=== PATIENT | female | born 1965 | race Caucasian/White ===

== ENCOUNTER 2016-10-27 07:28 | Outpatient (RCR) | payer BC ==
--- NOTE | 2016-10-22 16:46 | Diagnostic Imaging Report ---
INDICATION: Stone risk profile. KUB at 4:39 PM FINDINGS: The gallbladder appears to be surgically absent. The renal shadows appear normal. There are no calculi seen. Ureter distributions are clear. Urinary bladder is unremarkable. Bowel gas pattern is normal. There is scoliosis of the lumbar spine convex to right. IMPRESSION: No radiographic evidence for nephrolithiasis. Dictated by: Dictated on workstation # [id number]
[~2016-10-27 07:28] MED LIST: ALLP300T PO; ASP81TEC PO; ASPI-84; BENA10TA; BENA1TAB2 PO; CHOL10003; CHOL2000 PO; CIPR-225 PO; CPR500T; EXEN10PE4 SQ; FENO48TA16 PO; GLYB1.253; HYDR1TAB PO; IBP600T1 PO; INSU100V6 SQ; KCL10CCR; MTF500T; MTF500T PO; MULT-608; MULT-608 PO; NF-LOVAZAC; NF-LOVAZAC PO; NITR100C3 PO; NORE-4 PO; PANT40TA2 PO; PHEN100T17 PO; POTA10CA43 PO; POTA10TA17 PO; POTA10TA36 PO; PRM25T PO; SIMV10TA3; SMV10T PO; TRIA1CAP PO
[2016-10-31 14:35] LABS: STONE RISK AMMONIUM 33 mEq/24hr (14-62); STONE RISK BRUSHITE 4.33 (< 2.00); STONE RISK CA OXALATE 4.23 (< 2.00); STONE RISK CALCIUM 262 mg/day (< 250); STONE RISK CITRATE 738 mg/day (> 320); STONE RISK CREATININE 1308 mg/day (600-1800); STONE RISK MAGNESIUM 79 mg/day (> 60); STONE RISK OXALATE 40 mg/day (< 45); STONE RISK PH 6.8 (5.5-7.0); STONE RISK PHOSPHOROUS 459 mg/day (< 1100); STONE RISK POTASSIUM 17 mEq/24hr (19-135); STONE RISK SODIUM 193 mEq/24hr (< 200); STONE RISK SODIUM URATES 5.31 (< 2.00); STONE RISK STRUVITE 8.66 (< 75.00); STONE RISK SULFITE 10 mmol/day (< 30); STONE RISK TOTAL VOLUME 1.12 L/day (> 2.00); STONE RISK URIC ACID 433 mg/day (< 700); STONE RISK URIC ACID SAT 0.29 (< 2.00)
== END 2016-10-28 23:27 | disposition home or self-care (01) ==
LOC: RAD 07:28 → EDSTATUS 10-28 23:25 → RAD 10-28 23:27
PROVIDERS: ATTEND Urology
DX: N20.0 Calculus of kidney (principal)
CPT/HCPCS: 36415; 74000; 82140; 82340; 82507; 82570; 83735; 83945; 83986; 84105; 84133; 84300; 84392; 84560

== ENCOUNTER 2017-02-09 18:54 | Emergency (ER) | payer BC ==
[~2017-02-09] VITALS: Ht 170.2 cm; Wt 85.3 kg
--- OUTSIDE RECORDS SUMMARY | 2017-02-09 19:00 | XMS REPORT ---
Author Author YOU CRESOP Organization [employer] Address Unknown Phone Unavailable Care Team Providers Care Strategy Manager Name Role Phone YOU CRESPO CP Unavailable Allergies No Known Allergies Problems Problem Type Condition Code Onset Dates Condition Status Assessment Encounter for immunization Z23 Active Problem Need for prophylactic vaccination and inoculation, Influenza V04.81 Active Medications No Known Medications Procedures Procedure Coding System Code Date SINGLE IMMUNIZATION ADMIN CPT-4 20725 Apr 02, 2016 FLUARIX QUAD P-FREE 3 AND UP .50 2015 CPT-4 87008 Apr 02, 2016 Results No Known Results Immunizations Vaccine Administration Date FLUARIX QUAD P-FREE 3 AND UP .50 2015Apr 02, 2016 Summary Purpose [employer] Submission
--- OUTSIDE RECORDS SUMMARY | 2017-02-09 19:03 | XMS REPORT | Clinical Summary ---
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.3 Active Jessa Ortega Benign neoplasm of colon DERMATITIS 692.9 Resolved Jessa Ortega Contact dermatitis and other eczema, unspecified cause MICROALBUMINURIA 791.0 Active Jessa Ortega Proteinuria WELL WOMAN V70.0 Resolved Jessa Ortega Routine general medical examination at a health care facility SINUSITIS 473.9 Resolved Jessa Ortega Unspecified sinusitis (chronic) DIABETES MELLITUS, NONINSULIN DEPENDENT (NIDDM) 250.00 Active Jessa Ortega Diabetes mellitus without mention of complication, type II or unspecified type, not stated as uncontrolled HYPERCHOLESTEROLEMIA 272.0 Active Jessa Ortega Pure hypercholesterolemia DYSPNEA 786.09 Resolved Jessa Ortega Other dyspnea and respiratory abnormality CHEST PAIN, ATYPICAL 786.59 Resolved Jessa Ortega Other chest pain COUGH 786.2 Resolved Jessa Ortega Cough FEVER 780.6 Resolved Jessa Ortega Fever and other physiologic disturbances of temperature regulation SINUSITIS, SPHENOIDAL, ACUTE 461.3 Resolved Jessa Ortega Acute sphenoidal sinusitis RENAL CALCULUS 592.0 Active Jessa Ortega Calculus of kidney PYELONEPHRITIS, ACUTE 590.10 Resolved Jessa Ortega Acute pyelonephritis without lesion of renal medullary necrosis UNSPECIFIED DISORDER OF SKIN&SUBCUTANEOUS TISSUE 709.9 Resolved Jessa Ortega Unspecified disorder of skin and subcutaneous tissue CELLULAR DERMATOFIBROMA RIGHT LOWER LEG DR AHUMADA BENIGN NEOPLASM OF OVARY 220 Resolved Jessa Ortega Benign neoplasm of ovary HYPOKALEMIA 276.8 Active Jessa Ortega Hypopotassemia HAND PAIN, LEFT 729.5 Resolved Jessa Ortega Pain in limb URI 465.9 Resolved Jessa Ortega Acute upper respiratory infections of unspecified site Medication List Medication Instructions Start Date Stop Date Generic Name NDC Status Provider Patient Instruction POTASSIUM CHLORIDE ER 10 MEQ CR-CAPS 1 PO DAILY POTASSIUM CHLORIDE 05566996535 Active Chantel Lagunas LANTUS SOLOSTAR 100 UNIT/ML SOLN 36 units at night INSULIN GLARGINE 79103790318 Active Chantel Lagunas FLUOROPLEX 1 % CREA Apply as directed FLUOROURACIL 63882412169 No Longer Active Jessa Ortega TRICOR 48 MG TABS 1 PO daily FENOFIBRATE 37793010541 Active Jessa Ortega GENERESS FE 0.8-25 MG-MCG CHEW As directed NORETHIN-ETH ESTRADIOL-FE 99267952290 Active Jessa Ortega NYSTATIN 866423 UNIT/GM POWD apply to affected areas over Nystatin cream nightly NYSTATIN 05137638089 No Longer Active Jessa Ortega NYSTATIN 719178 UNIT/GM CREA apply to affect areas nightly 05/03 NYSTATIN 73740429862 No Longer Active Jessa Ortega LIPITOR 10 MG TAB 1 PO QD ATORVASTATIN CALCIUM 70936254825 Active Chantel Lagunas GLUCOPHAGE XR 500 MG TB24 2 PO Qpm METFORMIN HCL 98671231120 Active Jessa Ortega CEFTIN 500 MG TABS 1 PO BID for 10 days CEFUROXIME AXETIL 25389710675 No Longer Active Jessa MAGANA'S NASAL SPRAY (DEXAMETHASONE, GENTAMICIN, SALINE) 2 puffs each nostril TID for [address] LANDRY NASAL SPRAY ( DEXAMETHASONE, GENTAMICIN, SALINE) No Longer Active Jessa Ortega PEN NEEDLES 5/16" 31G X 8 MM MISC as directed INSULIN PEN NEEDLE 58419682720 Active Chantel Lagunas BYETTA 10 MCG PEN 10 MCG/0.04ML SOLN 1 injection twice daily EXENATIDE 85361653295 Active Jessa Ortega BYETTA 5 MCG PEN 5 MCG/0.02ML SOLN 1 injection twice daily for 1 month 04/25 EXENATIDE 74612737206 No Longer Active Jessa Ortega MICRONASE 1.25 MG TABS 2 PO in AM and 1 PO in evening. GLYBURIDE No Longer Active Jessa Ortega AUGMENTIN 875-125 MG TAB 1 PO BID AMOXICILLIN-POT CLAVULANATE 50351243823 No Longer Active Jessa MAGANA'Marcela NASAL SPRAY (DEXAMETHASONE, GENTAMICIN, SALINE) 2 puffs each nostril TID for [address] LANDRY NASAL SPRAY ( DEXAMETHASONE, GENTAMICIN, SALINE) No Longer Active Jessa Ortega LANCETS as directed LANCETS No Longer Active Jessa Ortega GLUCOMETER TESTING STRIPS Test blood sugar daily Dx: 250.00 01/07 GLUCOMETER TESTING STRIPS No Longer Active Jessa Ortega GLUCOMETER MACHINE as directed Dx: 250.00 GLUCOMETER MACHINE No Longer Active Jessa Ortega LOVAZA 1 GM CAPS 4 PO daily LMBFR-6-GHQJ ETHYL ESTERS 91803050772 Active Chantel Lagunas LORTAB 5 5-500 MG TABS 1 to 2 PO Q4hrs prn pain ACETAMINOPHEN-HYDROCODONE 14431691514 No Longer Active Jessa Ortega DYAZIDE 37.5-25 MG CAP 1 PO daily TRIAMTERENE-HCTZ 53575987134 Active Chantel Lagunas POTASSIUM CITRATE 10 MEQ (1080 MG) CR-TABS 1 PO TID POTASSIUM CITRATE 28726647769 Active Chantel Lagunas ZYLOPRIM 300 MG TABS 1 PO daily ALLOPURINOL 65565975285 Active Chantel Lagunas VITAMIN D 1000 UNIT TABS 2 PO Daily CHOLECALCIFEROL 70252483027 Active Jessa Ortega AUGMENTIN 875-125 MG TAB 1 PO BID AMOXICILLIN-POT CLAVULANATE 09991107324 No Longer Active Jessa LANDRY NASAL SPRAY (DEXAMETHASONE, GENTAMICIN, SALINE) 2 puffs each nostril TID for [address] LANDRY NASAL SPRAY ( DEXAMETHASONE, GENTAMICIN, SALINE) No Longer Active Jessa LANDRY NASAL SPRAY (DEXAMETHASONE, GENTAMICIN, SALINE) 2 puffs each nostril TID for [address] LANDRY NASAL SPRAY ( DEXAMETHASONE, GENTAMICIN, SALINE) No Longer Active Chantel Lagunas CIPRO 500 MG TAB 1 PO BID for 7 days CIPROFLOXACIN HCL 78243815048 No Longer Active Chantel Lagunas MULTIVITAMINS TABS 1 PO QD MULTIPLE VITAMIN 36993233242 Active Jessa Ortega LOTENSIN HCT 10-12.5 MG TABS 1 po daily BENAZEPRIL- HYDROCHLOROTHIAZIDE 04369589679 Active Chantel Lagunas TESSALON 200 MG CAPS 1 PO TID prn BENZONATATE 26520025595 No Longer Active Jessa Ortega LEVAQUIN 500 MG TAB 1 PO QD LEVOFLOXACIN 49873369876 No Longer Active Jessa Ortega ROBITUSSIN A-C 10-100 MG/5ML SYRUP 1 teaspoon PO Q 4-6 hr prn ROBITUSSIN A-C 10-100 MG/5ML SYRUP 46516104730 No Longer Active Jessa Ortega AUGMENTIN 500-125 MG TAB 1 PO BID AMOXICILLIN-POT CLAVULANATE 58485453228 No Longer Active Jessa Ortega ASPIRIN 81 MG CHEW 1 PO daily ASPIRIN 99412728761 Active Jessa Ortega ZOCOR 10 MG TAB 1 PO daily SIMVASTATIN 65455573477 No Longer Active Chantel MAGANA'S NASAL SPRAY (DEXAMETHASONE, GENTAMICIN, SALINE) 2 puffs each nostril BID DR. MAGANA'S NASAL SPRAY (DEXAMETHASONE, GENTAMICIN, SALINE) No Longer Active Alexsander Perez AUGMENTIN 500-125 MG TAB 1 PO BID AMOXICILLIN-POT CLAVULANATE 17678728199 No Longer Active Jessa Ortega OMACOR FISH OIL 1 PO QD OMACOR FISH OIL No Longer Active Scottie Shaw BENADRYL 25 MG TABS 2 PO QHS prn rash (Dr Marmolejo) DIPHENHYDRAMINE HCL 51690829578 Active Jessa Ortega ZYRTEC 10 MG TABS 1 PO daily for rash recurrence (Dr Marmolejo) CETIRIZINE HCL 76379675479 Active Jessa Ortega Immunizations Vaccine Administration Date Value Standard Description Influenza vaccine given done influenza virus vaccine, unspecified formulation Influenza vaccine given Done influenza virus vaccine, unspecified formulation Influenza vaccine given received influenza virus vaccine, unspecified formulation Vital Signs Date Name Value Unit Range Description blood pressure, diastolic - 8462-4 85 mm[Hg] BP wagner blood pressure, systolic - 8480-6 143 mm[Hg] BP sys pulse rate E&M - 8867-4 84 /min Heart rate respiratory rate E&M - 9279-1 14 /min Resp rate temperature E&M 98.6 [degF] Body temperature weight E&M - 3141-9 190 [lb_av] Weight Measured blood pressure, diastolic - 8462-4 80 mm[Hg] BP wagner blood pressure, systolic - 8480-6 125 mm[Hg] BP sys pulse rate E&M - 8867-4 70 /min Heart rate respiratory rate E&M - 9279-1 14 /min Resp rate temperature E&M 98.6 [degF] Body temperature weight E&M - 3141-9 192 [lb_av] Weight Measured blood pressure, diastolic - 8462-4 98 mm[Hg] BP wagner blood pressure, systolic - 8480-6 144 mm[Hg] BP sys pulse rate E&M - 8867-4 95 /min Heart rate respiratory rate E&M - 9279-1 14 /min Resp rate weight E&M - 3141-9 191 [lb_av] Weight Measured blood pressure, diastolic - 8462-4 90 mm[Hg] BP wagner blood pressure, systolic - 8480-6 130 mm[Hg] BP sys pulse rate E&M - 8867-4 72 /min Heart rate respiratory rate E&M - 9279-1 14 /min Resp rate temperature E&M 98.2 [degF] Body temperature weight E&M - 3141-9 191 [lb_av] Weight Measured Diagnostic Results Date Name Value Unit Range Description Clinical Lists Update: CBC,CMP,FLP,TSH,HgA1c - Chemistry albumin, serum 4.3 g/dL anion gap, serum 11 urea nitrogen, blood 8 mg/dL calcium, serum 9.9 mg/dL chloride, serum 104 mmol/L cholesterol, serum 170 mg/dL carbon dioxide, venous blood 29.0 mmol/L creatinine, serum 0.6 mg/dL HDL cholesterol, serum 30.0 mg/dL hemoglobin A1C, blood, as % of total hemoglobin 7.6 % thyroid stimulating hormone, serum 2.01 u[iU]/mL LDL cholesterol, serum 89 mg/dL potassium, serum 3.3 mmol/L protein, total, serum 6.2 g/dL aspartate aminotransferase (SGOT), serum 38 U/L alanine aminotransferase (SGPT), serum 38 U/L bilirubin, serum, total 0.5 mg/dL triglyceride, serum, fasting 254 mg/dL sodium, serum 141 mmol/L Estimated Glomerular Filtration Rate (calc) 106 mL/min/1.73m2 glucose, plasma fasting 172 mg/dL cholesterol/HDL ratio, serum, percent 5.7 alkaline phosphatase, serum 83 U/L Clinical Lists Update: CBC,CMP,FLP,TSH,HgA1c - Hematology hemoglobin, blood 14.6 g/dL hematocrit, blood 45 % platelet count 323 10*3/mm3 erythrocyte (RBC) count 4.87 10*6/mm3 leukocyte count, blood 9.2 10*3/mm3 mean corpuscular volume, RBC 92 fL red blood cell distribution width 14.1 % Clinical Lists Update: CMP,CHOL,TRIG,HG1C,MICROALBUMIN - Chemistry creatinine, serum 0.7 mg/dL albumin, serum 4.1 g/dL potassium, serum 3.3 mmol/L protein, total, serum 6.3 g/dL aspartate aminotransferase (SGOT), serum 25 U/L alanine aminotransferase (SGPT), serum 15 U/L bilirubin, serum, total 0.7 mg/dL triglyceride, serum, fasting 312 mg/dL sodium, serum 138 mmol/L anion gap, serum 12 glucose, plasma fasting 168 mg/dL Estimated Glomerular Filtration Rate (calc) 95 mL/min/1.73m2 carbon dioxide, venous blood 25.0 mmol/L cholesterol, serum 99 mg/dL chloride, serum 104 mmol/L calcium, serum 9.4 mg/dL urea nitrogen, blood 10 mg/dL alkaline phosphatase, serum 100 U/L hemoglobin A1C, blood, as % of total hemoglobin 8.0 % Clinical Lists Update: CMP,CHOL,TRIG,HG1C,MICROALBUMIN - Urinalysis microalbumin, urine, semiquantitative 8.1 mg/dL Clinical Lists Update: CMP,CHOL,TRIG,HGA1C - Chemistry Estimated Glomerular Filtration Rate (calc) 98 mL/min/1.73m2 albumin, serum 3.9 g/dL anion gap, serum 9 sodium, serum 135 mmol/L triglyceride, serum, fasting 343 mg/dL bilirubin, serum, total 0.4 mg/dL alanine aminotransferase (SGPT), serum 25 U/L aspartate aminotransferase (SGOT), serum 25 U/L protein, total, serum 5.9 g/dL potassium, serum 3.6 mmol/L hemoglobin A1C, blood, as % of total hemoglobin 8.0 % creatinine, serum 0.7 mg/dL carbon dioxide, venous blood 27.0 mmol/L cholesterol, serum 138 mg/dL chloride, serum 103 mmol/L calcium, serum 9.0 mg/dL urea nitrogen, blood 10 mg/dL alkaline phosphatase, serum 97 U/L glucose, plasma fasting 215 mg/dL Encounters Code Encounter Date Provider Facility CPT-19928 Ofc Vst, Est Level III 10:56:32 CDT Jessa Sandra Christensenner, DO, FACP CPT-93942 Ofc Vst, Est Level IV 17:14:47 CDT Jessa Sandra Ortega, DO, FACP CPT-50780 Ofc Vst, Est Level IV 13:22:06 CDT Jessasteven Ortega, DO, FACP CPT-61973 Ofc Vst, Est Level III 15:34:52 CDT Jessasteven Ortega, DO, FACP CPT-13402 Ofc Vst, Est Level III 16:59:08 CDT Jessasteven Ortega, DO, FACP CPT-30791 Ofc Vst, Est Level IV 17:03:09 PHLEBOTOMY SPECIALIST Jessa Ortega, DO, FACP CPT-51698 Ofc Vst, Est Level IV 16:16:33 CDT Jessasteven Ortega, DO, FACP CPT-64891 Ofc Vst, Est Level IV 13:20:40 CDT Jessasteven Ortega, DO, FACP CPT-58304 Ofc Vst, Est Level IV 13:17:50 PHLEBOTOMY SPECIALIST Jessasteven Ortega, DO, FACP CPT-71693 Ofc Vst, Est Level IV 14:27:48 CDT Jessasteven Medrano Ortega, DO, FACP CPT-38412 Ofc Vst, Est Level IV 16:03:51 CDT Jessa Sandra Medrano Ortega, DO, FACP CPT-66494 Ofc Vst, Est Level IV 15:58:18 PHLEBOTOMY SPECIALIST Jessa Sandra Medrano Ortega, DO, FACP CPT-14587 Ofc Vst, Est Level IV 16:36:52 CDT Jessa Sandra Medrano Ortega, DO, FACP CPT-22108 Ofc Vst, Est Level IV 11:23:19 CDT Jessa Sandra Medrano Ortega, DO, FACP CPT-54222 Ofc Vst, Est Level IV 14:55:25 CDT Jessa Sandra Medrano Ortega, DO, FACP CPT-47830 Ofc Vst, Est Level IV 15:56:06 CDT Jessa Sandra Medrano Ortega, DO, FACP CPT-40904 Ofc Vst, Est Level IV 15:49:20 CDT Jessa Sandra Medrano Ortega, DO, FACP CPT-16423 Ofc Vst, Est Level IV 16:22:22 CDT Jessasteven Medrano Ortega, DO, FACP CPT-00819 Ofc Vst, Est Level IV 15:56:47 CDT Jessa Sandra Medrano Ortega, DO, FACP CPT-65500 Ofc Vst, Est Level V 16:52:45 PHLEBOTOMY SPECIALIST Jessa Sandra Medrano Ortega, DO, FACP CPT-95674 Ofc Vst, Est Level III 15:47:36 PHLEBOTOMY SPECIALIST Jessa Ortega [facility] CPT-02238 Ofc Vst, Est Level IV 16:12:18 PHLEBOTOMY SPECIALIST Jessa Sandra Medrano Ortega, DO, FACP CPT-70281 Ofc Vst, Est Level IV 14:18:25 CDT Jessa Sandra Christensenner Jessa Medrano Jordan, DO, FACP CPT-50899 Ofc Vst, Est Level V 15:55:10 CDT Jessa Sandra Medrano Jordan, DO, FACP CPT-92056 Ofc Vst, Est Level IV 15:58:18 CDT Jessa Sandra Medrano Jordan, DO, FACP CPT-49489 Ofc Vst, Est Level IV 14:35:25 CDT Jessa Sandra Christensenner Jessa Medrano Jordan, DO, FACP CPT-59656 Ofc Vst, Est Level IV 16:04:09 CDT Jessasteven Christensenner Jessa Medrano Jordan, DO, FACP CPT-56545 Ofc Vst, Est Level III 14:29:48 CDT Jessa Sandra Christensenner Jessa Medrano Jordan, DO, FACP CPT-17174 Ofc Vst, Est Level III 16:01:04 PHLEBOTOMY SPECIALIST Jessasteven Christensenner Jessa Medrano Jordan, DO, FACP CPT-95265 Ofc Vst, Est Level IV 16:24:58 CDT Jessa Flores Ortega Jessa Marcela Jordan, DO, FACP CPT-63270 Ofc Vst, Est Level IV 09:30:24 CDT Jessasteven Ortega [facility] CPT-70776 Ofc Vst, Est Level IV 14:47:16 CDT Jessa Ortega [facility] CPT-16513 Ofc Vst, Est Level IV 16:47:00 PHLEBOTOMY SPECIALIST Jessa Ortega [facility] CPT-26254 Ofc Vst, Est Level IV 09:22:50 CDT Jessa Ortega [facility] [place] CPT-01342 Ofc Vst, Est Level IV 15:56:30 CDT Jessa Sandra Ortega [facility] CPT-32215 Ofc Vst, Est Level II 17:03:35 PHLEBOTOMY SPECIALIST Jessa Ortega [facility] CPT-68179 Ofc Vst, Est Level III 17:04:55 PHLEBOTOMY SPECIALIST Jessa Ortega [facility] CPT-38706 Ofc Vst, Est Level III 16:56:36 PHLEBOTOMY SPECIALIST Jessa Ortega [facility] CPT-68999 Ofc Vst, Est Level IV 16:50:25 CDT Jessa Ortega [facility] [place] CPT-93213 Ofc Vst, New Level III 19:35:53 PHLEBOTOMY SPECIALIST Jessa Ortega [facility] Procedures Code Procedure Name Date Entry Date Standard Description CPT-09617 Strep Test 14:39:21 CDT CPT-19111 Preventive, Est, (18-39) 17:39:15 PHLEBOTOMY SPECIALIST
--- OUTSIDE RECORDS SUMMARY | 2017-02-09 19:05 | XMS REPORT | Clinical Summary ---
Author Author User, HUMBERTO Organization [facility] [place] Address Unknown Phone Unavailable Allergies, Adverse Reactions, Alerts Allergy Name Reaction Description Start Date Severity Status Provider No Known Allergies Joselito Elizabeth Conditions or Problems Problem Name Problem Code [...] MEQ CR-CAPS 1 PO DAILY POTASSIUM CHLORIDE 91761438471 Active Chantel Lagunas LANTUS SOLOSTAR 100 UNIT/ML SOLN 36 units at night INSULIN GLARGINE 05843530282 Active Jessa Ortega FLUOROPLEX 1 % CREA Apply as directed FLUOROURACIL 44270219334 No Longer Active Jessa Ortega TRICOR 48 MG TABS 1 PO daily FENOFIBRATE 31657647373 Active Jessa Ortega GENERESS FE 0.8-25 MG-MCG CHEW As directed NORETHIN-ETH ESTRADIOL-FE 68193521658 Active Jessa Ortega NYSTATIN 489108 UNIT/GM POWD apply to affected areas over Nystatin cream nightly NYSTATIN 45117950301 No Longer Active Jessa Ortega NYSTATIN 616322 UNIT/GM CREA apply to affect areas nightly 05/03 NYSTATIN 56814397632 No Longer Active Jessa Ortega LIPITOR 10 MG TAB 1 PO QD ATORVASTATIN CALCIUM 90917481974 Active Chantel Lagunas GLUCOPHAGE XR 500 MG TB24 2 PO Qpm METFORMIN HCL 52147351506 Active Jessa Ortega CEFTIN 500 MG TABS 1 PO BID for 10 days CEFUROXIME AXETIL 23067301794 No Longer Active Jessa MAGANA'Marcela NASAL SPRAY (DEXAMETHASONE, GENTAMICIN, SALINE) 2 puffs each nostril TID for [address] LANDRY NASAL SPRAY ( DEXAMETHASONE, GENTAMICIN, SALINE) No Longer Active Jessa Ortega PEN NEEDLES 5/16" 31G X 8 MM MISC as directed INSULIN PEN NEEDLE 13645112547 Active Chantel Lagunas BYETTA 10 MCG PEN 10 MCG/0.04ML SOLN 1 injection twice daily EXENATIDE 99548819356 Active Jessa Ortega BYETTA 5 MCG PEN 5 MCG/0.02ML SOLN 1 injection twice daily for 1 month 04/25 EXENATIDE 58819351744 No Longer Active Jessa Ortega MICRONASE 1.25 MG TABS 2 PO in AM and 1 PO in evening. GLYBURIDE No Longer Active Jessa Ortega AUGMENTIN 875-125 MG TAB 1 PO BID AMOXICILLIN-POT CLAVULANATE 99547963085 No Longer Active Jessa MAGANA'Marcela NASAL SPRAY [...] LOVAZA 1 GM CAPS 4 PO daily [id number] ETHYL ESTERS 77883671016 Active Chantel Lagunas LORTAB 5 5-500 MG TABS 1 to 2 PO Q4hrs prn pain ACETAMINOPHEN-HYDROCODONE 33793563128 No Longer Active Jessa Ortega DYAZIDE 37.5-25 MG CAP 1 PO daily TRIAMTERENE-HCTZ 45461093701 Active Chantel Lagunas POTASSIUM CITRATE 10 MEQ (1080 MG) CR-TABS 1 PO TID POTASSIUM CITRATE 87987314787 Active Chantel Lagunas ZYLOPRIM 300 MG TABS 1 PO daily ALLOPURINOL 72894181529 Active Chantel Lagunas VITAMIN D 1000 UNIT TABS 2 PO Daily CHOLECALCIFEROL 53967041729 Active Jessa Ortega AUGMENTIN 875-125 MG TAB 1 PO BID AMOXICILLIN-POT CLAVULANATE 62092842838 No Longer Active Jessa LANDRY NASAL SPRAY [...] PO BID for 7 days CIPROFLOXACIN HCL 45581917603 No Longer Active Chantel Lagunas MULTIVITAMINS TABS 1 PO QD MULTIPLE VITAMIN 91516912055 Active Jessa Ortega LOTENSIN HCT 10-12.5 MG TABS 1 po daily BENAZEPRIL- HYDROCHLOROTHIAZIDE 13053721428 Active Chantel Lagunas TESSALON 200 MG CAPS 1 PO TID prn BENZONATATE 91030691925 No Longer Active Jessa Ortega LEVAQUIN 500 MG TAB 1 PO QD LEVOFLOXACIN 06578870528 No Longer Active Jessa Ortega ROBITUSSIN A-C 10-100 MG/5ML SYRUP 1 teaspoon PO Q 4-6 hr prn ROBITUSSIN A-C 10-100 MG/5ML SYRUP 43502466556 No Longer Active Jessa Ortega AUGMENTIN 500-125 MG TAB 1 PO BID AMOXICILLIN-POT CLAVULANATE 83740209801 No Longer Active Jessa Ortega ASPIRIN 81 MG CHEW 1 PO daily ASPIRIN 24522283250 Active Jessa Ortega ZOCOR 10 MG TAB 1 PO daily SIMVASTATIN 60055092892 No Longer Active Chantel MAGANA'S NASAL SPRAY (DEXAMETHASONE, GENTAMICIN, SALINE) 2 puffs each nostril BID DR. MAGANA'S NASAL SPRAY (DEXAMETHASONE, GENTAMICIN, SALINE) No Longer Active Alexsander Perez AUGMENTIN 500-125 MG TAB 1 PO BID AMOXICILLIN-POT CLAVULANATE 89584459932 No Longer Active Jessa Ortega OMACOR FISH OIL 1 PO QD OMACOR FISH OIL No Longer Active Scottie Shaw BENADRYL 25 MG TABS 2 PO QHS prn rash (Dr Marmolejo) DIPHENHYDRAMINE HCL 82581355600 Active Jessa Ortega ZYRTEC 10 MG TABS 1 PO daily for rash recurrence (Dr Marmolejo) CETIRIZINE HCL 02859862070 Active Jessa Ortega Immunizations Vaccine Administration Date [...] mg/dL Encounters Code Encounter Date Provider Facility CPT-21740 Ofc Vst, Est Level III 10:56:32 CDT Jessa Sandra Christensenner, DO, FACP CPT-15265 Ofc Vst, Est Level IV 17:14:47 CDT Jessa Sandra Ortega, DO, FACP CPT-74971 Ofc Vst, Est Level IV 13:22:06 CDT Jessasteven Ortega, DO, FACP CPT-29263 Ofc Vst, Est Level III 15:34:52 CDT Jessasteven Ortega, DO, FACP CPT-33208 Ofc Vst, Est Level III 16:59:08 CDT Jessasteven Ortega, DO, FACP CPT-55473 Ofc Vst, Est Level IV 17:03:09 [employer]ODUCTION [employer]ING WORK[employer] Jessa Ortega, DO, FACP CPT-51717 Ofc Vst, Est Level IV 16:16:33 CDT Jessasteven Ortega, DO, FACP CPT-70665 Ofc Vst, Est Level IV 13:20:40 CDT Jessasteven Ortega, DO, FACP CPT-18741 Ofc Vst, Est Level IV 13:17:50 [employer]ODUCTION MANUFACTURING WORKER Jessa Ortega, DO, FACP CPT-46716 Ofc Vst, Est Level IV 14:27:48 CDT Jessasteven Medrano Ortega, DO, FACP CPT-62795 Ofc Vst, Est Level IV 16:03:51 CDT Jessa Sandra Medrano Ortega, DO, FACP CPT-47978 Ofc Vst, Est Level IV 15:58:18 [employer]ODUCTION MANUFACTURING WORKER Jessa Sandra Medrano Ortega, DO, FACP CPT-16097 Ofc Vst, Est Level IV 16:36:52 CDT Jessa Sandra Medrano Ortega, DO, FACP CPT-37357 Ofc Vst, Est Level IV 11:23:19 CDT Jessa Sandra Medrano Ortega, DO, FACP CPT-94839 Ofc Vst, Est Level IV 14:55:25 CDT Jessa Sandra Medrano Ortega, DO, FACP CPT-09452 Ofc Vst, Est Level IV 15:56:06 CDT Jessa Sandra Medrano Ortega, DO, FACP CPT-54795 Ofc Vst, Est Level IV 15:49:20 CDT Jessa Sandra Medrano Ortega, DO, FACP CPT-91662 Ofc Vst, Est Level IV 16:22:22 CDT Jessasteven Medrano Ortega, DO, FACP CPT-42332 Ofc Vst, Est Level IV 15:56:47 CDT Jessa Sandra Medrano Ortega, DO, FACP CPT-79978 Ofc Vst, Est Level V 16:52:45 [employer]ODUCTION MANUFACTURING WORKER Jessa Medrano Ortega, DO, FACP CPT-55376 Ofc Vst, Est Level III 15:47:36 [employer]ODUCTION MANUFACTURING WORKER Jessa Ortega [facility] CPT-68621 Ofc Vst, Est Level IV 16:12:18 [employer]ODUCTION MANUFACTURING WORKER Jessa Sandra Medrano Ortega, DO, FACP CPT-68544 Ofc Vst, Est Level IV 14:18:25 CDT Jessa Sandra Ortega Jessa Marcela Jordan, DO, FACP CPT-80550 Ofc Vst, Est Level V 15:55:10 CDT Jessa Sandra Christensenner Jessasteven Ortega, DO, FACP CPT-98372 Ofc Vst, Est Level IV 15:58:18 CDT Jessa Sandra Christensenner Jessa Medrano Jordan, DO, FACP CPT-38068 Ofc Vst, Est Level IV 14:35:25 CDT Jessa Sandra Jordan Jessasteven Ortega, DO, FACP CPT-15867 Ofc Vst, Est Level IV 16:04:09 CDT Jessasteven Flores Jordan Ortega, DO, FACP CPT-82888 Ofc Vst, Est Level III 14:29:48 CDT Jessa Sandra Jordan Ortega, DO, FACP CPT-47247 Ofc Vst, Est Level III 16:01:04 [employer]ODUCTION MANUFACTURING WORKER Jessa Sandra Jordan Ortega, DO, FACP CPT-97248 Ofc Vst, Est Level IV 16:24:58 CDT Jessasteven Flores Jordan Ortega, DO, FACP CPT-52430 Ofc Vst, Est Level IV 09:30:24 CDT Jessasteven Ortega [facility] CPT-14084 Ofc Vst, Est Level IV 14:47:16 CDT Jessa Ortega [facility] [place] CPT-51787 Ofc Vst, Est Level IV 16:47:00 [employer]ODUCTION MANUFACTURING WORKER Jessa Ortega [facility] [place] CPT-63524 Ofc Vst, Est Level IV 09:22:50 CDT Jessa Ortega [facility] [place] CPT-39731 Ofc Vst, Est Level IV 15:56:30 CDT Jsesa Sandra Ortega [facility] CPT-47151 Ofc Vst, Est Level II 17:03:35 [employer]ODUCTION MANUFACTURING WORKER Jessa Ortega [facility] [place] CPT-33352 Ofc Vst, Est Level III 17:04:55 PRODUCTION MANUFACTURING WORKER Jessa Ortega [facility] [place] CPT-25444 Ofc Vst, Est Level III 16:56:36 PRODUCTION MANUFACTURING WORKER Jessa Ortega [facility] [place] CPT-94140 Ofc Vst, Est Level IV 16:50:25 CDT Jessa Ortega [facility] [place] CPT-23181 Ofc Vst, New Level III 19:35:53 PRODUCTION MANUFACTURING WORKER Jessa Ortega [facility] [place] Procedures Code Procedure Name Date Entry Date Standard Description CPT-66486 Strep Test 14:39:21 CDT CPT-65262 Preventive, Est, (18-39) 17:39:15 PRODUCTION MANUFACTURING WORKER
[2017-02-09] MEDS ORDERED: LIDOCAINE 2% VISCOUS 15 ML UDC PO ONE (19:30)
[2017-02-09] MEDS ORDERED: ANTACID SUSP 30 ML UDC (MYLANTA) PO ONE (19:30)
--- NOTE | 2017-02-09 19:34 | ED EENT ---
History of Present Illness General Chief Complaint: Oral/Throat Problems Stated Complaint: THROAT ISSUES Nursing Triage Note: PT AMBULATED TO ROOM. PT STATES AT APPROX. 1830 PT TOOK HER EVENING PILLS AFTER EATING SUPPER AND STATES SHE FEELS LIKE THE PILLS ARE STUCK IN HER THROAT. PT STATES SHE ALSO VOMITED ABOUT THAT SAME TIME. PT STATES THIS HAS HAPPENED BEFORE. Source: patient Exam Limitations: no limitations History of Present Illness Time seen by provider: 19:31 Initial Comments To ER with a foreign body sensation in her throat. She states that she had just eaten dinner which was a hamburger. She went to take her evening medications which include potassium chloride, Protonix, metformin. She states the Protonix went down easily but she felt as though the potassium and the metformin got stuck on the left side of her throat. She drinks several glasses of water and then vomited attempting to get these to come back up but was unable to. She has a history of esophageal stricture with dilation about June [address] Post. Over the past week she has noticed increased difficulty with eating food to pass through the esophagus. Timing/Duration: gradual Severity: moderate Associated Symptoms: denies symptoms Allergies and Home Medications Allergies Coded Allergies: No Known Drug Allergies (Verified , 07/27/15) Home Medications Allopurinol 300 Mg Tab, 300 MG PO DAILY, (Reported) Aspirin 81 Mg Tabec, 81 MG PO DAILY, (Reported) MAY RESTART ASPIRIN ON Thursday09/13/10 Cholecalciferol 2,000 Unit Capsule, 2,000 UNIT PO DAILY, (Reported) Ciprofloxacin HCl 500 Mg Tablet, 500 MG PO BID, #14 Prescribed by: JAX JADE on 09/05/15 0233 Exenatide 10 Mcg/0.04 Pen.injctr, 10 MCG SQ BID, (Reported) Fenofibrate 48 Mg Tab, 48 MG PO DAILY, (Reported) Hctz/Benazepril 1 Each Tablet, 1 EACH PO DAILY, (Reported) Insulin Glargine,Hum.rec.anlog 100 Unit/1 Ml Vial, 36 UNIT SQ HS, (Reported) Metformin Hcl 500 Mg Tab, 500 MG PO BID, (Reported) Multivitamins 1 Tab Tablet, 1 TAB PO DAILY, (Reported) Noreth-Ethinyl Estradiol/Iron 1 Each Tab.chew, 1 EACH PO DAILY, (Reported) [place]-3 Acid Ethyl Esters 1 Gm Capsule, 2 EACH PO QID, (Reported) Pantoprazole Sodium 40 Mg Tablet.dr, 40 MG PO DAILY, #30 Ref 6 Prescribed by: MARIA ALEJANDRA POST on 07/27/15 1421 Potassium Chloride 10 Meq Tab.prt.sr, 1 EACH PO DAILY WITH MEAL, (Reported) Potassium Citrate 10 Meq Tablet.er, 30 MEQ PO DAILY, (Reported) Simvastatin 10 Mg Tab, 10 MG PO DAILY, (Reported) Triamterene/Hctz 1 Each Capsule, 1 EACH PO DAILY, (Reported) Review of Systems Constitutional: see HPI Eyes: No Symptoms Reported Ears: No Symptoms Reported Nose: no symptoms reported Mouth: no symptoms reported Throat: no symptoms reported Respiratory: no symptoms reported Cardiovascular: no symptoms reported Gastrointestinal: no symptoms reported Musculoskeletal: no symptoms reported Skin: no symptoms reported Neurological: No Symptoms Reported Hematologic/Lymphatic: No Symptoms Reported Past Lyndrlo-Hxordp-Xoqkiw Hx Patient Social History Alcohol Use: Denies Use Recreational Drug Use: No Smoking Status: Never a Smoker 2nd Hand Smoke Exposure: No Recent Foreign Travel: No Contact w/Someone Who Travel: No Recent Infectious Disease Expo: No Recent Hopitalizations: No Seasonal Allergies Seasonal Allergies: No Surgeries HX Surgeries: Yes (WISDOM TEETH, ESWL, OVARIAN CYSTECTOMY, HERNIA , lithrotripsy) Surgeries: Abdominal, Appendectomy, Oophorectomy Respiratory Hx Respiratory Disorders: No Cardiovascular Hx Cardiac Disorders: Yes Cardiac Disorders: High Cholesterol, Hypertension Neurological Hx Neurological Disorders: No Reproductive System Hx Reproductive Disorders: No Sexually Transmitted Disease: No Genitourinary Hx Genitourinary Disorders: Yes (LEFT RENAL STONES) Genitourinary Disorders: Kidney Stones Gastrointestinal Hx Gastrointestinal Disorders: No Musculoskeletal Hx Musculoskeletal Disorders: No Endocrine Hx Endocrine Disorders: Yes Endocrine Disorders: Diabetes, Insulin dep HEENT HX ENT Disorders: No Blood Transfusions Hx Blood Disorders: No Physical Exam Vital Signs Vital Sign - Last 12Hours 02/09/17 19:16 Temp 97.7 Pulse 107 Resp 24 B/P (MAP) 196/120 Pulse Ox 96 O2 Delivery Room Air General Appearance: WD/WN, no apparent distress, other (she is noted to be able to swallow her own secretions) Eyes: bilateral eye EOMI, bilateral eye PERRL, bilateral eye normal inspection Ears: bilateral ear TM normal, bilateral ear auricle normal, bilateral ear canal normal Neck: non-tender, full range of motion Respiratory: no respiratory distress, no accessory muscle use Gastrointestinal: normal bowel sounds, non tender, soft Neurologic/Psychiatric: alert, normal mood/affect, oriented x 3 Skin: normal color, warm/dry Progress/Results/Core Measures Results/Orders Lab Results Laboratory Tests Test 02/09/17 20:30 Range/Units White Blood Count 11.4 H 4.3-11.0 10^3/uL Red Blood Count 5.16 4.35-5.85 10^6/uL Hemoglobin 15.3 11.5-16.0 G/DL Hematocrit 44 35-52 % Mean Corpuscular Volume 86 80-99 FL Mean Corpuscular Hemoglobin 30 25-34 PG Mean Corpuscular Hemoglobin Concent 35 32-36 G/DL Red Cell Distribution Width 13.1 10.0-14.5 % Platelet Count 287 130-400 10^3/uL Mean Platelet Volume 9.7 7.4-10.4 FL Neutrophils (%) (Auto) 57 42-75 % Lymphocytes (%) (Auto) 32 12-44 % Monocytes (%) (Auto) 7 0-12 % Eosinophils (%) (Auto) 3 0-10 % Basophils (%) (Auto) 1 0-10 % Neutrophils # (Auto) 6.5 1.8-7.8 X 10^3 Lymphocytes # (Auto) 3.7 1.0-4.0 X 10^3 Monocytes # (Auto) 0.8 0.0-1.0 X 10^3 Eosinophils # (Auto) 0.3 0.0-0.3 10^3/uL Basophils # (Auto) 0.2 H 0.0-0.1 10^3/uL Sodium Level 137 135-145 MMOL/L Potassium Level 3.4 L 3.6-5.0 MMOL/L Chloride Level 105 98-107 MMOL/L Carbon Dioxide Level 15 L 21-32 MMOL/L Anion Gap 17 H 5-14 MMOL/L Blood Urea Nitrogen 8 7-18 MG/DL Creatinine 0.73 0.60-1.30 MG/DL Estimat Glomerular Filtration Rate > 60 BUN/Creatinine Ratio 11 Glucose Level 281 H 70-105 MG/DL Calcium Level 9.5 8.5-10.1 MG/DL Total Bilirubin 0.5 0.1-1.0 MG/DL Aspartate Amino Transf (AST/SGOT) 32 5-34 U/L Alanine Aminotransferase (ALT/SGPT) 25 0-55 U/L Alkaline Phosphatase 106 40-136 U/L Troponin I < 0.30 <0.30 NG/ML Total Protein 7.0 6.4-8.2 GM/DL Albumin 4.0 3.2-4.5 GM/DL Lipase 47 8-78 U/L My Orders Orders - ARVIND CERVANTES APRN Antacid Suspension (Mylanta Suspension (02/09/17 19:30) Lidocaine 2% Viscous 15 Ml (Xylocaine Vi (02/09/17 19:30) Cbc With Automated Diff (02/09/17 20:16) Troponin I (02/09/17 20:16) Comprehensive Metabolic Panel (02/09/17 20:16) Lipase (02/09/17 20:16) Saline Lock/Iv-Start (02/09/17 20:16) Ct Chest/Abdomen W (02/09/17 20:16) Ekg Tracing (02/09/17 20:19) Iohexol Injection (Omnipaque 350 Mg/Ml 1 (02/09/17 21:15) Ns (Ivpb) (Sodium Chloride 0.9% Ivpb Bag (02/09/17 21:15) Lactated Ringers (Lr 1000 Ml Iv Solution (02/09/17 21:15) Metoprolol Tartrate Injection (Lopressor (02/09/17 22:15) Medications Given in ED Current Medications Medications Dose Ordered Sig/Radha Route Start Time Stop Time Status Last Admin Dose Admin Al Hydrox/Mg Hydrox/Simethicone 30 ml ONCE ONCE PO 02/09/17 19:30 02/09/17 19:31 DC 02/09/17 19:39 30 ML Iohexol 100 ml ONCE ONCE IV 02/09/17 21:15 02/09/17 21:21 DC 02/09/17 21:18 100 ML Lidocaine HCl 15 ml ONCE ONCE PO 02/09/17 19:30 02/09/17 19:31 DC 02/09/17 19:39 15 ML Metoprolol Tartrate 5 mg ONCE ONCE IV 02/09/17 22:15 02/09/17 22:16 DC 02/09/17 22:07 5 MG Sodium Chloride 100 ml ONCE ONCE IV 02/09/17 21:15 02/09/17 21:21 DC 02/09/17 21:18 80 ML Vital Signs/I&O Vital Sign - Last 12Hours 02/09/17 19:16 Temp 97.7 Pulse 107 Resp 24 B/P (MAP) 196/120 Pulse Ox 96 O2 Delivery Room Air Blood Pressure Mean: 145 Diagnostic Imaging Diagonstic Imaging: CT Comments NAME: ABHIJIT CALDERON [facility] REC#: [id number] PT STATUS: REG ER : 1965 PHYSICIAN: ARVIND CERVANTES WELD FITTER ADMIT DATE: 02/09/17/ER Draft Date of Exam:02/09/17 CT CHEST/ABDOMEN W PROCEDURE: CT chest and abdomen with contrast. TECHNIQUE: Multiple contiguous axial images were obtained through the chest and abdomen after the administration of intravenous contrast. INDICATION: Possible foreign body in the esophagus. COMPARISON: 02/02/2012 FINDINGS: CT chest: Cardiomediastinal structures show normal heart size. There is no large pericardial effusion. Small hiatal hernia is noted. No pathologically enlarged or morphologically abnormal adenopathy is seen within the mediastinum, brice, nor axilla. Lung windows show no focal consolidation, large effusion, nor pneumothorax. No pulmonary nodules or masses are seen. Bony structures show no acute abnormalities. CT abdomen: Liver is diffusely hypodense on this postcontrast exam. Distal tip of the right lobe of the liver is not included, but visualized portions of the liver show no focal hepatic mass type lesions. Multiple small subcentimeter hypoenhancing renal foci are noted bilaterally. Otherwise, the kidneys, adrenal glands, spleen, and pancreas have a normal CT appearance. Included small bowel loops are nondistended. Appendix and cecum are not included on the exam. There is no loculated fluid collection, free fluid, nor free air within the abdomen. No abnormal mesenteric or retroperitoneal adenopathy is seen. Note is made of duodenal diverticulum. Bony structures show no acute abnormalities. IMPRESSION: 1. No acute abnormalities within the chest or abdomen. 2. Hepatic steatosis. 3. Small hiatal hernia. 4. Multiple small subcentimeter hypoenhancing rounded renal foci bilaterally. Conceivably, this could be on the basis of multiple small renal cysts, but are too small to adequately characterize based on this exam. Dictated on workstation # [id number] Dict: 02/09/172142 Trans: 02/09/172152 [facility] [id number] Interpreted by: LINDSEY ÁLVAREZ Electronically signed by: Departure Communication Progress Notes 2021-no real improvement after the GI cocktail. I discussed the case with Dr. Cabrera who is on-call for surgery tonight. Agrees that if the patient is tolerating oral intake okay (and she is, no regurgitation or vomiting) EGD should be urgent but not necessarily tonight. 2116- discussed labs with Dr. Curtis who agrees with current plan of care. 2224- feels as though the discomfort on the left side of her throat is moving inferiorly. Does feel better at this time. Her blood pressure is elevated at 200/110 with a heart rate of 89 so I did give metoprolol 5 mg IV so as not add another pill to her problems. She states that she does take a blood pressure medication at home "when I remember to" Impression Impression: Primary Impression: Esophageal pain Additional Impression: Hypertension Disposition: HOME, SELF-CARE Condition: Stable Departure-Patient Inst. Decision time for Depature: 21:58 Referrals: SARAH AGUILAR DO (PCP/Family) Primary Care Physician Patient Instructions: NO INSTRUCTIONS GIVEN Add. Discharge Instructions: All discharge instructions reviewed with patient and/or family. Voiced understanding. 1. Follow-up with Dr. Post. Call his office tomorrow to make an appointment to be seen as you need to schedule another EGD 2. Return to ER for any concerns or worsening symptoms 3. Copy Copies To 1: SARAH AGUILAR DO; MARIA ALEJANDRA POST MD, PETER J APRN Feb 09, 2017 19:34
[2017-02-09 20:37] LABS: BASOPHILS # (AUTO) 0.2 10^3/uL (0.0-0.1); BASOPHILS % (AUTO) 1 % (0-10); EOSINOPHILS # (AUTO) 0.3 10^3/uL (0.0-0.3); EOSINOPHILS % (AUTO) 3 % (0-10); LYMPHOCYTES # (AUTO) 3.7 X 10^3 (1.0-4.0); LYMPHOCYTES % (AUTO) 32 % (12-44); MEAN CORPUSCULAR HEMOGLOBIN 30 PG (25-34); MEAN CORPUSCULAR HGB CONC 35 G/DL (32-36); MEAN CORPUSCULAR VOLUME 86 FL (80-99); MEAN PLATELET VOLUME 9.7 FL (7.4-10.4); MONOCYTES # (AUTO) 0.8 X 10^3 (0.0-1.0); MONOCYTES % (AUTO) 7 % (0-12); NEUTROPHILS # (AUTO) 6.5 X 10^3 (1.8-7.8); NEUTROPHILS % (AUTO) 57 % (42-75); PLATELET COUNT 287 10^3/uL (130-400); RED BLOOD COUNT 5.16 10^6/uL (4.35-5.85); RED CELL DISTRIBUTION WIDTH 13.1 % (10.0-14.5); WHITE BLOOD COUNT 11.4 10^3/uL (4.3-11.0)
[2017-02-09 21:03] LABS: ALANINE AMINOTRANSFERASE 25 U/L (0-55); ANION GAP 17 MMOL/L (5-14); ASPARTATE AMINO TRANSFERASE 32 U/L (5-34); BILIRUBIN,TOTAL 0.5 MG/DL (0.1-1.0); BLOOD UREA NITROGEN 8 MG/DL (7-18); BUN/CREATININE RATIO 11; CALCIUM 9.5 MG/DL (8.5-10.1); CARBON DIOXIDE 15 MMOL/L (21-32); CHLORIDE 105 MMOL/L (98-107); CREATININE SERUM 0.73 MG/DL (0.60-1.30); GFR ESTIMATED > 60; GLUCOSE 281 MG/DL (70-105); LIPASE 47 U/L (8-78); POTASSIUM 3.4 MMOL/L (3.6-5.0); SODIUM 137 MMOL/L (135-145)
[2017-02-09] MEDS ORDERED: LACTATED RINGERS 1,000 ML IV SCH (21:15)
[2017-02-09] MEDS ORDERED: NS 100 ML (IVPB) BAG IV ONE (21:15)
[2017-02-09] MEDS ORDERED: IOHEXOL 350 MG/ML 100 ML (OMNIPAQUE 350) VIAL IV ONE (21:15)
[2017-02-09 21:44] LABS: TROPONIN I < 0.30 NG/ML (<0.30)
--- NOTE | 2017-02-09 21:53 | Diagnostic Imaging Report ---
PROCEDURE: CT chest and abdomen with contrast. TECHNIQUE: Multiple contiguous axial images were obtained through the chest and abdomen after the administration of intravenous contrast. INDICATION: Possible foreign body in the esophagus. COMPARISON: 02/02/2012 FINDINGS: CT chest: Cardiomediastinal structures show normal heart size. There is no large pericardial effusion. Small hiatal hernia is noted. No pathologically enlarged or morphologically abnormal adenopathy is seen within the mediastinum, brice, nor axilla. Lung windows show no focal consolidation, large effusion, nor pneumothorax. No pulmonary nodules or masses are seen. Bony structures show no acute abnormalities. CT abdomen: Liver is diffusely hypodense on this postcontrast exam. Distal tip of the right lobe of the liver is not included, but visualized portions of the liver show no focal hepatic mass type lesions. Multiple small subcentimeter hypoenhancing renal foci are noted bilaterally. Otherwise, the kidneys, adrenal glands, spleen, and pancreas have a normal CT appearance. Included small bowel loops are nondistended. Appendix and cecum are not included on the exam. There is no loculated fluid collection, free fluid, nor free air within the abdomen. No abnormal mesenteric or retroperitoneal adenopathy is seen. Note is made of duodenal diverticulum. Bony structures show no acute abnormalities. IMPRESSION: 1. No acute abnormalities within the chest or abdomen. 2. Hepatic steatosis. 3. Small hiatal hernia. 4. Multiple small subcentimeter hypoenhancing rounded renal foci bilaterally. Conceivably, this could be on the basis of multiple small renal cysts, but are too small to adequately characterize based on this exam. Dictated by: Dictated on workstation # [id number]
[2017-02-09] MEDS ORDERED: meTOprolol 5 MG/5 ML (LOPRESSOR) VIAL IV ONE (22:15)
[2017-02-09 22:29] VITALS: BP 175/107
== END 2017-02-09 22:29 | disposition home or self-care (01) ==
LOC: EDUNIT# 18:54 → ER 18:56
DX: Z04.3 Encounter for examination and observation following other accident (principal)
CPT/HCPCS: 36415; 71260; 74160; 80053; 83690; 84484; 85025; 96361; 96374

== ENCOUNTER 2017-02-19 05:53 | Outpatient (CLI) | payer BC ==
[~2017-02-19] VITALS: Ht 170.2 cm; Wt 85.3 kg
== END 2017-02-19 16:17 ==
LOC: PREOP 05:53
PROVIDERS: ATTEND Obstetrics & Gynecology
DX: Z01.818 Encounter for other preprocedural examination (principal); K21.9 Gastro-esophageal reflux disease without esophagitis; R10.13 Epigastric pain; Z87.19 Personal history of other diseases of the digestive system

== ENCOUNTER 2017-02-23 09:51 | Day surgery (SDC) | payer BC ==
[2017-02-23] MEDS ORDERED: NS IV 500 ML 500 ML IV PRN (10:00)
[2017-02-23 10:15] VITALS: BP 163/97
[2017-02-23] MEDS ORDERED: NS IV 500 ML 500 ML ONE (10:43)
--- NOTE | 2017-02-23 11:02 | Conscious Sedation/ASA ---
Conscious Sedation Pre-Proced Time Reviewed: 11:01 ASA Class: 2 Airway Mallampati Classification: ([place] appropriate class) I. II. III, IV Lungs Heart ASA score ASA 1: a normal healthy patient ASA 2: a patient with a mild systemic disease (mid diabetes, controlled hypertension, obesity ASA 3: a patient with a severe systemic disease that limits activity (angina , COPD, prior Myocardial infarction) ASA 4: a patient with an incapacitating disease that is a constant threat to life (CHF, renal failure) ASA 5: a moribund patient not expected to survive 24 hrs. (ruptured aneurysm) ASA 6: a declared brain patient whose organs are being harvested. For emergent operations, add the letter E after the classification Grade 2 Sedation Plan: Discussed options with patient/fam Note The patient is an appropriate candidate to undergo the planned procedure, sedation, and anesthesia. The patient immediately re-assessed prior to indication. MARIA ALEJANDRA POST MD Feb 23, 2017 11:02 am
[2017-02-23] MEDS ORDERED: PANT40TA2 PO (11:14)
[2017-02-23] MEDS ORDERED: ATOR10TA66 PO (11:14)
[2017-02-23] MEDS ORDERED: POTA15TA9 PO (11:14)
[2017-02-23] MEDS ORDERED: EXEN2PEN SQ (11:17)
[2017-02-23] MEDS ORDERED: MIDAZOLAM 2 MG/2 ML (VERSED) VIAL ONE ×3 (11:46)
[2017-02-23] MEDS ORDERED: fentaNYL INJECTION 100 MCG/2 ML AMP ONE (11:46)
[2017-02-23] MEDS ORDERED: HURRICAINE EXT TUBE (BENZOCAINE) ONE (11:47)
[2017-02-23] MEDS: fentaNYL INJECTION 100 MCG/2 ML AMP IVP PRN ×2 (11:51→11:55)
[2017-02-23] MEDS: MIDAZOLAM 2 MG/2 ML (VERSED) VIAL IVP PRN ×3 (11:52→11:58)
--- NOTE | 2017-02-23 12:20 | Endo Procedure Record ---
Endo Procedure Report Date of Procedure Feb 23, 2017 Surgeon (s) MARIA ALEJANDRA POST MD Post Procedure/Op Diagnosis recurrent esophageal stricture Procedure Performed EGD with balloon dilatation Description of Procedure Anesthesia Type: Conscious Sedation Specimen(s) collected/removed none Description of the Procedure Indication for procedure: This lady came in for recurrent dysphagia. About 18 months ago, she had undergone endoscopic balloon dilatation of a benign distal esophageal stricture with resolution of her symptoms. Therefore, it is felt reasonable to repeat endoscopy and possibly perform further dilatation. Informed consent was obtained after reviewing the procedure in detail. Description of the procedure: She was placed in left lateral decubitus position and her vital signs were monitored. Conscious sedation was achieved using Versed and fentanyl. The flexible gastroscope was then introduced down the esophagus, past the stomach, into the proximal duodenum. Findings Esophagus:Concentric, smooth distal esophageal stricture, having the appearance of a peptic stricture. It was dilated to 18 mm with a balloon. stomach and duodenum were normal. She tolerated the procedure well and was taken back to the nursing area in a stable condition. Impression: Distal esophageal, recurrent stricture. Further balloon dilatation completed. Copies To: SARAH AGUILAR XAVIER M MD Feb 23, 2017 12:20 pm
--- NOTE | 2017-02-23 12:22 | Discharge Inst-Simple/Standard ---
Discharge Inst-Standard Discharge Medications New, Converted or Re-Newed RX: Other Patient Instructions/Follow Up Plan of Care/Instructions/FU: to call if symptoms recur Activity as Tolerated: Yes Discharge Diet: ADA Diet MARIA ALEJANDRA POST MD Feb 23, 2017 12:22 pm
--- NOTE | 2017-02-23 12:24 | History & Physicial ---
History of Present Illness History of Present Illness Reason for visit/HPI to undergo therapeutic endoscopy with an intent to perform an esophageal balloon dilatation. Previous peptic stricture requiring balloon dilatation, 18 months ago, with good symptom relief. Date of Admission Date Seen by Provider: Feb 23, 2017 Time Seen by Provider: 12:23 I consulted on this patient on 02/23/17 12:22 Attending Physician Maria Alejandra Post MD Admitting Physician Jessa Ortega DO Consult Allergies and Home Medications Allergies Coded Allergies: No Known Drug Allergies (Verified , 02/19/17) Home Medications Allopurinol 300 Mg Tab, 300 MG PO DAILY, (Reported) Aspirin 81 Mg Tabec, 81 MG PO DAILY, (Reported) Atorvastatin Calcium 10 Mg Tablet, 10 MG PO DAILY PRN, (Reported) Cholecalciferol 2,000 Unit Capsule, 2,000 UNIT PO DAILY, (Reported) Exenatide Microspheres 2 Mg/0.65 Ml Pen.injctr, 2 MG SQ WEEK, (Reported) Fenofibrate 48 Mg Tab, 48 MG PO DAILY, (Reported) Hctz/Benazepril 1 Each Tablet, 1 EACH PO DAILY, (Reported) Insulin Glargine,Hum.rec.anlog 100 Unit/1 Ml Vial, 40 UNIT SQ HS, (Reported) Metformin Hcl 500 Mg Tab, 1,000 MG PO HS, (Reported) take 2 (500mg) tabs Multivitamins 1 Tab Tablet, 1 TAB PO DAILY, (Reported) [place]-Ethinyl Estradiol/Iron 1 Each Tab.chew, 1 EACH PO DAILY, (Reported) [place]-3 Acid Ethyl Esters 1 Gm Capsule, 1 GM PO QID, (Reported) Pantoprazole Sodium 40 Mg Tablet.dr, 40 MG PO DAILY, (Reported) Potassium Chloride 10 Meq Tab.prt.sr, 10 MEQ PO DAILY WITH MEAL, (Reported) Potassium Citrate 15 Meq Tab, 15 MEQ PO TIDWM, (Reported) Triamterene/Hctz 1 Each Capsule, 1 EACH PO DAILY, (Reported) Past Wngatly-Elnjop-Qovnxl Hx Patient Social History Marrital Status: single Employed/Student: employed Alcohol Use: Denies Use Recreational Drug Use: No Smoking Status: Never a Smoker 2nd Hand Smoke Exposure: No Recent Foreign Travel: No Contact w/other who traveled: No Recent Hopitalizations: No Recent Infectious Disease Expo: No Immunizations Up To Date Date of Influenza Vaccine: Apr 07, 2016 Seasonal Allergies Seasonal Allergies: Yes Surgeries Yes (WISDOM TEETH, ESWL, OVARIAN CYSTECTOMY, HERNIA , lithrotripsy) Appendectomy, Gallbladder, Oophorectomy Respiratory No Cardiovascular Yes High Cholesterol, Hypertension Neurological No Headaches /Migraines Reproductive System Hx Reproductive Disorders: No Sexually Transmitted Disease: No HIV/AIDS: No Female Reproductive Disorders: Denies Genitourinary Yes Kidney Stones Gastrointestinal No Gastroesophageal Reflux, Chronic Constipation, Chronic Diarrhea, Polyps Musculoskeletal No Endocrine History of Endocrine Disorders: Yes Endocrine Disorders: Diabetes, Insulin dep HEENT History of HEENT Disorders: No Loss of Vision: Bilateral Hearing Impairment: Denies Cancer No Psychosocial History of Psychiatric Problem: No Integumentary History of Skin or Integumenta: No Blood Transfusions History of Blood Disorders: No Adverse Reaction to a Blood Tr: No (N/A) Constitutional: no symptoms reported EENTM: no symptoms reported Respiratory: no symptoms reported Cardiovascular: no symptoms reported Gastrointestinal: dysphagia Genitourinary: no symptoms reported Musculoskeletal: no symptoms reported Skin: no symptoms reported Psychiatric/Neurological: No Symptoms Reported Physical Exam Vital Signs Vital Sign - Last 12Hours 02/23/17 10:15 Temp 98.0 Pulse 88 Resp 18 B/P (MAP) 163/97 Pulse Ox 95 Capillary Refill : General Appearance: No Apparent Distress HEENT: Normal ENT Inspection Neck: Normal Inspection Respiratory: Lungs Clear Gastrointestinal: Non Tender, Soft Assessment/Plan Assessment and Plan lady with the previously found esophageal stricture. Recurrence of symptoms. For further dilatation Problems: MARIA ALEJANDRA POST MD Feb 23, 2017 12:24 pm
[2017-02-23 12:35] VITALS: BP 165/90
[2017-02-23] MEDS ORDERED: HURRICAINE EXT TUBE (BENZOCAINE) XX PRN (12:45)
[2017-02-23 13:00] VITALS: BP 139/91
[2017-02-23 13:25] VITALS: BP 139/91
== END 2017-02-23 13:25 | disposition home or self-care (01) ==
LOC: ENDO 09:51
PROVIDERS: ATTEND Surgery
DX: K22.2 Esophageal obstruction (principal); E78.00 Pure hypercholesterolemia, unspecified; I10 Essential (primary) hypertension
CPT/HCPCS: 82962

== ENCOUNTER 2017-03-09 12:42 | Emergency (ER) | payer BC ==
[~2017-03-09] VITALS: Ht 170.2 cm; Wt 86.2 kg
[~2017-03-09 12:42] MED LIST changes: +ATOR10TA66 PO; +EXEN2PEN SQ; +POTA15TA9 PO
--- NOTE | 2017-03-09 13:08 | ED General ---
General Chief Complaint: Dizziness/Syncope Stated Complaint: DIZZINESS/LOW BP Source of Information: Patient Exam Limitations: No Limitations History of Present Illness Time Seen by Provider: 13:03 Initial Comments To ER with reports of dizziness and low blood pressure. 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 Just before her class started she went to the restroom because she was having some lower abdominal pain and cramping which she has rather frequently and she associates with irritable bowel syndrome. She went to the restroom to attempt to have a bowel movement but was unable to do so. Upon standing up she got very lightheaded and dizzy. She returned to her classroom and laid her head on her desk where the students someone to the school nurse who checked her blood sugar and found it to be 200. She states that the room was cool but despite this she was very diaphoretic. She didn't trust herself to drive home due to the dizziness so she called her mother to come get her after finding a industrial technology teacher to replace her. Her mother arrived and checked her blood pressure and found it to be 96/60 on 2 separate readings. At this time she feels essentially back to normal but does have some persistent mild dizziness. She historically has a history of very high blood pressure with her last blood pressure here in the emergency room last month at 200/110. She was seen here for dysphagia during that visit and reported a history of esophageal stricture and felt that it had recurred. She was discharged home and followed up with Dr. Fraire and did have a recurrent EGD with dilation of distal esophageal stricture about 2-3 weeks ago. She reports that her dysphagia is improving and she denies any epigastric or chest discomfort. At this time her blood pressure is 160/90 and her heart rate is 94 sinus. Timing/Duration: 1-3 Hours Severity: Moderate Associated Systoms: Diaphoresis, Nausea/Vomiting (no vomiting) Allergies and Home Medications Allergies Coded Allergies: No Known Drug Allergies (Verified , 02/19/17) Home Medications Allopurinol 300 Mg Tab, 300 MG PO DAILY, (Reported) Aspirin 81 Mg Tabec, 81 MG PO DAILY, (Reported) Atorvastatin Calcium 10 Mg Tablet, 10 MG PO DAILY PRN, (Reported) Cholecalciferol 2,000 Unit Capsule, 2,000 UNIT PO DAILY, (Reported) Exenatide Microspheres 2 Mg/0.65 Ml Pen.injctr, 2 MG SQ WEEK, (Reported) Fenofibrate 48 Mg Tab, 48 MG PO DAILY, (Reported) Hctz/Benazepril 1 Each Tablet, 1 EACH PO DAILY, (Reported) Insulin Glargine,Hum.rec.anlog 100 Unit/1 Ml Vial, 40 UNIT SQ HS, (Reported) Metformin Hcl 500 Mg Tab, 1,000 MG PO HS, (Reported) take 2 (500mg) tabs Multivitamins 1 Tab Tablet, 1 TAB PO DAILY, (Reported) Noreth-Ethinyl Estradiol/Iron 1 Each Tab.chew, 1 EACH PO DAILY, (Reported) [place]-3 Acid Ethyl Esters 1 Gm Capsule, 1 GM PO QID, (Reported) Pantoprazole Sodium 40 Mg Tablet.dr, 40 MG PO DAILY, (Reported) Potassium Chloride 10 Meq Tab.prt.sr, 10 MEQ PO DAILY WITH MEAL, (Reported) Potassium Citrate 15 Meq Tab, 15 MEQ PO TIDWM, (Reported) Sulfamethoxazole/Trimethoprim 1 Each Tablet, 1 EACH PO BID, #10 Prescribed by: ARVIND CERVANTES on 03/09/17 1424 Triamterene/Hctz 1 Each Capsule, 1 EACH PO DAILY, (Reported) Constitutional: see HPI EENTM: see HPI Respiratory: no symptoms reported Cardiovascular: no symptoms reported Genitourinary: no symptoms reported Musculoskeletal: no symptoms reported Skin: no symptoms reported Psychiatric/Neurological: No Symptoms Reported Past Efghelp-Klbkec-Cinsyk Hx Patient Social History Alcohol Use: Denies Use Recreational Drug Use: No Smoking Status: Never a Smoker 2nd Hand Smoke Exposure: No Recent Foreign Travel: No Contact w/Someone Who Travel: No Recent Hopitalizations: No Immunizations Up To Date Date of Influenza Vaccine: Apr 07, 2016 Seasonal Allergies Seasonal Allergies: Yes Surgeries History of Surgeries: Yes (WISDOM TEETH, ESWL, OVARIAN CYSTECTOMY, HERNIA , lithrotripsy) Surgeries: Appendectomy, Gallbladder, Oophorectomy Respiratory History of Respiratory Disorde: No Cardiovascular History of Cardiac Disorders: Yes Cardiac Disorders: High Cholesterol, Hypertension Neurological History of Neurological Disord: Yes Neurological Disorders: Headaches /Migraines Reproductive System Hx Reproductive Disorders: No Sexually Transmitted Disease: No HIV/AIDS: No Female Reproductive Disorders: Denies Genitourinary History of Genitourinary Disor: Yes Genitourinary Disorders: Kidney Stones Gastrointestinal History of Gastrointestinal Di: Yes Gastrointestinal Disorders: Gastroesophageal Reflux, Chronic Constipation, Chronic Diarrhea, Polyps Musculoskeletal History of Musculoskeletal Dis: No Endocrine History of Endocrine Disorders: Yes Endocrine Disorders: Diabetes, Insulin dep HEENT History of HEENT Disorders: No Loss of Vision: Bilateral Hearing Impairment: Denies Cancer History of Cancer: No Psychosocial History of Psychiatric Problem: No Integumentary History of Skin or Integumenta: No Blood Transfusions History of Blood Disorders: No Adverse Reaction to a Blood Tr: No (N/A) Physical Exam Vital Signs Vital Sign - Last 12Hours 03/09/17 12:49 Temp 97.6 Pulse 96 Resp 18 B/P (MAP) 148/95 Pulse Ox 97 O2 Delivery Room Air Capillary Refill : General Appearance: No Apparent Distress, WD/WN Eyes: Bilateral Eye Normal Inspection, Bilateral Eye PERRL, Bilateral Eye EOMI HEENT: PERRL/EOMI, TMs Normal Neck: Full Range of Motion, Normal Inspection Respiratory: No Accessory Muscle Use, No Respiratory Distress Cardiovascular: Regular Rate, Rhythm, Normal Peripheral Pulses Gastrointestinal: Normal Bowel Sounds, Non Tender, Soft, Other (she denies any abdominal pain or tenderness to palpation at this time) Extremity: Normal Capillary Refill, No Calf Tenderness Neurologic/Psychiatric: Alert, Oriented x3 Skin: Normal Color, Warm/Dry Progress/Results/Core Measures Results/Orders Lab Results Laboratory Tests Test 03/09/17 13:16 03/09/17 13:30 Range/Units Urine Color YELLOW Urine Clarity VERY CLOUDY H Urine pH 5 5-9 Urine Specific [place] 1.025 H 1.016-1.022 Urine Protein 3+ H NEGATIVE Urine Glucose (UA) 1+ H NEGATIVE Urine Ketones 1+ H NEGATIVE Urine Nitrite NEGATIVE NEGATIVE Urine Bilirubin 2+ H NEGATIVE Urine Urobilinogen 1 NORMAL MG/DL Urine Leukocyte Esterase 2+ H NEGATIVE Urine RBC (Auto) 1+ H NEGATIVE Urine RBC 0-2 /HPF Urine WBC 10-25 H /HPF Urine Squamous Epithelial Cells TNTC H /HPF Urine Renal Epithelial Cells NONE /HPF Urine Crystals PRESENT H /LPF Urine Calcium Oxalate Crystals FEW H /LPF Urine Bacteria MODERATE H /HPF Urine Casts PRESENT /LPF Urine Hyaline Casts >50 H /LPF Urine Mucus NEGATIVE /LPF Urine Culture Indicated YES White Blood Count 17.6 H 4.3-11.0 10^3/uL Red Blood Count 5.87 H 4.35-5.85 10^6/uL Hemoglobin 17.5 H 11.5-16.0 G/DL Hematocrit 50 35-52 % Mean Corpuscular Volume 85 80-99 FL Mean Corpuscular Hemoglobin 30 25-34 PG Mean Corpuscular Hemoglobin Concent 35 32-36 G/DL Red Cell Distribution Width 13.3 10.0-14.5 % Platelet Count 401 H 130-400 10^3/uL Mean Platelet Volume 10.0 7.4-10.4 FL Neutrophils (%) (Auto) 70 42-75 % Lymphocytes (%) (Auto) 20 12-44 % Monocytes (%) (Auto) 8 0-12 % Eosinophils (%) (Auto) 2 0-10 % Basophils (%) (Auto) 1 0-10 % Neutrophils # (Auto) 12.3 H 1.8-7.8 X 10^3 Lymphocytes # (Auto) 3.4 1.0-4.0 X 10^3 Monocytes # (Auto) 1.4 H 0.0-1.0 X 10^3 Eosinophils # (Auto) 0.3 0.0-0.3 10^3/uL Basophils # (Auto) 0.1 0.0-0.1 10^3/uL Neutrophils % (Manual) 61 % Lymphocytes % (Manual) 24 % Monocytes % (Manual) 8 % Eosinophils % (Manual) 3 % Basophils % (Manual) 1 % Band Neutrophils 2 % Reactive Lymphocytes 1 % Blood Morphology Comment NORMAL Sodium Level 138 135-145 MMOL/L Potassium Level 3.3 L 3.6-5.0 MMOL/L Chloride Level 101 98-107 MMOL/L Carbon Dioxide Level 21 21-32 MMOL/L Anion Gap 16 H 5-14 MMOL/L Blood Urea Nitrogen 13 7-18 MG/DL Creatinine 1.11 0.60-1.30 MG/DL Estimat Glomerular Filtration Rate 52 BUN/Creatinine Ratio 12 Glucose Level 214 H 70-105 MG/DL Calcium Level 10.7 H 8.5-10.1 MG/DL Total Bilirubin 0.8 0.1-1.0 MG/DL Aspartate Amino Transf (AST/SGOT) 37 H 5-34 U/L Alanine Aminotransferase (ALT/SGPT) 32 0-55 U/L Alkaline Phosphatase 125 40-136 U/L Total Protein 8.3 H 6.4-8.2 GM/DL Albumin 4.9 H 3.2-4.5 GM/DL My Orders Orders - ARVIND CERVANTES APRN Cbc With Automated Diff (03/09/17 13:02) Comprehensive Metabolic Panel (03/09/17 13:02) Ua Culture If Indicated (03/09/17 13:02) Ekg Tracing (03/09/17 13:02) Urine Culture (03/09/17 13:16) Manual Differential (03/09/17 13:30) Saline Lock/Iv-Start (03/09/17 14:02) Ns Iv 1000 Ml (Sodium Chloride 0.9%) (03/09/17 14:15) Ceftriaxone Injection (Rocephin Injectio (03/09/17 14:30) Saline Lock/Iv-Start (03/09/17 14:19) Medications Given in ED Current Medications Medications Dose Ordered Sig/Radha Route Start Time Stop Time Status Last Admin Dose Admin Ceftriaxone Sodium 1000 mg/ Sodium Chloride 50 ml @ 100 mls/hr ONCE ONCE IV 03/09/17 14:30 03/09/17 14:59 03/09/17 14:28 100 MLS/HR Vital Signs/I&O Vital Sign - Last 12Hours 03/09/17 12:49 Temp 97.6 Pulse 96 Resp 18 B/P (MAP) 148/95 Pulse Ox 97 O2 Delivery Room Air Departure Communication (Admissions) Progress Notes Given her history I would suspect a vasovagal event Impression Impression: Primary Impression: Vasovagal reaction Additional Impressions: Urinary tract infection Volume depletion Disposition: 01 HOME, SELF-CARE Condition: Stable Departure-Patient Inst. Decision time for Depature: 14:23 Referrals: SARAH AGUILAR DO (PCP/Family) Primary Care Physician Patient Instructions: Urinary Tract Infection, Adult (DC), Vasovagal Response Add. Discharge Instructions: 1. Return to ER for any concerns 2. Follow-up with your doctor this as scheduled 2. All discharge instructions reviewed with patient and/or family. Voiced understanding. Scripts Sulfamethoxazole/Trimethoprim (Bactrim Ds Tablet) 1 Each Tablet 1 EACH PO BID, #10 TAB Prov: ARVIND CERVANTES APRN 03/09/17 Copy Copies To 1: SARAH AGUILAR PETER J APRN Mar 09, 2017 13:07
[2017-03-09 13:23] LABS: KETONES,URINE 1+ (NEGATIVE); LEUKOCYTE ESTERASE ,URINE 2+ (NEGATIVE); NITRITE,URINE NEGATIVE (NEGATIVE); PH,URINE 5 (5-9); PROTEIN,URINE 3+ (NEGATIVE); UROBILINOGEN,URINE 1 MG/DL (NORMAL)
[2017-03-09 13:49] LABS: CALCIUM OXALATE CRYSTALS,UR FEW /LPF; SQUAMOUS EPITHELIAL CELL,UR TNTC /HPF
[2017-03-09 13:50] LABS: HYALINE CASTS, URINE >50 /LPF
[2017-03-09 13:51] LABS: BILIRUBIN,URINE 2+ (NEGATIVE)
[2017-03-09 13:54] LABS: BASOPHILS # (AUTO) 0.1 10^3/uL (0.0-0.1); BASOPHILS % (AUTO) 1 % (0-10); EOSINOPHILS # (AUTO) 0.3 10^3/uL (0.0-0.3); EOSINOPHILS % (AUTO) 2 % (0-10); LYMPHOCYTES # (AUTO) 3.4 X 10^3 (1.0-4.0); LYMPHOCYTES % (AUTO) 20 % (12-44); MEAN CORPUSCULAR HEMOGLOBIN 30 PG (25-34); MEAN CORPUSCULAR HGB CONC 35 G/DL (32-36); MEAN CORPUSCULAR VOLUME 85 FL (80-99); MONOCYTES # (AUTO) 1.4 X 10^3 (0.0-1.0); MONOCYTES % (AUTO) 8 % (0-12); NEUTROPHILS # (AUTO) 12.3 X 10^3 (1.8-7.8); NEUTROPHILS % (AUTO) 70 % (42-75); PLATELET COUNT 401 10^3/uL (130-400); RED BLOOD COUNT 5.87 10^6/uL (4.35-5.85); RED CELL DISTRIBUTION WIDTH 13.3 % (10.0-14.5); WHITE BLOOD COUNT 17.6 10^3/uL (4.3-11.0)
[2017-03-09 14:13] LABS: ALBUMIN 4.9 GM/DL (3.2-4.5); BILIRUBIN,TOTAL 0.8 MG/DL (0.1-1.0); CALCIUM 10.7 MG/DL (8.5-10.1); CREATININE SERUM 1.11 MG/DL (0.60-1.30); POTASSIUM 3.3 MMOL/L (3.6-5.0); TOTAL PROTEIN 8.3 GM/DL (6.4-8.2)
[2017-03-09] MEDS ORDERED: NS IV 1000 ML 1,000 ML IV SCH (14:15)
[2017-03-09 14:24] LABS: BAND NEUTROPHILS 2 %; BASOPHILS % (MANUAL) 1 %; LYMPHOCYTES % (MANUAL) 24 %; NEUTROPHILS % (MANUAL) 61 %; REACTIVE LYMPHOCYTES 1 %
[2017-03-09] MEDS ORDERED: SULF1TAB35 PO (14:24)
[2017-03-09 14:25] LABS: EOSINOPHILS % (MANUAL) 3 %
[2017-03-09] MEDS ORDERED: cefTRIAXone INJECTION 1,000 MG in NS (IVPB) 50 ML IV ONE (14:30)
[2017-03-09 15:42] VITALS: BP 140/72
== END 2017-03-09 15:45 | disposition home or self-care (01) ==
LOC: EDUNIT# 12:42 → ER 12:45
DX: R55 Syncope and collapse (principal); E86.9 Volume depletion, unspecified; N39.0 Urinary tract infection, site not specified; E11.9 Type 2 diabetes mellitus without complications; K21.9 Gastro-esophageal reflux disease without esophagitis; E78.00 Pure hypercholesterolemia, unspecified; I10 Essential (primary) hypertension; Z79.82 Long term (current) use of aspirin; Z90.710 Acquired absence of both cervix and uterus; Z79.4 Long term (current) use of insulin; Z79.84 Long term (current) use of oral hypoglycemic drugs; Z87.442 Personal history of urinary calculi; Z87.19 Personal history of other diseases of the digestive system
CPT/HCPCS: 36415; 80053; 81000; 85007; 85027; 87088; 93005

== ENCOUNTER → 2017-03-20 | Outpatient (CLI) | payer BC ==
[~2017-03-20] MED LIST changes: +SULF1TAB35 PO
--- NOTE | 2017-03-20 11:39 | Diagnostic Imaging Report ---
EXAMINATION: Modified barium swallow. Indication: Dysphagia Different consistencies of fluid and food was given mixed with barium and swallowing was visualized under fluoroscopy. FLUOROSCOPY TIME: One minute and 28 seconds FINDINGS: No aspiration seen.. IMPRESSION: No aspiration seen. Please refer to speech therapist's report for additional details . Dictated by: Dictated on workstation # [id number]
== END ==
LOC: RAD 10:03
PROVIDERS: ATTEND Internal Medicine
DX: R13.14 Dysphagia, pharyngoesophageal phase (principal)
CPT/HCPCS: 74230

== ENCOUNTER 2017-07-27 05:42 | Outpatient (CLI) | payer BC ==
[~2017-07-27] VITALS: Ht 170.2 cm; Wt 86.2 kg
[~2017-07-27 05:42] MED LIST changes: -ALLO300T80 PO; -ASPI-999 PO; -BENA1TAB56 PO; -CHOL10003 PO; -METF500T3 PO; -MULT1CAP27 PO; -OMEG1CAP PO; -TRIA1CAP4 PO; -[UNRECOGNIZED DRUG - CODE] PO
[2017-07-27] MEDS ORDERED: POTA10CA43 PO (12:20)
[2017-07-27] MEDS ORDERED: [UNRECOGNIZED DRUG - CODE] PO (12:20)
[2017-07-27] MEDS ORDERED: ASPI-999 PO (12:20)
[2017-07-27] MEDS ORDERED: CHOL10003 PO (12:20)
[2017-07-27] MEDS ORDERED: BENA1TAB56 PO (12:20)
[2017-07-27] MEDS ORDERED: ALLO300T80 PO (12:20)
[2017-07-27] MEDS ORDERED: METF500T3 PO (12:20)
[2017-07-27] MEDS ORDERED: MULT1CAP27 PO (12:20)
[2017-07-27] MEDS ORDERED: INSU100V6 SQ ×2 (12:20)
[2017-07-27] MEDS ORDERED: OMEG1CAP PO (12:20)
[2017-07-27] MEDS ORDERED: TRIA1CAP4 PO (12:20)
== END 2017-07-27 12:26 ==
LOC: PREOP 05:42
PROVIDERS: ATTEND Surgery
DX: Z01.818 Encounter for other preprocedural examination (principal); Z12.11 Encounter for screening for malignant neoplasm of colon; Z86.010 Personal history of colon polyps; Z80.0 Family history of malignant neoplasm of digestive organs

== ENCOUNTER → 2017-07-27 | Outpatient (CLI) | payer BC ==
[~2017-07-27] MED LIST changes: +ALLO300T80 PO; +ASPI-999 PO; +BENA1TAB56 PO; +CHOL10003 PO; +METF500T3 PO; +MULT1CAP27 PO; +OMEG1CAP PO; +TRIA1CAP4 PO; +[UNRECOGNIZED DRUG - CODE] PO
--- NOTE | 2017-07-27 15:59 | Diagnostic Imaging Report ---
Indication: Routine screening. Comparison: Comparison is made with prior study from 06/26/2016 and 01/16/2016 as well as 05/23/2015. Findings: Both breasts are heterogeneously dense, limiting the sensitivity of mammography. No dominant mass or malignant-appearing microcalcifications are seen. There are benign calcifications bilaterally. The axillae are unremarkable. Impression: BI-RADS category 2. No mammographic features suspicious for malignancy are identified. ACR BI-RADS Category 2: Benign findings. Result letter will be mailed to the patient. Note: At least 10% of breast cancer is not imaged by mammography. Dictated by: Dictated on workstation # [id number]
== END ==
LOC: RAD 14:18
PROVIDERS: ATTEND Internal Medicine
DX: Z12.31 Encounter for screening mammogram for malignant neoplasm of breast (principal)
CPT/HCPCS: 77067

== ENCOUNTER 2017-08-03 07:17 | Day surgery (SDC) | payer BC ==
[~2017-08-03] VITALS: Ht 170.2 cm; Wt 86.2 kg
[~2017-08-03 07:17] MED LIST changes: +ALLO300T80 PO; +ASPI-999 PO; +BENA1TAB56 PO; +CHOL10003 PO; +METF500T3 PO; +MULT1CAP27 PO; +OMEG1CAP PO; +TRIA1CAP4 PO; +[UNRECOGNIZED DRUG - CODE] PO
--- OUTSIDE RECORDS SUMMARY | 2017-08-03 07:21 | XMS REPORT ---
Author Author YOU CRESPO Organization [facility] Address [address] [place] [address] Care Team Providers Care Cartridge Loader Name Role Phone YOU CRESPO Unavailable PROBLEMS Unknown Problems ALLERGIES No Known Allergies SOCIAL HISTORY Never Assessed PLAN OF CARE Activity Details Follow Up prn Reason: VITAL SIGNS Weight 191.6 lbs 2016-09-03 Temperature 98.1 degrees Fahrenheit 2016-09-03 Heart Rate 88 bpm 2016-09-03 Respiratory Rate 18 2016-09-03 Blood pressure systolic 152 mmHg 2016-09-03 Blood pressure diastolic 88 mmHg 2016-09-03 MEDICATIONS Medication Instructions Dosage Frequency Start Date End Date Duration Status PredniSONE 20 mg Orally Once a day with food 2 tablet Aug, Aug, 05 days Active Triamterene Active Lantus Active Bydureon Active Allopurinol Active Vitamin D Active Pantoprazole Sodium Active Fenofibrate Active potassium Active Atorvastatin Calcium Active Baby Aspirin Active MetFORMIN HCl ER Active Benazepril HCl Active Fish Oil Active RESULTS No Results PROCEDURES No Known procedures IMMUNIZATIONS No Known Immunizations MEDICAL (GENERAL) HISTORY Type Description Date Medical History hypertension Medical History high cholesterol Medical History type 2 diabetes Surgical History gall bladder Surgical History kidney stones Surgical History apendectomy Surgical History right ovary removed Surgical History hernia repair
--- OUTSIDE RECORDS SUMMARY | 2017-08-03 07:26 | XMS REPORT | Continuity of Care Document ---
Author Author [facility] Address Unknown Phone Unavailable Allergies Active Description Code Type Severity Reaction Onset Reported/Identified Relationship to Patient Clinical Status Yes No Known Drug Allergies [id number] Drug Allergy Mild N/A 07/27/2015 Yes No Known Drug Allergies [id number] Drug Allergy Unknown N/A 02/19/2017 Medications There is no data. Problems Date Dx Coded Attending Type Code Diagnosis Diagnosed By 09/10/2010 Ot 218.9 UTERINE LEIOMYOMA NOS 09/10/2010 Ot 220 BENIGN NEOPLASM OVARY 09/10/2010 Ot 543.9 DISEASES OF APPENDIX NEC 09/10/2010 Ot 550.10 UNILAT ING HERNIA W OBST 10/22/2010 Ot 592.0 CALCULUS OF KIDNEY 10/28/2011 Ot 592.0 CALCULUS OF KIDNEY 06/09/2012 V04.81 FLU DX (3 YRS AND ABOVE, IM) 06/09/2012 CHERIE MICHELLE YOU A V04.81 FLU DX (3 YRS AND ABOVE, IM) 06/09/2012 FAY CRESPO APRNYL A V04.81 FLU DX (3 YRS AND ABOVE, IM) 11/14/2012 Ot 592.0 CALCULUS OF KIDNEY 11/24/2013 KELLEN ROWLAND, TRACI Ugalde Ot 592.9 URINARY CALCULUS NOS 05/12/2014 SARAH AGUILAR DO Ot V76.12 06/05/2014 THIAGO AGUILAR DOI Ot V76.12 09/25/2014 TRACI FOREMAN MD Ot 592.9 10/13/2014 TRACI FOREMAN MD Ot 592.9 10/16/2014 MARIA ALEJANDRA POST MD Ot 211.4 BENIGN NEOPL RECTUM/ANUS 10/16/2014 MARIA ALEJANDRA POST MD Ot 250.00 DIAB GABBY WO COMPL, TYPE II OR UNSPEC TY 10/16/2014 MARIA ALEJANDRA POST MD Ot 401.9 HYPERTENSION NOS 10/16/2014 MARIA ALEJANDRA POST MD Ot 562.10 DIVERTICULOSIS COLON (W/O MENT OF HEMORR 10/16/2014 SINCERE ROWLAND, MARIA ALEJANDRA Ramirez Ot V16.0 FAMILY HX-GI MALIGNANCY 10/16/2014 SINCERE ROWLAND, MARIA ALEJANDRA Ramirez Ot V58.67 LONG-TERM (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 OF INSULIN 10/16/2014 SINCERE ROWLAND, MARIA ALEJANDRA Ramirez Ot V67.09 SURGERY FOLLOW-UP, OTHER SURGERY 11/17/2014 CARMEN DIAZ DO Ot 229.9 11/17/2014 CARMEN DIAZ DO Ot 620.2 11/17/2014 CARMEN DIAZ DO Ot 625.9 12/12/2014 KELLEN ROWLAND, TRACI Ugalde Ot 592.9 URINARY CALCULUS NOS 12/13/2014 CARMEN DIAZ DO Ot 218.9 12/13/2014 CARMEN DIAZ DO Ot 620.2 03/28/2015 KELLEN ROWLAND, TRACI Ugalde Ot 592.9 06/06/2015 JEFF LIU, SARAH Ot Z12.31 06/20/2015 JEFF LIU, SARAH Ot R92.2 07/27/2015 Ot 592.0 07/27/2015 Ot 592.0 07/27/2015 Ot 592.0 07/27/2015 Ot 592.9 07/27/2015 KELLEN ROWLAND, TRACI Ugalde Ot 592.9 07/27/2015 SINCERE ROWLAND, MARIA ALEJANDRA Ramirez Ot K20.9 ESOPHAGITIS, UNSPECIFIED 07/27/2015 SINCERE ROWLAND, MARIA ALEJANDRA Ramirez Ot K22.2 ESOPHAGEAL OBSTRUCTION 07/27/2015 SINCERE ROWLAND, MARIA ALEJANDRA Ramirez Ot K25.9 GASTRIC ULCER, UNSP ACUTE OR CHRONIC, 07/27/2015 SINCERE ROWLAND, MARIA ALEJANDRA Ramirez Ot K26.9 DUODENAL ULCER, UNSP ACUTE OR CHRONIC 07/27/2015 SINCERE ROWLAND, MARIA ALEJANDRA Ramirez Ot K29.70 GASTRITIS, UNSPECIFIED, WITHOUT BLEEDING 09/05/2015 TRISTIN ROWLAND, JAX Salmeron Ot N39.0 URINARY TRACT INFECTION, SITE NOT SPECIF 09/05/2015 TRISTIN ROWLAND, JAX Salmeron Ot R11.2 NAUSEA WITH VOMITING, UNSPECIFIED 09/05/2015 TRISTIN ROWLAND, JAX Salmeron Ot R19.7 DIARRHEA, UNSPECIFIED 10/01/2015 KELLEN ROWLAND, TRACI Ugalde Ot N20.9 11/21/2015 KELLEN ROWLAND, TRACI A Ot N20.9 URINARY CALCULUS, UNSPECIFIED 12/28/2015 KELLEN ROWLAND, TRACI A Ot N20.9 URINARY CALCULUS, UNSPECIFIED 01/04/2016 KELLEN ROWLAND, TRACI Ugalde Ot N20.9 URINARY CALCULUS, UNSPECIFIED 01/16/2016 Ot 218.9 UTERINE LEIOMYOMA NOS 01/16/2016 Ot 625.8 FEM GENITAL SYMPTOMS NEC 01/16/2016 Ot 401.9 HYPERTENSION NOS 01/16/2016 Ot 625.8 FEM GENITAL SYMPTOMS NEC 01/16/2016 Ot V72.63 PRE- PROCEDURAL LABORATORY EXAMINATION 01/16/2016 Ot V74.8 SCREEN- BACTERIAL DIS NEC 01/16/2016 Ot 592.0 CALCULUS OF KIDNEY 01/16/2016 Ot V76.12 OTH SCREEN MAMMO-MALIGN NEOPLASM OF DEVORAH 01/16/2016 Ot 786.09 RESPIRATORY ABNORM NEC 01/16/2016 Ot 786.50 CHEST PAIN NOS 01/16/2016 Ot 592.0 CALCULUS OF KIDNEY 01/16/2016 Ot 599.70 HEMATURIA, UNSPECIFIED 01/16/2016 Ot 620.2 OVARIAN CYST NEC/NOS 01/16/2016 Ot 789.00 ABDOMINAL PAIN, UNSPECIFIED SITE 01/16/2016 Ot 793.82 INCONCLUSIVE MAMMOGRAM 01/16/2016 Ot V76.12 OTH SCREEN MAMMO-MALIGN NEOPLASM OF DEVORAH 01/16/2016 Ot 218.9 UTERINE LEIOMYOMA NOS 01/16/2016 Ot 620.2 OVARIAN CYST NEC/NOS 01/16/2016 Ot V45.77 ACQRD ABSENCE OF GENITAL ORGANS 01/16/2016 Ot 218.9 UTERINE LEIOMYOMA NOS 01/16/2016 Ot 620.2 OVARIAN CYST NEC/NOS 01/16/2016 Ot 592.0 CALCULUS OF KIDNEY 01/16/2016 SARAH AGUILAR DO Ot V76.12 OTH SCREEN MAMMO-MALIGN NEOPLASM OF DEVORAH 01/16/2016 Ot 592.9 URINARY CALCULUS NOS 01/16/2016 SARAH AGUILAR DO Ot V76.12 OTH SCREEN MAMMO-MALIGN NEOPLASM OF DEVORAH 01/16/2016 CARMEN DIAZ DO Ot 229.9 BENIGN NEOPLASM NOS 01/16/2016 CARMEN DIAZ DO Ot 620.2 OVARIAN CYST NEC/NOS 01/16/2016 CARMEN DIAZ DO Ot 625.9 FEM GENITAL SYMPTOMS NOS 01/16/2016 CARMEN DIAZ DO Ot 218.9 UTERINE LEIOMYOMA NOS 01/16/2016 CARMEN DIAZ DO Ot 620.2 OVARIAN CYST NEC/NOS 01/16/2016 KELLEN ROWLAND, TRACI Ugalde Ot 592.9 URINARY CALCULUS NOS 01/16/2016 KELLEN ROWLAND, TRACI Ugalde Ot 592.9 URINARY CALCULUS NOS 01/16/2016 SARAH AGUILAR DO Ot Z12.31 ENCNTR SCREEN MAMMOGRAM FOR MALIGNANT NE 01/16/2016 THIAGO AGUILAR DOI Ot R92.2 INCONCLUSIVE MAMMOGRAM 01/16/2016 SINCERE ROWLAND, MARIA ALEJANDRA Ramirez Ot K21.9 GASTRO-ESOPHAGEAL REFLUX DISEASE WITHOUT 01/16/2016 SINCERE ROWLAND, MARIA ALEJANDRA Ramirez Ot R13.10 DYSPHAGIA, UNSPECIFIED 01/16/2016 SINCERE ROWLAND, MARIA ALEJANDRA Ramirez Ot Z01.818 ENCOUNTER FOR OTHER PREPROCEDURAL EXAMIN 01/16/2016 KELLEN ROWLAND, TRACI Ugalde Ot N20.9 URINARY CALCULUS, UNSPECIFIED 01/17/2016 JEFF LIU SARAH Ot R92.2 INCONCLUSIVE MAMMOGRAM 01/17/2016 SARAH AGUILAR DO Ot Z80.3 FAMILY HISTORY OF MALIGNANT NEOPLASM OF 01/17/2016 JEFF LIU SARAH Ot R92.2 INCONCLUSIVE MAMMOGRAM 01/17/2016 THIAGO AGUILAR DOI Ot Z80.3 FAMILY HISTORY OF MALIGNANT NEOPLASM OF 01/30/2016 THIAGO AGUILAR DOI Ot R92.2 INCONCLUSIVE MAMMOGRAM 01/30/2016 SARAH AGUILAR DO Ot Z80.3 FAMILY HISTORY OF MALIGNANT NEOPLASM OF 06/26/2016 Ot V76.12 OTH SCREEN MAMMO-MALIGN NEOPLASM OF DEVORAH 06/26/2016 Ot 786.09 RESPIRATORY ABNORM NEC 06/26/2016 Ot 786.50 CHEST PAIN NOS 06/26/2016 Ot 592.0 CALCULUS OF KIDNEY 06/26/2016 Ot 599.70 HEMATURIA, UNSPECIFIED 06/26/2016 Ot 620.2 OVARIAN CYST NEC/NOS 06/26/2016 Ot 789.00 ABDOMINAL PAIN, UNSPECIFIED SITE 06/26/2016 Ot 793.82 INCONCLUSIVE MAMMOGRAM 06/26/2016 Ot V76.12 OTH SCREEN MAMMO-MALIGN NEOPLASM OF DEVORAH 06/26/2016 Ot 218.9 UTERINE LEIOMYOMA NOS 06/26/2016 Ot 620.2 OVARIAN CYST NEC/NOS 06/26/2016 Ot V45.77 ACQRD ABSENCE OF GENITAL ORGANS 06/26/2016 Ot 218.9 UTERINE LEIOMYOMA NOS 06/26/2016 Ot 620.2 OVARIAN CYST NEC/NOS 06/26/2016 Ot 592.0 CALCULUS OF KIDNEY 06/26/2016 SARAH AGUILAR DO Ot V76.12 OTH SCREEN MAMMO-MALIGN NEOPLASM OF DEVORAH 06/26/2016 Ot 592.9 URINARY CALCULUS NOS 06/26/2016 SARAH AGUILAR DO Ot V76.12 OTH SCREEN MAMMO-MALIGN NEOPLASM OF DEVORAH 06/26/2016 JOE LIU CARMEN C Ot 229.9 BENIGN NEOPLASM NOS 06/26/2016 DIAZ CARMEN C Ot 620.2 OVARIAN CYST NEC/NOS 06/26/2016 DIAZ DO CARMEN C Ot 625.9 FEM GENITAL SYMPTOMS NOS 06/26/2016 JOE LIU CARMEN C Ot 218.9 UTERINE LEIOMYOMA NOS 06/26/2016 DIAZ CARMEN C Ot 620.2 OVARIAN CYST NEC/NOS 06/26/2016 KELLEN ROWLAND, TRACI A Ot 592.9 URINARY CALCULUS NOS 06/26/2016 KELLEN ROWLAND, TRACI A Ot 592.9 URINARY CALCULUS NOS 06/26/2016 SARAH AGUILAR DO Ot Z12.31 ENCNTR SCREEN MAMMOGRAM FOR MALIGNANT NE 06/26/2016 SARAH AGUILAR DO Ot R92.2 INCONCLUSIVE MAMMOGRAM 06/26/2016 SINCERE ROWLAND, MARIA ALEJANDRA Ramirez Ot K21.9 GASTRO-ESOPHAGEAL REFLUX DISEASE WITHOUT 06/26/2016 SINCERE ROWLAND, MARIA ALEJANDRA Ramirez Ot R13.10 DYSPHAGIA, UNSPECIFIED 06/26/2016 SINCERE ROWLAND, MARIA ALEJANDRA Ramirez Ot Z01.818 ENCOUNTER FOR OTHER PREPROCEDURAL EXAMIN 06/26/2016 SARAH AGUILAR DO Ot R92.2 INCONCLUSIVE MAMMOGRAM 06/26/2016 SARAH AGUILAR DO Ot Z80.3 FAMILY HISTORY OF MALIGNANT NEOPLASM OF 06/26/2016 KELLEN ROWLAND, TRACI Ugalde Ot N20.9 URINARY CALCULUS, UNSPECIFIED 07/09/2016 SARAH AGUILAR DO Ot R92.8 OTH ABN AND INCONCLUSIVE FINDINGS ON DX 10/22/2016 Ot 592.0 CALCULUS OF KIDNEY 10/22/2016 Ot 599.70 HEMATURIA, UNSPECIFIED 10/22/2016 Ot 620.2 OVARIAN CYST NEC/NOS 10/22/2016 Ot 789.00 ABDOMINAL PAIN, UNSPECIFIED SITE 10/22/2016 Ot 793.82 INCONCLUSIVE MAMMOGRAM 10/22/2016 Ot V76.12 OTH SCREEN MAMMO-MALIGN NEOPLASM OF DEVORAH 10/22/2016 Ot 218.9 UTERINE LEIOMYOMA NOS 10/22/2016 Ot 620.2 OVARIAN CYST NEC/NOS 10/22/2016 Ot V45.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2 OVARIAN CYST NEC/NOS 10/22/2016 KELLEN ROWLAND, TRACI A Ot 592.9 URINARY CALCULUS NOS 10/22/2016 KELLEN ROWLAND, TRACI A Ot 592.9 URINARY CALCULUS NOS 10/22/2016 SARAH AGUILAR DO Ot Z12.31 ENCNTR SCREEN MAMMOGRAM FOR MALIGNANT NE 10/22/2016 SARAH AGUILAR DO Ot R92.2 INCONCLUSIVE MAMMOGRAM 10/22/2016 SINCERE ROWLAND, MARIA ALEJANDRA Ramirez Ot K21.9 GASTRO-ESOPHAGEAL REFLUX DISEASE WITHOUT 10/22/2016 SINCERE ROWLAND, MARIA ALEJANDRA Ramirez Ot R13.10 DYSPHAGIA, UNSPECIFIED 10/22/2016 SINCERE ROWLAND, MARIA ALEJANDRA Ramirez Ot Z01.818 ENCOUNTER FOR OTHER PREPROCEDURAL EXAMIN 10/22/2016 SARAH AGUILAR DO Ot R92.2 INCONCLUSIVE MAMMOGRAM 10/22/2016 SARAH AGUILAR DO Ot Z80.3 FAMILY HISTORY OF MALIGNANT NEOPLASM OF 10/22/2016 KELLEN ROWLAND, TRACI Ugalde Ot N20.9 URINARY CALCULUS, UNSPECIFIED 10/22/2016 SARAH AGUILAR DO Ot R92.8 OTH ABN AND INCONCLUSIVE FINDINGS ON DX 10/28/2016 KELLEN ROWLAND, TRACI Ugalde Ot N20.0 CALCULUS OF KIDNEY 10/28/2016 KELLEN ROWLAND, TRACI Ugalde Ot N20.0 CALCULUS OF KIDNEY 10/28/2016 KELLEN ROWLAND, TRACI Ugalde Ot N20.0 CALCULUS OF KIDNEY 02/09/2017 ARVIND CERVANTES APRN Ot E11.9 TYPE 2 DIABETES MELLITUS WITHOUT COMPLIC 02/09/2017 ARVIND CERVANTES APRN Ot E78.00 PURE HYPERCHOLESTEROLEMIA, UNSPECIFIED 02/09/2017 ARVIND CERVANTES APRN Ot I10 ESSENTIAL (PRIMARY) HYPERTENSION 02/09/2017 ARVIND CERVANTES APRN Ot K22.8 OTHER SPECIFIED DISEASES OF ESOPHAGUS 02/09/2017 ARVIND CERVANTES APRN Ot T18.108A UNSP FOREIGN BODY IN ESOPHAGUS CAUSING O 02/09/2017 ARVIND CERVANTES APRN Ot Z79.4 INSTALLATION TECH (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 OF INSULIN 02/09/2017 ARVIND CERVANTES APRN Ot Z79.82 PRISON (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 02/09/2017 ARVIND CERVANTES APRN Ot Z79.84 PRISON (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 OF ORAL HYPOGLYC 02/09/2017 ARVIND CERVANTES APRN Ot Z87.19 PERSONAL HISTORY OF OTHER DISEASES OF TH 02/09/2017 ARVIND CERVANTES APRN Ot Z87.442 PERSONAL HISTORY OF URINARY CALCULI 02/09/2017 ARVIND CERVANTES APRN Ot Z90.49 ACQUIRED ABSENCE OF OTHER SPECIFIED PART 02/09/2017 ARVIND CERVANTES APRN Ot Z90.6 ACQUIRED ABSENCE OF OTHER PARTS OF URINA 02/16/2017 ARVIND CERVANTES APRN Ot E11.9 TYPE 2 DIABETES MELLITUS WITHOUT COMPLIC 02/16/2017 ARVIND CERVANTES APRN Ot E78.00 PURE HYPERCHOLESTEROLEMIA, UNSPECIFIED 02/16/2017 ARVIND CERVANTES 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 ROOM WORKER Ot I10 ESSENTIAL (PRIMARY) HYPERTENSION 02/16/2017 ARVIND CERVANTES GARNETT ROOM WORKER Ot K22.8 OTHER SPECIFIED DISEASES OF ESOPHAGUS 02/16/2017 ARVIND CERVANTES GARNETT ROOM WORKER Ot T18.108A UNSP FOREIGN BODY IN ESOPHAGUS CAUSING O 02/16/2017 ARVIND CERVANTES GARNETT ROOM WORKER Ot Z79.4 PRISON (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 OF INSULIN 02/16/2017 ARVIND CERVANTES APRN Ot Z79.82 INSTALLATION TECH (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 02/16/2017 ARVIND CERVANTES APRN Ot Z79.84 PRISON (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 OF ORAL HYPOGLYC 02/16/2017 ARVIND CERVANTES APRN Ot Z87.19 PERSONAL HISTORY OF OTHER DISEASES OF 02/16/2017 ARVIND CERVANTES APRN Ot Z87.442 PERSONAL HISTORY OF URINARY CALCULI 02/16/2017 ARVIND CERVANTES APRN Ot Z90.49 ACQUIRED ABSENCE OF OTHER SPECIFIED PART 02/16/2017 ARVIND CERVANTES GARNETT ROOM WORKER Ot Z90.6 ACQUIRED ABSENCE OF OTHER PARTS OF URINA 02/19/2017 YVROSE GRIFFIN MD Ot K21.9 GASTRO-ESOPHAGEAL REFLUX DISEASE WITHOUT 02/19/2017 YVROSE GRIFFIN MD Ot R10.13 EPIGASTRIC PAIN 02/19/2017 YVROSE GRIFFIN MD Ot Z01.818 ENCOUNTER FOR OTHER PREPROCEDURAL EXAMIN 02/19/2017 YVROSE GRIFFIN MD Ot Z87.19 PERSONAL HISTORY OF OTHER DISEASES OF 02/19/2017 YVROSE GRIFFIN MD Ot K21.9 GASTRO-ESOPHAGEAL REFLUX DISEASE WITHOUT 02/19/2017 YVROSE GRIFFIN MD Ot R10.13 EPIGASTRIC PAIN 02/19/2017 YVROSE GRIFFIN MD Ot Z01.818 ENCOUNTER FOR OTHER PREPROCEDURAL EXAMIN 02/19/2017 YVROSE GRIFFIN MD Ot Z87.19 PERSONAL HISTORY OF OTHER DISEASES OF 02/19/2017 YVROSE GRIFFIN MD Ot K21.9 GASTRO-ESOPHAGEAL REFLUX DISEASE WITHOUT 02/19/2017 YVROSE GRIFFIN MD Ot R10.13 EPIGASTRIC PAIN 02/19/2017 YVROSE GRIFFIN MD Ot Z01.818 ENCOUNTER FOR OTHER PREPROCEDURAL EXAMIN 02/19/2017 YVROSE GRIFFIN MD Ot Z87.19 PERSONAL HISTORY OF OTHER DISEASES OF TH 02/19/2017 Ot 592.0 CALCULUS OF KIDNEY 02/19/2017 Ot 592.0 CALCULUS OF KIDNEY 02/19/2017 Ot 592.9 URINARY CALCULUS NOS 02/19/2017 KELLEN ROWLAND, TRACI Ugalde Ot 592.9 URINARY CALCULUS NOS 02/19/2017 KELLEN ROWLAND, TRACI Ugalde Ot N20.9 URINARY CALCULUS, UNSPECIFIED 02/23/2017 SINCERE ROWLAND, MARIA ALEJANDRA Ramirez Ot E78.00 PURE HYPERCHOLESTEROLEMIA, UNSPECIFIED 02/23/2017 SINCERE ROWLAND, MARIA ALEJANDRA Ramirez Ot I10 ESSENTIAL (PRIMARY) HYPERTENSION 02/23/2017 SINCERE ROWLAND, MARIA ALEJANDRA Ramirez Ot K22.2 ESOPHAGEAL OBSTRUCTION 02/24/2017 SINCERE ROWLAND, MARIA ALEJANDRA Ramirez Ot E78.00 PURE HYPERCHOLESTEROLEMIA, UNSPECIFIED 02/24/2017 SINCERE ROWLAND, MARIA ALEJANDRA Ramirez Ot I10 ESSENTIAL (PRIMARY) HYPERTENSION 02/24/2017 SINCERE ROWLAND, MARIA ALEJANDRA Ramirez Ot K22.2 ESOPHAGEAL OBSTRUCTION 03/09/2017 ARVIND CERVANTES APRN Ot E11.9 TYPE 2 DIABETES MELLITUS WITHOUT COMPLIC 03/09/2017 ARVIND CERVANTES APRN Ot E78.00 PURE HYPERCHOLESTEROLEMIA, UNSPECIFIED 03/09/2017 ARVIND CERVANTES APRN Ot E86.9 VOLUME DEPLETION, UNSPECIFIED 03/09/2017 ARVIND CERVANTES APRN Ot I10 ESSENTIAL (PRIMARY) HYPERTENSION 03/09/2017 ARVIND CERVANTES APRN Ot K21.9 GASTRO-ESOPHAGEAL REFLUX DISEASE WITHOUT 03/09/2017 ARVIND CERVANTES APRN Ot N39.0 URINARY TRACT INFECTION, SITE NOT SPECIF 03/09/2017 ARVIND CERVANTES APRN Ot R03.1 NONSPECIFIC LOW BLOOD-PRESSURE READING 03/09/2017 ARVIND CERVANTES APRN Ot R55 SYNCOPE AND COLLAPSE 03/09/2017 ARVIND CERVANTES APRN Ot Z79.4 PRISON (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 OF INSULIN 03/09/2017 ARVIND CERVANTES APRN Ot Z79.82 INSTALLATION TECH (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 03/09/2017 ARVIND CERVANTES APRN Ot Z79.84 PRISON (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 OF ORAL HYPOGLYC 03/09/2017 ARVIND CERVANTES APRN Ot Z87.19 PERSONAL HISTORY OF OTHER DISEASES OF 03/09/2017 ARVIND CERVANTES APRN Ot Z87.442 PERSONAL HISTORY OF URINARY CALCULI 03/09/2017 ARVIND CERVANTES APRN Ot Z90.710 ACQUIRED ABSENCE OF BOTH CERVIX AND UTER 03/11/2017 ARVIND CERVANTES APRN Ot E11.9 TYPE 2 DIABETES MELLITUS WITHOUT COMPLIC 03/11/2017 ARVIND CERVANTES APRN Ot E78.00 PURE HYPERCHOLESTEROLEMIA, UNSPECIFIED 03/11/2017 ARVIND CERVANTES APRN Ot E86.9 VOLUME DEPLETION, UNSPECIFIED 03/11/2017 ARVIND CERVANTES APRN Ot I10 ESSENTIAL (PRIMARY) HYPERTENSION 03/11/2017 ARVIND CERVANTES APRN Ot K21.9 GASTRO-ESOPHAGEAL REFLUX DISEASE WITHOUT 03/11/2017 ARVIND CERVANTES APRN Ot N39.0 URINARY TRACT INFECTION, SITE NOT SPECIF 03/11/2017 ARVIND CERVANTES APRN Ot R03.1 NONSPECIFIC LOW BLOOD-PRESSURE READING 03/11/2017 ARVIND CERVANTES APRN Ot R55 SYNCOPE AND COLLAPSE 03/11/2017 ARVIND CERVANTES APRN Ot Z79.4 INSTALLATION TECH (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 OF INSULIN 03/11/2017 ARVIND CERVANTES APRN Ot Z79.82 PRISON (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 03/11/2017 ARVIND CERVANTES APRN Ot Z79.84 PRISON (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 OF ORAL HYPOGLYC 03/11/2017 ARVIND CERVANTES APRN Ot Z87.19 PERSONAL HISTORY OF OTHER DISEASES OF 03/11/2017 ARVIND CERVANTES APRN Ot Z87.442 PERSONAL HISTORY OF URINARY CALCULI 03/11/2017 ARVIND CERVANTES APRN Ot Z90.710 ACQUIRED ABSENCE OF BOTH CERVIX AND UTER 03/23/2017 THIAGO AGUILAR DOI Ot R13.14 DYSPHAGIA, PHARYNGOESOPHAGEAL PHASE 04/01/2017 THIAGO AGUILAR DOI Ot R13.14 DYSPHAGIA, PHARYNGOESOPHAGEAL PHASE 07/28/2017 SARAH AGUILAR DO Ot Z12.31 ENCNTR SCREEN MAMMOGRAM FOR MALIGNANT NE 07/28/2017 SINCERE ROWLAND, MARIA ALEJANDRA Ramirez Ot Z01.818 ENCOUNTER FOR OTHER PREPROCEDURAL EXAMIN 07/28/2017 SINCERE ROWLAND, MARIA ALEJANDRA Ramirez Ot Z12.11 ENCOUNTER FOR SCREENING FOR MALIGNANT NE 07/28/2017 SINCERE ROWLAND, MARIA ALEJANDRA Ramirez Ot Z80.0 FAMILY HISTORY OF MALIGNANT NEOPLASM OF 07/28/2017 SINCERE ROWLNAD, MARIA ALEJANDRA Ramirez Ot Z86.010 PERSONAL HISTORY OF COLONIC POLYPS Procedures There is no data. Results Test Result Range CD3+CD4+ (T4 helper) cells/100 cells in blood - 10/27/16 07:28 Timed urine calcium measurement (mass/volume) 262 % < 250 Urine oxalate detection 40 < 45 Urine uric acid measurement (mass/volume) 433 % < 700 Urine citrate measurement (mass/volume) 738 % > 320 Urine pH measurement 6.8 5.5-7.0 24 hour urine specimen volume measurement 1.12 % > 2.00 Sodium urate/total calculus mass ratio by infrared spectroscopy 193 % < 200 Sulfites [presence] in urine by test strip 10 < 30 Urine phosphate measurement (mass/volume) 459 % < 1100 Urine magnesium measurement (mass/volume) 79 % > 60 Urine calcium oxalate measurement 4.23 < 2.00 Urine calcium phosphate crystals detection by computer assisted method 4.33 < 2.00 24 hour urine sodium urate (saturation fraction) 5.31 < 2.00 Triple phosphate crystals detection in urine sediment by light microscopy 8.66 < 75.00 24 hour urine uric acid (saturation fraction) 0.29 < 2.00 Urine ammonium measurement 33 % 14-62 Urine potassium measurement 17 % 19-135 24 hour urine creatinine measurement (mass/time) 1308 % 600-1800 Clinical cleaner housekeeping review of results See Below NRG Complete blood count (CBC) with automated white blood cell (WBC) differential - 02/09/17 20:30 Blood leukocytes automated count (number/volume) 11.4 10*3/uL 4.3-11.0 Blood erythrocytes automated count (number/volume) 5.16 10*6/uL 4.35-5.85 Venous blood hemoglobin measurement (mass/volume) 15.3 g/dL 11.5-16.0 Blood hematocrit (volume fraction) 44 % 35-52 Automated erythrocyte mean corpuscular volume 86 [foz_us] 80-99 Automated erythrocyte mean corpuscular hemoglobin (mass per erythrocyte) 30 pg 25-34 Automated erythrocyte mean corpuscular hemoglobin concentration measurement ( mass/volume) 35 g/dL 32-36 Automated erythrocyte distribution width ratio 13.1 % 10.0-14.5 Automated blood platelet count (count/volume) 287 10*3/uL 130-400 Automated blood platelet mean volume measurement 9.7 [foz_us] 7.4-10.4 Automated blood neutrophils/100 leukocytes 57 % 42-75 Automated blood lymphocytes/100 leukocytes 32 % 12-44 Blood monocytes/100 leukocytes 7 % 0-12 Automated blood eosinophils/100 leukocytes 3 % 0-10 Automated blood basophils/100 leukocytes 1 % 0-10 Blood neutrophils automated count (number/volume) 6.5 10*3 1.8-7.8 Blood lymphocytes automated count (number/volume) 3.7 10*3 1.0-4.0 Blood monocytes automated count (number/volume) 0.8 10*3 0.0-1.0 Automated eosinophil count 0.3 10*3/uL 0.0-0.3 Automated blood basophil count (count/volume) 0.2 10*3/uL 0.0-0.1 Comprehensive metabolic panel - 02/09/17 20:30 Serum or plasma sodium measurement (moles/volume) 137 mmol/L 135-145 Serum or plasma potassium measurement (moles/volume) 3.4 mmol/L 3.6-5.0 Serum or plasma chloride measurement (moles/volume) 105 mmol/L 98-107 Carbon dioxide 15 mmol/L 21-32 Serum or plasma anion gap determination (moles/volume) 17 mmol/L 5-14 Serum or plasma urea nitrogen measurement (mass/volume) 8 mg/dL 7-18 Serum or plasma creatinine measurement (mass/volume) 0.73 mg/dL 0.60-1.30 Serum or plasma urea nitrogen/creatinine mass ratio 11 NRG Serum or plasma creatinine measurement with calculation of estimated glomerular filtration rate > NRG Serum or plasma glucose measurement (mass/volume) 281 mg/dL 70-105 Serum or plasma calcium measurement (mass/volume) 9.5 mg/dL 8.5-10.1 Serum or plasma total bilirubin measurement (mass/volume) 0.5 mg/dL 0.1-1.0 Serum or plasma alkaline phosphatase measurement (enzymatic activity/volume) 106 U/L 40-136 Serum or plasma aspartate aminotransferase measurement (enzymatic activity/ volume) 32 U/L 5-34 Serum or plasma alanine aminotransferase measurement (enzymatic activity/volume ) 25 U/L 0-55 Serum or plasma protein measurement (mass/volume) 7.0 g/dL 6.4-8.2 Serum or plasma albumin measurement (mass/volume) 4.0 g/dL 3.2-4.5 Serum or plasma troponin i.cardiac measurement (mass/volume) - 02/09/17 20:30 Serum or plasma troponin i.cardiac measurement (mass/volume) < ng/ mL <0.30 Lipase - 02/09/17 20:30 Lipase 47 U/L 8-78 Capillary blood glucose measurement by glucometer (mass/volume) - 02/23/17 10: 48 Capillary blood glucose measurement by glucometer (mass/volume) 156 mg/dL 70-110 Complete urinalysis with reflex to culture - 03/09/17 13:16 Urine color determination YELLOW NRG Urine clarity determination VERY CLOUDY NRG Urine pH measurement by test strip 5 5-9 Specific gravity of urine by test strip 1.025 1.016- 1.022 Urine protein assay by test strip, semi-quantitative 3+ NEGATIVE Urine glucose detection by automated test strip 1+ NEGATIVE Erythrocytes detection in urine sediment by light microscopy 1+ NEGATIVE Urine ketones detection by automated test strip 1+ NEGATIVE Urine nitrite detection by test strip NEGATIVE NEGATIVE Urine total bilirubin detection by test strip 2+ NEGATIVE Urine urobilinogen measurement by automated test strip (mass/volume) 1 mg/dL NORMAL Urine leukocyte esterase detection by dipstick 2+ NEGATIVE Automated urine sediment erythrocyte count by microscopy (number/high power field) [HPF] NRG Automated urine sediment leukocyte count by microscopy (number/high power field ) [HPF] NRG Bacteria detection in urine sediment by light microscopy MODERATE NRG Squamous epithelial cells detection in urine sediment by light microscopy TNTC NRG Crystals detection in urine sediment by light microscopy PRESENT NRG Casts detection in urine sediment by light microscopy PRESENT NRG Mucus detection in urine sediment by light microscopy NEGATIVE NRG Complete urinalysis with reflex to culture YES NRG Hyaline casts detection in urine sediment by light microscopy >50 NRG Renal epithelial cells detection in urine sediment by light microscopy NONE NRG Calcium oxalate crystals detection in urine sediment by light microscopy FEW NRG Bacterial urine culture - 03/09/17 13:16 URINE CULTURE RESULTS <10,000/ML NRG Complete blood count (CBC) with automated white blood cell (WBC) differential - 03/09/17 13:30 Blood leukocytes automated count (number/volume) 17.6 10*3/uL 4.3-11.0 Blood erythrocytes automated count (number/volume) 5.87 10*6/uL 4.35-5.85 Venous blood hemoglobin measurement (mass/volume) 17.5 g/dL 11.5-16.0 Blood hematocrit (volume fraction) 50 % 35-52 Automated erythrocyte mean corpuscular volume 85 [foz_us] 80-99 Automated erythrocyte mean corpuscular hemoglobin (mass per erythrocyte) 30 pg 25-34 Automated erythrocyte mean corpuscular hemoglobin concentration measurement ( mass/volume) 35 g/dL 32-36 Automated erythrocyte distribution width ratio 13.3 % 10.0-14.5 Automated blood platelet count (count/volume) 401 10*3/uL 130-400 Automated blood platelet mean volume measurement 10.0 [foz_us] 7.4-10.4 Automated blood neutrophils/100 leukocytes 70 % 42-75 Automated blood lymphocytes/100 leukocytes 20 % 12-44 Blood monocytes/100 leukocytes 8 % 0-12 Automated blood eosinophils/100 leukocytes 2 % 0-10 Automated blood basophils/100 leukocytes 1 % 0-10 Blood neutrophils automated count (number/volume) 12.3 10*3 1.8-7.8 Blood lymphocytes automated count (number/volume) 3.4 10*3 1.0-4.0 Blood monocytes automated count (number/volume) 1.4 10*3 0.0-1.0 Automated eosinophil count 0.3 10*3/uL 0.0-0.3 Automated blood basophil count (count/volume) 0.1 10*3/uL 0.0-0.1 Comprehensive metabolic panel - 03/09/17 13:30 Serum or plasma sodium measurement (moles/volume) 138 mmol/L 135-145 Serum or plasma potassium measurement (moles/volume) 3.3 mmol/L 3.6-5.0 Serum or plasma chloride measurement (moles/volume) 101 mmol/L 98-107 Carbon dioxide 21 mmol/L 21-32 Serum or plasma anion gap determination (moles/volume) 16 mmol/L 5-14 Serum or plasma urea nitrogen measurement (mass/volume) 13 mg/dL 7-18 Serum or plasma creatinine measurement (mass/volume) 1.11 mg/dL 0.60-1.30 Serum or plasma urea nitrogen/creatinine mass ratio 12 NRG Serum or plasma creatinine measurement with calculation of estimated glomerular filtration rate 52 NRG Serum or plasma glucose measurement (mass/volume) 214 mg/dL 70-105 Serum or plasma calcium measurement (mass/volume) 10.7 mg/dL 8.5-10.1 Serum or plasma total bilirubin measurement (mass/volume) 0.8 mg/dL 0.1-1.0 Serum or plasma alkaline phosphatase measurement (enzymatic activity/volume) 125 U/L 40-136 Serum or plasma aspartate aminotransferase measurement (enzymatic activity/ volume) 37 U/L 5-34 Serum or plasma alanine aminotransferase measurement (enzymatic activity/volume ) 32 U/L 0-55 Serum or plasma protein measurement (mass/volume) 8.3 g/dL 6.4-8.2 Serum or plasma albumin measurement (mass/volume) 4.9 g/dL 3.2-4.5 Blood manual differential performed detection - 03/09/17 13:30 Blood monocytes/100 leukocytes 8 % NRG Manual blood segmented neutrophils/100 leukocytes 61 % NRG Blood band neutrophils/100 leukocytes 2 % NRG Manual blood lymphocytes/100 leukocytes 24 % NRG Manual eosinophils/100 leukocytes in nose 3 % NRG Manual blood basophils/100 leukocytes 1 % NRG Blood lymphocytes variant/100 leukocytes 1 % NRG Blood erythrocyte morphology finding identification NORMAL NRG Encounters ACCT No. Visit Date/Time Discharge Status Pt. Type Provider Facility Loc./Unit Complaint [id number] 04/26/2014 08:58:00 04/26/2014 23:59:59 CLS Outpatient YOU CRESPO APRN [id number] 04/20/2013 14:57:00 04/20/2013 23:59:59 CLS Outpatient YOU CRESPO APRN [id number] 06/09/2012 15:19:00 06/09/2012 23:59:59 CLS Outpatient [id number] 06/26/2014 11:57:20 06/26/2014 23:59:59 CLS Outpatient Thi Herron [id number] 07/27/2017 14:18:00 07/27/2017 23:59:59 CLS Outpatient SARAH AGUILAR DO Via [facility] RAD SCREENING [id number] 07/27/2017 05:42:00 07/27/2017 12:26:00 DIS Outpatient MARIA ALEJANDRA POST MD [facility] PREOP COLONOSCOPY [id number] 03/20/2017 10:03:00 03/20/2017 23:59:59 CLS Outpatient JEFF LIU SARAH [facility] RAD R13.14 [id number] 03/09/2017 12:45:00 03/09/2017 15:45:00 DIS Emergency ARVIND CERVANTES G[employer] WORK[employer] Via [facility] ER DIZZINESS/LOW BP [id number] 02/23/2017 09:51:00 02/23/2017 13:25:00 DIS Outpatient SINCERE ROWLAND, MARIA ALEJANDRA Ramirez [facility] ENDO GERD/HX STRICTURE/ EPIGASTRIC PAIN [id number] 02/19/2017 05:53:00 02/19/2017 16:17:00 DIS Outpatient YVROSE GRIFFIN MD [facility] PREOP EGD/POSS.DILATAION [id number] 02/09/2017 18:56:00 02/09/2017 22:29:00 DIS Emergency ARVIND CERVANTES [employer] WORK[employer] [facility] ER THROAT ISSUES [id number] 10/27/2016 07:28:00 10/28/2016 23:27:00 DIS Outpatient TRACI FOREMAN MD [facility] RAD STONES [id number] 06/26/2016 13:50:00 06/26/2016 23:59:59 CLS Outpatient JEFF LIU SARAH [facility] RAD ABNORMAL MAMMO [id number] 01/16/2016 13:03:00 01/16/2016 23:59:59 CLS Outpatient AGUILAR DO SARAH [facility] RAD INCONCLUSIVE MAMMO [id number] 12/29/2015 00:08:00 12/29/2015 23:59:59 CLS Preadmit TRACI FOREMAN MD [facility] RAD STONES [id number] 10/01/2015 07:28:00 12/28/2015 00:01:00 DIS Outpatient TRACI FOREMAN MD [facility] RAD STONES [id number] 09/04/2015 23:45:00 09/05/2015 02:54:00 DIS Emergency JAX CROW MD [facility] ER VOMITING [id number] 07/27/2015 11:50:00 07/27/2015 15:00:00 DIS Outpatient MARIA ALEJANDRA POST MD Via [facility] GERD [id number] 07/25/2015 05:41:00 07/25/2015 23:59:59 CLS Outpatient MARIA ALEJANDRA POST MD [facility] PREOP GERD [id number] 06/04/2015 07:28:00 06/04/2015 23:59:59 CLS Outpatient SARAH AGUILAR DO [facility] RAD ABNORMAL MAMMOGRAM RT BREAST [id number] 05/23/2015 10:37:00 05/23/2015 23:59:59 CLS Outpatient SARAH AGUILAR DO [facility] RAD SCREENING [id number] 03/13/2015 16:23:00 03/13/2015 23:59:59 CLS Outpatient TRACI FOREMAN MD [facility] RAD STONES [id number] 12/13/2014 00:11:00 12/13/2014 23:59:59 CLS Preadmit TRACI FOREMAN MD [facility] RAD STONES [id number] 09/15/2014 08:22:00 12/12/2014 00:01:00 DIS Outpatient TRACI FOREMAN MD [facility] RAD STONES [id number] 11/22/2014 14:18:00 11/22/2014 23:59:59 CLS Outpatient CARMEN DIAZ DO [facility] RAD LEFT OVARIAN CYST [id number] 10/16/2014 09:15:00 10/16/2014 12:00:00 DIS Outpatient MARIA ALEJANDRA POST MD Via [facility] HISTORY OF POLYPS; FAMILY HISTORY; ABDOMINAL PAIN [id number] 10/09/2014 14:46:00 10/09/2014 23:59:59 CLS Outpatient CARMEN DIAZ DO [facility] RAD FEMALE PELVIC PAIN OVARIAN CYST [id number] 05/08/2014 15:24:00 05/08/2014 23:59:59 CLS Outpatient AGUILAR DO SARAH [facility] RAD SCREENING [id number] 08/27/2013 15:30:00 11/24/2013 00:01:00 DIS Outpatient TRACI FOREMAN MD [facility] RAD STONES [id number] 04/05/2013 15:15:00 04/05/2013 23:59:59 CLS Outpatient AGUILAR DO, SARAH [facility] RAD ROUTINE [id number] 08/03/2017 07:17:00 ACT Outpatient MARIA ALEJANDRA POST MD [facility] ENDO SCREENING,HX POLYPS, FAMILY HX COLON CA [id number] 06/26/2016 13:50:00 Document Registration [id number] 06/26/2016 13:50:00 Document Registration [id number] 06/26/2016 13:50:00 Document Registration [id number] 07/27/2015 14:04:00 Document Registration [id number] 11/25/2013 00:00:00 Document Registration [id number] 11/15/2012 00:00:00 Document Registration [id number] 08/23/2012 07:37:00 Document Registration [id number] 04/27/2012 10:11:00 Document Registration [id number] 03/05/2012 12:41:00 Document Registration [id number] 02/04/2012 13:47:00 Document Registration [id number] 02/02/2012 11:36:00 Document Registration [id number] 10/29/2011 00:00:00 Document Registration [id number] 08/04/2011 07:36:00 Document Registration [id number] 03/31/2011 10:38:00 Document Registration [id number] 01/29/2011 13:50:00 Document Registration [id number] 10/23/2010 00:00:00 Document Registration [id number] 09/10/2010 05:47:00 Document Registration [id number] 09/04/2010 15:26:00 Document Registration [id number] 08/29/2010 14:48:00 Document Registration [id number] 08/13/2010 14:59:00 Document Registration [id number] 07/29/2010 07:25:00 Document Registration
[2017-08-03] MEDS ORDERED: NS IV 500 ML 500 ML IV PRN (07:34)
[2017-08-03 07:43] VITALS: BP 149/90
[2017-08-03] MEDS ORDERED: MIDAZOLAM 2 MG/2 ML (VERSED) VIAL ONE ×3 (08:13→08:14)
[2017-08-03] MEDS ORDERED: fentaNYL INJECTION 100 MCG/2 ML AMP ONE (08:14)
--- NOTE | 2017-08-03 08:31 | History & Physicial ---
History of Present Illness History of Present Illness Reason for visit/HPI for surveillance colonoscopy, on the basis of a personal history of polyps and family history of colon cancer. Date of Admission 08/03/17 Date Seen by Provider: Aug 03, 2017 Time Seen by Provider: 08:30 I consulted on this patient on 08/03/17 08:30 Attending Physician Maria lAejandra Post MD Admitting Physician Jessa Ortega DO Consult Allergies and Home Medications Allergies Coded Allergies: No Known Drug Allergies (Verified , 02/19/17) Home Medications Allopurinol 300 Mg Tablet, 300 MG PO DAILY, (Reported) Aspirin 81 Mg Tab.chew, 81 MG PO DAILY, (Reported) Atorvastatin Calcium 10 Mg Tablet, 10 MG PO DAILY, (Reported) Benazepril/Hydrochlorothiazide 1 Each Tablet, 1 EACH PO DAILY, (Reported) Cholecalciferol (Vitamin D3) 1,000 Unit Tablet, 1,000 UNIT PO BID, (Reported) Exenatide Microspheres 2 Mg/0.65 Ml Pen.injctr, 2 MG SQ WEEK, (Reported) Fenofibrate 48 Mg Tab, 48 MG PO DAILY, (Reported) Insulin Glargine,Hum.rec.anlog 100 Unit/1 Ml Vial, 13 UNIT SQ TID, (Reported) Insulin Glargine,Hum.rec.anlog 100 Unit/1 Ml Vial, 50 UNIT SQ HS, (Reported) Metformin HCl 500 Mg Tab.er.24h, 500 MG PO BID, (Reported) Multivitamin 1 Each Capsule, 1 EACH PO DAILY, (Reported) Noreth-Ethinyl Estradiol/Iron 1 Each Tab.chew, 1 EACH PO DAILY, (Reported) [place]-3 Acid Ethyl Esters 1 Gm Capsule, 4 GM PO DAILY, (Reported) Pantoprazole Sodium 40 Mg Tablet.dr, 40 MG PO DAILY, (Reported) Potassium Chloride 10 Meq Capsule.er, 10 MEQ PO DAILY, (Reported) Potassium Citrate/Citric Acid 473 Ml Solution, 7.4 ML PO TID, (Reported) Triamterene/Hydrochlorothiazid 1 Each Capsule, 1 EACH PO DAILY, (Reported) Past Tieffzs-Rianei-Olqiad Hx Patient Social History Employed/Student: employed Alcohol Use: Denies Use Recreational Drug Use: No Smoking Status: Never a Smoker 2nd Hand Smoke Exposure: No Recent Foreign Travel: No Contact w/other who traveled: No Recent Hopitalizations: No Immunizations Up To Date Date of Influenza Vaccine: Apr 13, 2017 Seasonal Allergies Seasonal Allergies: Yes Surgeries Yes (WISDOM TEETH, ESWL, OVARIAN CYSTECTOMY, HERNIA , lithrotripsy) Appendectomy, Gallbladder, Oophorectomy Respiratory No Cardiovascular Yes High Cholesterol, Hypertension Neurological Yes Headaches /Migraines Reproductive System Hx Reproductive Disorders: No Sexually Transmitted Disease: No HIV/AIDS: No Female Reproductive Disorders: Denies Genitourinary Yes Kidney Stones Gastrointestinal Yes Gastroesophageal Reflux, Chronic Constipation, Chronic Diarrhea, Polyps Musculoskeletal No Endocrine History of Endocrine Disorders: Yes Endocrine Disorders: Diabetes, Insulin dep HEENT History of HEENT Disorders: No Loss of Vision: Bilateral Hearing Impairment: Denies Cancer No Psychosocial History of Psychiatric Problem: No Integumentary History of Skin or Integumenta: No Blood Transfusions History of Blood Disorders: No Adverse Reaction to a Blood Tr: No (N/A) Constitutional: no symptoms reported EENTM: no symptoms reported Respiratory: no symptoms reported Gastrointestinal: no symptoms reported Genitourinary: no symptoms reported Musculoskeletal: no symptoms reported Skin: no symptoms reported Psychiatric/Neurological: No Symptoms Reported Physical Exam Vital Signs Vital Sign - Last 12Hours 08/03/17 07:43 Temp 97.2 Pulse 79 Resp 18 B/P (MAP) 149/90 (109) Pulse Ox 97 O2 Delivery Room Air Capillary Refill : General Appearance: No Apparent Distress HEENT: Normal ENT Inspection Neck: Normal Inspection Respiratory: Lungs Clear Gastrointestinal: Non Tender, Soft Rectal: Deferred Back: Normal Inspection Extremity: Normal Inspection Neurologic/Psychiatric: Oriented x3 Skin: Warm/Dry Assessment/Plan Assessment and Plan lady with a personal history of polyps and family history of colon cancer. For surveillance colonoscopy. Problems: MARIA ALEJANDRA POST MD Aug 03, 2017 8:31 am
[2017-08-03] MEDS: fentaNYL INJECTION 100 MCG/2 ML AMP IVP PRN ×2 (08:32→08:38)
--- NOTE | 2017-08-03 08:32 | Conscious Sedation/ASA ---
Conscious Sedation Pre-Proced Time Reviewed: 08:32 ASA Class: 2 Airway Mallampati Classification: (wrangell appropriate class) I. II. III, IV Lungs Heart ASA score ASA 1: a normal healthy patient ASA 2: a patient with a mild systemic disease (mid diabetes, controlled hypertension, obesity ASA 3: a patient with a severe systemic disease that limits activity (angina , COPD, prior Myocardial infarction) ASA 4: a patient with an incapacitating disease that is a constant threat to life (CHF, renal failure) ASA 5: a moribund patient not expected to survive 24 hrs. (ruptured aneurysm) ASA 6: a declared brain patient whose organs are being harvested. For emergent operations, add the letter E after the classification Grade 1 Sedation Plan: Discussed options with patient/fam Note The patient is an appropriate candidate to undergo the planned procedure, sedation, and anesthesia. The patient immediately re-assessed prior to indication. MARIA ALEJANDRA POST MD Aug 03, 2017 8:32 am
[2017-08-03] MEDS: MIDAZOLAM 2 MG/2 ML (VERSED) VIAL IVP PRN ×3 (08:33→08:40)
--- NOTE | 2017-08-03 08:50 | Endo Procedure Record ---
Endo Procedure Report Date of Procedure Last Colonoscopy: Yes (2014) Aug 03, 2017 Surgeon (s) MARIA ALEJANDRA POST MD Post Procedure/Op Diagnosis Very few diverticula Procedure Performed Colonoscopy to cecum Description of Procedure Anesthesia Type: Conscious Sedation Specimen(s) collected/removed none Description of the Procedure indication for the procedure: This lady, with a personal history of polyps and a family history of colon cancer, came in for surveillance colonoscopy. Informed consent was obtained after reviewing the procedure in detail. Description of the procedure: She was placed in left lateral decubitus position and her vital signs were monitored. Conscious sedation was achieved using Versed and fentanyl. Digital rectal examination was unremarkable. The colonoscope was then introduced in the rectum and advanced to the cecum. The quality of bowel preparation was excellent The scope was then withdrawn slowly and the mucosa examined in a systematic fashion. Findings: Very few, scattered diverticula No recurrent polyps were found. She tolerated the procedure well and was taken back to the nursing area in a stable condition. Impression: Surveillance colonoscopy. No polyps. Personal history of polyps and family history of colon cancer. Recommend repeating in 3 years. Copies To: SARAH AGUILAR XAVIER M MD Aug 03, 2017 8:50 am
--- NOTE | 2017-08-03 08:51 | Discharge Inst-Simple/Standard ---
Discharge Inst-Standard Discharge Medications New, Converted or Re-Newed RX: Other Patient Instructions/Follow Up Plan of Care/Instructions/FU: Repeat colonoscopy in 3 years Activity as Tolerated: Yes Discharge Diet: ADA Diet MARIA ALEJANDRA POST MD Aug 03, 2017 8:51 am
[2017-08-03 09:05] VITALS: BP 150/88
[2017-08-03 09:25] VITALS: BP 156/96
[2017-08-03 09:35] VITALS: BP 156/96
== END 2017-08-03 09:35 | disposition home or self-care (01) ==
LOC: ENDO 07:17
PROVIDERS: ATTEND Surgery
DX: K57.30 Diverticulosis of large intestine without perforation or abscess without bleeding (principal); Z86.010 Personal history of colon polyps; Z80.0 Family history of malignant neoplasm of digestive organs; E78.00 Pure hypercholesterolemia, unspecified; I10 Essential (primary) hypertension; K21.9 Gastro-esophageal reflux disease without esophagitis; K59.09 Other constipation; K52.9 Noninfective gastroenteritis and colitis, unspecified; Z79.4 Long term (current) use of insulin; Z79.899 Other long term (current) drug therapy

== ENCOUNTER 2018-01-15 06:25 | Outpatient (RCR) | payer BC ==
--- NOTE | 2018-01-13 12:02 | Diagnostic Imaging Report ---
INDICATION: Renal stones. TIME OF EXAMINATION: 10:28 AM. COMPARISON: 10/22/2016. FINDINGS: The bowel gas pattern is unremarkable. There are surgical clips in the right upper quadrant. No definite radiopaque calculi are seen overlying the renal shadows. There is a small calcific density in the right abdomen adjacent to the right transverse process of L4. The possibility of a ureteral calculus cannot be entirely excluded. This is approximately 2 mm in size. No other abnormalities are seen. IMPRESSION: There is a 2 mm calcific density adjacent to the right transverse process of L4. A ureteral calculus cannot be entirely excluded. If clinically indicated, a CT of the urinary tracts could be performed for further evaluation. Dictated by: Dictated on workstation # [id number]
[2018-02-08] MEDS ORDERED: IBUP-844 PO (18:16)
[2018-02-08] MEDS ORDERED: DOCU100C37 PO (18:16)
[2018-02-08] MEDS ORDERED: ESTR1PAT73 TOP (18:16)
[2018-02-08] MEDS ORDERED: HYDR-34 PO (18:16)
[2018-02-08] MEDS ORDERED: SIME80TA16 PO (18:16)
== END 2018-01-26 | disposition home or self-care (01) ==
LOC: LAB 06:25 → EDSTATUS 01-25 14:21
PROVIDERS: ATTEND Urology
DX: N20.0 Calculus of kidney (principal)
CPT/HCPCS: 36415; 74018; 82140; 82340; 82507; 82570; 83735; 83945; 83986; 84105; 84133; 84300; 84392; 84560

== ENCOUNTER → 2018-01-19 | Outpatient (CLI) | payer BC ==
[~2018-01-19] MED LIST changes: +CHOL200025 PO; +DOCU100C37 PO; +ESTR1PAT73 TOP; +HYDR-34 PO; +IBUP-844 PO; +INSU100I14 SQ; +SIME80TA16 PO
--- NOTE | 2018-01-19 08:59 | Diagnostic Imaging Report ---
PROCEDURE: CT urinary tract, rule out kidney stone. TECHNIQUE: Multiple contiguous axial images were obtained through the abdomen and pelvis without the use of intravenous contrast. DATE: January 19, 2018. COMPARISON: [facility] January 13, 2018. CT chest and abdomen February 09, 2017. INDICATION: 52-year-old female, lower abdominal and back pain. FINDINGS: There are limitations for evaluation of the abdominal organs, neoplastic processes, abscess, and limited evaluation of the vasculature relating to the lack of intravenous contrast. The visualized portions of the lung bases are clear. The heart is not enlarged. There is no pericardial effusion. The liver is unremarkable in size and contour. The patient is status post cholecystectomy. There is no identified intrahepatic or extrahepatic bile duct dilation. The main pancreatic duct is not abnormally dilated. Unremarkable noncontrast appearance of the pancreatic parenchyma. The spleen is not enlarged. The adrenal glands are unremarkable. Unremarkable appearance of the renal parenchyma. There is a nonobstructing left renal stone on axial image 69 measuring up to approximately 3-4 mm in size. There is no ureteral stone. The urinary collecting systems are not distended. The urinary bladder is underdistended and not well evaluated. There is a soft tissue attenuation mass measuring 2.5 x 2.8 cm in size on axial image 136 projecting adjacent to the left margin of the uterus which appears separate from the left ovary. This potentially may reflect an exophytic uterine leiomyoma. The intestinal tract is not distended. There are sutures at the level of the expected location of the appendix. The appendix is not seen. There are no secondary findings to suggest acute appendicitis. There is no free intraperitoneal air. There is no drainable fluid collection. There is no free pelvic fluid. There are atherosclerotic calcifications. There is no identified abnormally enlarged lymph node within the abdomen or pelvis which meets CT size criteria for adenopathy. There are severe right facet degenerative changes at L5-S1. There are mild to moderate left facet degenerative changes at L4-L5. There is no identified acute bony abnormality. IMPRESSION: CT ABDOMEN AND PELVIS. 1. 3-4 mm nonobstructing left renal stones. 2. No ureteral stone or hydronephrosis. 3. No acute abnormality within the abdomen or pelvis. 4. Moderate left facet degenerative changes at L4-L5 and severe right facet degenerative changes at L5-S1. 5. Soft tissue attenuation mass adjacent to the left margin of the uterus which appears separate from the ovary and may relate to exophytic leiomyoma. This measures larger in size than on February 02, 2012 previously measuring approximately 1.3 x 1.9 cm in size compared to 2.5 x 2.8 cm in size currently. Dictated by: Dictated on workstation # [id number]
== END ==
LOC: RAD 06:57
PROVIDERS: ATTEND Urology
DX: N20.0 Calculus of kidney (principal); M47.817 Spondylosis without myelopathy or radiculopathy, lumbosacral region; N85.9 Noninflammatory disorder of uterus, unspecified
CPT/HCPCS: 74176

== ENCOUNTER 2018-02-04 08:58 | Outpatient (CLI) | payer BC ==
[~2018-02-04] VITALS: Ht 170.2 cm; Wt 88.5 kg
[~2018-02-04 08:58] MED LIST changes: -CHOL200025 PO; -DOCU100C37 PO; -ESTR1PAT73 TOP; -HYDR-34 PO; -IBUP-844 PO; -INSU100I14 SQ; -SIME80TA16 PO
[2018-02-04 09:06] VITALS: BP 162/88
[2018-02-04] MEDS ORDERED: CHOL200025 PO (09:39)
[2018-02-04] MEDS ORDERED: [UNRECOGNIZED DRUG - CODE] PO (09:39)
[2018-02-04 09:44] LABS: BASOPHILS # (AUTO) 0.1 10^3/uL (0.0-0.1); BASOPHILS % (AUTO) 1 % (0-10); EOSINOPHILS # (AUTO) 0.4 10^3/uL (0.0-0.3); EOSINOPHILS % (AUTO) 4 % (0-10); HEMATOCRIT 42 % (35-52); HEMOGLOBIN 14.9 G/DL (11.5-16.0); LYMPHOCYTES # (AUTO) 3.1 X 10^3 (1.0-4.0); LYMPHOCYTES % (AUTO) 33 % (12-44); MEAN CORPUSCULAR HEMOGLOBIN 30 PG (25-34); MEAN CORPUSCULAR HGB CONC 35 G/DL (32-36); MEAN CORPUSCULAR VOLUME 83 FL (80-99); MEAN PLATELET VOLUME 9.4 FL (7.4-10.4); MONOCYTES # (AUTO) 0.6 X 10^3 (0.0-1.0); MONOCYTES % (AUTO) 6 % (0-12); NEUTROPHILS % (AUTO) 55 % (42-75); PLATELET COUNT 318 10^3/uL (130-400); RED BLOOD COUNT 5.05 10^6/uL (4.35-5.85); RED CELL DISTRIBUTION WIDTH 13.4 % (10.0-14.5); WHITE BLOOD COUNT 9.2 10^3/uL (4.3-11.0)
[2018-02-04 09:44] LABS: BILIRUBIN,URINE NEGATIVE (NEGATIVE); CLARITY,URINE SLIGHTLY CLOUDY; COLOR,URINE YELLOW; GLUCOSE, URINE (UA) NEGATIVE (NEGATIVE); KETONES,URINE 1+ (NEGATIVE); LEUKOCYTE ESTERASE ,URINE 2+ (NEGATIVE); NITRITE,URINE POSITIVE (NEGATIVE); PH,URINE 6.5 (5-9); PROTEIN,URINE 2+ (NEGATIVE); UROBILINOGEN,URINE NORMAL (NORMAL)
[2018-02-04 09:54] LABS: BACTERIA,URINE MODERATE /HPF; WBC,URINE 25-50 /HPF
[2018-02-04 10:03] LABS: BUN/CREATININE RATIO 9; CARBON DIOXIDE 25 MMOL/L (21-32); CHLORIDE 103 MMOL/L (98-107); CREATININE SERUM 0.68 MG/DL (0.60-1.30); GFR ESTIMATED > 60; GLUCOSE 153 MG/DL (70-105); POTASSIUM 2.7 MMOL/L (3.6-5.0); SODIUM 141 MMOL/L (135-145)
[2018-02-08] MEDS ORDERED: HYDR-34 PO (18:16)
[2018-02-08] MEDS ORDERED: IBUP-844 PO (18:16)
[2018-02-08] MEDS ORDERED: DOCU100C37 PO (18:16)
[2018-02-08] MEDS ORDERED: ESTR1PAT73 TOP (18:16)
[2018-02-08] MEDS ORDERED: SIME80TA16 PO (18:16)
== END 2018-02-04 09:32 | disposition home or self-care (01) ==
LOC: PREOP 08:58
PROVIDERS: ATTEND Obstetrics & Gynecology
DX: Z01.812 Encounter for preprocedural laboratory examination (principal); Z11.2 Encounter for screening for other bacterial diseases; D25.9 Leiomyoma of uterus, unspecified; R82.99 Other abnormal findings in urine; Z15.01 Genetic susceptibility to malignant neoplasm of breast
CPT/HCPCS: 36415; 80048; 81000; 85025; 86850; 86900; 86901; 87077; 87081; 87088; 87186

== ENCOUNTER 2018-02-08 06:00 | Day surgery (SDC) | payer BC ==
[~2018-02-08] VITALS: Ht 170.2 cm; Wt 88.5 kg
[~2018-02-08 06:00] MED LIST changes: +CHOL200025 PO
[2018-02-08] MEDS: LACTATED RINGERS 1,000 ML IV PRN ×3 (06:15→09:48)
[2018-02-08 06:25] VITALS: BP 117/70
--- OUTSIDE RECORDS SUMMARY | 2018-02-08 06:37 | XMS REPORT | Continuity of Care Document ---
Author Author Formerly [facility] Address Unknown Phone Unavailable Allergies Active Description Code Type Severity Reaction Onset Reported/Identified Relationship to Patient Clinical Status Yes No Known Drug Allergies [id number] Drug Allergy Mild N/A 07/27/2015 Yes No Known Drug Allergies [id number] Drug Allergy Unknown N/A 02/19/2017 Medications There [...] ENCNTR SCREEN MAMMOGRAM FOR MALIGNANT NE 01/16/2016 HTIAGO AGUILAR DOI Ot R92.2 INCONCLUSIVE MAMMOGRAM 01/16/2016 [...] O 02/09/2017 ARVIND CERVANTES APRN Ot Z79.4 LEAF CONDITIONER (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 OF INSULIN 02/09/2017 ARVIND CERVANTES APRN Ot Z79.82 RESIDENTIAL (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 02/09/2017 ARVIND CERVANTES APRN Ot Z79.84 RESIDENTIAL (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 OF ORAL HYPOGLYC 02/09/2017 ARVIND CREVANTES APRN Ot Z87.19 PERSONAL HISTORY OF OTHER [...] E78.00 PURE HYPERCHOLESTEROLEMIA, UNSPECIFIED 02/16/2017 ARVIND CERVANTES BAG BAILER Ot I10 ESSENTIAL (PRIMARY) HYPERTENSION 02/16/2017 ARVIND CERVANTES BAG BAILER Ot K22.8 OTHER SPECIFIED DISEASES OF ESOPHAGUS 02/16/2017 ARVIND CERVANTES BAG BAILER Ot T18.108A UNSP FOREIGN BODY IN ESOPHAGUS CAUSING O 02/16/2017 ARVIND CERVANTES BAG BAILER Ot Z79.4 RESIDENTIAL (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 OF INSULIN 02/16/2017 ARVIND CERVANTES APRN Ot Z79.82 LEAF CONDITIONER (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 02/16/2017 ARVIND CERVANTES APRN Ot Z79.84 RESIDENTIAL (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 OF ORAL HYPOGLYC 02/16/2017 ARVIND CERVANTES APRN Ot Z87.19 PERSONAL HISTORY OF OTHER DISEASES OF 02/16/2017 ARVIND CERVANTES APRN Ot Z87.442 PERSONAL HISTORY OF URINARY CALCULI 02/16/2017 ARVIND CERVANTES APRN Ot Z90.49 ACQUIRED ABSENCE OF OTHER SPECIFIED PART 02/16/2017 ARVIND CERVANTES BAG BAILER Ot Z90.6 ACQUIRED ABSENCE OF OTHER PARTS [...] COLLAPSE 03/09/2017 ARVIND CERVANTES APRN Ot Z79.4 RESIDENTIAL (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 OF INSULIN 03/09/2017 ARVIND CERVANTES APRN Ot Z79.82 LEAF CONDITIONER (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 03/09/2017 ARVIND CERVANTES APRN Ot Z79.84 RESIDENTIAL (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 OF ORAL HYPOGLYC 03/09/2017 ARVIND CERVANTES APRN Ot Z87.19 PERSONAL HISTORY OF OTHER DISEASES OF 03/09/2017 ARVIND CERVANTES APRN Ot Z87.442 PERSONAL HISTORY OF URINARY CALCULI 03/09/2017 ARVIND CERVANTES APRN Ot Z90.710 ACQUIRED ABSENCE OF BOTH CERVIX AND UTER 03/11/2017 ARVIND CERVANTES APRN Ot E11.9 TYPE 2 DIABETES MELLITUS WITHOUT COMPLIC 03/11/2017 RAVIND CERVANTES APRN Ot E78.00 PURE HYPERCHOLESTEROLEMIA, UNSPECIFIED [...] COLLAPSE 03/11/2017 ARVIND CERVANTES APRN Ot Z79.4 LEAF CONDITIONER (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 OF INSULIN 03/11/2017 ARVIND CERVANTES APRN Ot Z79.82 RESIDENTIAL (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 03/11/2017 ARVIND CERVANTES APRN Ot Z79.84 RESIDENTIAL (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 OF ORAL HYPOGLYC 03/11/2017 ARVIND CERVANTES APRN Ot Z87.19 PERSONAL HISTORY OF OTHER DISEASES OF 03/11/2017 RAVIND CERVANTES APRN Ot Z87.442 PERSONAL HISTORY OF URINARY CALCULI 03/11/2017 ARVIND CERVANTES APRN Ot Z90.710 ACQUIRED ABSENCE OF BOTH CERVIX AND UTER 03/23/2017 SARAH AGUILAR DO Ot R13.14 DYSPHAGIA, PHARYNGOESOPHAGEAL PHASE 04/01/2017 SARAH AGUILAR DO Ot R13.14 DYSPHAGIA, PHARYNGOESOPHAGEAL PHASE 07/27/2017 SINCERE ROWLAND, MARIA ALEJANDRA Ramirez Ot Z01.818 ENCOUNTER FOR OTHER PREPROCEDURAL EXAMIN 07/27/2017 SINCERE ROWLAND, MARIA ALEJANDRA Ramirez Ot Z12.11 ENCOUNTER FOR SCREENING FOR MALIGNANT NE 07/27/2017 SINCERE ROWLAND, MARIA ALEJANDRA Ramirez Ot Z80.0 FAMILY HISTORY OF MALIGNANT NEOPLASM OF 07/27/2017 MARIA ALEJANDRA POST MD, Ot Z86.010 PERSONAL HISTORY OF COLONIC POLYPS 07/28/2017 JEFF LIU SARAH Ot Z12.31 ENCNTR SCREEN MAMMOGRAM FOR MALIGNANT NE 07/28/2017 MARIA ALEJANDRA POST MD Ot Z01.818 ENCOUNTER FOR OTHER PREPROCEDURAL EXAMIN 07/28/2017 MARIA ALEJANDRA POST MD Ot Z12.11 ENCOUNTER FOR SCREENING FOR MALIGNANT NE 07/28/2017 MARIA ALEJANDRA POST MD Ot Z80.0 FAMILY HISTORY OF MALIGNANT NEOPLASM OF 07/28/2017 MARIA ALEJANDRA POST MD, Ot Z86.010 PERSONAL HISTORY OF COLONIC POLYPS 08/03/2017 MARIA ALEJANDRA POST MD Ot E78.00 PURE HYPERCHOLESTEROLEMIA, UNSPECIFIED 08/03/2017 MARIA ALEJANDRA POST MD Ot I10 ESSENTIAL (PRIMARY) HYPERTENSION 08/03/2017 MARIA ALEJANDRA POST MD Ot K21.9 GASTRO-ESOPHAGEAL REFLUX DISEASE WITHOUT 08/03/2017 MARIA ALEJANDRA POST MD Ot K52.9 NONINFECTIVE GASTROENTERITIS AND COLITIS 08/03/2017 MARIA ALEJANDRA POST MD Ot K57.30 DVRTCLOS OF LG INT W/O PERFORATION OR AB 08/03/2017 MARIA ALEJANDRA POST MD Ot K59.09 OTHER CONSTIPATION 08/03/2017 MARIA ALEJANDRA POST MD Ot Z79.4 RESIDENTIAL (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 OF INSULIN 08/03/2017 MARIA ALEJANDRA POST MD Ot Z79.899 OTHER RESIDENTIAL (CURRENT) DRUG THERAPY 08/03/2017 MARIA ALEJANDRA POST MD Ot Z80.0 FAMILY HISTORY OF MALIGNANT NEOPLASM OF 08/03/2017 MARIA ALEJANDRA POST MD Ot Z86.010 PERSONAL HISTORY OF COLONIC POLYPS 08/04/2017 MARIA ALEJANDRA POST MD Ot E78.00 PURE HYPERCHOLESTEROLEMIA, UNSPECIFIED 08/04/2017 MARIA ALEJANDRA POST MD Ot I10 ESSENTIAL (PRIMARY) HYPERTENSION 08/04/2017 MARIA ALEJANDRA POST MD Ot K21.9 GASTRO-ESOPHAGEAL REFLUX DISEASE WITHOUT 08/04/2017 MARIA ALEJANDRA POST MD Ot K52.9 NONINFECTIVE GASTROENTERITIS AND COLITIS 08/04/2017 MARIA ALEJANDRA POST MD Ot K57.30 DVRTCLOS OF LG INT W/O PERFORATION OR AB 08/04/2017 MARIA ALEJANDRA POST MD Ot K59.09 OTHER CONSTIPATION 08/04/2017 MARIA ALEJANDRA POST MD Ot Z79.4 RESIDENTIAL (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 OF INSULIN 08/04/2017 MARIA ALEJANDRA POST MD Ot Z79.899 OTHER LEAF CONDITIONER (CURRENT) DRUG THERAPY 08/04/2017 MARIA ALEJANDRA POST MD Ot Z80.0 FAMILY HISTORY OF MALIGNANT NEOPLASM OF 08/04/2017 MARIA ALEJANDRA POST MD Ot Z86.010 PERSONAL HISTORY OF COLONIC POLYPS 08/09/2017 MARIA ALEJANDRA POST MD Ot E78.00 PURE HYPERCHOLESTEROLEMIA, UNSPECIFIED 08/09/2017 MARIA ALEJANDRA POST MD Ot I10 ESSENTIAL (PRIMARY) HYPERTENSION 08/09/2017 MARIA ALEJANDRA POST MD Ot K21.9 GASTRO-ESOPHAGEAL REFLUX DISEASE WITHOUT 08/09/2017 MARIA ALEJANDRA POST MD, Ot K52.9 NONINFECTIVE GASTROENTERITIS AND COLITIS 08/09/2017 MARIA ALEJANDRA POST MD Ot K57.30 DVRTCLOS OF LG INT W/O PERFORATION OR AB 08/09/2017 MARIA ALEJANDRA POST MD Ot K59.09 OTHER CONSTIPATION 08/09/2017 MARIA ALEJANDRA POST MD Ot Z79.4 LEAF CONDITIONER (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 OF INSULIN 08/09/2017 MARIA ALEJANDRA POST MD, Ot Z79.899 OTHER RESIDENTIAL (CURRENT) DRUG THERAPY 08/09/2017 MARIA ALEJANDRA POST MD Ot Z80.0 FAMILY HISTORY OF MALIGNANT NEOPLASM OF 08/09/2017 MARIA ALEJANDRA POST MD Ot Z86.010 PERSONAL HISTORY OF COLONIC POLYPS 08/12/2017 SARAH AGUILAR DO Ot Z12.31 ENCNTR SCREEN MAMMOGRAM FOR MALIGNANT NE 01/15/2018 KELLEN ROWLAND, TRACI Ugalde Ot N20.0 CALCULUS OF KIDNEY 01/18/2018 Ot 592.0 CALCULUS OF KIDNEY 01/18/2018 SARAH AGUILAR DO Ot V76.12 OTH SCREEN MAMMO-MALIGN NEOPLASM OF DEVORAH 01/18/2018 Ot 592.9 URINARY CALCULUS NOS 01/18/2018 SARAH AGUILAR DO Ot V76.12 OTH SCREEN MAMMO-MALIGN NEOPLASM OF DEVORAH 01/18/2018 CARMEN DIAZ DO Ot 229.9 BENIGN NEOPLASM NOS 01/18/2018 CARMEN DIAZ DO Ot 620.2 OVARIAN CYST NEC/NOS 01/18/2018 JOE LIUCARMEN Ot 625.9 FEM GENITAL SYMPTOMS NOS 01/18/2018 DIAZ CARMEN LIU Ot 218.9 UTERINE LEIOMYOMA NOS 01/18/2018 JOE LIUCARMEN Ot 620.2 OVARIAN CYST NEC/NOS 01/18/2018 TRACI FOREMAN MD Ot 592.9 URINARY CALCULUS NOS 01/18/2018 TRACI FROEMAN MD Ot 592.9 URINARY CALCULUS NOS 01/18/2018 SARAH AGUILAR DO Ot Z12.31 ENCNTR SCREEN MAMMOGRAM FOR MALIGNANT NE 01/18/2018 SARAH AGUILAR DO Ot R92.2 INCONCLUSIVE MAMMOGRAM 01/18/2018 SINCERE ROWLAND, MARIA ALEJANDRA Ramirez Ot K21.9 GASTRO-ESOPHAGEAL REFLUX DISEASE WITHOUT 01/18/2018 SINCERE ROWLAND, MARIA ALEJANDRA Ramirez Ot R13.10 DYSPHAGIA, UNSPECIFIED 01/18/2018 SINCERE ROWLAND, MARIA ALEJANDRA Ramirez Ot Z01.818 ENCOUNTER FOR OTHER PREPROCEDURAL EXAMIN 01/18/2018 SARAH AGUILAR DO Ot R92.2 INCONCLUSIVE MAMMOGRAM 01/18/2018 SARAH AGUILAR DO Ot Z80.3 FAMILY HISTORY OF MALIGNANT NEOPLASM OF 01/18/2018 TRACI FOREMAN MD Ot N20.9 URINARY CALCULUS, UNSPECIFIED 01/18/2018 SARAH AGUILRA DO Ot R92.8 OTH ABN AND INCONCLUSIVE FINDINGS ON DX 01/18/2018 SARAH AGUILAR DO Ot R13.14 DYSPHAGIA, PHARYNGOESOPHAGEAL PHASE 01/18/2018 SARAH AGUILAR DO Ot Z12.31 ENCNTR SCREEN MAMMOGRAM FOR MALIGNANT NE 01/18/2018 TRACI FOREMAN MD Ot N20.0 CALCULUS OF KIDNEY 01/20/2018 TRACI FOREMAN MD Ot M47.817 SPONDYLS W/O MYELOPATHY OR RADICULOPATHY 01/20/2018 TRACI FOREMAN MD Ot N20.0 CALCULUS OF KIDNEY 01/20/2018 TRACI FOREMAN MD Ot N85.9 NONINFLAMMATORY DISORDER OF UTERUS, UNSP 01/25/2018 TRACI FOREMAN MD, Ot N20.0 CALCULUS OF KIDNEY Procedures There is no data. 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 operator review of results See Below NRG Complete [...] NRG Blood erythrocyte morphology finding identification NORMAL NR CD3+CD4+ (T4 helper) cells/100 cells in blood - 01/15/18 06:25 Timed urine calcium measurement (mass/volume) 247 % < 250 Urine oxalate detection 46 < 45 Urine uric acid measurement (mass/volume) 636 % < 700 Urine citrate measurement (mass/volume) 445 % > 320 Urine pH measurement 6.4 5.5-7.0 24 hour urine specimen volume measurement 1.37 % > 2.00 Sodium urate/total calculus mass ratio by infrared spectroscopy 72 % < 200 Sulfites [presence] in urine by test strip 9 < 30 Urine phosphate measurement (mass/volume) 584 % < 1100 Urine magnesium measurement (mass/volume) 90 % > 60 Urine calcium oxalate measurement 4.71 < 2.00 Urine calcium phosphate crystals detection by computer assisted method 3.53 < 2.00 24 hour urine sodium urate (saturation fraction) 1.99 < 2.00 Triple phosphate crystals detection in urine sediment by light microscopy 4.00 < 75.00 24 hour urine uric acid (saturation fraction) 0.87 < 2.00 Urine ammonium measurement 45 % 14-62 Urine potassium measurement 29 % 19-135 24 hour urine creatinine measurement (mass/time) 1385 % 600-1800 Clinical log handling equipment operator review of results See Below NRG Complete blood count (CBC) with automated white blood cell (WBC) differential - 02/04/18 09:25 Blood leukocytes automated count (number/volume) 9.2 10*3/uL 4.3-11.0 Blood erythrocytes automated count (number/volume) 5.05 10*6/uL 4.35-5.85 Venous blood hemoglobin measurement (mass/volume) 14.9 g/dL 11.5-16.0 Blood hematocrit (volume fraction) 42 % 35-52 Automated erythrocyte mean corpuscular volume 83 [foz_us] 80-99 Automated erythrocyte mean corpuscular hemoglobin (mass per erythrocyte) 30 pg 25-34 Automated erythrocyte mean corpuscular hemoglobin concentration measurement ( mass/volume) 35 g/dL 32-36 Automated erythrocyte distribution width ratio 13.4 % 10.0-14.5 Automated blood platelet count (count/volume) 318 10*3/uL 130-400 Automated blood platelet mean volume measurement 9.4 [foz_us] 7.4-10.4 Automated blood neutrophils/100 leukocytes 55 % 42-75 Automated blood lymphocytes/100 leukocytes 33 % 12-44 Blood monocytes/100 leukocytes 6 % 0-12 Automated blood eosinophils/100 leukocytes 4 % 0-10 Automated blood basophils/100 leukocytes 1 % 0-10 Blood neutrophils automated count (number/volume) 5.0 10*3 1.8-7.8 Blood lymphocytes automated count (number/volume) 3.1 10*3 1.0-4.0 Blood monocytes automated count (number/volume) 0.6 10*3 0.0-1.0 Automated eosinophil count 0.4 10*3/uL 0.0-0.3 Automated blood basophil count (count/volume) 0.1 10*3/uL 0.0-0.1 Whole blood basic metabolic panel - 02/04/18 09:25 Serum or plasma sodium measurement (moles/volume) 141 mmol/L 135-145 Serum or plasma potassium measurement (moles/volume) 2.7 mmol/L 3.6-5.0 Serum or plasma chloride measurement (moles/volume) 103 mmol/L 98-107 Carbon dioxide 25 mmol/L 21-32 Serum or plasma anion gap determination (moles/volume) 13 mmol/L 5-14 Serum or plasma urea nitrogen measurement (mass/volume) 6 mg/dL 7-18 Serum or plasma creatinine measurement (mass/volume) 0.68 mg/dL 0.60-1.30 Serum or plasma urea nitrogen/creatinine mass ratio 9 NRG Serum or plasma creatinine measurement with calculation of estimated glomerular filtration rate > NRG Serum or plasma glucose measurement (mass/volume) 153 mg/dL 70-105 Serum or plasma calcium measurement (mass/volume) 9.0 mg/dL 8.5-10.1 Blood type T Indirect antibody screen panel - 02/04/18 09:25 ABO+Rh group BP NRG Blood group antibody screen NEGATIVE NRG Methicillin resistant Staphylococcus aureus (MRSA) screening culture - 09:25 Methicillin resistant Staphylococcus aureus (MRSA) screening culture NEG NRG Complete urinalysis with reflex to culture - 02/04/18 09:27 Urine color determination YELLOW NRG Urine clarity determination SLIGHTLY CLOUDY NRG Urine pH measurement by test strip 6.5 5-9 Specific gravity of urine by test strip 1.010 1.016- 1.022 Urine protein assay by test strip, semi-quantitative 2+ NEGATIVE Urine glucose detection by automated test strip NEGATIVE NEGATIVE Erythrocytes detection in urine sediment by light microscopy NEGATIVE NEGATIVE Urine ketones detection by automated test strip 1+ NEGATIVE Urine nitrite detection by test strip POSITIVE NEGATIVE Urine total bilirubin detection by test strip NEGATIVE NEGATIVE Urine urobilinogen measurement by automated test strip (mass/volume) NORMAL NORMAL Urine leukocyte esterase detection by dipstick 2+ NEGATIVE Automated urine sediment erythrocyte count by microscopy (number/high power field) NONE NRG Automated urine sediment leukocyte count by microscopy (number/high power field ) [HPF] NRG Bacteria detection in urine sediment by light microscopy MODERATE NRG Squamous epithelial cells detection in urine sediment by light microscopy 5-10 NRG Crystals detection in urine sediment by light microscopy NONE NRG Casts detection in urine sediment by light microscopy NONE NRG Mucus detection in urine sediment by light microscopy NEGATIVE NRG Complete urinalysis with reflex to culture YES NRG Bacterial urine culture - 02/04/18 09:27 Bacterial urine culture RML NRG COLONY COUNT . NRG FTX;REPORTABLE RML REPORTED ID 02/05 15:05 NRG Encounters ACCT No. Visit Date/Time Discharge Status Pt. Type Provider Facility Loc./Unit Complaint [id number] 04/26/2014 08:58:00 04/26/2014 23:59:59 CLS Outpatient YOU CRESPO APRN [id number] 04/20/2013 14:57:00 04/20/2013 23:59:59 CLS Outpatient YOU CRESPO APRN [id number] 06/09/2012 15:19:00 06/09/2012 23:59:59 CLS Outpatient [id number] 01/19/2018 06:57:00 01/19/2018 23:59:59 CLS Outpatient TRACI FOREMAN MD [facility] RAD RENAL STONES [id number] 01/13/2018 09:46:00 01/13/2018 23:59:59 CLS Outpatient TRACI FOREMAN MD [facility] LAB RENAL STONES [id number] 08/03/2017 07:17:00 08/03/2017 09:35:00 DIS Outpatient MARIA ALEJANDRA POST MD [facility] ENDO SCREENING,HX POLYPS , FAMILY HX COLON CA [id number] 07/27/2017 14:18:00 07/27/2017 23:59:59 CLS Outpatient SARAH AGUILAR DO [facility] RAD SCREENING [id number] 07/27/2017 05:42:00 07/27/2017 12:26:00 DIS Outpatient SINCERE ROWLAND, MARIA ALEJANDRA Ramirez [facility] PREOP COLONOSCOPY [id number] 03/20/2017 10:03:00 03/20/2017 23:59:59 CLS Outpatient SARAH AGUILAR DO [facility] RAD R13.14 [id number] 03/09/2017 12:45:00 03/09/2017 15:45:00 DIS Emergency ARVIND CERVANTES APRN [facility] ER DIZZINESS/LOW BP [id number] 02/23/2017 09:51:00 02/23/2017 13:25:00 DIS Outpatient SINCERE ROWLAND, MARIA ALEJANDRA Ramirez [facility] ENDO GERD/HX STRICTURE/ EPIGASTRIC PAIN [id number] 02/19/2017 05:53:00 02/19/2017 16:17:00 DIS Outpatient YVROSE GRIFFIN MD [facility] PREOP EGD/POSS.DILATAION [id number] 02/09/2017 18:56:00 02/09/2017 22:29:00 DIS Emergency ARVIND CERVANTES Fili MICHELLE [facility] ER THROAT ISSUES [id number] 10/27/2016 07:28:00 10/28/2016 23:27:00 DIS Outpatient TRACI FOREMAN MD [facility] RAD STONES [id number] 06/26/2016 13:50:00 06/26/2016 23:59:59 CLS Outpatient AGUILARNINFA LIU SARAH [facility] RAD ABNORMAL MAMMO [id number] 01/16/2016 13:03:00 01/16/2016 23:59:59 CLS Outpatient JEFF LIU SARAH [facility] RAD INCONCLUSIVE MAMMO [id number] 12/29/2015 00:08:00 12/29/2015 23:59:59 CLS Preadmit TRACI FOREMAN MD [facility] RAD STONES [id number] 10/01/2015 07:28:00 12/28/2015 00:01:00 DIS Outpatient TRACI FOREMAN MD [facility] RAD STONES [id number] 09/04/2015 23:45:00 09/05/2015 02:54:00 DIS Emergency JAX CROW MD [facility] ER VOMITING [id number] 07/27/2015 11:50:00 07/27/2015 15:00:00 DIS Outpatient MARIA ALEJANDRA POST MD [facility] SDC GERD [id number] 07/25/2015 05:41:00 07/25/2015 23:59:59 CLS Outpatient MARIA ALEJANDRA POST MD [facility] PREOP GERD [id number] 06/04/2015 07:28:00 06/04/2015 23:59:59 CLS Outpatient SARAH AGUILAR DO [facility] RAD ABNORMAL MAMMOGRAM RT BREAST [id number] 05/23/2015 10:37:00 05/23/2015 23:59:59 CLS Outpatient JEFF LIU SARAH [facility] RAD SCREENING [id number] 03/13/2015 16:23:00 03/13/2015 23:59:59 CLS Outpatient TRACI FOREMAN MD [facility] RAD STONES [id number] 12/13/2014 00:11:00 12/13/2014 23:59:59 CLS Preadmit TRACI FOREMAN MD [facility] RAD STONES [id number] 09/15/2014 08:22:00 12/12/2014 00:01:00 DIS Outpatient TRACI FOREMAN MD [facility] RAD STONES [id number] 11/22/2014 14:18:00 11/22/2014 23:59:59 CLS Outpatient CARMEN DIAZ DO [facility] RAD LEFT OVARIAN CYST [id number] 10/16/2014 09:15:00 10/16/2014 12:00:00 DIS Outpatient MARIA ALEJANDRA POST MD [facility] HISTORY OF POLYPS; FAMILY HISTORY; ABDOMINAL PAIN [id number] 10/09/2014 14:46:00 10/09/2014 23:59:59 CLS Outpatient CARMEN DIAZ DO [facility] RAD FEMALE PELVIC PAIN OVARIAN CYST [id number] 05/08/2014 15:24:00 05/08/2014 23:59:59 CLS Outpatient SARAH AGUILAR DO [facility] RAD SCREENING [id number] 08/27/2013 15:30:00 11/24/2013 00:01:00 DIS Outpatient TRACI FOREMAN MD [facility] RAD STONES [id number] 04/05/2013 15:15:00 04/05/2013 23:59:59 CLS Outpatient JEFF LIU SARAH [facility] RAD ROUTINE [id number] 02/04/2018 09:44:00 Document Registration [id number] 06/26/2016 13:50:00 Document Registration [id number] 06/26/2016 13:50:00 Document Registration [id number] 06/26/2016 13:50:00 Document Registration [id number] 07/27/2015 14:04:00 Document Registration [id number] 11/25/2013 00:00:00 Document Registration [id number] 11/15/2012 00:00:00 Document Registration [id number] 08/23/2012 07:37:00 Document Registration [id number] 04/27/2012 10:11:00 Document Registration [id number] 03/05/2012 12:41:00 Document Registration [id number] 02/04/2012 13:47:00 Document Registration [id number] 02/02/2012 11:36:00 Document Registration [id number] 10/29/2011 00:00:00 Document Registration [id number] 08/04/2011 07:36:00 Document Registration [id number] 03/31/2011 10:38:00 Document Registration [id number] 01/29/2011 13:50:00 Document Registration [id number] 10/23/2010 00:00:00 Document Registration [id number] 09/10/2010 05:47:00 Document Registration [id number] 09/04/2010 15:26:00 Document Registration [id number] 08/29/2010 14:48:00 Document Registration [id number] 08/13/2010 14:59:00 Document Registration [id number] 07/29/2010 07:25:00 Document Registration [id number] 06/26/2014 11:57:20 06/26/2014 23:59:59 [facility] Outpatient Thi HerronWebIDhruv 03/14/2015 07:45:49 [place] Document Registration
[2018-02-08] MEDS ORDERED: BUP/EPI 0.5% 1:200,000 (SENSORCAINE) 30 ML VIAL ONE (06:41)
[2018-02-08] MEDS ORDERED: ONDANSETRON 4 MG/2 ML (SDV) Z0FRAN ONE (06:42)
[2018-02-08] MEDS ORDERED: PROPOFOL INJECTION 50 ML IV ONE (06:42)
[2018-02-08] MEDS ORDERED: ROCURONIUM 10 MG/ML 5 ML SYRINGE IV ONE (06:42)
[2018-02-08] MEDS ORDERED: fentaNYL INJECTION 100 MCG/2 ML AMP ONE ×4 (06:42→09:20)
[2018-02-08] MEDS ORDERED: DEXAMETHASONE 10 MG/ML (DECADRON) 1 ML VIAL ONE (06:42)
[2018-02-08] MEDS ORDERED: MIDAZOLAM 2 MG/2 ML (VERSED) VIAL ONE (06:42)
[2018-02-08] MEDS ORDERED: SEVOFLURANE (ULTANE) 15 ML INHAL SOLN ONE ×5 (06:52→09:09)
[2018-02-08] MEDS ORDERED: NS (IVPB) 50 ML ONE (06:56)
[2018-02-08] MEDS ORDERED: metroNIDAZOLE 500MG/100ML IVPB 100 ML ONE (06:56)
[2018-02-08] MEDS ORDERED: ceFAZolin 1,000 MG (ANCEF) VIAL ONE (06:56)
[2018-02-08] MEDS ORDERED: ceFAZolin INJECTION 1,000 MG in NS (IVPB) 50 ML IV ONE (07:15)
[2018-02-08] MEDS ORDERED: metroNIDAZOLE 500MG/100ML IVPB 100 ML IV ONE (07:15)
--- NOTE | 2018-02-08 07:20 | Progress Note-Pre Operative ---
Pre-Operative Progress Note H&P Reviewed The H&P was reviewed, patient examined and no changes noted. hypokalemia noted on preop labs. Has doubled up on her potassium and today level is 3.1 Did not take lantus last night bc BG was 96. Fasting today is 190. Anesthesia is aware of the K and the BG level. Will us IV replacement after surgery. She has been doing liquid K due to problems with her esophagus and having trouble swallowing the pills. Date Seen by Provider: Feb 08, 2018 Time Seen by Provider: 07:02 Date H&P Reviewed: Feb 08, 2018 Time H&P Reviewed: 06:45 Pre-Operative Diagnosis: uterine fibroids, history of abnormal gene CARMEN DIAZ DO Feb 08, 2018 07:20
[2018-02-08] MEDS ORDERED: NEOSTIGMINE 1 MG/ML 5 ML SYRINGE ONE (09:08)
[2018-02-08] MEDS ORDERED: GLYCOPYRROLATE 0.2 MG/ML (ROBINUL) 2 ML VIAL ONE (09:08)
[2018-02-08] MEDS ORDERED: ESTROGENS CONJ. CREAM 30 GM (PREMARIN) TUBE ONE (09:23)
--- NOTE | 2018-02-08 09:44 | Operative Report ---
Operative Report Date of Procedure/Surgery Feb 08, 2018 Surgeon (s) CARMEN DIAZ DO Journalism Internship (s): NA Post-Operative Diagnosis Uterine fibroids, abnormal gene with increased risk of endometrial cancer/colon cancer adhesions of bowel and omentum to left pelvic side wall and right adhexa small (less than 1 cm) post incisional hernia (previous hernia repair) Procedure Performed RaTH, left salpingoophorectomy, lysis of adhesions, primary repair of hernia Description of Procedure Anesthesia Type: General Estimated blood loss (mL): 150 Specimen(s) collected/removed uterus and left tube and ovary Description of the Procedure After informed consent was obtained, patient was taken into the operating room where general anesthetic was found to be adequate. She was prepped and draped in the usual sterile fashion in the dorsal lithotomy position. A Fritz catheter was placed. A speculum was placed in the vagina. The cervix was visualized. The anterior lip was grasped with a sharp toothed tenaculum. There was no descensus of the cervix and the vaginal vault was narrow consistent with nullipartiy. In addition there was an intact hymen. I placed a stitch at 12 o'clock. The uterus was sounded and depth was approximately 10 centimeters. I placed the Camilla device. However, I could not get this to seat over the cervix. I then replace the Camilla device with a smaller manipulator ( 6.5 cm) and was able to place this and then set the Camilla to 10 cm and a 3.0 cm collar was advanced over the cervix. I inserted the Camilla without difficulty, inflating the balloon and securing it around the fornix of the cervix. The collar was then secured with sutures at 12 o'clock. Attention was then turned to the patient's abdomen. A supraumbilical incision was made about 8 mm. A Veress needle was inserted and I confirmed intraabdominal placement with a drop in pressure and the saline drop test. I then insufflated the abdomen to a maximum of 15 mmHg with warmed CO2 gas. I then placed an 8 mm trocar and then the Da Jenise camera and intraperitoneal placement was confirmed. I then determined the procedure could be continued robotically. The first robotic port was placed about 15 cm lateral to the right and left of the umbilical placement and slightly inferior. These are both 8 mm trocars. These were placed under direct visualization of the laparoscope. 0.25% Marcaine was injected prior to placement of all trocars. When all placements were confirmed, the patient was placed in steep Trendelenburg allowing adequate visualization and the robot was brought in for docking. The docking was accomplished without difficulty. A survey of the pelvis confirmed the above mentioned findings. There was an absent ritht tube and ovary, but an omenatl adhesion was attached to the ovarian fossa on the right side. The left tube and ovary appeared normal , but there were adhesions of omentum overlying the left tube. There was a repaired left inguinal hernia. There was an adhesion of omentum to the left pelvic side wall. As I teased this off the sidewall, I noted that there was a small defect in the previous incison and gently teased the omentum out of the defect. There was about 3 cm of omentum in the defect. Then as I teased this out, I noted that there was a loop of bowel tethered up to the pelvic sidewall, but this was not adherent to the sidewall, just in the adhesion. I took the omental adhesions down in a blunt and sharp fashion. Now, I was able to visualize the round ligaments bilaterally and grasped them and cauterized with bipolar cautery and then cut with my monique. At this point, I then did left salpingoophorectomy. I grasped the infundibulopelvic ligament with the bipolar forceps, transected and incised. I sealed the vessel and transected bilaterally using the bipolar cautery and then cut with the monopolar monique. I then moved my dissection to the posterior leaves of the broad ligament. I dissected the posterior leaves of the broad ligament off the uterine arteries skeletonizing them bilaterally. I then took a second clamp with the bipolar cautery and with the monique, transected the vessels away from the lateral aspect to the cervical stroma. I dissected the anterior peritoneum off the lower uterine segment. I continually pushed the bladder back and I took excessively great care and I was eventually able to dissect the vesicouterine peritoneum off the lower uterine segment. There was good hemostasis. I then dissected in a V fashion towards the midline between the uterosacral ligaments. This allowed me to skeletonize the uterine vessels bilaterally. The balloon on the CAMILLA was insufflated. This allowed me to see the CAMILLA circumferentially. I then performed a colpotomy anteriorly and then amputate with cervix away from the vaginal fornix. I then continued the colpotomy circumferentially. Once this was performed, the machine assistant removed the uterus through the vagina. A sponge was left in the vagina to maintain pneumoperitoneum. I then began closure of the vaginal cuff. I closed the apices of the vaginal cuff with 2-0 Vicryl V lock sutures with a colposuspension through the uterosacral ligaments. This suspended the apices of the vaginal cuff. I extended this to the midline from both sides and overlapped the V lock sutures in the midline. Excellent closure is noted and hemostasis is achieved. I now closed the defect in the left pelvic sidewall from the previous hernia repair with 2-0 Vicryl suture in a running fashion, effectively closing the defect. All the needles were removed from the patient's abdomen. The robot was now undocked. The pelvis was irrigated. Jorge-Seal was placed. The fascial incision was closed with 0-Vicryl and the skin with 4-0 Monocryl in a subcuticular fashion and then [place] was placed. Bandages were placed. A vaginal exam was done after the procedure. There were several small abrasions in the vagina from the placement of the speculum. There were some small superficial tears in the hymen and at the introitus. Bleeding was controlled with AgNO3 and then Estrace vaginal cream was placed in the vagina. Patient was awakened and taken to the recovery room in stable condition. Following the case, instrument counts were correct. The patient was repositioned in the supine position and awakened from general anesthesia without difficulty. She was taken to recovery in stable condition. Ancef and Flagyl were given preoperatively. SCD s used throughout the case. Findings of the Procedure enlarged fibroid uterus, largest 3x4 cm, left posterior, pedunculated. Absent right tube and ovary normal appearing left tube and ovary adhesions of omentum to left pelvic sidewall and loop of colon with Small (< 1 cm hernia), reducible left pelvic sidewall in previous incision K at preopr appointment 2.7 Has been taking double the amount of K orally since then. Today K was 3.1 and BG 190 prior to surgery. Post op K 3.5 and BG 199. SS insulin started and K replaced in the IV fluids. Allergies and Home Medications Allergies Coded Allergies: No Known Drug Allergies (Verified , 02/19/17) Home Medications Allopurinol 300 Mg Tablet, 300 MG PO DAILY, (Reported) Aspirin 81 Mg Tab.chew, 81 MG PO DAILY, (Reported) Atorvastatin Calcium 10 Mg Tablet, 10 MG PO DAILY, (Reported) Benazepril/Hydrochlorothiazide 1 Each Tablet, 1 EACH PO DAILY, (Reported) Cholecalciferol (Vitamin D3) 2,000 Unit Tablet, 2,000 UNIT PO DAILY, (Reported) Exenatide Microspheres 2 Mg/0.65 Ml Pen.injctr, 2 MG SQ WEEK, (Reported) Fenofibrate 48 Mg Tab, 48 MG PO DAILY, (Reported) Insulin Aspart 300 Units/3 Ml Solution, 13 UNITS SQ WM, (Reported) Insulin Glargine,Hum.rec.anlog 100 Unit/1 Ml Vial, 50 UNIT SQ HS, (Reported) Metformin HCl 500 Mg Tab.er.24h, 1,000 MG PO HS, (Reported) take 2 (500mg) tabs Trimble-3 Acid Ethyl Esters 1 Gm Capsule, 4 GM PO DAILY, (Reported) take 4 (1gm) tabs Pantoprazole Sodium 40 Mg Tablet.dr, 40 MG PO DAILY, (Reported) Potassium Chloride 10 Meq Capsule.er, 10 MEQ PO DAILY, (Reported) Potassium Citrate/Citric Acid 473 Ml Solution, 7.4 ML PO TID, (Reported) Triamterene/Hydrochlorothiazid 1 Each Capsule, 1 EACH PO DAILY, (Reported) Patient Home Medication List Home Medication List Reviewed: Yes CARMEN DIAZ DO Feb 08, 2018 09:44
[2018-02-08] MEDS ORDERED: ONDANSETRON 4 MG/2 ML (SDV) Z0FRAN IV PRN (09:45)
[2018-02-08] MEDS ORDERED: DOCUSATE SODIUM 100 MG (COLACE) CAP PO PRN (09:45)
[2018-02-08] MEDS ORDERED: HYDROcodone/APAP 7.5 MG/325 MG (LORTAB, LORCET PLUS) TABLET PO PRN ×2 (09:45→11:30)
[2018-02-08] MEDS ORDERED: ZOLPIDEM 5 MG (AMBIEN) TAB PO PRN (09:45)
[2018-02-08] MEDS ORDERED: ANTACID SUSP 30 ML UDC (MYLANTA) PO PRN (09:45)
[2018-02-08] MEDS ORDERED: KETOROLAC 30 MG/ML VIAL ONE (09:45)
[2018-02-08] MEDS ORDERED: LABETALOL HCL 20 MG/4 ML VIAL ONE (09:46)
[2018-02-08] MEDS ORDERED: HYDROmorphone 1 MG/ML (DILAUDID) 1 ML SYRINGE ONE (09:46)
[2018-02-08] MEDS ORDERED: LABETALOL HCL 20 MG/4 ML VIAL IV ONE (10:00)
[2018-02-08] MEDS ORDERED: PROMETHAZINE INJ 25 MG/ML (PHENERGAN) AMP IVP PRN (10:00)
[2018-02-08] MEDS ORDERED: HYDROmorphone 1 MG/ML (DILAUDID) 1 ML SYRINGE IV PRN ×3 (10:00→11:30)
[2018-02-08] MEDS ORDERED: fentaNYL INJECTION 100 MCG/2 ML AMP IVP PRN (10:00)
[2018-02-08] MEDS ORDERED: ONDANSETRON 4 MG/2 ML (SDV) Z0FRAN IVP PRN (10:00)
[2018-02-08] MEDS: KETOROLAC 30 MG/ML VIAL IV PRN ×3 (10:16→21:53)
[2018-02-08] MEDS ORDERED: ESTRADIOL 0.1 MG PATCH (CLIMARA) ONE (10:22)
[2018-02-08] MEDS ORDERED: ESTRADIOL 0.1 MG PATCH (CLIMARA) TOP SCH (10:30)
[2018-02-08] MEDS ORDERED: NS W/KCL 40 MEQ/L 1,000 ML IV ONE (10:37)
--- NOTE | 2018-02-08 10:45 | Anesthesia-General Post-Op ---
General Patient Condition Mental Status/LOC: Same as Preop Cardiovascular: Satisfactory Nausea/Vomiting: Absent Respiratory: Satisfactory Pain: Controlled Complications: Absent Post Op Complications Complications None Follow Up Care/Instructions Patient Instructions None needed. Anesthesia/Patient Condition Patient Condition Patient is doing well, no complaints, stable vital signs, no apparent adverse anesthesia problems. No complications reported per nursing. CHELLY [place] CRNA Feb 08, 2018 10:45
[2018-02-08 10:59] LABS: BUN/CREATININE RATIO 15; CALCIUM 9.1 MG/DL (8.5-10.1); CARBON DIOXIDE 22 MMOL/L (21-32); CHLORIDE 101 MMOL/L (98-107); CREATININE SERUM 0.78 MG/DL (0.60-1.30); GFR ESTIMATED > 60; GLUCOSE 228 MG/DL (70-105); POTASSIUM 3.5 MMOL/L (3.6-5.0); SODIUM 138 MMOL/L (135-145)
[2018-02-08] MEDS: NS W/KCL 40 MEQ/L 1,000 ML IV SCH ×4 (11:01→23:10)
[2018-02-08 11:05] VITALS: BP 134/82
[2018-02-08] MEDS ORDERED: inSUlin DETERMIR 1 UNIT/0.01 ML (LEVEMIR) CHARGE PER UNIT SQ ONE (12:00)
[2018-02-08] MEDS ORDERED: inSUlin DETERMIR 1 UNIT/0.01 ML (LEVEMIR) CHARGE PER UNIT SQ SCH (12:00)
[2018-02-08] MEDS ORDERED: inSUlin ASPART (NovoLOG) 1 UNIT/0.01 ML (CHARGE PER UNIT) ONE (12:23)
[2018-02-08] MEDS: inSUlin ASPART (NovoLOG) 1 UNIT/0.01 ML (CHARGE PER UNIT) SC SCH ×2 (12:30→20:45)
[2018-02-08 12:31] VITALS: BP 134/81
[2018-02-08] MEDS ORDERED: INSU100I14 SQ (13:30)
[2018-02-08] MEDS ORDERED: PATIENT MAY USE OWN MEDS, ALL MC SCH (13:45)
[2018-02-08] MEDS: CHLORASEPTIC LOZENGE MM PRN ×2 (13:50→18:44)
[2018-02-08] MEDS ORDERED: HYDROCHLOROTHIAZIDE 12.5 MG (HCTZ) CAP PO NR (14:00)
[2018-02-08] MEDS ORDERED: PANTOPRAZOLE 40 MG (PROTONIX) TAB PO NR (14:00)
[2018-02-08] MEDS ORDERED: lisINopril 10 MG (PRINIVIL) TABLET PO NR (14:00)
[2018-02-08] MEDS ORDERED: TRIAMTERENE/HCTZ 75-50 (MAXZIDE,DYAZIDE) TABLET PO NR (14:00)
[2018-02-08 15:55] VITALS: BP 118/76
[2018-02-08] MEDS ORDERED: inSUlin ASPART (NovoLOG) 1 UNIT/0.01 ML (CHARGE PER UNIT) SC SCH ×2 (17:00)
[2018-02-08] MEDS ORDERED: ALLOPURINOL 300 MG (ZYLOPRIM) TAB PO SCH (18:00)
[2018-02-08] MEDS ORDERED: ESTR1PAT73 TOP (18:16)
[2018-02-08] MEDS ORDERED: HYDR-34 PO (18:16)
[2018-02-08] MEDS ORDERED: SIME80TA16 PO (18:16)
[2018-02-08] MEDS ORDERED: IBUP-844 PO (18:16)
[2018-02-08] MEDS ORDERED: DOCU100C37 PO (18:16)
--- NOTE | 2018-02-08 18:20 | Discharge Inst-Women's Service ---
Discharge Inst-Women's Serv Depart Medication/Instructions New, Converted or Re-Newed RX: RX on Chart Instructions no lifting over 25 lbs, no driving for 1 week, nothing in vagina Final Diagnosis uterine fibroids enteropelvic adhesions left pelvic wall, incisional hernia Insulin requiring diabetes mellitus hypertension hypokalemia high risk for endometrial cancer due to abnormal gene expect light bleeding, spotting for up to 10 days May have greyish brown discharge. Consults/Follow Up Additional Follow Up: Yes (1 week with Nuno, 10-12 week with Nuno) Activity Activity: Activity as Tolerated Driving Instructions: No Driving for 1 Week NO SMOKING: NO SMOKING Nothing Inside Vagina: No Douching, No Lititz, No Tampons Diet Discharge Diet: No Restrictions, ADA Diet Symptoms to Report to : Bleeding Excessive, Pain Increased, Fever Over 101 Degrees F, Vaginal Bleeding Increase, Cramps in Feet or Legs, Vaginal Discharge Foul For Any Problems or Questions: Contact Your Physician Skin/Wound Care Infection Signs and Symptoms: Increased Redness, Foul Odor of Wound, Increased Drainage, Skin Itchy or Has a Rash, Increased Swelling, Temperature Above 101 F Operative Area Clean and Dry: You May Remove Bandage (remove bandage on day 3 or if soiled or wet) Stitches/Justice/Dermabond: Dermabond Bathing Instructions: CARMEN Worrell DO Feb 08, 2018 18:20
[2018-02-08 19:15] VITALS: BP 107/66
[2018-02-08] MEDS ORDERED: metFORMIN XR 500 MG (GLUCOPHAGE XR) TAB PO SCH (21:00)
[2018-02-08] MEDS ORDERED: LANTUS 100 UNIT/ML SQ SCH (21:00)
[2018-02-08] MEDS: SIMETHICONE 80 MG (MYLICON) CHEW PO PRN (21:53)
[2018-02-09] MEDS ORDERED: IBUPROFEN 600 MG (MOTRIN) TAB PO PRN (02:30)
[2018-02-09 03:45] VITALS: BP 107/64
[2018-02-09] MEDS: CHLORASEPTIC LOZENGE MM PRN (03:47)
[2018-02-09 05:40] VITALS: BP 127/72
[2018-02-09] MEDS: SIMETHICONE 80 MG (MYLICON) CHEW PO PRN (06:17)
[2018-02-09 06:45] LABS: BUN/CREATININE RATIO 11; CALCIUM 8.6 MG/DL (8.5-10.1); CARBON DIOXIDE 23 MMOL/L (21-32); CHLORIDE 106 MMOL/L (98-107); CREATININE SERUM 0.76 MG/DL (0.60-1.30); GFR ESTIMATED > 60; GLUCOSE 163 MG/DL (70-105); POTASSIUM 3.7 MMOL/L (3.6-5.0); SODIUM 138 MMOL/L (135-145)
[2018-02-09] MEDS: inSUlin ASPART (NovoLOG) 1 UNIT/0.01 ML (CHARGE PER UNIT) SC SCH (06:45)
--- NOTE | 2018-02-09 06:55 | Physician Progress Note ---
Progress Note Assessment/Plan Date Seen by Provider: Feb 09, 2018 Time Seen by Provider: 07:05 Events since last exam routine post operative care. Vanegas out last night. Voiding without vanegas. Assessment/Plan POD #1 s/p RaTH, LSO, SARAH, repair of incisional hernia hypokalemia Type II diabetes UO slight decreased yesterday, but increased with hydration. Pain well controlled with oral meds. potassium replaced. Will continue at home with oral potassium. Vitals Last set of Vitals Signs Vital Signs Date Time Temp Pulse Resp B/P (MAP) Pulse Ox O2 Delivery O2 Flow Rate FiO2 02/09/18 05:40 98.4 90 18 127/72 (90) 95 02/08/18 15:55 Room Air 02/08/18 13:37 2.00 I&O I&O Intake and Output 02/09/18 00:00 Intake Total 6250 ml Output Total 600 ml Balance 5650 ml Intake Oral 900 ml IV Total 5350 ml Output Urine Total 450 ml Estimated Blood Loss 150 ml Labs Laboratory Tests 02/08/18 09:54: Glucometer 199H 02/08/18 10:30: Sodium Level 138, Potassium Level 3.5L, Chloride Level 101, Carbon Dioxide Level 22, Anion Gap 15H, Blood Urea Nitrogen 12, Creatinine 0.78, Estimat Glomerular Filtration Rate > 60, BUN/Creatinine Ratio 15, Glucose Level 228H, Calcium Level 9.1 02/08/18 12:14: Glucometer 216H 02/08/18 15:50: Glucometer 149H 02/08/18 20:42: Glucometer 158H 02/09/18 05:30: Sodium Level 138, Potassium Level 3.7, Chloride Level 106, Carbon Dioxide Level 23, Anion Gap 9, Blood Urea Nitrogen 8, Creatinine 0.76, Estimat Glomerular Filtration Rate > 60, BUN/Creatinine Ratio 11, Glucose Level 163H, Calcium Level 8.6 02/09/18 06:44: Glucometer 176H CARMEN DIAZ DO Feb 09, 2018 06:55
[2018-02-09] MEDS ORDERED: PANTOPRAZOLE 40 MG (PROTONIX) TAB PO SCH (07:00)
[2018-02-09 08:19] VITALS: BP 114/71
[2018-02-09] MEDS ORDERED: lisINopril 10 MG (PRINIVIL) TABLET PO SCH (09:00)
[2018-02-09] MEDS ORDERED: BENAZEPRIL HCTZ PO SCH (09:00)
[2018-02-09] MEDS ORDERED: ALLOPURINOL 300 MG (ZYLOPRIM) TAB PO SCH (09:00)
[2018-02-09] MEDS ORDERED: HYDROCHLOROTHIAZIDE 12.5 MG (HCTZ) CAP PO SCH (09:00)
[2018-02-09] MEDS ORDERED: TRIAMTERENE/HCTZ 37.5/25 CAPSULE PO SCH (09:00)
[2018-02-09] MEDS ORDERED: ESTRADIOL 0.1 MG PATCH (CLIMARA) TOP SCH (09:00)
[2018-02-15] MEDS ORDERED: ESTRADIOL PATCH REMOVAL TP SCH (08:59)
[2018-02-15] MEDS ORDERED: ESTRADIOL 0.1 MG PATCH (CLIMARA) TOP SCH (10:30)
== END 2018-02-09 08:35 | disposition home or self-care (01) ==
LOC: SDC 06:00 → WS 09:47 → SDC 02-09 08:35
PROVIDERS: ATTEND Obstetrics & Gynecology
DX: D25.2 Subserosal leiomyoma of uterus (principal); D25.1 Intramural leiomyoma of uterus; D25.0 Submucous leiomyoma of uterus; N83.292 Other ovarian cyst, left side; N83.8 Other noninflammatory disorders of ovary, fallopian tube and broad ligament; N73.6 Female pelvic peritoneal adhesions (postinfective); K43.2 Incisional hernia without obstruction or gangrene; E87.6 Hypokalemia; E11.9 Type 2 diabetes mellitus without complications; I10 Essential (primary) hypertension; E78.1 Pure hyperglyceridemia; E78.00 Pure hypercholesterolemia, unspecified; Z87.442 Personal history of urinary calculi; Z80.0 Family history of malignant neoplasm of digestive organs; Z80.49 Family history of malignant neoplasm of other genital organs; Z80.3 Family history of malignant neoplasm of breast; Z14.8 Genetic carrier of other disease; Z79.899 Other long term (current) drug therapy; Z79.4 Long term (current) use of insulin
CPT/HCPCS: 36415; 80048; 82962; 84132; 84703; 86850; 86900; 86901; 94664

== ENCOUNTER 2018-03-15 10:32 | Emergency (ER) | payer BC ==
[~2018-03-15] VITALS: Ht 170.2 cm; Wt 88.5 kg
[~2018-03-15 10:32] MED LIST changes: -AMLO5TAB4 PO; -AMLO5TAB7 PO; -ESTR1PAT77 TD; -METO-351 PO; -POTA-53 PO
--- OUTSIDE RECORDS SUMMARY | 2018-03-15 10:46 | XMS REPORT | Continuity of Care Document ---
Author Author [facility] Address Unknown Phone Unavailable Allergies Active Description Code Type Severity Reaction Onset Reported/Identified Relationship to Patient Clinical Status Yes No Known Drug Allergies [id number] Drug Allergy Mild N/A 07/27/2015 Yes No Known Drug Allergies [id number] Drug Allergy Unknown N/A 02/19/2017 Medications There [...] 05/12/2014 SARAH AGUILAR DO Ot V76.12 06/05/2014 TIHAGO AGUILAR DOI Ot V76.12 09/25/2014 TRACI FOREMAN [...] 620.2 OVARIAN CYST NEC/NOS 01/16/2016 KELLEN ROWLAND, RTACI Ugalde Ot 592.9 URINARY CALCULUS NOS 01/16/2016 [...] O 02/09/2017 ARVIND CERVANTES APRN Ot 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 02/09/2017 ARVIND CERVANTES APRN Ot Z79.82 CUSTODIAL (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 02/09/2017 ARVIND CERVANTES APRN Ot Z79.84 CUSTODIAL (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 OF ORAL HYPOGLYC 02/09/2017 ARVIND [...] E78.00 PURE HYPERCHOLESTEROLEMIA, UNSPECIFIED 02/16/2017 ARVIND CERVANTES ENCAPSULATOR Ot I10 ESSENTIAL (PRIMARY) HYPERTENSION 02/16/2017 ARVIND CERVANTES ENCAPSULATOR Ot K22.8 OTHER SPECIFIED DISEASES OF ESOPHAGUS 02/16/2017 ARVIND CERVANTES ENCAPSULATOR Ot T18.108A UNSP FOREIGN BODY IN ESOPHAGUS CAUSING O 02/16/2017 ARVIND CERVANTES ENCAPSULATOR Ot Z79.4 CUSTODIAL (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 OF INSULIN 02/16/2017 ARVIND CERVANTES APRN Ot Z79.82 BOTTLING ROOM WORKER (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 02/16/2017 ARVIND CERVANTES APRN Ot Z79.84 CUSTODIAL (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 OF ORAL HYPOGLYC 02/16/2017 ARVIND CERVANTES APRN Ot Z87.19 PERSONAL HISTORY OF OTHER DISEASES OF 02/16/2017 ARVIND CERVANTES APRN Ot Z87.442 PERSONAL HISTORY OF URINARY CALCULI 02/16/2017 ARVIND CERVANTES APRN Ot Z90.49 ACQUIRED ABSENCE OF OTHER SPECIFIED PART 02/16/2017 ARVIND CERVANTES ENCAPSULATOR Ot Z90.6 ACQUIRED ABSENCE OF OTHER PARTS [...] COLLAPSE 03/09/2017 ARVIND CERVANTES APRN Ot Z79.4 CUSTODIAL (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 OF INSULIN 03/09/2017 ARVIND CERVANTES APRN Ot Z79.82 BOTTLING ROOM WORKER (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 03/09/2017 ARVIND CERVANTES APRN Ot Z79.84 CUSTODIAL (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 OF ORAL HYPOGLYC 03/09/2017 ARVIND [...] COLLAPSE 03/11/2017 ARVIND CERVANTES APRN Ot 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 03/11/2017 ARVIND CERVANTES APRN Ot Z79.82 CUSTODIAL (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 03/11/2017 ARVIND CERVANTES APRN Ot Z79.84 CUSTODIAL (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 OF ORAL HYPOGLYC 03/11/2017 ARVIND [...] 08/03/2017 MARIA ALEJANDRA POST MD Ot Z79.4 CUSTODIAL (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 OF INSULIN 08/03/2017 MARIA ALEJANDRA POST MD Ot Z79.899 OTHER CUSTODIAL (CURRENT) DRUG THERAPY 08/03/2017 MARIA ALEJANDRA POST [...] NONINFECTIVE GASTROENTERITIS AND COLITIS 08/04/2017 MARIA ALEJANDRA PSOT MD Ot K57.30 DVRTCLOS OF LG INT W/O PERFORATION OR AB 08/04/2017 MARIA ALEJANDRA POST MD Ot K59.09 OTHER CONSTIPATION 08/04/2017 MARIA ALEJANDRA POST MD Ot Z79.4 CUSTODIAL (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 OF INSULIN 08/04/2017 MARIA ALEJANDRA POST MD Ot Z79.899 OTHER BOTTLING ROOM WORKER (CURRENT) DRUG THERAPY 08/04/2017 MARIA ALEJANDRA POST [...] 08/09/2017 MARIA ALEJANDRA POST MD Ot 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 08/09/2017 MARIA ALEJANDRA POST MD, Ot Z79.899 OTHER CUSTODIAL (CURRENT) DRUG THERAPY 08/09/2017 MARIA ALEJANDRA POST [...] LIU Ot 218.9 UTERINE LEIOMYOMA NOS 01/18/2018 DIZA CARMEN Ot 620.2 OVARIAN CYST NEC/NOS 01/18/2018 KELLEN ROWLAND, TRACI Ugalde Ot 592.9 URINARY CALCULUS NOS 01/18/2018 KELLEN ROWLAND, TRACI Ugalde Ot 592.9 URINARY CALCULUS NOS 01/18/2018 SARAH [...] Ot N20.9 URINARY CALCULUS, UNSPECIFIED 01/18/2018 SARAH AGUILAR DO Ot R92.8 OTH ABN AND INCONCLUSIVE FINDINGS ON DX 01/18/2018 THIAGO AGUILAR DOI Ot R13.14 DYSPHAGIA, PHARYNGOESOPHAGEAL PHASE 01/18/2018 SARAH AGUILAR DO Ot Z12.31 ENCNTR SCREEN MAMMOGRAM FOR MALIGNANT NE 01/18/2018 TRACI FOREMAN MD Ot N20.0 CALCULUS OF KIDNEY 01/20/2018 TRACI FOREMAN MD Ot M47.817 SPONDYLS W/O MYELOPATHY OR RADICULOPATHY 01/20/2018 TRACI FOREMAN MD Ot N20.0 CALCULUS OF KIDNEY 01/20/2018 TRACI FOREMAN MD Ot N85.9 NONINFLAMMATORY DISORDER OF UTERUS, UNSP 01/25/2018 TRACI FOREMAN MD Ot N20.0 CALCULUS OF KIDNEY 02/09/2018 Ot D25.0 SUBMUCOUS LEIOMYOMA OF UTERUS 02/09/2018 Ot D25.1 INTRAMURAL LEIOMYOMA OF UTERUS 02/09/2018 Ot D25.2 SUBSEROSAL LEIOMYOMA OF UTERUS 02/09/2018 Ot E11.9 TYPE 2 DIABETES MELLITUS WITHOUT COMPLIC 02/09/2018 Ot E78.00 PURE HYPERCHOLESTEROLEMIA, UNSPECIFIED 02/09/2018 Ot E78.1 PURE HYPERGLYCERIDEMIA 02/09/2018 Ot E87.6 HYPOKALEMIA 02/09/2018 Ot I10 ESSENTIAL ( PRIMARY) HYPERTENSION 02/09/2018 Ot K43.2 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 02/09/2018 Ot N73.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 02/09/2018 Ot N83.292 OTHER OVARIAN CYST, LEFT SIDE 02/09/2018 Ot N83.8 OTH NONINFLAMMATORY DISORD OF OVARY, FAL 02/09/2018 Ot Z14.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 02/09/2018 Ot Z79.4 CUSTODIAL ( 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 OF INSULIN 02/09/2018 Ot Z79.899 OTHER CUSTODIAL (CURRENT) DRUG THERAPY 02/09/2018 Ot Z80.0 FAMILY HISTORY OF MALIGNANT NEOPLASM OF 02/09/2018 Ot Z80.3 FAMILY HISTORY OF MALIGNANT NEOPLASM OF 02/09/2018 Ot Z80.49 FAMILY HISTORY OF MALIGNANT NEOPLASM OF 02/09/2018 Ot Z87.442 PERSONAL HISTORY OF URINARY CALCULI 02/14/2018 Ot D25.0 SUBMUCOUS LEIOMYOMA OF UTERUS 02/14/2018 Ot D25.1 INTRAMURAL LEIOMYOMA OF UTERUS 02/14/2018 Ot D25.2 SUBSEROSAL LEIOMYOMA OF UTERUS 02/14/2018 Ot E11.9 TYPE 2 DIABETES MELLITUS WITHOUT COMPLIC 02/14/2018 Ot E78.00 PURE HYPERCHOLESTEROLEMIA, UNSPECIFIED 02/14/2018 Ot E78.1 PURE HYPERGLYCERIDEMIA 02/14/2018 Ot E87.6 HYPOKALEMIA 02/14/2018 Ot I10 ESSENTIAL ( PRIMARY) HYPERTENSION 02/14/2018 Ot K43.2 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 02/14/2018 Ot 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.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 02/14/2018 Ot N83.292 OTHER OVARIAN CYST, LEFT SIDE 02/14/2018 Ot N83.8 OTH NONINFLAMMATORY DISORD OF OVARY, FAL 02/14/2018 Ot Z14.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 02/14/2018 Ot Z79.4 CUSTODIAL ( 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 OF INSULIN 02/14/2018 Ot Z79.899 OTHER CUSTODIAL (CURRENT) DRUG THERAPY 02/14/2018 Ot Z80.0 FAMILY HISTORY OF MALIGNANT NEOPLASM OF 02/14/2018 Ot Z80.3 FAMILY HISTORY OF MALIGNANT NEOPLASM OF 02/14/2018 Ot Z80.49 FAMILY HISTORY OF MALIGNANT NEOPLASM OF 02/14/2018 Ot Z87.442 PERSONAL HISTORY OF URINARY CALCULI 02/16/2018 KELLEN ROWLAND, TRACI Ugalde Ot N20.0 CALCULUS OF KIDNEY 02/19/2018 Ot D25.0 SUBMUCOUS LEIOMYOMA OF UTERUS 02/19/2018 Ot D25.1 INTRAMURAL LEIOMYOMA OF UTERUS 02/19/2018 Ot D25.2 SUBSEROSAL LEIOMYOMA OF UTERUS 02/19/2018 Ot E11.9 TYPE 2 DIABETES MELLITUS WITHOUT COMPLIC 02/19/2018 Ot E78.00 PURE HYPERCHOLESTEROLEMIA, UNSPECIFIED 02/19/2018 Ot E78.1 PURE HYPERGLYCERIDEMIA 02/19/2018 Ot E87.6 HYPOKALEMIA 02/19/2018 Ot I10 ESSENTIAL ( PRIMARY) HYPERTENSION 02/19/2018 Ot K43.2 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 02/19/2018 Ot N73.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 02/19/2018 Ot N83.292 OTHER OVARIAN CYST, LEFT SIDE 02/19/2018 Ot N83.8 OTH NONINFLAMMATORY DISORD OF OVARY, FAL 02/19/2018 Ot Z14.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 Type Provider Facility Loc./Unit Complaint [id number] 04/26/2014 08:58:00 04/26/2014 23:59:59 CLS Outpatient YOU CRESPO APRN [id number] 04/20/2013 14:57:00 04/20/2013 23:59:59 CLS Outpatient YOU CRESPO APRN [id number] 06/09/2012 15:19:00 06/09/2012 23:59:59 CLS Outpatient [id number] 01/19/2018 06:57:00 01/19/2018 23:59:59 CLS Outpatient TRACI FOREMAN MD [facility] RAD RENAL STONES [id number] 01/13/2018 09:46:00 01/13/2018 23:59:59 CLS Outpatient TRACI FOREMAN MD [facility] LAB RENAL STONES [id number] 08/03/2017 07:17:00 08/03/2017 09:35:00 DIS Outpatient MARIA ALEJANDRA POST MD [facility] ENDO SCREENING,HX POLYPS , FAMILY HX COLON CA [id number] 07/27/2017 14:18:00 07/27/2017 23:59:59 CLS Outpatient SARAH AGUILAR DO [facility] RAD SCREENING [id number] 07/27/2017 05:42:00 07/27/2017 12:26:00 DIS Outpatient MARIA ALEJANDRA POST MD [facility] PREOP COLONOSCOPY [id number] 03/20/2017 10:03:00 03/20/2017 23:59:59 CLS Outpatient SARAH AGUILAR DO [facility] RAD R13.14 [id number] 03/09/2017 12:45:00 03/09/2017 15:45:00 DIS Emergency ARVIND CERVANTES ENCAPSULATOR [facility] ER DIZZINESS/LOW BP [id number] 02/23/2017 09:51:00 02/23/2017 13:25:00 DIS Outpatient MARIA ALEJANDRA POST MD [facility] ENDO GERD/HX STRICTURE/ EPIGASTRIC PAIN [id number] 02/19/2017 05:53:00 02/19/2017 16:17:00 DIS Outpatient YVROSE GRIFFIN MD [facility] PREOP EGD/POSS.DILATAION [id number] 02/09/2017 18:56:00 02/09/2017 22:29:00 DIS Emergency ARVIND CERVANTES ENCAPSULATOR [facility] ER THROAT ISSUES [id number] 10/27/2016 07:28:00 10/28/2016 23:27:00 DIS Outpatient TRACI FOREMAN MD [facility] RAD STONES [id number] 06/26/2016 13:50:00 06/26/2016 23:59:59 CLS Outpatient JEFF LIU SARAH [facility] RAD ABNORMAL MAMMO [id number] 01/16/2016 13:03:00 01/16/2016 23:59:59 CLS Outpatient AGUILAR DO SARAH [facility] RAD INCONCLUSIVE MAMMO [id number] 12/29/2015 00:08:00 12/29/2015 23:59:59 CLS Preadmit TRACI FOREMAN MD [facility] RAD STONES [id number] 10/01/2015 07:28:00 12/28/2015 00:01:00 DIS Outpatient TRACI FOREMAN MD [facility] RAD STONES [id number] 09/04/2015 23:45:00 09/05/2015 02:54:00 DIS Emergency JAX CROW MD [facility] ER VOMITING [id number] 07/27/2015 11:50:00 07/27/2015 15:00:00 DIS Outpatient MARIA ALEJANDRA POST MD [facility] SDC GERD [id number] 07/25/2015 05:41:00 07/25/2015 23:59:59 CLS Outpatient MARIA ALEJANDRA POST MD [facility] PREOP GERD [id number] 06/04/2015 07:28:00 06/04/2015 23:59:59 CLS Outpatient JEFF LIU SARAH [facility] RAD ABNORMAL MAMMOGRAM RT BREAST [id number] 05/23/2015 10:37:00 05/23/2015 23:59:59 CLS Outpatient JEFF LIU SARAH [facility] RAD SCREENING [id number] 03/13/2015 16:23:00 03/13/2015 23:59:59 CLS Outpatient TRACI FOREMAN MD [facility] RAD STONES [id number] 12/13/2014 00:11:00 12/13/2014 23:59:59 CLS Preadmit TRACI FOREMAN MD [facility] RAD STONES [id number] 09/15/2014 08:22:00 12/12/2014 00:01:00 DIS Outpatient TRACI FOREMAN MD [facility] RAD STONES [id number] 11/22/2014 14:18:00 11/22/2014 23:59:59 CLS Outpatient CARMEN DIAZ DO [facility] RAD LEFT OVARIAN CYST [id number] 10/16/2014 09:15:00 10/16/2014 12:00:00 DIS Outpatient MARIA ALEJANDRA POST MD [facility] HISTORY OF POLYPS; FAMILY HISTORY; ABDOMINAL PAIN [id number] 10/09/2014 14:46:00 10/09/2014 23:59:59 CLS Outpatient CARMEN DIAZ DO [facility] RAD FEMALE PELVIC PAIN OVARIAN CYST [id number] 05/08/2014 15:24:00 05/08/2014 23:59:59 CLS Outpatient SARAH AGUILAR DO [facility] RAD SCREENING [id number] 08/27/2013 15:30:00 11/24/2013 00:01:00 DIS Outpatient TRACI FOREMAN MD [facility] RAD STONES [id number] 04/05/2013 15:15:00 04/05/2013 23:59:59 CLS Outpatient SARAH AGUILAR DO [facility] RAD ROUTINE [id number] 02/08/2018 07:21:00 Document Registration [id number] 02/04/2018 09:44:00 Document Registration [id number] 06/26/2016 13:50:00 Document Registration [id number] 06/26/2016 13:50:00 Document Registration [id number] 06/26/2016 13:50:00 Document Registration [id number] 07/27/2015 14:04:00 Document Registration [id number] 11/25/2013 00:00:00 Document Registration [id number] 11/15/2012 00:00:00 Document Registration [id number] 08/23/2012 07:37:00 Document Registration [id number] 04/27/2012 10:11:00 Document Registration [id number] 03/05/2012 12:41:00 Document Registration [id number] 02/04/2012 13:47:00 Document Registration [id number] 02/02/2012 11:36:00 Document Registration [id number] 10/29/2011 00:00:00 Document Registration [id number] 08/04/2011 07:36:00 Document Registration [id number] 03/31/2011 10:38:00 Document Registration [id number] 01/29/2011 13:50:00 Document Registration [id number] 10/23/2010 00:00:00 Document Registration [id number] 09/10/2010 05:47:00 Document Registration [id number] 09/04/2010 15:26:00 Document Registration [id number] 08/29/2010 14:48:00 Document Registration [id number] 08/13/2010 14:59:00 Document Registration [id number] 07/29/2010 07:25:00 Document Registration [id number] 06/26/2014 11:57:20 06/26/2014 23:59:59 [facility] Thi [email or web address] 03/14/2015 07:45:49 ACT Document Registration
--- NOTE | 2018-03-15 11:23 | ED Cardiac General ---
History of Present Illness General Chief Complaint: Cardiac/General Problems Stated Complaint: BP HIGH Source: patient Exam Limitations: no limitations History of Present Illness Date Seen by Provider: Mar 15, 2018 Time Seen by Provider: 11:20 Initial Comments To ER with reports of high blood pressure. She's noticed her blood pressure to be normal elevated over the past 4-5 days. She takes benazepril for hypertension. She's been checking her blood pressure lately because she's had some dizziness and near syncopal episodes where she states that she sees stars and everything go black. Her blood pressure has been as high as 200 systolic over the weekend. 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 It was measured at 176/106. Upon arrival to ER she is 187/99. She denies chest pain or shortness of breath. Timing/Duration: intermittent Severity: moderate Activities at Onset: none NTG SL CAKE BATTER MIXER: No ASA po CAKE BATTER MIXER: No Associated Systoms: No Chest Pain, No Headaches, No Malaise, No Nausea/Vomiting Allergies and Home Medications Allergies Coded Allergies: No Known Drug Allergies (Verified , 02/19/17) Home Medications Allopurinol 300 Mg Tablet, 300 MG PO DAILY, (Reported) Aspirin 81 Mg Tab.chew, 81 MG PO DAILY, (Reported) Atorvastatin Calcium 10 Mg Tablet, 10 MG PO DAILY, (Reported) Benazepril/Hydrochlorothiazide 1 Each Tablet, 1 EACH PO DAILY, (Reported) Cholecalciferol (Vitamin D3) 2,000 Unit Tablet, 2,000 UNIT PO DAILY, (Reported) Docusate Sodium 100 Mg Capsule, 100 MG PO BID PRN for CONSTIPATION-1ST LINE Prescribed by: CARMEN DIAZ on 02/08/181815 Estradiol 1 Each Patch.tdwk, 0.1 MG TOP Mo@09 Prescribed by: CARMEN DIAZ on 02/08/181815 Exenatide Microspheres 2 Mg/0.65 Ml Pen.injctr, 2 MG SQ WEEK, (Reported) Fenofibrate 48 Mg Tab, 48 MG PO DAILY, (Reported) Hydrocodone Bit/Acetaminophen 1 Ea Tablet, 1-2 EA PO Q6H PRN for PAIN-MODERATE TO SEVERE Prescribed by: CARMEN DIAZ on 02/08/181815 Ibuprofen 600 Mg Tablet, 600 MG PO Q6H PRN for PAIN-MILD Prescribed by: CARMEN DIAZ on 02/08/181815 Insulin Aspart 300 Units/3 Ml Solution, 13 UNITS SQ WM, (Reported) Insulin Glargine,Hum.rec.anlog 100 Unit/1 Ml Vial, 50 UNIT SQ HS, (Reported) Metformin HCl 500 Mg Tab.er.24h, 1,000 MG PO HS, (Reported) take 2 (500mg) tabs Metoprolol Succinate 25 Mg Tab.er.24h, 25 MG PO DAILY Prescribed by: ARVIND CERVANTES on 03/15/18 1138 Vestal-3 Acid Ethyl Esters 1 Gm Capsule, 4 GM PO DAILY, (Reported) take 4 (1gm) tabs Pantoprazole Sodium 40 Mg Tablet.dr, 40 MG PO DAILY, (Reported) Potassium Chloride 10 Meq Capsule.er, 10 MEQ PO DAILY, (Reported) Potassium Chloride 20 Meq Tablet.er, 40 MEQ PO DAILY Prescribed by: ARVIND CERVANTES on 03/15/18 1156 Potassium Citrate/Citric Acid 473 Ml Solution, 7.4 ML PO TID, (Reported) Simethicone 80 Mg Tab.chew, 40 MG PO TID PRN for INDIGESTION Prescribed by: CARMEN DIAZ on 02/08/181815 Triamterene/Hydrochlorothiazid 1 Each Capsule, 1 EACH PO DAILY, (Reported) Patient Home Medication List Home Medication List Reviewed: Yes Review of Systems Review of Systems Constitutional: see HPI EENTM: No Symptoms Reported Respiratory: No Symptoms Reported; Denies Cough, Denies Shortness of Air, Denies SOA With Exertion, Denies SOA at Rest Cardiovascular: See HPI; Denies Chest Pain, Denies Edema, Denies Irregular Heart Rate; Lightheadedness; Denies Palpitations, Denies Syncope; Other (near syncope) Gastrointestinal: No Symptoms Reported Genitourinary: No Symptoms Reported Musculoskeletal: no symptoms reported Skin: no symptoms reported Psychiatric/Neurological: No Symptoms Reported Endocrine: No Symptoms Reported Past Lcwqoop-Vrujzf-Etaacn Hx Patient Social History 2nd Hand Smoke Exposure: No Recent Hopitalizations: No Immunizations Up To Date Date of Influenza Vaccine: Apr 13, 2017 Seasonal Allergies Seasonal Allergies: Yes Past Medical History Surgeries: Yes (WISDOM TEETH, ESWL, OVARIAN CYSTECTOMY, HERNIA , lithrotripsy) Appendectomy, Gallbladder, Oophorectomy Respiratory: No Cardiac: Yes High Cholesterol, Hypertension Neurological: No Headaches /Migraines Reproductive Disorders: Yes Female Reproductive Disorders: Denies Sexually Transmitted Disease: No HIV/AIDS: No Genitourinary: Yes Kidney Stones Gastrointestinal: Yes Gastroesophageal Reflux, Chronic Constipation, Chronic Diarrhea, Polyps Musculoskeletal: No Endocrine: Yes Diabetes, Insulin dep HEENT: No Loss of Vision: Bilateral Hearing Impairment: Denies Cancer: No Psychosocial: No Integumentary: No Blood Disorders: No Adverse Reaction/Blood Tranf: No (N/A) Family Medical History Cardiovascular disease 19 FATHER Diabetes mellitus 19 FATHER 19 MOTHER G8 BROTHER Hypertension 19 FATHER 19 MOTHER G8 BROTHER Kidney disease 19 FATHER Physical Exam Vital Signs Vital Signs - First Documented 03/15/18 10:55 Temp 97.5 Pulse 94 Resp 18 B/P (MAP) 163/91 (115) Pulse Ox 97 O2 Delivery Room Air Capillary Refill : Height, Weight, BMI Height: 5'7.00" Weight: 195lbs. 0.0oz. 88.635597kl; 30.5 BMI Method:Stated General Appearance: No Apparent Distress, WD/WN HEENT: PERRL/EOMI, TMs Normal Neck: Full Range of Motion, Normal Inspection Respiratory: Lungs Clear, Normal Breath Sounds, No Accessory Muscle Use, No Respiratory Distress Cardiovascular: Regular Rate, Rhythm, Normal Peripheral Pulses Gastrointestinal: Normal Bowel Sounds, Non Tender, Soft Extremity: Normal Capillary Refill, Normal Inspection Neurologic/Psychiatric: Alert, Oriented x3 Skin: Normal Color, Warm/Dry Progress/Results/Core Measures Results/Orders Lab Results Laboratory Tests Test 03/15/18 11:11 03/15/18 11:15 Range/Units White Blood Count 11.2 H 4.3-11.0 10^3/uL Red Blood Count 5.28 4.35-5.85 10^6/uL Hemoglobin 15.8 11.5-16.0 G/DL Hematocrit 44 35-52 % Mean Corpuscular Volume 84 80-99 FL Mean Corpuscular Hemoglobin 30 25-34 PG Mean Corpuscular Hemoglobin Concent 36 32-36 G/DL Red Cell Distribution Width 13.9 10.0-14.5 % Platelet Count 379 130-400 10^3/uL Mean Platelet Volume 9.4 7.4-10.4 FL Neutrophils (%) (Auto) 52 42-75 % Lymphocytes (%) (Auto) 34 12-44 % Monocytes (%) (Auto) 7 0-12 % Eosinophils (%) (Auto) 6 0-10 % Basophils (%) (Auto) 1 0-10 % Neutrophils # (Auto) 5.8 1.8-7.8 X 10^3 Lymphocytes # (Auto) 3.8 1.0-4.0 X 10^3 Monocytes # (Auto) 0.8 0.0-1.0 X 10^3 Eosinophils # (Auto) 0.6 H 0.0-0.3 10^3/uL Basophils # (Auto) 0.1 0.0-0.1 10^3/uL Sodium Level 140 135-145 MMOL/L Potassium Level 2.9 L 3.6-5.0 MMOL/L Chloride Level 100 98-107 MMOL/L Carbon Dioxide Level 27 21-32 MMOL/L Anion Gap 13 5-14 MMOL/L Blood Urea Nitrogen 11 7-18 MG/DL Creatinine 0.80 0.60-1.30 MG/DL Estimat Glomerular Filtration Rate > 60 BUN/Creatinine Ratio 14 Glucose Level 148 H 70-105 MG/DL Calcium Level 11.0 H 8.5-10.1 MG/DL Urine Color YELLOW Urine Clarity CLEAR Urine pH 7 5-9 Urine Specific [place] 1.005 L 1.016-1.022 Urine Protein NEGATIVE NEGATIVE Urine Glucose (UA) NEGATIVE NEGATIVE Urine Ketones NEGATIVE NEGATIVE Urine Nitrite NEGATIVE NEGATIVE Urine Bilirubin NEGATIVE NEGATIVE Urine Urobilinogen NORMAL NORMAL MG/DL Urine Leukocyte Esterase 2+ H NEGATIVE Urine RBC (Auto) 2+ H NEGATIVE Urine RBC 0-2 /HPF Urine WBC 5-10 H /HPF Urine Squamous Epithelial Cells 2-5 /HPF Urine Crystals NONE /LPF Urine Bacteria NEGATIVE /HPF Urine Casts NONE /LPF Urine Mucus NEGATIVE /LPF Urine Culture Indicated YES My Orders Orders - ARVIND CERVANTES APRN Cbc With Automated Diff (03/15/18 10:56) Basic Metabolic Panel (03/15/18 10:56) Ua Culture If Indicated (03/15/18 11:20) Clonidine Tablet (Catapres Tablet) (03/15/18 11:30) Potassium Chloride Powder (Klor Con 20 M (03/15/18 12:00) Urine Culture (03/15/18 11:15) Medications Given in ED Current Medications Medications Dose Ordered Sig/Radha Route Start Time Stop Time Status Last Admin Dose Admin Clonidine HCl 0.1 mg ONCE ONCE PO 03/15/18 11:30 03/15/18 11:31 DC 03/15/18 11:30 0.1 MG Vital Signs/I&O 03/15/18 10:55 Temp 97.5 Pulse 94 Resp 18 B/P (MAP) 163/91 (115) Pulse Ox 97 O2 Delivery Room Air Departure Communication (Admissions) Discharged home with a low-dose of Toprol-XL 25 mg daily and this can be titrated upwards as necessary by Dr. Ortega. Spoke with Dr Ortega, will start norvasc 5mg daily #30. 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 Decision time for Depature: 11:36 Referrals: SARAH ORTEGA DO (PCP/Family) Primary Care Physician Patient Instructions: High Blood Pressure (DC) Add. Discharge Instructions: 1. Follow-up with Dr. Ortega 2. Return to ER for any concerns. All discharge instructions reviewed with patient and/or family. Voiced understanding. Scripts Amlodipine Besylate (Norvasc) 5 Mg Tablet 5 MG PO DAILY, #30 TAB Prov: ARVIND CERVANTES APRN 03/15/18 Potassium Chloride (K-Tab ER) 20 Meq Tablet.er 40 MEQ PO DAILY, #8 TAB Prov: ARVIND CERVANTES APRN 03/15/18 Copy Copies To 1: SARAH ORTEGA PETER J APRN Mar 15, 2018 11:23
[2018-03-15 11:26] LABS: BASOPHILS # (AUTO) 0.1 10^3/uL (0.0-0.1); BASOPHILS % (AUTO) 1 % (0-10); EOSINOPHILS # (AUTO) 0.6 10^3/uL (0.0-0.3); EOSINOPHILS % (AUTO) 6 % (0-10); HEMATOCRIT 44 % (35-52); HEMOGLOBIN 15.8 G/DL (11.5-16.0); LYMPHOCYTES # (AUTO) 3.8 X 10^3 (1.0-4.0); LYMPHOCYTES % (AUTO) 34 % (12-44); MEAN CORPUSCULAR HEMOGLOBIN 30 PG (25-34); MEAN CORPUSCULAR HGB CONC 36 G/DL (32-36); MEAN CORPUSCULAR VOLUME 84 FL (80-99); MEAN PLATELET VOLUME 9.4 FL (7.4-10.4); MONOCYTES # (AUTO) 0.8 X 10^3 (0.0-1.0); MONOCYTES % (AUTO) 7 % (0-12); NEUTROPHILS # (AUTO) 5.8 X 10^3 (1.8-7.8); NEUTROPHILS % (AUTO) 52 % (42-75); PLATELET COUNT 379 10^3/uL (130-400); RED BLOOD COUNT 5.28 10^6/uL (4.35-5.85); RED CELL DISTRIBUTION WIDTH 13.9 % (10.0-14.5); WHITE BLOOD COUNT 11.2 10^3/uL (4.3-11.0)
[2018-03-15] MEDS ORDERED: cloNIDine 0.1 MG (CATAPRES) TAB PO ONE (11:30)
[2018-03-15] MEDS ORDERED: METO-351 PO (11:38)
[2018-03-15 11:51] LABS: BUN/CREATININE RATIO 14; CARBON DIOXIDE 27 MMOL/L (21-32); CHLORIDE 100 MMOL/L (98-107); GFR ESTIMATED > 60; GLUCOSE 148 MG/DL (70-105); POTASSIUM 2.9 MMOL/L (3.6-5.0); SODIUM 140 MMOL/L (135-145)
[2018-03-15 11:51] LABS: BILIRUBIN,URINE NEGATIVE (NEGATIVE); CLARITY,URINE CLEAR; COLOR,URINE YELLOW; GLUCOSE, URINE (UA) NEGATIVE (NEGATIVE); KETONES,URINE NEGATIVE (NEGATIVE); LEUKOCYTE ESTERASE ,URINE 2+ (NEGATIVE); NITRITE,URINE NEGATIVE (NEGATIVE); PH,URINE 7 (5-9); PROTEIN,URINE NEGATIVE (NEGATIVE); UROBILINOGEN,URINE NORMAL (NORMAL)
[2018-03-15] MEDS ORDERED: POTA-53 PO (11:56)
[2018-03-15 12:00] LABS: BACTERIA,URINE NEGATIVE /HPF; RBC,URINE 0-2 /HPF
[2018-03-15] MEDS ORDERED: KCL 20 MEQ POWDER FOR ORAL SOLUTION PO ONE (12:00)
[2018-03-15] MEDS ORDERED: AMLO5TAB4 PO (12:19)
[2018-03-15 12:20] VITALS: BP 163/91
== END 2018-03-15 12:25 | disposition home or self-care (01) ==
LOC: EDUNIT# 10:32 → ER 10:33
DX: I10 Essential (primary) hypertension (principal); E87.6 Hypokalemia; E78.00 Pure hypercholesterolemia, unspecified; G43.909 Migraine, unspecified, not intractable, without status migrainosus; K21.9 Gastro-esophageal reflux disease without esophagitis; E11.9 Type 2 diabetes mellitus without complications; Z86.010 Personal history of colon polyps; Z87.442 Personal history of urinary calculi; Z90.6 Acquired absence of other parts of urinary tract; Z79.82 Long term (current) use of aspirin; Z82.49 Family history of ischemic heart disease and other diseases of the circulatory system; Z79.4 Long term (current) use of insulin; Z87.19 Personal history of other diseases of the digestive system; Z90.89 Acquired absence of other organs
CPT/HCPCS: 36415; 80048; 81000; 85025; 87088

== ENCOUNTER → 2018-03-15 | Outpatient (CLI) | payer BC ==
[~2018-03-15] MED LIST changes: +AMLO5TAB4 PO; +AMLO5TAB7 PO; +DOCU100C37 PO; +ESTR1PAT73 TOP; +ESTR1PAT77 TD; +HYDR-34 PO; +IBUP-844 PO; +INSU100I14 SQ; +METO-351 PO; +POTA-53 PO; +SIME80TA16 PO
[2018-03-15 17:24] LABS: ALBUMIN 4.8 GM/DL (3.2-4.5); BILIRUBIN,DIRECT 0.2 MG/DL (0.0-0.3); BILIRUBIN,INDIRECT 0.3 MG/DL; BILIRUBIN,TOTAL 0.5 MG/DL (0.1-1.0); TOTAL PROTEIN 7.7 GM/DL (6.4-8.2)
== END ==
LOC: LAB 17:04
PROVIDERS: ATTEND Internal Medicine
DX: R74.8 Abnormal levels of other serum enzymes (principal)
CPT/HCPCS: 36415; 80076

== ENCOUNTER 2018-03-31 05:39 | Outpatient (CLI) | payer BC ==
[~2018-03-31] VITALS: Ht 170.2 cm; Wt 88.5 kg
[~2018-03-31 05:39] MED LIST changes: +AMLO5TAB4 PO; +METO-351 PO; +POTA-53 PO
[2018-03-31] MEDS ORDERED: ESTR1PAT77 TD (13:16)
[2018-03-31] MEDS ORDERED: AMLO5TAB7 PO (13:16)
== END 2018-03-31 13:28 | disposition home or self-care (01) ==
LOC: PREOP 05:39
PROVIDERS: ATTEND Surgery
DX: Z01.818 Encounter for other preprocedural examination (principal)

== ENCOUNTER 2018-04-05 08:37 | Day surgery (SDC) | payer BC ==
[~2018-04-05] VITALS: Ht 170.2 cm; Wt 88.5 kg
[~2018-04-05 08:37] MED LIST changes: +AMLO5TAB7 PO; +ESTR1PAT77 TD
[2018-04-05] MEDS ORDERED: NS IV 500 ML 500 ML IV PRN (08:44)
[2018-04-05] MEDS ORDERED: fentaNYL INJECTION 100 MCG/2 ML AMP IVP ONE (08:45)
[2018-04-05] MEDS ORDERED: HURRICAINE EXT TUBE (BENZOCAINE) XX PRN (08:45)
[2018-04-05] MEDS ORDERED: MIDAZOLAM 2 MG/2 ML (VERSED) VIAL IVP ONE (08:45)
--- OUTSIDE RECORDS SUMMARY | 2018-04-05 08:50 | XMS REPORT | Continuity of Care Document ---
Author Author [facility] Address Unknown Phone Unavailable Allergies Active Description Code Type Severity Reaction Onset Reported/Identified Relationship to Patient Clinical Status Yes No Known Drug Allergies [id number] Drug Allergy Mild N/A 07/27/2015 Yes No Known Drug Allergies [id number] Drug Allergy Unknown N/A 02/19/2017 Medications There [...] 11/17/2014 CARMEN DIAZ DO Ot 229.9 11/17/2014 CARMNE DIAZ DO Ot 620.2 11/17/2014 CARMEN DIAZ [...] FEM GENITAL SYMPTOMS NOS 06/26/2016 JOE LIU CARMNE C Ot 218.9 UTERINE LEIOMYOMA NOS 06/26/2016 DIAZ CARMEN C Ot 620.2 OVARIAN CYST NEC/NOS 06/26/2016 KELLEN ROWLAND, TRCAI A Ot 592.9 URINARY CALCULUS NOS 06/26/2016 [...] O 02/09/2017 ARVIND CERVANTES APRN Ot Z79.4 FILTER HELPER (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 OF INSULIN 02/09/2017 ARVIND CERVANTES APRN Ot Z79.82 SNF (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 02/09/2017 ARVIND CERVANTES APRN Ot Z79.84 SNF (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 OF ORAL HYPOGLYC 02/09/2017 ARVIND [...] E78.00 PURE HYPERCHOLESTEROLEMIA, UNSPECIFIED 02/16/2017 ARVIND CERVANTES HOSPITAL PHARMACY TECHNICIAN Ot I10 ESSENTIAL (PRIMARY) HYPERTENSION 02/16/2017 ARVIND CERVANTES HOSPITAL PHARMACY TECHNICIAN Ot K22.8 OTHER SPECIFIED DISEASES OF ESOPHAGUS 02/16/2017 ARVIND CERVANTES HOSPITAL PHARMACY TECHNICIAN Ot T18.108A UNSP FOREIGN BODY IN ESOPHAGUS CAUSING O 02/16/2017 ARVIND CERVANTES HOSPITAL PHARMACY TECHNICIAN Ot Z79.4 SNF (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 OF INSULIN 02/16/2017 ARVIND CERVANTES APRN Ot Z79.82 FILTER HELPER (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 02/16/2017 ARVIND CERVANTES APRN Ot Z79.84 SNF (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 OF ORAL HYPOGLYC 02/16/2017 ARVIND CERVANTES APRN Ot Z87.19 PERSONAL HISTORY OF OTHER DISEASES OF 02/16/2017 ARVIND CERVANTES APRN Ot Z87.442 PERSONAL HISTORY OF URINARY CALCULI 02/16/2017 ARVIND CERVANTES APRN Ot Z90.49 ACQUIRED ABSENCE OF OTHER SPECIFIED PART 02/16/2017 ARVIND CERVANTES HOSPITAL PHARMACY TECHNICIAN Ot Z90.6 ACQUIRED ABSENCE OF OTHER PARTS [...] COLLAPSE 03/09/2017 ARVIND CERVANTES APRN Ot Z79.4 SNF (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 OF INSULIN 03/09/2017 ARVIND CERVANTES APRN Ot Z79.82 FILTER HELPER (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 03/09/2017 ARVIND CERVANTES APRN Ot Z79.84 SNF (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 OF ORAL HYPOGLYC 03/09/2017 ARVIND CERVANTES APRN Ot Z87.19 PERSONAL HISTORY OF OTHER DISEASES OF 03/09/2017 ARVIND CERVANTES APRN Ot Z87.442 PERSONAL HISTORY OF URINARY CALCULI 03/09/2017 ARVNID CERVANTES APRN Ot Z90.710 ACQUIRED ABSENCE OF [...] COLLAPSE 03/11/2017 ARVIND CERVANTES APRN Ot Z79.4 FILTER HELPER (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 OF INSULIN 03/11/2017 ARVIND CERVANTES APRN Ot Z79.82 SNF (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 03/11/2017 ARVIND CERVANTES APRN Ot Z79.84 SNF (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 OF ORAL HYPOGLYC 03/11/2017 ARVIND [...] E78.00 PURE HYPERCHOLESTEROLEMIA, UNSPECIFIED 08/03/2017 MARIA ALEJANDRA OPST MD Ot I10 ESSENTIAL (PRIMARY) HYPERTENSION 08/03/2017 MARIA ALEJANDRA POST MD Ot K21.9 GASTRO-ESOPHAGEAL REFLUX DISEASE WITHOUT 08/03/2017 MARIA ALEJANDRA POST MD Ot K52.9 NONINFECTIVE GASTROENTERITIS AND COLITIS 08/03/2017 MARIA ALEJANDRA POST MD Ot K57.30 DVRTCLOS OF LG INT W/O PERFORATION OR AB 08/03/2017 MARIA ALEJANDRA POST MD Ot K59.09 OTHER CONSTIPATION 08/03/2017 MARIA ALEJANDRA POST MD Ot Z79.4 SNF (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 OF INSULIN 08/03/2017 MARIA ALEJANDRA POST MD Ot Z79.899 OTHER SNF (CURRENT) DRUG THERAPY 08/03/2017 MARIA ALEJANDRA POST [...] 08/04/2017 MARIA ALEJANDRA POST MD Ot Z79.4 SNF (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 OF INSULIN 08/04/2017 MARIA ALEJANDRA POST MD Ot Z79.899 OTHER FILTER HELPER (CURRENT) DRUG THERAPY 08/04/2017 MARIA ALEJANDRA POST [...] 08/09/2017 MARIA ALEJANDRA POST MD Ot Z79.4 FILTER HELPER (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 OF INSULIN 08/09/2017 MARIA ALEJANDRA POST MD, Ot Z79.899 OTHER SNF (CURRENT) DRUG THERAPY 08/09/2017 MARIA ALEJANDRA POST [...] LIU Ot 218.9 UTERINE LEIOMYOMA NOS 01/18/2018 DIAZCARMEN Ag DO Ot 620.2 OVARIAN CYST NEC/NOS 01/18/2018 KELLEN [...] FOREMAN MD Ot N20.0 CALCULUS OF KIDNEY 01/26/2018 KELLEN ROWLAND, TRACI Ugalde Ot N20.0 CALCULUS OF KIDNEY 02/09/2018 Ot [...] CARRIER OF OTHER DISEASE 02/09/2018 Ot Z79.4 FILTER HELPER ( 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 OF INSULIN 02/09/2018 Ot Z79.899 OTHER SNF (CURRENT) DRUG THERAPY 02/09/2018 Ot Z80.0 FAMILY [...] CARRIER OF OTHER DISEASE 02/14/2018 Ot Z79.4 FILTER HELPER ( 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 OF INSULIN 02/14/2018 Ot Z79.899 OTHER FILTER HELPER (CURRENT) DRUG THERAPY 02/14/2018 Ot Z80.0 FAMILY [...] CARRIER OF OTHER DISEASE 02/19/2018 Ot Z79.4 FILTER HELPER ( 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 OF INSULIN 02/19/2018 Ot Z79.899 OTHER FILTER HELPER (CURRENT) DRUG THERAPY 02/19/2018 Ot Z80.0 FAMILY HISTORY OF MALIGNANT NEOPLASM OF 02/19/2018 Ot Z80.3 FAMILY HISTORY OF MALIGNANT NEOPLASM OF 02/19/2018 Ot Z80.49 FAMILY HISTORY OF MALIGNANT NEOPLASM OF 02/19/2018 Ot Z87.442 PERSONAL HISTORY OF URINARY CALCULI 03/17/2018 ARVIND CERVANTES APRN Ot E11.9 TYPE 2 DIABETES MELLITUS WITHOUT COMPLIC 03/17/2018 ARVIND CERVANTES APRN Ot E78.00 PURE HYPERCHOLESTEROLEMIA, UNSPECIFIED 03/17/2018 ARVIND CERVANTES APRN Ot E87.6 HYPOKALEMIA 03/17/2018 ARVIND CERVANTES APRN Ot G43.909 MIGRAINE, UNSP, NOT INTRACTABLE, WITHOUT 03/17/2018 ARVIND CERVANTES APRN Ot I10 ESSENTIAL (PRIMARY) HYPERTENSION 03/17/2018 ARVIND CERVANTES APRN Ot K21.9 GASTRO-ESOPHAGEAL REFLUX DISEASE WITHOUT 03/17/2018 ARVIND CERVANTES APRN Ot R03.0 ELEVATED BLOOD-PRESSURE READING, W/O HIRAL 03/17/2018 ARVIND CERVANTES APRN Ot Z79.4 SNF (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 OF INSULIN 03/17/2018 ARVIND CERVANTES APRN Ot Z79.82 FILTER HELPER (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 03/17/2018 ARVIND CERVANTES APRN Ot Z82.49 FAMILY HX OF ISCHEM HEART DIS AND OTH DI 03/17/2018 ARVIND CERVANTES APRN Ot Z86.010 PERSONAL HISTORY OF COLONIC POLYPS 03/17/2018 ARVIND CERVANTES APRN Ot Z87.19 PERSONAL HISTORY OF OTHER DISEASES OF TH 03/17/2018 ARVIND CERVANTES APRN Ot Z87.442 PERSONAL HISTORY OF URINARY CALCULI 03/17/2018 ARVIND CERVANTES APRN Ot Z90.6 ACQUIRED ABSENCE OF OTHER PARTS OF URINA 03/17/2018 ARVIND CERVANTES APRN Ot Z90.89 ACQUIRED ABSENCE OF OTHER ORGANS 03/21/2018 ARVIND CERVANTES APRN Ot E11.9 TYPE 2 DIABETES MELLITUS WITHOUT COMPLIC 03/21/2018 ARVIND CERVANTES APRN Ot E78.00 PURE HYPERCHOLESTEROLEMIA, UNSPECIFIED 03/21/2018 ARVIND CERVANTES APRN Ot E87.6 HYPOKALEMIA 03/21/2018 ARVIND CERVANTES APRN Ot G43.909 MIGRAINE, UNSP, NOT INTRACTABLE, WITHOUT 03/21/2018 ARVIND CERVANTES APRN Ot I10 ESSENTIAL (PRIMARY) HYPERTENSION 03/21/2018 ARVIND CERVANTES APRN Ot K21.9 GASTRO-ESOPHAGEAL REFLUX DISEASE WITHOUT 03/21/2018 ARVIND CERVANTES APRN Ot R03.0 ELEVATED BLOOD-PRESSURE READING, W/O HIRAL 03/21/2018 ARVIND CERVANTES APRN Ot Z79.4 SNF (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 OF INSULIN 03/21/2018 ARVIND CERVANTES APRN Ot Z79.82 FILTER HELPER (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 03/21/2018 ARVIND CERVANTES APRN Ot Z82.49 FAMILY HX OF ISCHEM HEART DIS AND OTH DI 03/21/2018 ARVIND CERVANTES APRN Ot Z86.010 PERSONAL HISTORY OF COLONIC POLYPS 03/21/2018 ARVIND CERVANTES APRN Ot Z87.19 PERSONAL HISTORY OF OTHER DISEASES OF TH 03/21/2018 ARVIND CERVANTES APRN Ot Z87.442 PERSONAL HISTORY OF URINARY CALCULI 03/21/2018 ARVIND CERVANTES APRN Ot Z90.6 ACQUIRED ABSENCE OF OTHER PARTS OF URINA 03/21/2018 ARVIND CERVANTES APRN Ot Z90.89 ACQUIRED ABSENCE OF OTHER ORGANS 03/21/2018 SARAH AGUILAR DO Ot R74.8 ABNORMAL LEVELS OF OTHER SERUM ENZYMES 03/31/2018 KELLEN ROWLAND, TRACI Ugalde Ot N20.0 CALCULUS OF KIDNEY 03/31/2018 SARAH AGUILAR DO Ot R74.8 ABNORMAL LEVELS OF OTHER SERUM ENZYMES 03/31/2018 SINCERE ROWLAND, MARIA ALEJANDRA Ramirez Ot Z01.818 ENCOUNTER FOR OTHER PREPROCEDURAL EXAMIN Procedures There is no data. Results Test [...] creatinine measurement (mass/time) 1308 % 600-1800 Clinical accounts adjustable clerk review of results See Below [facility] Complete blood count (CBC) with automated white [...] Blood erythrocyte morphology finding identification NORMAL NRG CD3+CD4+ (T4 helper) cells/100 cells in blood [...] creatinine measurement (mass/time) 1385 % 600-1800 Clinical accounts adjustable clerk review of results See Below NRG Complete [...] FTX;REPORTABLE RML REPORTED ID 02/05 15:05 NRG Complete blood count (CBC) with automated white blood cell (WBC) differential - 03/15/18 11:11 Blood leukocytes automated count (number/volume) 11.2 10*3/uL 4.3-11.0 Blood erythrocytes automated count (number/volume) 5.28 10*6/uL 4.35-5.85 Venous blood hemoglobin measurement (mass/volume) 15.8 g/dL 11.5-16.0 Blood hematocrit (volume fraction) 44 % 35-52 Automated erythrocyte mean corpuscular volume 84 [foz_us] 80-99 Automated erythrocyte mean corpuscular hemoglobin (mass per erythrocyte) 30 pg 25-34 Automated erythrocyte mean corpuscular hemoglobin concentration measurement ( mass/volume) 36 g/dL 32-36 Automated erythrocyte distribution width ratio 13.9 % 10.0-14.5 Automated blood platelet count (count/volume) 379 10*3/uL 130-400 Automated blood platelet mean volume measurement 9.4 [foz_us] 7.4-10.4 Automated blood neutrophils/100 leukocytes 52 % 42-75 Automated blood lymphocytes/100 leukocytes 34 % 12-44 Blood monocytes/100 leukocytes 7 % 0-12 Automated blood eosinophils/100 leukocytes 6 % 0-10 Automated blood basophils/100 leukocytes 1 % 0-10 Blood neutrophils automated count (number/volume) 5.8 10*3 1.8-7.8 Blood lymphocytes automated count (number/volume) 3.8 10*3 1.0-4.0 Blood monocytes automated count (number/volume) 0.8 10*3 0.0-1.0 Automated eosinophil count 0.6 10*3/uL 0.0-0.3 Automated blood basophil count (count/volume) 0.1 10*3/uL 0.0-0.1 Whole blood basic metabolic panel - 03/15/18 11:11 Serum or plasma sodium measurement (moles/volume) 140 mmol/L 135-145 Serum or plasma potassium measurement (moles/volume) 2.9 mmol/L 3.6-5.0 Serum or plasma chloride measurement (moles/volume) 100 mmol/L 98-107 Carbon dioxide 27 mmol/L 21-32 Serum or plasma anion gap determination (moles/volume) 13 mmol/L 5-14 Serum or plasma urea nitrogen measurement (mass/volume) 11 mg/dL 7-18 Serum or plasma creatinine measurement (mass/volume) 0.80 mg/dL 0.60-1.30 Serum or plasma urea nitrogen/creatinine mass ratio 14 NRG Serum or plasma creatinine measurement with calculation of estimated glomerular filtration rate > NRG Serum or plasma glucose measurement (mass/volume) 148 mg/dL 70-105 Serum or plasma calcium measurement (mass/volume) 11.0 mg/dL 8.5-10.1 Liver function panel (serum or plasma alk phos, alb, total and direct bili, total protein, ALT, AST) - 03/15/18 11:11 Serum or plasma total bilirubin measurement (mass/volume) 0.5 mg/dL 0.1-1.0 Serum or plasma alkaline phosphatase measurement (enzymatic activity/volume) 100 U/L 40-136 Serum or plasma aspartate aminotransferase measurement (enzymatic activity/ volume) 25 U/L 5-34 Serum or plasma alanine aminotransferase measurement (enzymatic activity/volume ) 29 U/L 0-55 Serum or plasma protein measurement (mass/volume) 7.7 g/dL 6.4-8.2 Serum or plasma albumin measurement (mass/volume) 4.8 g/dL 3.2-4.5 Bilirubin direct 0.2 mg/dL 0.0-0.3 Serum or plasma indirect bilirubin measurement (mass/volume) 0.3 mg/ dL NRG Complete urinalysis with reflex to culture - 03/15/18 11:15 Urine color determination YELLOW NRG Urine clarity determination CLEAR NRG Urine pH measurement by test strip 7 5-9 Specific gravity of urine by test strip 1.005 1.016- 1.022 Urine protein assay by test strip, semi-quantitative NEGATIVE NEGATIVE Urine glucose detection by automated test strip NEGATIVE NEGATIVE Erythrocytes detection in urine sediment by light microscopy 2+ NEGATIVE Urine ketones detection by automated test strip NEGATIVE NEGATIVE Urine nitrite detection by test strip [...] urine sediment by light microscopy NEGATIVE NRG Squamous epithelial cells detection in urine sediment by light microscopy 2-5 NRG Crystals detection in urine sediment by light microscopy NONE NRG Casts detection in urine sediment by light microscopy NONE NRG Mucus detection in urine sediment by light microscopy NEGATIVE NRG Complete urinalysis with reflex to culture YES NRG Bacterial urine culture - 03/15/18 11:15 Bacterial urine culture SEE REPORT NRG COLONY COUNT . NRG Encounters ACCT No. Visit Date/Time Discharge Status Pt. Type Provider Facility Loc./Unit Complaint [id number] 04/26/2014 08:58:00 04/26/2014 23:59:59 CLS Outpatient YOU CRESPO APRN [id number] 04/20/2013 14:57:00 04/20/2013 23:59:59 CLS Outpatient YOU CRESPO APRN [id number] 06/09/2012 15:19:00 06/09/2012 23:59:59 CLS Outpatient [id number] 03/31/2018 05:39:00 03/31/2018 13:28:00 DIS Outpatient MARIA ALEJANDRA POST MD [facility] PREOP EGD [id number] 03/29/2018 00:20:00 03/29/2018 23:59:59 CLS Preadmit TRACI FOREMAN MD [facility] LAB RENAL STONES [id number] 03/15/2018 17:04:00 03/15/2018 23:59:59 CLS Outpatient AGUILAR DO, SARAH [facility] LAB R74.8 [id number] 03/15/2018 10:33:00 03/15/2018 12:25:00 DIS Outpatient ARVIND CERVANTES APRN [facility] ER BP HIGH [id number] 01/15/2018 06:25:00 01/26/2018 00:01:00 DIS Outpatient TRACI FOREMAN MD [facility] LAB RENAL STONES [id number] 01/19/2018 06:57:00 01/19/2018 23:59:59 CLS Outpatient TRACI FOREMAN MD [facility] RAD RENAL STONES [id number] 08/03/2017 07:17:00 08/03/2017 09:35:00 DIS Outpatient MARIA ALEJANDRA POST MD [facility] ENDO SCREENING,HX POLYPS , FAMILY HX COLON CA [id number] 07/27/2017 14:18:00 07/27/2017 23:59:59 CLS Outpatient JEFF LIU SARAH [facility] RAD SCREENING [id number] 07/27/2017 05:42:00 07/27/2017 12:26:00 DIS Outpatient SINCERE ROWLAND, MARIA ALEJANDRA Ramirez [facility] PREOP COLONOSCOPY [id number] 03/20/2017 10:03:00 03/20/2017 23:59:59 CLS Outpatient JEFF LIU SARAH [facility] RAD R13.14 [id number] 03/09/2017 12:45:00 03/09/2017 15:45:00 DIS Emergency ARVIND CERVANTES APRN [facility] ER DIZZINESS/LOW BP [id number] 02/23/2017 09:51:00 02/23/2017 13:25:00 DIS Outpatient SINCERE ROWLAND, MARIA ALEJANDRA Ramirez [facility] ENDO GERD/HX STRICTURE/ EPIGASTRIC PAIN [id number] 02/19/2017 05:53:00 02/19/2017 16:17:00 DIS Outpatient YVROSE GRIFFIN MD [facility] PREOP EGD/POSS.DILATAION [id number] 02/09/2017 18:56:00 02/09/2017 22:29:00 DIS Emergency ARVIND CERVANTES Fili MICHELLE [facility] ER THROAT ISSUES [id number] 10/27/2016 07:28:00 10/28/2016 23:27:00 DIS Outpatient TRACI FOREMAN MD [facility] RAD STONES [id number] 06/26/2016 13:50:00 06/26/2016 23:59:59 CLS Outpatient AGUILARNINFA LIU SARAH [facility] RAD ABNORMAL MAMMO [id number] 01/16/2016 13:03:00 01/16/2016 23:59:59 CLS Outpatient SARAH AGUILAR DO [facility] RAD INCONCLUSIVE MAMMO [id number] 12/29/2015 00:08:00 12/29/2015 23:59:59 CLS Preadmit TRACI FOREMAN MD [facility] RAD STONES [id number] 10/01/2015 07:28:00 12/28/2015 00:01:00 DIS Outpatient TRACI FOREMAN MD [facility] RAD STONES [id number] 09/04/2015 23:45:00 09/05/2015 02:54:00 DIS Emergency JAX CROW MD [facility] ER VOMITING [id number] 07/27/2015 11:50:00 07/27/2015 15:00:00 DIS Outpatient MARIA ALEJANDRA POST MD [facility] SDC GERD [id number] 07/25/2015 05:41:00 07/25/2015 23:59:59 CLS Outpatient MARIA ALEJANDRA POST MD [facility] PREOP GERD [id number] 06/04/2015 07:28:00 06/04/2015 23:59:59 CLS Outpatient SARAH AGUILAR DO [facility] RAD ABNORMAL MAMMOGRAM RT BREAST [id number] 05/23/2015 10:37:00 05/23/2015 23:59:59 CLS Outpatient SARAH AGUILAR DO [facility] RAD SCREENING [id number] 03/13/2015 16:23:00 03/13/2015 23:59:59 CLS Outpatient TRACI FOREMAN MD [facility] RAD STONES [id number] 12/13/2014 00:11:00 12/13/2014 23:59:59 CLS Preadmit TRACI FOREMAN MD [facility] RAD STONES [id number] 09/15/2014 08:22:00 12/12/2014 00:01:00 DIS Outpatient TRACI FOREMAN MD [facility] RAD STONES [id number] 11/22/2014 14:18:00 11/22/2014 23:59:59 CLS Outpatient CARMEN DIAZ DO [facility] RAD LEFT OVARIAN CYST [id number] 10/16/2014 09:15:00 10/16/2014 12:00:00 DIS Outpatient SINCERE ROWLAND, MARIA ALEJANDRA Ramirez [facility] HISTORY OF POLYPS; FAMILY HISTORY; ABDOMINAL PAIN [id number] 10/09/2014 14:46:00 10/09/2014 23:59:59 CLS Outpatient CARMEN DIAZ DO [facility] RAD FEMALE PELVIC PAIN OVARIAN CYST [id number] 05/08/2014 15:24:00 05/08/2014 23:59:59 CLS Outpatient AGUILAR DO, SARAH [facility] RAD SCREENING [id number] 08/27/2013 15:30:00 11/24/2013 00:01:00 DIS Outpatient TRACI FOREMAN MD [facility] RAD STONES [id number] 04/05/2013 15:15:00 04/05/2013 23:59:59 CLS Outpatient AGUILAR DO, SARAH [facility] RAD ROUTINE [id number] 04/05/2018 10:45:00 PEN Preadmit MARIA ALEJANDRA POST MD [facility] ENDO STRICTURE/DYSPHAGIA [id number] 02/08/2018 07:21:00 Document Registration [id number] 02/04/2018 09:44:00 Document Registration [id number] 06/26/2016 13:50:00 Document Registration [id number] 06/26/2016 13:50:00 Document Registration [id number] 06/26/2016 13:50:00 Document Registration [id number] 07/27/2015 14:04:00 Document Registration [id number] 11/25/2013 00:00:00 Document Registration [id number] 11/15/2012 00:00:00 Document Registration [id number] 08/23/2012 07:37:00 Document Registration [id number] 04/27/2012 10:11:00 Document Registration [id number] 03/05/2012 12:41:00 Document Registration [id number] 02/04/2012 13:47:00 Document Registration [id number] 02/02/2012 11:36:00 Document Registration [id number] 10/29/2011 00:00:00 Document Registration [id number] 08/04/2011 07:36:00 Document Registration [id number] 03/31/2011 10:38:00 Document Registration [id number] 01/29/2011 13:50:00 Document Registration [id number] 10/23/2010 00:00:00 Document Registration [id number] 09/10/2010 05:47:00 Document Registration [id number] 09/04/2010 15:26:00 Document Registration [id number] 08/29/2010 14:48:00 Document Registration [id number] 08/13/2010 14:59:00 Document Registration [id number] 07/29/2010 07:25:00 Document Registration [id number] 06/26/2014 11:57:20 06/26/2014 23:59:59 [facility] Thi HerronWebIDhruv 03/14/2015 07:45:49 ACT Document Registration
[2018-04-05 10:20] VITALS: BP 127/79
--- NOTE | 2018-04-05 10:40 | Conscious Sedation/ASA ---
Conscious Sedation Pre-Proced Time 10:40 ASA Score 2 For ASA 3 and 4: Consider anesthesia and medical clearance. Also, for patients with a history of failed moderate sedation consider anesthesia. Airway Lungs Heart ASA score ASA 1: a normal healthy patient ASA 2: a patient with a mild systemic disease (mid diabetes, controlled hypertension, obesity ASA 3: a patient with a severe systemic disease that limits activity (angina , COPD, prior Myocardial infarction) ASA 4: a patient with an incapacitating disease that is a constant threat to life (CHF, renal failure) ASA 5: a moribund patient not expected to survive 24 hrs. (ruptured aneurysm) ASA 6: a declared brain patient whose organs are being harvested. For emergent operations, add the letter E after the classification Mallampati Classification Grade 1 Sedation Plan Discussed options with patient/fam The patient is an appropriate candidate to undergo the planned procedure, sedation, and anesthesia. The patient immediately re-assessed prior to indication. MARIA ALEJANDRA POST MD Apr 05, 2018 10:40
--- NOTE | 2018-04-05 10:40 | History & Physicial ---
History of Present Illness History of Present Illness Reason for visit/HPI to undergo an upper endoscopy with possible balloon dilatation in view of recurrent dysphagia. Previous benign esophageal stricture, that responded to hydrostatic balloon dilatation Date of Admission 04/05/18 Date Seen by a Provider: Apr 05, 2018 Time Seen by a Provider: 10:38 I consulted on this patient on 04/05/18 10:37 Attending Physician Maria Alejandra Post MD Admitting Physician Jessa Ortega DO Consult Allergies and Home Medications Allergies Coded Allergies: No Known Drug Allergies (Verified , 02/19/17) Home Medications Allopurinol 300 Mg Tablet, 300 MG PO DAILY, (Reported) Amlodipine Besylate 5 Mg Tablet, 5 MG PO DAILY, (Reported) Aspirin 81 Mg Tab.chew, 81 MG PO DAILY, (Reported) Atorvastatin Calcium 10 Mg Tablet, 10 MG PO DAILY, (Reported) Benazepril/Hydrochlorothiazide 1 Each Tablet, 1 EACH PO DAILY, (Reported) Cholecalciferol (Vitamin D3) 2,000 Unit Tablet, 2,000 UNIT PO DAILY, (Reported) Estradiol 1 Each Patch.tdwk, 1 EACH TD weekly, (Reported) Exenatide Microspheres 2 Mg/0.65 Ml Pen.injctr, 2 MG SQ WEEK, (Reported) Fenofibrate 48 Mg Tab, 48 MG PO DAILY, (Reported) Insulin Aspart 300 Units/3 Ml Solution, 13 UNITS SQ WM, (Reported) Insulin Glargine,Hum.rec.anlog 100 Unit/1 Ml Vial, 50 UNIT SQ HS, (Reported) Metformin HCl 500 Mg Tab.er.24h, 1,000 MG PO HS, (Reported) take 2 (500mg) tabs Conklin-3 Acid Ethyl Esters 1 Gm Capsule, 4 GM PO DAILY, (Reported) take 4 (1gm) tabs Pantoprazole Sodium 40 Mg Tablet.dr, 40 MG PO DAILY, (Reported) Potassium Chloride 10 Meq Capsule.er, 10 MEQ PO DAILY, (Reported) Potassium Citrate/Citric Acid 473 Ml Solution, 7.4 ML PO TID, (Reported) Triamterene/Hydrochlorothiazid 1 Each Capsule, 1 EACH PO DAILY, (Reported) Patient Home Medication List Home Medication List Reviewed: Yes Past Tzspvjt-Zpyuhl-Etmpin Hx Patient Social History Marrital Status: single Employed/Student: employed Alcohol Use: Occasionally Uses Recreational Drug Use: No Smoking Status: Never a Smoker Type Used: Cigarettes 2nd Hand Smoke Exposure: No Recent Foreign Travel: No Contact w/other who traveled: No Recent Hopitalizations: No Recent Infectious Disease Expo: No Immunizations Up To Date Date of Influenza Vaccine: Apr 13, 2017 Seasonal Allergies Seasonal Allergies: Yes Surgeries Yes (WISDOM TEETH, ESWL, OVARIAN CYSTECTOMY, HERNIA , lithrotripsy) Appendectomy, Gallbladder, Hysterectomy, Oophorectomy Respiratory No Cardiovascular Yes High Cholesterol, Hypertension Neurological No Headaches /Migraines Reproductive System Hx Reproductive Disorders: No Sexually Transmitted Disease: No HIV/AIDS: No Female Reproductive Disorders: Denies 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 Genitourinary Yes Kidney Stones Gastrointestinal Yes Gastroesophageal Reflux, Chronic Constipation, Chronic Diarrhea, Polyps Musculoskeletal No Endocrine History of Endocrine Disorders: Yes Endocrine Disorders: Diabetes, Insulin dep HEENT History of HEENT Disorders: No Loss of Vision: Bilateral Hearing Impairment: Denies Cancer No Psychosocial History of Psychiatric Problem: No Integumentary History of Skin or Integumenta: No Blood Transfusions History of Blood Disorders: No Adverse Reaction to a Blood Tr: No (N/A) Family Medical History Family Hx: Cardiovascular disease 19 FATHER Diabetes mellitus 19 FATHER 19 MOTHER G8 BROTHER Hypertension 19 FATHER 19 MOTHER G8 BROTHER Kidney disease 19 FATHER Review of Systems Constitutional: no symptoms reported EENTM: no symptoms reported Respiratory: no symptoms reported Cardiovascular: no symptoms reported Gastrointestinal: see HPI Genitourinary: no symptoms reported Musculoskeletal: no symptoms reported Skin: no symptoms reported Psychiatric/Neurological: No Symptoms Reported Physical Exam Vital Signs Vital Signs - First Documented 04/05/18 10:20 Temp 98.3 Pulse 83 Resp 18 B/P (MAP) 127/79 (95) Pulse Ox 95 O2 Delivery Room Air Capillary Refill : Height, Weight, BMI Height: 5'7.00" Weight: 195lbs. 0.0oz. 88.469659er; 30.5 BMI Method:Stated General Appearance: No Apparent Distress Neck: Normal Inspection Respiratory: Lungs Clear Cardiovascular: Regular Rate, Rhythm Gastrointestinal: Non Tender, Soft Neurologic/Psychiatric: Alert, Oriented x3 Skin: Warm/Dry Assessment/Plan Assessment and Plan lady with recurrent dysphagia. 4 balloon dilatation. Previous manometry normal Admission Diagnosis Admission Status: Other (Outpt Proc) MARIA ALEJANDRA POST MD Apr 05, 2018 10:39
[2018-04-05] MEDS ORDERED: fentaNYL INJECTION 100 MCG/2 ML AMP ONE (12:07)
[2018-04-05] MEDS ORDERED: HURRICAINE EXT TUBE (BENZOCAINE) ONE (12:07)
[2018-04-05] MEDS ORDERED: MIDAZOLAM 2 MG/2 ML (VERSED) VIAL ONE ×4 (12:07→12:18)
--- NOTE | 2018-04-05 12:30 | Endo Procedure Record ---
Endo Procedure Report Date of Procedure Last Colonoscopy: Yes (08/03/2017) Apr 05, 2018 Surgeon (s) MARIA ALEJANDRA POST MD Post Procedure/Op Diagnosis recurrent distal esophageal stricture Procedure Performed EGD with balloon dilatation Description of Procedure Anesthesia Type: Conscious Sedation Specimen(s) collected/removed none Description of the Procedure indication for the procedure: This lady has undergone endoscopic balloon dilatation of a benign, distal esophageal stricture in the past. Due to recurrence of her symptoms, she'll return for further dilatation. Informed consent was obtained after reviewing the procedure in detail. Description of the procedure: She was placed in left lateral decubitus position and her vital signs were monitored. Conscious sedation was achieved using Versed and fentanyl. The flexible gastroscope was then introduced down the esophagus, past the stomach, into the proximal duodenum. Findings: Esophagus: Recurrent, smooth, concentric stricture at the distal end, that was dilated to 19 mm using a balloon. Stomach and duodenum were normal. She tolerated the procedure well and was taken back to the nursing area in a stable condition. Impression: Distal, recurrent esophageal stricture. Balloon dilatation completed. Copy Copies To 1: SARAH AGUILAR XAVIER M MD Apr 05, 2018 12:30
--- NOTE | 2018-04-05 12:31 | Discharge Inst-Simple/Standard ---
Discharge Inst-Standard Discharge Medications New, Converted or Re-Newed RX: Other Patient Instructions/Follow Up Plan of Care/Instructions/FU: follow-up if needed Activity as Tolerated: Yes Discharge Diet: No Restrictions MARIA ALEJANDRA POST MD Apr 05, 2018 12:31
[2018-04-05 13:00] VITALS: BP 123/69
[2018-04-05 13:30] VITALS: BP 124/69
[2018-04-05 13:50] VITALS: BP 124/69
== END 2018-04-05 13:50 | disposition home or self-care (01) ==
LOC: ENDO 08:37
PROVIDERS: ATTEND Surgery
DX: K22.2 Esophageal obstruction (principal); I10 Essential (primary) hypertension; E11.9 Type 2 diabetes mellitus without complications; E78.00 Pure hypercholesterolemia, unspecified; K21.9 Gastro-esophageal reflux disease without esophagitis; K59.09 Other constipation; Z79.4 Long term (current) use of insulin; Z79.899 Other long term (current) drug therapy

== ENCOUNTER → 2018-08-02 | Outpatient (CLI) | payer BC ==
[~2018-08-02] MED LIST changes: -AMLO5TAB7 PO; +AMLO5TAB9 PO
--- NOTE | 2018-08-02 11:36 | Diagnostic Imaging Report ---
INDICATION: Routine screening. COMPARISON: 07/27/2017 and 06/26/2016. TECHNIQUE: 2D and 3D bilateral screening mammography was performed with CAD. FINDINGS: Both breasts are heterogeneously dense, limiting the sensitivity of mammography. The parenchymal pattern is stable. No dominant mass or malignant appearing microcalcifications are seen. There are benign calcifications present. The axillae are unremarkable. IMPRESSION: No mammographic features suspicious for malignancy are identified. ACR BI-RADS Category 2: Benign findings. Result letter will be mailed to the patient. Note: At least 10% of breast cancer is not imaged by mammography. Dictated by: Dictated on workstation # [id number]
== END ==
LOC: RAD 07:22
PROVIDERS: ATTEND Internal Medicine
DX: Z12.31 Encounter for screening mammogram for malignant neoplasm of breast (principal)
CPT/HCPCS: 77067

== ENCOUNTER 2018-08-26 09:22 | Emergency (ER) | payer BC ==
[~2018-08-26] VITALS: Ht 170.2 cm; Wt 88.5 kg
[2018-08-26] MEDS ORDERED: LACTATED RINGERS 1,000 ML IV ONE ×2 (10:22→12:09)
[2018-08-26 10:30] LABS: CLARITY,URINE CLEAR; COLOR,URINE AMBER; GLUCOSE, URINE (UA) NEGATIVE (NEGATIVE); KETONES,URINE 2+ (NEGATIVE); LEUKOCYTE ESTERASE ,URINE 2+ (NEGATIVE); NITRITE,URINE POSITIVE (NEGATIVE); PH,URINE 6 (5-9); PROTEIN,URINE 3+ (NEGATIVE); UROBILINOGEN,URINE 4 MG/DL (NORMAL)
[2018-08-26] MEDS ORDERED: ONDANSETRON 4 MG/2 ML (SDV) Z0FRAN IVP ONE (10:30)
[2018-08-26 10:33] LABS: BILIRUBIN,URINE 2+ (NEGATIVE); RBC,URINE 0-2 /HPF
[2018-08-26 10:34] LABS: BACTERIA,URINE MODERATE /HPF
[2018-08-26 10:47] LABS: BASOPHILS % (AUTO) 0 % (0-10); EOSINOPHILS # (AUTO) 0.2 10^3/uL (0.0-0.3); EOSINOPHILS % (AUTO) 1 % (0-10); HEMATOCRIT 49 % (35-52); HEMOGLOBIN 16.8 G/DL (11.5-16.0); LYMPHOCYTES # (AUTO) 1.1 X 10^3 (1.0-4.0); LYMPHOCYTES % (AUTO) 8 % (12-44); MEAN CORPUSCULAR HEMOGLOBIN 30 PG (25-34); MEAN CORPUSCULAR HGB CONC 35 G/DL (32-36); MEAN CORPUSCULAR VOLUME 85 FL (80-99); MEAN PLATELET VOLUME 9.5 FL (7.4-10.4); MONOCYTES # (AUTO) 1.5 X 10^3 (0.0-1.0); MONOCYTES % (AUTO) 11 % (0-12); NEUTROPHILS # (AUTO) 11.7 X 10^3 (1.8-7.8); NEUTROPHILS % (AUTO) 80 % (42-75); PLATELET COUNT 387 10^3/uL (130-400); WHITE BLOOD COUNT 14.6 10^3/uL (4.3-11.0)
--- NOTE | 2018-08-26 10:53 | NUR ---
TO ROOM FLUIDS INFUSING REPORTS FEELING BETTER AFTER ZOFRAN
[2018-08-26 11:11] LABS: ALANINE AMINOTRANSFERASE 76 U/L (0-55); ALBUMIN 4.7 GM/DL (3.2-4.5); ALKALINE PHOSPHATASE 103 U/L (40-136); BILIRUBIN,TOTAL 0.6 MG/DL (0.1-1.0); BUN/CREATININE RATIO 18; CALCIUM 10.3 MG/DL (8.5-10.1); CARBON DIOXIDE 22 MMOL/L (21-32); CHLORIDE 103 MMOL/L (98-107); GFR ESTIMATED > 60; GLUCOSE 208 MG/DL (70-105); MAGNESIUM 1.9 MG/DL (1.8-2.4); POTASSIUM 3.4 MMOL/L (3.6-5.0); SODIUM 141 MMOL/L (135-145); TOTAL PROTEIN 7.9 GM/DL (6.4-8.2)
[2018-08-26 11:12] LABS: BAND NEUTROPHILS 16 %; BASOPHILS % (MANUAL) 0 %; EOSINOPHILS % (MANUAL) 0 %; LYMPHOCYTES % (MANUAL) 7 %; MONOCYTES % (MANUAL) 9 %; NEUTROPHILS % (MANUAL) 68 %; RBC MORPH NORMAL
--- NOTE | 2018-08-26 11:24 | NUR ---
CALLED TO ROOM IV WAS HURTING IV INFILTRAED. IV REMOVED AND WARM CLOTH PLACED OVER AREA. RESTARTED IN L AC WITH #22 FLUSHED WITHOUT PROBLEM
--- NOTE | 2018-08-26 11:29 | NUR ---
TOLERATING ICE CHIPS
--- NOTE | 2018-08-26 11:29 | NUR ---
WILL HOLD ROCEPHIN TILL AFTER FLUIDS INFUSED PER DR QURESHI
[2018-08-26] MEDS ORDERED: cefTRIAXone FOR IV USE 1,000 MG in WATER (STERILE) FOR INJECTION 10 ML IV ONE ×2 (11:30→12:15)
[2018-08-26] MEDS ORDERED: ONDA4TAB11 PO (12:51)
[2018-08-26] MEDS ORDERED: HYOS0.1283 SL (12:51)
--- NOTE | 2018-08-26 12:51 | ED GI ---
General Chief Complaint: Abdominal/GI Problems Stated Complaint: N/V/D FEVER Nursing Triage Note: AMB TO ROOM C/O NAUSEA VOMITING. Sepsis Screen: No Definite Risk Source of Information: Patient Exam Limitations: No Limitations History of Present Illness Date Seen by Provider: Aug 26, 2018 Time Seen by Provider: 09:47 Initial Comments This 53-year-old woman presents to the emergency room with complaints of nausea , vomiting, diarrhea, abdominal cramping and recent diagnosis of UTI. She was given antibiotics by Dr. Foreman for UTI but could not tolerate them due to vomiting. She has been coughing for couple of weeks and the GI symptoms started 4 days ago. She is afebrile. She is an insulin-dependent diabetic. Allergies and Home Medications Allergies Coded Allergies: No Known Drug Allergies (Verified , 02/19/17) Home Medications Allopurinol 300 Mg Tablet, 300 MG PO DAILY, (Reported) Amlodipine Besylate 5 Mg Tablet, 5 MG PO DAILY, (Reported) Aspirin 81 Mg Tab.chew, 81 MG PO DAILY, (Reported) Atorvastatin Calcium 10 Mg Tablet, 10 MG PO DAILY, (Reported) Benazepril/Hydrochlorothiazide 1 Each Tablet, 1 EACH PO DAILY, (Reported) Cholecalciferol (Vitamin D3) 2,000 Unit Tablet, 2,000 UNIT PO DAILY, (Reported) Estradiol 1 Each Patch.tdwk, 1 EACH TD weekly, (Reported) Exenatide Microspheres 2 Mg/0.65 Ml Pen.injctr, 2 MG SQ WEEK, (Reported) Fenofibrate 48 Mg Tab, 48 MG PO DAILY, (Reported) Hyoscyamine Sulfate 0.125 Mg Tab.subl, 0.125 MG SL Q4H PRN for CRAMPS For abdominal cramping or diarrhea Prescribed by: JAX JADE on 08/26/18 1251 Insulin Aspart 300 Units/3 Ml Solution, 13 UNITS SQ WM, (Reported) Insulin Glargine,Hum.rec.anlog 100 Unit/1 Ml Vial, 50 UNIT SQ HS, (Reported) Metformin HCl 500 Mg Tab.er.24h, 1,000 MG PO HS, (Reported) take 2 (500mg) tabs [place]-3 Acid Ethyl Esters 1 Gm Capsule, 4 GM PO DAILY, (Reported) take 4 (1gm) tabs Ondansetron 4 Mg Tab.rapdis, 4 MG PO Q4H PRN for NAUSEA/VOMITING Prescribed by: JAX JADE on 08/26/18 1251 Pantoprazole Sodium 40 Mg Tablet.dr, 40 MG PO DAILY, (Reported) Potassium Chloride 10 Meq Capsule.er, 10 MEQ PO DAILY, (Reported) Potassium Citrate/Citric Acid 473 Ml Solution, 7.4 ML PO TID, (Reported) Triamterene/Hydrochlorothiazid 1 Each Capsule, 1 EACH PO DAILY, (Reported) Patient Home Medication List Home Medication List Reviewed: Yes Review of Systems Review of Systems Constitutional: no symptoms reported EENTM: No Symptoms Reported Respiratory: See HPI Cardiovascular: No Symptoms Reported Gastrointestinal: See HPI Genitourinary: See HPI Musculoskeletal: no symptoms reported Skin: no symptoms reported Psychiatric/Neurological: No Symptoms Reported Endocrine: No Symptoms Reported Hematologic/Lymphatic: No Symptoms Reported Past Ilcrjqb-Frkgjb-Omkiem Hx Patient Social History Alcohol Use: Denies Use Recreational Drug Use: No Smoking Status: Never a Smoker 2nd Hand Smoke Exposure: No Recent Foreign Travel: No Contact w/Someone Who Travel: No Recent Infectious Disease Expo: No Recent Hopitalizations: No Immunizations Up To Date Date of Influenza Vaccine: Apr 13, 2017 Seasonal Allergies Seasonal Allergies: Yes Past Medical History Surgeries: Yes (WISDOM TEETH, ESWL, OVARIAN CYSTECTOMY, HERNIA , lithrotripsy) Appendectomy, Gallbladder, Hysterectomy, Oophorectomy Respiratory: No Cardiac: Yes High Cholesterol, Hypertension Neurological: Yes Headaches /Migraines Reproductive Disorders: No Female Reproductive Disorders: Denies 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 Sexually Transmitted Disease: No HIV/AIDS: No Genitourinary: Yes Kidney Stones Gastrointestinal: Yes (dysphagia) Gastroesophageal Reflux, Chronic Constipation, Chronic Diarrhea, Polyps Musculoskeletal: Yes Chronic Back Pain Endocrine: Yes (hypokalemia) Diabetes, Insulin dep HEENT: No Loss of Vision: Bilateral Hearing Impairment: Denies Cancer: No Psychosocial: No Integumentary: No Blood Disorders: No Adverse Reaction/Blood Tranf: No (N/A) Family Medical History Cardiovascular disease 19 FATHER Diabetes mellitus 19 FATHER 19 MOTHER G8 BROTHER Hypertension 19 FATHER 19 MOTHER G8 BROTHER Kidney disease 19 FATHER Physical Exam Vital Signs Vital Signs - First Documented 08/26/18 10:00 Temp 98.5 Pulse 107 Resp 18 B/P (MAP) 148/97 (114) Pulse Ox 96 O2 Delivery Room Air Capillary Refill : Less Than 3 Seconds Height/Weight/BMI Height: 5'7.00" Weight: 195lbs. 0.0oz. 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 tested, no motor/sensory deficits, alert, normal mood/affect, oriented x 3 Skin: normal color, warm/dry Progress/Results/Core Measures Results/Orders Lab Results Laboratory Tests Test 08/26/18 10:15 08/26/18 10:39 Range/Units Urine Color ELIGIO H Urine Clarity CLEAR Urine pH 6 5-9 Urine Specific [place] 1.025 H 1.016-1.022 Urine Protein 3+ H NEGATIVE Urine Glucose (UA) NEGATIVE NEGATIVE Urine Ketones 2+ H NEGATIVE Urine Nitrite POSITIVE H NEGATIVE Urine Bilirubin 2+ H NEGATIVE Urine Urobilinogen 4 H NORMAL MG/DL Urine Leukocyte Esterase 2+ H NEGATIVE Urine RBC (Auto) 2+ H NEGATIVE Urine RBC 0-2 /HPF Urine WBC 5-10 H /HPF Urine Squamous Epithelial Cells 5-10 /HPF Urine Crystals NONE /LPF Urine Bacteria MODERATE H /HPF Urine Casts NONE /LPF Urine Mucus SMALL H /LPF Urine Culture Indicated YES White Blood Count 14.6 H 4.3-11.0 10^3/uL Red Blood Count 5.69 4.35-5.85 10^6/uL Hemoglobin 16.8 H 11.5-16.0 G/DL Hematocrit 49 35-52 % Mean Corpuscular Volume 85 80-99 FL Mean Corpuscular Hemoglobin 30 25-34 PG Mean Corpuscular Hemoglobin Concent 35 32-36 G/DL Red Cell Distribution Width 14.0 10.0-14.5 % Platelet Count 387 130-400 10^3/uL Mean Platelet Volume 9.5 7.4-10.4 FL Neutrophils (%) (Auto) 80 H 42-75 % Lymphocytes (%) (Auto) 8 L 12-44 % Monocytes (%) (Auto) 11 0-12 % Eosinophils (%) (Auto) 1 0-10 % Basophils (%) (Auto) 0 0-10 % Neutrophils # (Auto) 11.7 H 1.8-7.8 X 10^3 Lymphocytes # (Auto) 1.1 1.0-4.0 X 10^3 Monocytes # (Auto) 1.5 H 0.0-1.0 X 10^3 Eosinophils # (Auto) 0.2 0.0-0.3 10^3/uL Basophils # (Auto) 0.0 0.0-0.1 10^3/uL Neutrophils % (Manual) 68 % Lymphocytes % (Manual) 7 % Monocytes % (Manual) 9 % Eosinophils % (Manual) 0 % Basophils % (Manual) 0 % Band Neutrophils 16 % Blood Morphology Comment NORMAL Sodium Level 141 135-145 MMOL/L Potassium Level 3.4 L 3.6-5.0 MMOL/L Chloride Level 103 98-107 MMOL/L Carbon Dioxide Level 22 21-32 MMOL/L Anion Gap 16 H 5-14 MMOL/L Blood Urea Nitrogen 16 7-18 MG/DL Creatinine 0.90 0.60-1.30 MG/DL Estimat Glomerular Filtration Rate > 60 BUN/Creatinine Ratio 18 Glucose Level 208 H 70-105 MG/DL Calcium Level 10.3 H 8.5-10.1 MG/DL Corrected Calcium 8.5-10.1 MG/DL Magnesium Level 1.9 1.8-2.4 MG/DL Total Bilirubin 0.6 0.1-1.0 MG/DL Aspartate Amino Transf (AST/SGOT) 104 H 5-34 U/L Alanine Aminotransferase (ALT/SGPT) 76 H 0-55 U/L Alkaline Phosphatase 103 40-136 U/L C-Reactive Protein High Sensitivity 2.19 H 0.00-0.50 MG/DL Total Protein 7.9 6.4-8.2 GM/DL Albumin 4.7 H 3.2-4.5 GM/DL Micro Results Microbiology 08/26/18 Influenza Types A,B Antigen (EUN) - Final, Complete My Orders Orders - JAX CROW MD Influenza A And B Antigens (08/26/18 09:47) Cbc With Automated Diff (08/26/18 10:22) Comprehensive Metabolic Panel (08/26/18 10:22) Magnesium (08/26/18 10:22) Ua Culture If Indicated (08/26/18 10:22) Saline Lock/Iv-Start (08/26/18 10:22) Lactated Ringers (Lr 1000 Ml Iv Solution (08/26/18 10:22) Ondansetron Injection (Zofran Injectio (08/26/18 10:30) Urine Culture (08/26/18 10:15) Manual Differential (08/26/18 10:39) Ceftriaxone For Iv Use (Rocephin For I (08/26/18 11:30) Hs C Reactive Protein (08/26/18 11:39) Saline Lock/Iv-Start (08/26/18 12:09) Lactated Ringers (Lr 1000 Ml Iv Solution (08/26/18 12:09) Medications Given in ED Current Medications Medications Dose Ordered Sig/Radha Route Start Time Stop Time Status Last Admin Dose Admin Ceftriaxone Sodium 1000 mg/ Sterile Water 10 ml @ 200 mls/hr ONCE ONCE IV 08/26/18 11:30 08/26/18 11:32 DC 08/26/18 12:31 200 MLS/HR Lactated Ringer's 1,000 ml @ 0 mls/hr Q0M ONCE IV 08/26/18 10:22 08/26/18 10:24 DC 08/26/18 10:39 0 MLS/HR Lactated Ringer's 1,000 ml @ 0 mls/hr Q0M ONCE IV 08/26/18 12:09 08/26/18 12:10 DC 08/26/18 12:30 1,000 MLS/HR Ondansetron HCl 8 mg ONCE ONCE IVP 08/26/18 10:30 08/26/18 10:31 DC 08/26/18 10:39 8 MG Vital Signs/I&O 08/26/18 10:00 Temp 98.5 Pulse 107 Resp 18 B/P (MAP) 148/97 (114) Pulse Ox 96 O2 Delivery Room Air Blood Pressure Mean: 114 Progress Progress Note : Progress Note Labs were reviewed. Influenza screen was negative. Patient received 2 L of LR. Heart rate improved. Tachycardia was likely secondary to hypovolemia. CRP was low. Patient was not felt to be septic. Rocephin was administered for treatment of the urinary tract infection. Zofran was given for nausea. Patient was dismissed home with prescriptions. She may finish out antibiotics prescribed by Dr. Foreman. Departure Impression Primary Impression: Nausea vomiting and diarrhea Additional Impression: Acute urinary tract infection Disposition: 01 HOME, SELF-CARE Condition: Improved Departure-Patient Inst. Decision time for Depature: 12:48 Referrals: SARAH AGUILAR DO (PCP/Family) Primary Care Physician Patient Instructions: Urinary Tract Infection, Adult (DC) Add. Discharge Instructions: Complete the antibiotics prescribed to you previously. For nausea, take Zofran (ondansetron) as prescribed. You may use Levsin (hyoscyamine) dissolved under the tongue every 4 hours as needed for abdominal cramping or diarrhea. Drink plenty of clear liquids. Gradually advance your diet with small quantities of bland food as tolerated. Avoid milk products until diarrhea has resolved for 48 hours. Return to care as needed if symptoms worsen or are not improving as expected over the next few days. All discharge instructions reviewed with patient and/or family. Voiced understanding. Scripts Ondansetron (Ondansetron Odt) 4 Mg Tab.rapdis 4 MG PO Q4H PRN for NAUSEA/VOMITING, #10 TAB Prov: JAX CROW MD 08/26/18 Hyoscyamine Sulfate (Levsin-Sl) 0.125 Mg Tab.subl 0.125 MG SL Q4H PRN for CRAMPS, #10 TAB For abdominal cramping or diarrhea Prov: JAX CROW MD 08/26/18 Copy Copies To 1: TRACI FOREMAN MD Copies To 2: SARAH AGUILAR JOSHUA T MD Aug 26, 2018 12:51
[2018-08-26 13:15] VITALS: BP 125/71
== END 2018-08-26 13:48 | disposition home or self-care (01) ==
LOC: EDUNIT# 09:22 → ER 09:24
DX: N39.0 Urinary tract infection, site not specified (principal); R19.7 Diarrhea, unspecified; E78.00 Pure hypercholesterolemia, unspecified; I10 Essential (primary) hypertension; G43.909 Migraine, unspecified, not intractable, without status migrainosus; K21.9 Gastro-esophageal reflux disease without esophagitis; E11.9 Type 2 diabetes mellitus without complications; Z86.010 Personal history of colon polyps; Z82.49 Family history of ischemic heart disease and other diseases of the circulatory system; Z87.442 Personal history of urinary calculi; Z79.82 Long term (current) use of aspirin; Z79.4 Long term (current) use of insulin; Z87.440 Personal history of urinary (tract) infections; Z90.49 Acquired absence of other specified parts of digestive tract; Z98.890 Other specified postprocedural states; Z90.710 Acquired absence of both cervix and uterus; Z90.6 Acquired absence of other parts of urinary tract; Z87.19 Personal history of other diseases of the digestive system
CPT/HCPCS: 36415; 80053; 81000; 83735; 85007; 85027; 86141; 87088; 87804; 96361; 96365

== ENCOUNTER 2019-02-15 16:04 | Outpatient (RCR) | payer BC ==
[~2019-02-15 16:04] MED LIST changes: +HYOS0.1283 SL; +ONDA4TAB11 PO
--- NOTE | 2019-02-15 17:23 | Diagnostic Imaging Report ---
PATIENT HISTORY: Renal stones. TECHNIQUE: Frontal view of the abdomen. COMPARISON: CT from 01/19/2018. Radiograph from 01/13/2018. FINDINGS: No significant renal calcifications are seen radiographically. Tiny calcification adjacent to the right L4 transverse process corresponds with small phlebolith on the prior CT. No distended loops of bowel are seen. There is no large collection of free air. Cholecystectomy clips are noted. No acute osseous abnormality is seen. IMPRESSION: No renal calcifications are seen radiographically. Dictated by: Dictated on workstation # [id number]
== END 2019-05-16 | disposition home or self-care (01) ==
LOC: LAB 16:04
PROVIDERS: ATTEND Urology
DX: N20.0 Calculus of kidney (principal)
CPT/HCPCS: 36415; 74018; 82140; 82340; 82507; 82570; 83735; 83945; 83986; 84105; 84133; 84300; 84392; 84560

== ENCOUNTER → 2019-03-11 | Outpatient (CLI) | payer BC ==
--- NOTE | 2019-03-11 10:03 | Diagnostic Imaging Report ---
PROCEDURE: CT sinuses without contrast TECHNIQUE: Multiple contiguous axial images were obtained through the sinuses without the use of intravenous contrast. Coronal and sagittal reformations were then performed. Auto Exposure Controls were utilized during the CT exam to meet ALARA standards for radiation dose reduction. INDICATION: Sleep disorder. Hypertrophy of the nasal turbinates. COMPARISON: None FINDINGS: No evidence of mucosal thickening or fluid levels in the paranasal sinuses. The ostiomeatal complexes are patent. The sphenoethmoid and frontoethmoid recesses are patent and unremarkable. The mastoid air cells are well pneumatized. There is S-shaped curvature of the bony nasal septum with a nasal spur projecting off the inferior right aspect of the nasal septum contacting the right inferior turbinate. No acute facial fractures. The globes and orbits are symmetric and unremarkable. Included intracranial contents show no acute abnormalities. The included soft tissues of the head are normal in appearance. IMPRESSION: 1. Normal appearance of the paranasal sinuses. No evidence of active sinus disease. 2. S-shaped curvature of the bony nasal septum with a nasal spur contacting the right inferior turbinate. Dictated by: Dictated on workstation # [id number]
== END ==
LOC: RAD 09:14
PROVIDERS: ATTEND Otolaryngology Otolaryngology/Facial Plastic Surgery
DX: J34.3 Hypertrophy of nasal turbinates (principal); J32.9 Chronic sinusitis, unspecified
CPT/HCPCS: 70486

== ENCOUNTER 2019-04-15 20:34 | Outpatient (CLI) | payer BC | END 2019-04-16 06:00 | disposition home or self-care (01) | LOC: SLEEP 20:34 | PROVIDERS: ATTEND Nurse Practitioner | DX: G47.33 Obstructive sleep apnea (adult) (pediatric) (principal); G47.10 Hypersomnia, unspecified; J30.89 Other allergic rhinitis; J34.2 Deviated nasal septum | CPT/HCPCS: 95810 ==

== ENCOUNTER 2019-04-25 05:36 | Outpatient (CLI) | payer BC ==
[~2019-04-25] VITALS: Ht 170 cm; Wt 90.9 kg
== END 2019-04-25 14:52 | disposition home or self-care (01) ==
LOC: PREOP 05:36
PROVIDERS: ATTEND Surgery
DX: Z01.818 Encounter for other preprocedural examination (principal)

== ENCOUNTER 2019-05-02 07:27 | Day surgery (SDC) | payer BC ==
[2019-05-02] MEDS ORDERED: LACTATED RINGERS 1,000 ML IV ONE (07:40)
[2019-05-02] MEDS ORDERED: PROPOFOL INJECTION 50 ML IV ONE (07:49)
[2019-05-02] MEDS ORDERED: MIDAZOLAM 2 MG/2 ML (VERSED) VIAL ONE (07:49)
[2019-05-02] MEDS ORDERED: LACTATED RINGERS 1,000 ML IV STA (07:56)
[2019-05-02 07:59] VITALS: BP 145/85
--- NOTE | 2019-05-02 08:06 | Progress Note-Pre Operative ---
Pre-Operative Progress Note H&P Reviewed The H&P was reviewed, patient examined and no changes noted. Time Seen by Provider: 08:03 Date H&P Reviewed: May 02, 2019 Time H&P Reviewed: 08:04 Pre-Operative Diagnosis: Rectal Bleed, Family hx of colon CA PEBBLES DOUGHERTY DO May 02, 2019 08:06 POS
[2019-05-02 09:05] VITALS: BP 115/65
--- NOTE | 2019-05-02 09:08 | Progress Note-Post Operative ---
Post-Operative Progess Note Surgeon (s)/Bilingual Sales Consultant (s) Surgeon PEBBLES DOUGHERTY DO Bilingual Sales Consultant: Jun Flores MSIII Pre-Operative Diagnosis Rectal Bleed, Family hx of colon CA Post-Operative Diagnosis Polyps diverticula int hemorrhoids Procedure & Operative Findings Date of Procedure 05/02/19 Procedure Performed/Findings Colon with snare colon with cold bx Anesthesia Type IV sedation by RN STAFF Estimated Blood Loss Estimated blood loss (mL): scant Specimens/Packing Specimens Removed desc colon polyp cecal polyp sigmoid polyp PEBBLES DOUGHERTY DO May 02, 2019 09:08 POS
--- NOTE | 2019-05-02 09:09 | Endoscopy Discharge Instruct ---
Endo Procedure/Findings Findings 1.: Polyp 2.: Diverticulosis 3.: Internal Hemorrhoids Discharge Instructions - Activity: You might feel a little sleepy until tomorrow. This is due to the medicine you received to relax you. Until tomorrow, you should: NOT drive a car, operate machinery or power tools. NOT drink any alcoholic beverages. NOT make any important decisions or sign importortant papers. Do not return to work until tomorrow, unless otherwise instructed. Resume previous activities tomorrow. Diet: Start by taking liquids. If you tolerate liquids, advance to solid food. make an appointment for one week 1.: Colonscopy in 5 years Notify Physician - If you experience excessive bleeding, unusual abdominal pain, fever, or chest pain, contact your doctor immediately. PEBBLES DOUGHERTY DO May 02, 2019 09:09 POS
[2019-05-02 09:30] VITALS: BP 127/72
[2019-05-02 10:09] VITALS: BP 127/72
--- NOTE | 2019-05-02 13:08 | Anesthesia-General Post-Op ---
MAC Patient Condition Mental Status/LOC: Same as Preop Cardiovascular: Satisfactory Nausea/Vomiting: Absent Respiratory: Satisfactory Pain: Controlled Complications: Absent Post Op Complications Complications None Follow Up Care/Instructions Patient Instructions None needed. Anesthesiology Discharge Order Discharge Order Patient is doing well, no complaints, stable vital signs, no apparent adverse anesthesia problems. No complications reported per nursing. DOC GEE CRNA May 02, 2019 13:08 POS
--- NOTE | 2019-05-02 18:01 | OPERATIVE REPORT ---
DATE OF SERVICE: PREOPERATIVE DIAGNOSES: Rectal bleeding, family history of colon cancer. POSTOPERATIVE DIAGNOSES: Colon polyps, diverticula, internal hemorrhoids. PROCEDURES: 1. Colonoscopy with snare polypectomy. 2. Colonoscopy with cold biopsy. SURGEON: Tyler Cabrera DO. TUMBLER TENDER: NARGIS Radford. ANESTHESIA: IV sedation by the PROJECT MANAGEMENT PROFESSOR. SPECIMEN: One polyp from the descending colon, one cecal polyp biopsy and one larger polyp from the sigmoid colon. BLOOD LOSS: Scant. FLUIDS: Per anesthesia. POSTOPERATIVE CONDITION: Stable. INDICATION FOR PROCEDURE: The patient is a 54-year-old female, who has been having some rectal bleeding and has a family history of colonoscopy, needs a colonoscopy. FINDINGS: The patient had 3 polyps, the one is small one right at the cecum at the appendiceal orifice, larger one in the sigmoid colon and one also in the descending colon. She also had diverticula in the right and left side and she had some grade I-II internal hemorrhoids. PROCEDURE NOTE: After informed consent was obtained, the patient was brought to the endoscopy suite and placed in the bed in left lateral decubitus position. She was administered IV sedation by the PROJECT MANAGEMENT PROFESSOR, who then monitored her vitals the entire time, heart rate, blood pressure and pulse ox and the scope was inserted. On the way in, noted some diverticula and then noted a polyp in the descending colon, did a snare polypectomy of this, continued up all the way to the cecum, pushed in to about 150 cm, noted the appendiceal orifice and saw a polyp. Elected to do a cold biopsy, could not get the snare around this was too small, did a cold biopsy and then noted the ileocecal valve and then slowly withdrew the scope insufflating to look circumferentially at the gomez, looking at the cecum up the ascending colon to the hepatic flexure, then down the transverse colon, the splenic flexure, into the descending colon and then into the sigmoid colon. In the sigmoid colon, saw another larger polyp flat, elected to do a hot snare polypectomy, able to get this completely and then continued down into the rectum, retroflexed in rectal vault, saw some internal hemorrhoids, took a picture of this and then removed the scope. The patient tolerated the procedure. She was recovered in endoscopy suite. Job ID: [id number] DocumentID: [id number] Dictated Date: 05/02/2019 09:07:52 Meat Soaker Date: 05/02/2019 14:38:43 Dictated By: DO CHERI AGUILERA
--- OUTSIDE RECORDS SUMMARY | 2019-05-24 20:34 | XMS REPORT ---
Author Author CarmenYOU POS Organization [facility] [facility] SP Address [address] [place] [address] SP Care Team Providers Care Sonography Technologist Name Role Phone POS YOU Morales Unavailable SP PROBLEMS Unknown Problems ALLERGIES No Information ENCOUNTERS Encounter Location Date Diagnosis POS [facility] [address] SP Sep, Acute non-recurrent maxillar y sinusitis J01.00 SP [facility] [address] SP Feb, Encounter for immunization Z 23 SP [facility] [id number] [place] [address] SP Aug, Acute upper respiratory infe ction, unspecified J06.9 and Other SP agents as the cause of diseases classified elsewhere B97.89 [facility] [id number] [place] [address] SP Mar, Encounter for immunization Z 23 SP [facility] [address] [facility] [id number] [address] [place] [id number] SP Mar, SP [facility] [address] [facility] [id number] [address] [place] [id number] SP Mar, SP [facility] [address] [facility] [id number] [address] [place] [id number] SP Mar, SP [facility] [address] [facility] [id number] [address] [place] [id number] SP Mar, SP [facility] [address] [facility] [id number] [address] [place] [id number] SP May, SP [facility] [address] [facility] [id number] [facility] [place] [address] SP May, SP IMMUNIZATIONS No Known Immunizations SOCIAL HISTORY Never Assessed REASON FOR VISIT PLAN OF CARE VITAL SIGNS MEDICATIONS No Known Medications RESULTS No Results PROCEDURES No Known procedures INSTRUCTIONS MEDICATIONS ADMINISTERED No Known Medications MEDICAL (GENERAL) HISTORY Type Description Date POS Medical History hypertension SP Medical History high cholesterol SP Medical History type 2 diabetes SP Surgical History gall bladder SP Surgical History kidney stones SP Surgical History apendectomy SP Surgical History right ovary removed SP Surgical History hernia repair SP Surgical History hysterectomy- 01/2018 SP Hospitalization History with surgeries SP
--- OUTSIDE RECORDS SUMMARY | 2019-05-24 20:39 | XMS REPORT | Continuity of Care Document ---
Author Organization Unknown POS Address Unknown SP Phone Unavailable SP Allergies Active Description Code Type Severity POS Reaction Onset Reported/Identified POS to Patient Clinical Status POS Yes No Known Drug Allergies [id number] Drug SP Mild N/A 07/27/2015 SP SP Yes No Known Drug Allergies [id number] Drug SP Unknown N/A 04/05/2018 SP SP Medications There is no data. 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 SP 09/10/2010 Ot 220 BENIGN NEOPLASM SP SP 09/10/2010 Ot 543.9 DISE ASES OF SP NEC SP 09/10/2010 Ot 550.10 UNI LAT ING HERNIA SPW OBST SP 10/22/2010 Ot 592.0 CALC ULUS OF KIDNEY SP SP 10/28/2011 Ot 592.0 CALC ULUS OF KIDNEY SP SP 06/09/2012 V04.81 FLU DX (3 YRS AND SP IM) SP 06/09/2012 CHERIE MICHELLE YOU A V04.81 SP FLU DX (3 YRS AND ABOVE, IM) SP 06/09/2012 CHERIE MICHELLE YOU A V04.81 SP FLU DX (3 YRS AND ABOVE, IM) SP 11/14/2012 Ot 592.0 CALC ULUS OF KIDNEY SP SP 11/24/2013 KELLEN ROWLAND, TRACI Ugalde Ot 592.9 SP CALCULUS NOS SP 05/12/2014 JEFF LIU SARAH Ot V76.12 SP SP 06/05/2014 THIAGO ORTEGA DOI Ot V76.12 SP SP 09/25/2014 KELLEN ROWLAND, TRACI Ugalde Ot 592.9 SP SP 10/13/2014 TRACI FOREMAN MD Ot 592.9 SP SP 10/16/2014 SINCERE ROWLAND, MARIA ALEJANDRA Ramirez Ot 211.4 SP BENIGN NEOPL RECTUM/ANUS SP 10/16/2014 SINCERE ROWLAND, MARIA ALEJANDRA Ramirez Ot 250.00 SP DIAB GABBY WO COMPL, TYPE II OR UNSPEC TY SP 10/16/2014 SINCERE ROWLAND, MARIA ALEJANDRA Ramirez Ot 401.9 SP HYPERTENSION NOS SP 10/16/2014 SINCERE ROWLAND, MARIA ALEJANDRA Ramirez Ot 562.10 SP DIVERTICULOSIS COLON (W/O MENT OF HEMORR SP 10/16/2014 SINCERE ROWLAND, MARIA ALEJANDRA Ramirez Ot V16.0 SP FAMILY HX-GI MALIGNANCY SP 10/16/2014 SINCERE ROWLAND, MARIA ALEJANDRA Ramirez Ot V58.67 SP LONG-TERM (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 OF INSULIN SP 10/16/2014 SINCERE ROWLAND, MARIA ALEJANDRA Ramirez Ot V67.09 SP SURGERY FOLLOW-UP, OTHER SURGERY SP 11/17/2014 DIAZ DO CARMEN C Ot 229.9 SP SP 11/17/2014 DIAZ DO CARMEN C Ot 620.2 SP SP 11/17/2014 JOE LIU CARMEN C Ot 625.9 SP SP 12/12/2014 KELLEN ROWLAND, TRACI A Ot 592.9 SP CALCULUS NOS SP 12/13/2014 DIAZ DO CARMEN C Ot 218.9 SP SP 12/13/2014 JOE LIU CARMEN C Ot 620.2 SP SP 03/28/2015 KELLEN ROWLAND, TRACI A Ot 592.9 SP SP 06/06/2015 ORTEGA DO, SARAH Ot Z12.31 SP SP 06/20/2015 ORTEGA DO, SARAH Ot R92.2 SP SP 07/27/2015 Ot 592.0 SP 07/27/2015 Ot 592.0 SP 07/27/2015 Ot 592.0 SP 07/27/2015 Ot 592.9 SP 07/27/2015 KELLEN ROWLAND, TRACI A Ot 592.9 SP SP 07/27/2015 SINCERE ROWLAND, MARIA ALEJANDRA Rmairez Ot K20.9 SP ESOPHAGITIS, UNSPECIFIED SP 07/27/2015 SINCERE ROWLAND, MARIA ALEJANDRA Ramirez Ot K22.2 SP ESOPHAGEAL OBSTRUCTION SP 07/27/2015 SINCERE ROWLAND, MARIA ALEJANDRA Ramirez Ot K25.9 SP GASTRIC ULCER, UNSP ACUTE OR CHRONIC, SP 07/27/2015 SINCERE ROWLAND, MARIA ALEJANDRA Ramirez Ot K26.9 SP DUODENAL ULCER, UNSP ACUTE OR CHRONIC SP 07/27/2015 SINCERE ROWLAND, MARIA ALEJANDRA Ramirez Ot K29.70 SP GASTRITIS, UNSPECIFIED, WITHOUT BLEEDING SP 09/05/2015 TRISTIN ROWLAND, JAX Salmeron Ot N39.0 SP URINARY TRACT INFECTION, SITE NOT SPECIF SP 09/05/2015 TRISTIN ROWLAND, JAX Salmeron Ot R11.2 SP NAUSEA WITH VOMITING, UNSPECIFIED SP 09/05/2015 TRISTIN ROWLAND, JAX Salmeron Ot R19.7 SP DIARRHEA, UNSPECIFIED SP 10/01/2015 KELLEN ROWLAND, TRACI Ugalde Ot N20.9 SP SP 11/21/2015 KELLEN ROWLAND, TRACI Ugalde Ot N20.9 SP CALCULUS, UNSPECIFIED SP 12/28/2015 KELLEN ROWLAND, TRACI Ugalde Ot N20.9 SP CALCULUS, UNSPECIFIED SP 01/04/2016 KELLEN ROWLAND, TRACI Ugalde Ot N20.9 SP CALCULUS, UNSPECIFIED SP 01/16/2016 Ot 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 SP 01/16/2016 Ot 625.8 FEM GENITAL SP NEC SP 01/16/2016 Ot 401.9 HYPE RTENSION NOS SP SP 01/16/2016 Ot 625.8 FEM GENITAL SP NEC SP 01/16/2016 Ot V72.63 PRE -PROCEDURAL SP EXAMINATION SP 01/16/2016 Ot V74.8 SCRE EN-BACTERIAL SP NEC SP 01/16/2016 Ot 592.0 CALC ULUS OF KIDNEY SP SP 01/16/2016 Ot V76.12 OTH SCREEN MAMMO- SP NEOPLASM OF EDVORAH SP 01/16/2016 Ot 786.09 RES PIRATORY SP NEC SP 01/16/[address] PAIN NOS SP SP 01/16/2016 Ot 592.0 CALC ULUS OF KIDNEY SP SP 01/16/2016 Ot 599.70 HEM ATURIA, SP SP 01/16/2016 Ot 620.2 OVAR DEEPTI CYST SP SP 01/16/2016 Ot 789.00 ABD OMINAL PAIN, SP SITE SP 01/16/2016 Ot 793.82 INC ONCLUSIVE SP SP 01/16/2016 Ot V76.12 OTH SCREEN MAMMO- SP NEOPLASM OF DEVORAH SP 01/16/2016 Ot 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 SP 01/16/2016 Ot 620.2 OVAR DEEPTI CYST SP SP 01/16/[address] ABSENCE OF SP ORGANS SP 01/16/2016 Ot 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 SP 01/16/2016 Ot 620.2 OVAR DEEPTI CYST SP SP 01/16/2016 Ot 592.0 CALC ULUS OF KIDNEY SP SP 01/16/2016 SARAH ORTEGA DO Ot V76.12 SP SCREEN MAMMO-MALIGN NEOPLASM OF DEVORAH SP 01/16/2016 Ot 592.9 URIN REA CALCULUS SP SP 01/16/2016 SARAH ORTEGA DO Ot V76.12 SP SCREEN MAMMO-MALIGN NEOPLASM OF DEVORAH SP 01/16/2016 DIAZ DO, CARMEN C Ot 229.9 SP NEOPLASM NOS SP 01/16/2016 DIAZ DO, CARMEN C Ot 620.2 SP CYST NEC/NOS SP 01/16/2016 DIAZ DO, CARMEN C Ot 625.9 SP GENITAL SYMPTOMS NOS SP 01/16/2016 DIAZ DO, CARMEN C Ot 218.9 SP LEIOMYOMA NOS SP 01/16/2016 DIAZ DO, CAREMN C Ot 620.2 SP CYST NEC/NOS SP 01/16/2016 KELLEN ROWLAND, TRACI Ugalde Ot 592.9 SP CALCULUS NOS SP 01/16/2016 KELLEN ROWLAND, TRACI A Ot 592.9 SP CALCULUS NOS SP 01/16/2016 SARAH ORTEGA DO Ot Z12.31 SP SCREEN MAMMOGRAM FOR MALIGNANT NE SP 01/16/2016 SARAH ORTEGA DO Ot R92.2 SP MAMMOGRAM SP 01/16/2016 SINCERE ROWLAND, MARIA ALEJANDRA Ramirez Ot K21.9 SP GASTRO-ESOPHAGEAL REFLUX DISEASE WITHOUT SP 01/16/2016 SINCERE ROWLAND, MARIA ALEJANDRA Ramirez Ot R13.10 SP DYSPHAGIA, UNSPECIFIED SP 01/16/2016 SINCERE ROWLAND, MARIA ALEJANDRA Ramirez Ot Z01.818 SP ENCOUNTER FOR OTHER PREPROCEDURAL EXAMIN SP 01/16/2016 KELLEN ROWLAND, TRACI Ugalde Ot N20.9 SP CALCULUS, UNSPECIFIED SP 01/17/2016 SARAH ORTEGA DO Ot R92.2 SP MAMMOGRAM SP 01/17/2016 SARAH ORTEGA DO Ot Z80.3 SP HISTORY OF MALIGNANT NEOPLASM OF SP 01/17/2016 SARAH ORTEGA DO Ot R92.2 SP MAMMOGRAM SP 01/17/2016 SARAH ORTEGA DO Ot Z80.3 SP HISTORY OF MALIGNANT NEOPLASM OF SP 01/30/2016 SARAH ORTEGA DO Ot R92.2 SP MAMMOGRAM SP 01/30/2016 JEFF LIU [facility] Ot Z80.3 SP HISTORY OF MALIGNANT NEOPLASM OF SP 06/26/2016 Ot V76.12 OTH SCREEN MAMMO- SP NEOPLASM OF DEVORAH SP 06/26/2016 Ot 786.09 RES PIRATORY SP NEC SP 06/26/[address] PAIN NOS SP SP 06/26/2016 Ot 592.0 CALC ULUS OF KIDNEY SP SP 06/26/2016 Ot 599.70 HEM ATURIA, SP SP 06/26/2016 Ot 620.2 OVAR DEEPTI CYST SP SP 06/26/2016 Ot 789.00 ABD OMINAL PAIN, SP SITE SP 06/26/2016 Ot 793.82 INC ONCLUSIVE SP SP 06/26/2016 Ot V76.12 OTH SCREEN MAMMO- SP NEOPLASM OF DEVORAH SP 06/26/2016 Ot 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 SP 06/26/2016 Ot 620.2 OVAR DEEPTI CYST SP SP 06/26/[address] ABSENCE OF SP ORGANS SP 06/26/2016 Ot 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 SP 06/26/2016 Ot 620.2 OVAR DEEPTI CYST SP SP 06/26/2016 Ot 592.0 CALC ULUS OF KIDNEY SP SP 06/26/2016 THIAGO ORTEGA DOI Ot V76.12 SP SCREEN MAMMO-MALIGN NEOPLASM OF DEVORAH SP 06/26/2016 Ot 592.9 URIN REA CALCULUS SP SP 06/26/2016 ORTEGANINFA LIU [facility] Ot V76.12 SP SCREEN MAMMO-MALIGN NEOPLASM OF DEVORAH SP 06/26/2016 DIAZ CARMEN LIU C Ot 229.9 SP NEOPLASM NOS SP 06/26/2016 DIAZ DO CARMEN C Ot 620.2 SP CYST NEC/NOS SP 06/26/2016 ELVIS DIAZ DOA C Ot 625.9 SP GENITAL SYMPTOMS NOS SP 06/26/2016 DIAZ DOELVISA C Ot 218.9 SP LEIOMYOMA NOS SP 06/26/2016 ELVIS DIAZ DOA C Ot 620.2 SP CYST NEC/NOS SP 06/26/2016 KELLEN ROWLAND, TRACI Ugalde Ot 592.9 SP CALCULUS NOS SP 06/26/2016 KELLEN ROWLAND, TRACI Ugalde Ot 592.9 SP CALCULUS NOS SP 06/26/2016 SARAH ORTEGA DO Ot Z12.31 SP SCREEN MAMMOGRAM FOR MALIGNANT NE SP 06/26/2016 SARAH ORTEGA DO Ot R92.2 SP MAMMOGRAM SP 06/26/2016 SINCERE ROWLAND, MARIA ALEJANDRA Ramirez Ot K21.9 SP GASTRO-ESOPHAGEAL REFLUX DISEASE WITHOUT SP 06/26/2016 SINCERE ROWLAND, MARIA ALEJANDRA Ramirez Ot R13.10 SP DYSPHAGIA, UNSPECIFIED SP 06/26/2016 SINCERE ROWLAND, MARIA ALEJANDRA Ramirez Ot Z01.818 SP ENCOUNTER FOR OTHER PREPROCEDURAL EXAMIN SP 06/26/2016 SARAH ORTEGA DO Ot R92.2 SP MAMMOGRAM SP 06/26/2016 SARAH ORTEGA DO Ot Z80.3 SP HISTORY OF MALIGNANT NEOPLASM OF SP 06/26/2016 KELLEN ROWLAND, TRACI Ugalde Ot N20.9 SP CALCULUS, UNSPECIFIED SP 07/09/2016 SARAH ORTEGA DO Ot R92.8 OTH SPABN AND INCONCLUSIVE FINDINGS ON DX SP 10/22/2016 Ot 592.0 CALC ULUS OF KIDNEY SP SP 10/22/2016 Ot 599.70 HEM ATURIA, SP SP 10/22/2016 Ot 620.2 OVAR DEEPTI CYST SP SP 10/22/2016 Ot 789.00 ABD OMINAL PAIN, SP SITE SP 10/22/2016 Ot 793.82 INC ONCLUSIVE SP SP 10/22/2016 Ot V76.12 OTH SCREEN MAMMO- SP NEOPLASM OF DEVORAH SP 10/22/2016 Ot 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 SP 10/22/2016 Ot 620.2 OVAR DEEPTI CYST SP SP 10/22/[address] ABSENCE OF SP ORGANS SP 10/22/2016 Ot 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 SP 10/22/2016 Ot 620.2 OVAR DEEPTI CYST SP SP 10/22/2016 Ot 592.0 CALC ULUS OF KIDNEY SP SP 10/22/2016 SARAH ORTEGA DO Ot V76.12 SP SCREEN MAMMO-MALIGN NEOPLASM OF DEVORAH SP 10/22/2016 Ot 592.9 URIN REA CALCULUS SP SP 10/22/2016 SARAH ORTEGA DO Ot V76.12 SP SCREEN MAMMO-MALIGN NEOPLASM OF DEVORAH SP 10/22/2016 DIAZ DO CARMEN C Ot 229.9 SP NEOPLASM NOS SP 10/22/2016 DIAZ DO CARMEN C Ot 620.2 SP CYST NEC/NOS SP 10/22/2016 DIAZ DO CARMEN C Ot 625.9 SP GENITAL SYMPTOMS NOS SP 10/22/2016 DIAZ DOCARMEN Ot 218.9 SP LEIOMYOMA NOS SP 10/22/2016 DIAZ CARMEN C Ot 620.2 SP CYST NEC/NOS SP 10/22/2016 KELLEN ROWLAND, TRACI Ugalde Ot 592.9 SP CALCULUS NOS SP 10/22/2016 KELLEN ROWLAND, TRACI Ugalde Ot 592.9 SP CALCULUS NOS SP 10/22/2016 SARAH ORTEGA DO Ot Z12.31 SP SCREEN MAMMOGRAM FOR MALIGNANT NE SP 10/22/2016 SARAH ORTEGA DO Ot R92.2 SP MAMMOGRAM SP 10/22/2016 SINCERE ROWLAND, MARIA ALEJANDRA Ramirez Ot K21.9 SP GASTRO-ESOPHAGEAL REFLUX DISEASE WITHOUT SP 10/22/2016 SINCERE ROWLAND, MARIA ALEJANDRA Ramirez Ot R13.10 SP DYSPHAGIA, UNSPECIFIED SP 10/22/2016 SINCERE ROWLAND, MARIA ALEJANDRA Ramirez Ot Z01.818 SP ENCOUNTER FOR OTHER PREPROCEDURAL EXAMIN SP 10/22/2016 SARAH ORTEGA DO Ot R92.2 SP MAMMOGRAM SP 10/22/2016 SARAH ORTEGA DO Ot Z80.3 SP HISTORY OF MALIGNANT NEOPLASM OF SP 10/22/2016 TRACI FOREMAN MD Ot N20.9 SP CALCULUS, UNSPECIFIED SP 10/22/2016 SARAH ORTEGA DO Ot R92.8 OTH SPABN AND INCONCLUSIVE FINDINGS ON DX SP 10/28/2016 KELLEN ROWLAND, TRACI Ugalde Ot N20.0 SP OF KIDNEY SP 10/28/2016 KELLEN ROWLAND, TRACI Ugalde Ot N20.0 SP OF KIDNEY SP 10/28/2016 TRACI FOREMAN MD Ot N20.0 SP OF KIDNEY SP 02/09/2017 ARVIND CERVANTES APRN Ot E11 .9 SP 2 DIABETES MELLITUS WITHOUT COMPLIC SP 02/09/2017 ARVIND CERVANTES APRN Ot E78.00 SP PURE HYPERCHOLESTEROLEMIA, UNSPECIFIED SP 02/09/2017 ARVIND CERVANTES AZURE ARCHITECT Ot I10 SP (PRIMARY) HYPERTENSION SP 02/09/2017 ARVIND CERVANTES AZURE ARCHITECT Ot K22 .8 SP SPECIFIED DISEASES OF ESOPHAGUS SP 02/09/2017 ARVIND CERVANTES AZURE ARCHITECT Ot T18.108A SP UNSP FOREIGN BODY IN ESOPHAGUS CAUSING O SP 02/09/2017 ARVIND CERVANTES APRN Ot Z79 .4 SP TERM (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 OF INSULIN SP 02/09/2017 ARVIND CERVANTES APRN Ot Z79.82 SP SHELTER (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 SP 02/09/2017 ARVIND CERVANTES APRN Ot Z79.84 SP OLERICULTURIST (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 OF ORAL HYPOGLYC SP 02/09/2017 ARVIND CERVANTES APRN Ot Z87.19 SP PERSONAL HISTORY OF OTHER DISEASES OF TH SP 02/09/2017 ARVIND CERVANTES APRN Ot Z87.442 SP PERSONAL HISTORY OF URINARY CALCULI SP 02/09/2017 ARVIND CERVANTES APRN Ot Z90.49 SP ACQUIRED ABSENCE OF OTHER SPECIFIED PART SP 02/09/2017 ARVIND CERVANTES APRN Ot Z90 .6 SP ABSENCE OF OTHER PARTS OF URINA SP 02/16/2017 ARVIND CERVANTES APRN Ot E11 .9 SP 2 DIABETES MELLITUS WITHOUT COMPLIC SP 02/16/2017 ARVIND ECRVANTES APRN Ot E78.00 SP PURE HYPERCHOLESTEROLEMIA, UNSPECIFIED SP 02/16/2017 ARVIND CERVANTES APRN Ot I10 SP (PRIMARY) HYPERTENSION SP 02/16/2017 ARVIND CERVANTES APRN Ot K22 .8 SP SPECIFIED DISEASES OF ESOPHAGUS SP 02/16/2017 ARVIND CERVANTES APRN Ot T18.108A SP UNSP FOREIGN BODY IN ESOPHAGUS CAUSING O SP 02/16/2017 ARVIND CERVANTES APRN Ot Z79 .4 SP TERM (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 OF INSULIN SP 02/16/2017 ARVIND CERVANTES APRN Ot Z79.82 SP OLERICULTURIST (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 SP 02/16/2017 ARVIND CERVANTES APRN Ot Z79.84 SP OLERICULTURIST (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 OF ORAL HYPOGLYC SP 02/16/2017 ARVIND CERVANTES APRN Ot Z87.19 SP PERSONAL HISTORY OF OTHER DISEASES OF TH SP 02/16/2017 ARVIND CERVANTES APRN Ot Z87.442 SP PERSONAL HISTORY OF URINARY CALCULI SP 02/16/2017 ARVIND CERVANTES AZURE ARCHITECT Ot Z90.49 SP ACQUIRED ABSENCE OF OTHER SPECIFIED PART SP 02/16/2017 ARVIND CERVANTES AZURE ARCHITECT Ot Z90 .6 SP ABSENCE OF OTHER PARTS OF URINA SP 02/19/2017 ELIAS ROWLAND, YVROSE Strong Ot K21. 9 SPESOPHAGEAL REFLUX DISEASE WITHOUT SP 02/19/2017 ELIAS ROWLAND, YVROSE Strong Ot R10. 13 SP PAIN SP 02/19/2017 YVROSE GRIFFIN MD Ot Z01.818 SP ENCOUNTER FOR OTHER PREPROCEDURAL EXAMIN SP 02/19/2017 YVROSE GRIFFIN MD Ot Z87. 19 SP HISTORY OF OTHER DISEASES OF TH SP 02/19/2017 YVROSE GRIFFIN MD Ot K21. 9 SPESOPHAGEAL REFLUX DISEASE WITHOUT SP 02/19/2017 YVROSE GRIFFIN MD Ot R10. 13 SP PAIN SP 02/19/2017 YVROSE GRIFFIN MD Ot Z01.818 SP ENCOUNTER FOR OTHER PREPROCEDURAL EXAMIN SP 02/19/2017 YVROSE GRIFFIN MD Ot Z87. 19 SP HISTORY OF OTHER DISEASES OF TH SP 02/19/2017 YVROSE GRIFFIN MD Ot K21. 9 SPESOPHAGEAL REFLUX DISEASE WITHOUT SP 02/19/2017 ELIAS ROWLAND, YVROSE Strong Ot R10. 13 SP PAIN SP 02/19/2017 YVROSE GRIFFIN MD Ot Z01.818 SP ENCOUNTER FOR OTHER PREPROCEDURAL EXAMIN SP 02/19/2017 YVROSE GRIFFIN MD Ot Z87. 19 SP HISTORY OF OTHER DISEASES OF TH SP 02/19/2017 Ot 592.0 CALC ULUS OF KIDNEY SP SP 02/19/2017 Ot 592.0 CALC ULUS OF KIDNEY SP SP 02/19/2017 Ot 592.9 URIN REA CALCULUS SP SP 02/19/2017 KELLEN ROWLAND, TRACI Ugalde Ot 592.9 SP CALCULUS NOS SP 02/19/2017 KELLEN ROWLAND, TRACI A Ot N20.9 SP CALCULUS, UNSPECIFIED SP 02/23/2017 SINCERE ROWLAND, MARIA ALEJANDRA Ramirez Ot E78.00 SP PURE HYPERCHOLESTEROLEMIA, UNSPECIFIED SP 02/23/2017 SINCERE ROWLAND, MARIA ALEJANDRA Ramirez Ot I1 0 SP (PRIMARY) HYPERTENSION SP 02/23/2017 SINCERE ROWLAND, MARIA ALEJANDRA Ramirez Ot K22.2 SP ESOPHAGEAL OBSTRUCTION SP 02/24/2017 SINCERE ROWLAND, MARIA ALEJANDRA aRmirez Ot E78.00 SP PURE HYPERCHOLESTEROLEMIA, UNSPECIFIED SP 02/24/2017 SINCERE ROWLAND, MARIA ALEJANDRA Ramirez Ot I1 0 SP (PRIMARY) HYPERTENSION SP 02/24/2017 SINCERE ROWLAND, MARIA ALEJANDRA Ramirez Ot K22.2 SP ESOPHAGEAL OBSTRUCTION SP 03/09/2017 ARVIND CERVANTES APRN Ot E11 .9 SP 2 DIABETES MELLITUS WITHOUT COMPLIC SP 03/09/2017 ARVIND CERVANTES APRN Ot E78.00 SP PURE HYPERCHOLESTEROLEMIA, UNSPECIFIED SP 03/09/2017 ARVIND CERVANTES APRN Ot E86 .9 SP DEPLETION, UNSPECIFIED SP 03/09/2017 ARVIND CERVANTES APRN Ot I10 SP (PRIMARY) HYPERTENSION SP 03/09/2017 ARVIND CERVANTES APRN Ot K21 .9 SPESOPHAGEAL REFLUX DISEASE WITHOUT SP 03/09/2017 ARVIND CERVANTES APRN Ot N39 .0 SP TRACT INFECTION, SITE NOT SPECIF SP 03/09/2017 ARVIND CERVANTES APRN Ot R03 .1 SP LOW BLOOD-PRESSURE READING SP 03/09/2017 ARVIND CERVANTES APRN Ot R55 SP AND COLLAPSE SP 03/09/2017 ARVIND CERVANTES APRN Ot Z79 .4 SP TERM (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 OF INSULIN SP 03/09/2017 ARVIND CERVANTES APRN Ot Z79.82 SP OLERICULTURIST (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 SP 03/09/2017 ARVIND CERVANTES APRN Ot Z79.84 SP SHELTER (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 OF ORAL HYPOGLYC SP 03/09/2017 ARVIND CERVANTES APRN Ot Z87.19 SP PERSONAL HISTORY OF OTHER DISEASES OF TH SP 03/09/2017 ARVIND CERVANTES APRN Ot Z87.442 SP PERSONAL HISTORY OF URINARY CALCULI SP 03/09/2017 ARVIND CERVANTES APRN Ot Z90.710 SP ACQUIRED ABSENCE OF BOTH CERVIX AND UTER SP 03/11/2017 ARVIND CERVANTES APRN Ot E11 .9 SP 2 DIABETES MELLITUS WITHOUT COMPLIC SP 03/11/2017 ARVIND CERVANTES APRN Ot E78.00 SP PURE HYPERCHOLESTEROLEMIA, UNSPECIFIED SP 03/11/2017 ARVIND CERVANTES APRN Ot E86 .9 SP DEPLETION, UNSPECIFIED SP 03/11/2017 CERVANTES, PETER J AZURE ARCHITECT Ot I10 SP (PRIMARY) HYPERTENSION SP 03/11/2017 ARVIND CERVANTES AZURE ARCHITECT Ot K21 .9 SPESOPHAGEAL REFLUX DISEASE WITHOUT SP 03/11/2017 ARVIND CERVANTES AZURE ARCHITECT Ot N39 .0 SP TRACT INFECTION, SITE NOT SPECIF SP 03/11/2017 ARVIND CERVANTES AZURE ARCHITECT Ot R03 .1 SP LOW BLOOD-PRESSURE READING SP 03/11/2017 ARVIND CERVANTES AZURE ARCHITECT Ot R55 SP AND COLLAPSE SP 03/11/2017 ARVIND CERVANTES AZURE ARCHITECT Ot Z79 .4 SP TERM (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 OF INSULIN SP 03/11/2017 ARVIND CERVANTES AZURE ARCHITECT Ot Z79.82 SP OLERICULTURIST (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 SP 03/11/2017 ARVIND CERVANTES AZURE ARCHITECT Ot Z79.84 SP OLERICULTURIST (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 OF ORAL HYPOGLYC SP 03/11/2017 ARVIND CERVANTES AZURE ARCHITECT Ot Z87.19 SP PERSONAL HISTORY OF OTHER DISEASES OF TH SP 03/11/2017 ARVIND CERVANTES AZURE ARCHITECT Ot Z87.442 SP PERSONAL HISTORY OF URINARY CALCULI SP 03/11/2017 ARVIND CERVANTES AZURE ARCHITECT Ot Z90.710 SP ACQUIRED ABSENCE OF BOTH CERVIX AND UTER SP 03/23/2017 JEFF LIU SARAH Ot R13.14 SP PHARYNGOESOPHAGEAL PHASE SP 04/01/2017 THIAGO ORTEGA DOI Ot R13.14 SP PHARYNGOESOPHAGEAL PHASE SP 07/27/2017 SINCERE ROWLAND, MARIA ALEJANDRA Ramirez Ot Z01.818 SP ENCOUNTER FOR OTHER PREPROCEDURAL EXAMIN SP 07/27/2017 MARIA ALEJANDRA POST MD Ot Z12.11 SP ENCOUNTER FOR SCREENING FOR MALIGNANT NE SP 07/27/2017 MARIA ALEJANDRA POST MD Ot Z80.0 SP FAMILY HISTORY OF MALIGNANT NEOPLASM OF SP 07/27/2017 MARIA ALEJANDRA POST MD Ot Z86.010 SP PERSONAL HISTORY OF COLONIC POLYPS SP 07/28/2017 THIAGO ORTEGA DOI Ot Z12.31 SP SCREEN MAMMOGRAM FOR MALIGNANT NE SP 07/28/2017 MARIA ALEJANDRA POST MD Ot Z01.818 SP ENCOUNTER FOR OTHER PREPROCEDURAL EXAMIN SP 07/28/2017 MARIA ALEJANDRA POST MD Ot Z12.11 SP ENCOUNTER FOR SCREENING FOR MALIGNANT NE SP 07/28/2017 MARIA ALEJANDRA POST MD Ot Z80.0 SP FAMILY HISTORY OF MALIGNANT NEOPLASM OF SP 07/28/2017 MARIA ALEJANDRA POST MD Ot Z86.010 SP PERSONAL HISTORY OF COLONIC POLYPS SP 08/03/2017 MARIA ALEJANDRA POST MD Ot E78.00 SP PURE HYPERCHOLESTEROLEMIA, UNSPECIFIED SP 08/03/2017 MARIA ALEJANDRA POST MD Ot I1 0 SP (PRIMARY) HYPERTENSION SP 08/03/2017 MARIA ALEJANDRA POST MD Ot K21.9 SP GASTRO-ESOPHAGEAL REFLUX DISEASE WITHOUT SP 08/03/2017 MARIA ALEJANDRA POST MD Ot K52.9 SP NONINFECTIVE GASTROENTERITIS AND COLITIS SP 08/03/2017 MARIA ALEJANDRA POST MD Ot 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 SP 08/03/2017 MARIA ALEJANDRA POST MD Ot K59.09 SP OTHER CONSTIPATION SP 08/03/2017 MARIA ALEJANDRA POST MD Ot Z79.4 SP OLERICULTURIST (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 OF INSULIN SP 08/03/2017 MARIA ALEJANDRA POST MD Ot Z79.899 SP OTHER OLERICULTURIST (CURRENT) DRUG THERAPY SP 08/03/2017 MARIA ALEJANDRA POST MD Ot Z80.0 SP FAMILY HISTORY OF MALIGNANT NEOPLASM OF SP 08/03/2017 MARIA ALEJANDRA POST MD Ot Z86.010 SP PERSONAL HISTORY OF COLONIC POLYPS SP 08/04/2017 MARIA ALEJANDRA POST MD Ot E78.00 SP PURE HYPERCHOLESTEROLEMIA, UNSPECIFIED SP 08/04/2017 MARIA ALEJANDRA POST MD Ot I1 0 SP (PRIMARY) HYPERTENSION SP 08/04/2017 MARIA ALEJANDRA POST MD Ot K21.9 SP GASTRO-ESOPHAGEAL REFLUX DISEASE WITHOUT SP 08/04/2017 MARIA ALEJANDRA POST MD Ot K52.9 SP NONINFECTIVE GASTROENTERITIS AND COLITIS SP 08/04/2017 MARIA ALEJANDRA POST MD Ot 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 SP 08/04/2017 MARIA ALEJANDRA POST MD Ot K59.09 SP OTHER CONSTIPATION SP 08/04/2017 MARIA ALEJANDRA POST MD Ot Z79.4 SP SHELTER (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 OF INSULIN SP 08/04/2017 MARIA ALEJANDRA POST MD Ot Z79.899 SP OTHER SHELTER (CURRENT) DRUG THERAPY SP 08/04/2017 SINCERE ROWLAND, MARIA ALEJANDRA Ramirez Ot Z80.0 SP FAMILY HISTORY OF MALIGNANT NEOPLASM OF SP 08/04/2017 SINCERE ROWLAND, MARIA ALEJANDRA Ramirez Ot Z86.010 SP PERSONAL HISTORY OF COLONIC POLYPS SP 08/09/2017 SINCERE ROWLAND, MARIA ALEJANDRA Ramirez Ot E78.00 SP PURE HYPERCHOLESTEROLEMIA, UNSPECIFIED SP 08/09/2017 SINCERE ROWLAND, MARIA ALEJANDRA Ramirez Ot I1 0 SP (PRIMARY) HYPERTENSION SP 08/09/2017 SINCERE ROWLAND, MARIA ALEJANDRA Ramirez Ot K21.9 SP GASTRO-ESOPHAGEAL REFLUX DISEASE WITHOUT SP 08/09/2017 SINCERE ROWLAND, MARIA ALEJANDRA Ramirez Ot K52.9 SP NONINFECTIVE GASTROENTERITIS AND COLITIS SP 08/09/2017 SINCERE ROWLAND, MARIA ALEJANDRA Ramirez Ot 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 SP 08/09/2017 SINCERE ROWLAND, MARIA ALEJANDRA Ramirez Ot K59.09 SP OTHER CONSTIPATION SP 08/09/2017 SINCERE ROWLAND, MARIA ALEJANDRA Ramirez Ot Z79.4 SP OLERICULTURIST (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 OF INSULIN SP 08/09/2017 SINCERE ROWLAND, MARIA ALEJANDRA Ramirez Ot Z79.899 SP OTHER OLERICULTURIST (CURRENT) DRUG THERAPY SP 08/09/2017 SINCERE ROWLAND, MARIA ALEJANDRA Ramirez Ot Z80.0 SP FAMILY HISTORY OF MALIGNANT NEOPLASM OF SP 08/09/2017 SINCERE ROWLAND, MARIA ALEJANDRA Ramirez Ot Z86.010 SP PERSONAL HISTORY OF COLONIC POLYPS SP 08/12/2017 SARAH ORTEGA DO Ot Z12.31 SP SCREEN MAMMOGRAM FOR MALIGNANT NE SP 01/15/2018 KELLEN ROWLAND, TRACI Ugalde Ot N20.0 SP OF KIDNEY SP 01/18/2018 Ot 592.0 CALC ULUS OF KIDNEY SP SP 01/18/2018 SARAH ORETGA DO Ot V76.12 SP SCREEN MAMMO-MALIGN NEOPLASM OF DEVORAH SP 01/18/2018 Ot 592.9 URIN REA CALCULUS SP SP 01/18/2018 SARAH ORTEGA DO Ot V76.12 SP SCREEN MAMMO-MALIGN NEOPLASM OF DEVORAH SP 01/18/2018 CARMEN DIAZ DO Ot 229.9 SP NEOPLASM NOS SP 01/18/2018 CARMEN DIAZ DO Ot 620.2 SP CYST NEC/NOS SP 01/18/2018 CARMEN DIAZ DO Ot 625.9 SP GENITAL SYMPTOMS NOS SP 01/18/2018 CARMEN DIAZ DO Ot 218.9 SP LEIOMYOMA NOS SP 01/18/2018 CARMEN DIAZ DO Ot 620.2 SP CYST NEC/NOS SP 01/18/2018 KELLEN ROWLAND, TRACI Ugalde Ot 592.9 SP CALCULUS NOS SP 01/18/2018 KELLEN ROWLAND, TRACI Ugalde Ot 592.9 SP CALCULUS NOS SP 01/18/2018 SAARH ORTEGA DO Ot Z12.31 SP SCREEN MAMMOGRAM FOR MALIGNANT NE SP 01/18/2018 SARAH ORTEGA DO Ot R92.2 SP MAMMOGRAM SP 01/18/2018 SINCERE ROWLAND, MARIA ALEJANDRA Ramirez Ot K21.9 SP GASTRO-ESOPHAGEAL REFLUX DISEASE WITHOUT SP 01/18/2018 SINCERE ROWLAND, MARIA ALEJANDRA Ramirez Ot R13.10 SP DYSPHAGIA, UNSPECIFIED SP 01/18/2018 SINCERE ROWLAND, MARIA ALEJANDRA Ramirez Ot Z01.818 SP ENCOUNTER FOR OTHER PREPROCEDURAL EXAMIN SP 01/18/2018 SARAH ORTEGA DO Ot R92.2 SP MAMMOGRAM SP 01/18/2018 SARAH ORTEGA DO Ot Z80.3 SP HISTORY OF MALIGNANT NEOPLASM OF SP 01/18/2018 KELLEN ROWLAND, TRACI Ugalde Ot N20.9 SP CALCULUS, UNSPECIFIED SP 01/18/2018 SARAH ORTEGA DO Ot R92.8 OTH SPABN AND INCONCLUSIVE FINDINGS ON DX SP 01/18/2018 SARAH ORTEGA DO Ot R13.14 SP PHARYNGOESOPHAGEAL PHASE SP 01/18/2018 SARAH ORTEGA DO Ot Z12.31 SP SCREEN MAMMOGRAM FOR MALIGNANT NE SP 01/18/2018 KELLEN ROWLAND, TRACI Ugalde Ot N20.0 SP OF KIDNEY SP 01/20/2018 KELLEN ROWLAND, TRACI Ugalde Ot M47.8 17 SP W/O MYELOPATHY OR RADICULOPATHY SP 01/20/2018 KELLEN ROWLAND, TRACI Ugalde Ot N20.0 SP OF KIDNEY SP 01/20/2018 KELLEN ROWLAND, TRACI Ugalde Ot N85.9 SP DISORDER OF UTERUS, UNSP SP 01/25/2018 KELLEN ROWLAND, TRCAI Ugalde Ot N20.0 SP OF KIDNEY SP 01/26/2018 KELLEN ROWLAND, TRACI Ugalde Ot N20.0 SP OF KIDNEY SP 02/09/2018 Ot D25.0 SUBM UCOUS SP OF UTERUS SP 02/09/2018 Ot D25.1 INTR AMURAL SP OF UTERUS SP 02/09/2018 Ot D25.2 SUBS EROSAL SP OF UTERUS SP 02/09/2018 Ot E11.9 TYPE 2 DIABETES SP WITHOUT COMPLIC SP 02/09/2018 Ot E78.00 PUR E SP UNSPECIFIED SP 02/09/2018 Ot E78.1 PURE SP SP 02/09/2018 Ot E87.6 HYPO KALEMIA SP SP 02/09/2018 Ot I10 ESSENT IAL (PRIMARY) SP SP 02/09/2018 Ot K43.2 INCI SIONAL HERNIA SP OBSTRUCTION OR SP 02/09/2018 Ot N73.6 FEMA LE PELVIC SP ADHESIONS (POST SP 02/09/2018 Ot N83.292 OT HER OVARIAN SP LEFT SIDE SP 02/09/2018 Ot 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, FAL SP 02/09/2018 Ot Z14.8 GENE TIC CARRIER OF SPOTHER DISEASE SP 02/09/2018 Ot Z79.4 SHELTER SP USE OF INSULIN SP 02/09/2018 Ot Z79.899 OT HER SHELTER SP DRUG THERAPY SP 02/09/2018 Ot Z80.0 FAMI LY HISTORY OF SP NEOPLASM OF SP 02/09/2018 Ot Z80.3 FAMI LY HISTORY OF SP NEOPLASM OF SP 02/09/2018 Ot Z80.49 FAM JOE HISTORY OF SPMALIGNANT NEOPLASM OF SP 02/09/2018 Ot Z87.442 PE RSONAL HISTORY SPOF URINARY CALCULI SP 02/14/2018 Ot D25.0 SUBM UCOUS SP OF UTERUS SP 02/14/2018 Ot D25.1 INTR AMURAL SP OF UTERUS SP 02/14/2018 Ot D25.2 SUBS EROSAL SP OF UTERUS SP 02/14/2018 Ot E11.9 TYPE 2 DIABETES SP WITHOUT COMPLIC SP 02/14/2018 Ot E78.00 PUR E SP UNSPECIFIED SP 02/14/2018 Ot E78.1 PURE SP SP 02/14/2018 Ot E87.6 HYPO KALEMIA SP SP 02/14/2018 Ot I10 ESSENT IAL (PRIMARY) SP SP 02/14/2018 Ot K43.2 INCI SIONAL HERNIA SP OBSTRUCTION OR SP 02/14/2018 Ot N73.6 FEMA LE PELVIC SP ADHESIONS (POST SP 02/14/2018 Ot N83.292 OT HER OVARIAN SP LEFT SIDE SP 02/14/2018 Ot 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, FAL SP 02/14/2018 Ot Z14.8 GENE TIC CARRIER OF SPOTHER DISEASE SP 02/14/2018 Ot Z79.4 SHELTER SP USE OF INSULIN SP 02/14/2018 Ot Z79.899 OT HER SHELTER SP DRUG THERAPY SP 02/14/2018 Ot Z80.0 FAMI LY HISTORY OF SP NEOPLASM OF SP 02/14/2018 Ot Z80.3 FAMI LY HISTORY OF SP NEOPLASM OF SP 02/14/2018 Ot Z80.49 FAM JOE HISTORY OF SPMALIGNANT NEOPLASM OF SP 02/14/2018 Ot Z87.442 PE RSONAL HISTORY SPOF URINARY CALCULI SP 02/16/2018 KELLEN ROWLAND, TRACI Ugalde Ot N20.0 SP OF KIDNEY SP 02/19/2018 Ot D25.0 SUBM UCOUS SP OF UTERUS SP 02/19/2018 Ot D25.1 INTR AMURAL SP OF UTERUS SP 02/19/2018 Ot D25.2 SUBS EROSAL SP OF UTERUS SP 02/19/2018 Ot E11.9 TYPE 2 DIABETES SP WITHOUT COMPLIC SP 02/19/2018 Ot E78.00 PUR E SP UNSPECIFIED SP 02/19/2018 Ot E78.1 PURE SP SP 02/19/2018 Ot E87.6 HYPO KALEMIA SP SP 02/19/2018 Ot I10 ESSENT IAL (PRIMARY) SP SP 02/19/2018 Ot K43.2 INCI SIONAL HERNIA SP OBSTRUCTION OR SP 02/19/2018 Ot N73.6 FEMA LE PELVIC SP ADHESIONS (POST SP 02/19/2018 Ot N83.292 OT HER OVARIAN SP LEFT SIDE SP 02/19/2018 Ot 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, FAL SP 02/19/2018 Ot Z14.8 GENE TIC CARRIER OF SPOTHER DISEASE SP 02/19/2018 Ot Z79.4 SHELTER SP USE OF INSULIN SP 02/19/2018 Ot Z79.899 OT HER OLERICULTURIST SP DRUG THERAPY SP 02/19/2018 Ot Z80.0 FAMI LY HISTORY OF SP NEOPLASM OF SP 02/19/2018 Ot Z80.3 FAMI LY HISTORY OF SP NEOPLASM OF SP 02/19/2018 Ot Z80.49 FAM JOE HISTORY OF SPMALIGNANT NEOPLASM OF SP 02/19/2018 Ot Z87.442 PE RSONAL HISTORY SPOF URINARY CALCULI SP 03/15/2018 ARVIND CERVANTES APRN Ot E11 .9 SP 2 DIABETES MELLITUS WITHOUT COMPLIC SP 03/15/2018 ARVIND CERVATNES APRN Ot E78.00 SP PURE HYPERCHOLESTEROLEMIA, UNSPECIFIED SP 03/15/2018 ARVIND CERVANTES APRN Ot E87 .6 SP SP 03/15/2018 ARVIND CERVANTES APRN Ot G43.909 SP MIGRAINE, UNSP, NOT INTRACTABLE, WITHOUT SP 03/15/2018 ARVIND CERVANTES APRN Ot I10 SP (PRIMARY) HYPERTENSION SP 03/15/2018 ARVIND CERVANTES APRN Ot K21 .9 SPESOPHAGEAL REFLUX DISEASE WITHOUT SP 03/15/2018 ARVIND CERVANTES APRN Ot R03 .0 SP BLOOD-PRESSURE READING, W/O HIRAL SP 03/15/2018 ARVIND CERVANTES APRN Ot Z79 .4 SP TERM (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 OF INSULIN SP 03/15/2018 ARVIND CERVANTES APRN Ot Z79.82 SP OLERICULTURIST (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 SP 03/15/2018 ARVIND CERVANTES APRN Ot Z82.49 SP FAMILY HX OF ISCHEM HEART DIS AND OTH DI SP 03/15/2018 ARVIND CERVANTES APRN Ot Z86.010 SP PERSONAL HISTORY OF COLONIC POLYPS SP 03/15/2018 ARVIND CERVANTES APRN Ot Z87.19 SP PERSONAL HISTORY OF OTHER DISEASES OF TH SP 03/15/2018 ARVIND CERVANTES APRN Ot Z87.442 SP PERSONAL HISTORY OF URINARY CALCULI SP 03/15/2018 ARVIND CERVANTES APRN Ot Z90 .6 SP ABSENCE OF OTHER PARTS OF URINA SP 03/15/2018 ARVIND CERVANTES APRN Ot Z90.89 SP ACQUIRED ABSENCE OF OTHER ORGANS SP 03/17/2018 ARVIND CERVANTES APRN Ot E11 .9 SP 2 DIABETES MELLITUS WITHOUT COMPLIC SP 03/17/2018 ARVIND CERVANTES APRN Ot E78.00 SP PURE HYPERCHOLESTEROLEMIA, UNSPECIFIED SP 03/17/2018 ARVIND CERVANTES APRN Ot E87 .6 SP SP 03/17/2018 ARVIND CERVANTES APRN Ot G43.909 SP MIGRAINE, UNSP, NOT INTRACTABLE, WITHOUT SP 03/17/2018 ARVIND CERVANTES APRN Ot I10 SP (PRIMARY) HYPERTENSION SP 03/17/2018 ARVIND CERVANTES APRN Ot K21 .9 SPESOPHAGEAL REFLUX DISEASE WITHOUT SP 03/17/2018 ARVIND CERVANTES APRN Ot R03 .0 SP BLOOD-PRESSURE READING, W/O HIRAL SP 03/17/2018 ARVIND CERVANTES APRN Ot Z79 .4 SP TERM (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 OF INSULIN SP 03/17/2018 ARVIND CERVANTES APRN Ot Z79.82 SP SHELTER (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 SP 03/17/2018 ARVIND CERVANTES APRN Ot Z82.49 SP FAMILY HX OF ISCHEM HEART DIS AND OTH DI SP 03/17/2018 ARVIND CERVANTES APRN Ot Z86.010 SP PERSONAL HISTORY OF COLONIC POLYPS SP 03/17/2018 ARVIND CERVANTES APRN Ot Z87.19 SP PERSONAL HISTORY OF OTHER DISEASES OF TH SP 03/17/2018 ARVIND CERVANTES APRN Ot Z87.442 SP PERSONAL HISTORY OF URINARY CALCULI SP 03/17/2018 ARVIND CERVANTES APRN Ot Z90 .6 SP ABSENCE OF OTHER PARTS OF URINA SP 03/17/2018 ARVIND CERVANTES APRN Ot Z90.89 SP ACQUIRED ABSENCE OF OTHER ORGANS SP 03/21/2018 ARVIND CERVANTES APRN Ot E11 .9 SP 2 DIABETES MELLITUS WITHOUT COMPLIC SP 03/21/2018 ARVIND CERVANTES APRN Ot E78.00 SP PURE HYPERCHOLESTEROLEMIA, UNSPECIFIED SP 03/21/2018 ARVIND CERVANTES APRN Ot E87 .6 SP SP 03/21/2018 ARVIND CERVANTES APRN Ot G43.909 SP MIGRAINE, UNSP, NOT INTRACTABLE, WITHOUT SP 03/21/2018 ARVIND CERVANTES APRN Ot I10 SP (PRIMARY) HYPERTENSION SP 03/21/2018 ARVIND CERVANTES APRN Ot K21 .9 SPESOPHAGEAL REFLUX DISEASE WITHOUT SP 03/21/2018 ARVIND CERVANTES APRN Ot R03 .0 SP BLOOD-PRESSURE READING, W/O HIRAL SP 03/21/2018 ARVIND CERVANTES APRN Ot Z79 .4 SP TERM (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 OF INSULIN SP 03/21/2018 ARVIND CERVANTES APRN Ot Z79.82 SP SHELTER (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 SP 03/21/2018 ARVIND CERVANTES AZURE ARCHITECT Ot Z82.49 SP FAMILY HX OF ISCHEM HEART DIS AND OTH DI SP 03/21/2018 ARVIND CERVANTES AZURE ARCHITECT Ot Z86.010 SP PERSONAL HISTORY OF COLONIC POLYPS SP 03/21/2018 ARVIND CERVANTES AZURE ARCHITECT Ot Z87.19 SP PERSONAL HISTORY OF OTHER DISEASES OF TH SP 03/21/2018 ARVIND CERVANTES AZURE ARCHITECT Ot Z87.442 SP PERSONAL HISTORY OF URINARY CALCULI SP 03/21/2018 ARVIND CERVANTES AZURE ARCHITECT Ot Z90 .6 SP ABSENCE OF OTHER PARTS OF URINA SP 03/21/2018 ARVIND CERVANTES AZURE ARCHITECT Ot Z90.89 SP ACQUIRED ABSENCE OF OTHER ORGANS SP 03/21/2018 SARAH ORTEGA DO Ot R74.8 SP LEVELS OF OTHER SERUM ENZYMES SP 03/31/2018 TRACI FOREMAN MD Ot N20.0 SP OF KIDNEY SP 03/31/2018 SARAH ORTEGA DO Ot R74.8 SP LEVELS OF OTHER SERUM ENZYMES SP 03/31/2018 MARIA ALEJANDRA POST MD Ot Z01.818 SP ENCOUNTER FOR OTHER PREPROCEDURAL EXAMIN SP 04/05/2018 MARIA ALEJANDRA POST MD Ot E11.9 SP TYPE 2 DIABETES MELLITUS WITHOUT COMPLIC SP 04/05/2018 MARIA ALEJANDRA POST MD Ot E78.00 SP PURE HYPERCHOLESTEROLEMIA, UNSPECIFIED SP 04/05/2018 MARIA ALEJANDRA POST MD Ot I1 0 SP (PRIMARY) HYPERTENSION SP 04/05/2018 MARIA ALEJANDRA POST MD Ot K21.9 SP GASTRO-ESOPHAGEAL REFLUX DISEASE WITHOUT SP 04/05/2018 MARIA ALEJANDRA POST MD Ot K22.2 SP ESOPHAGEAL OBSTRUCTION SP 04/05/2018 MARIA ALEJANDRA POST MD Ot K59.09 SP OTHER CONSTIPATION SP 04/05/2018 MARIA ALEJANDRA POST MD Ot Z79.4 SP SHELTER (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 OF INSULIN SP 04/05/2018 MARIA ALEJANDRA PSOT MD Ot Z79.899 SP OTHER SHELTER (CURRENT) DRUG THERAPY SP 04/06/2018 MARIA ALEJANDRA POST MD Ot Z01.818 SP ENCOUNTER FOR OTHER PREPROCEDURAL EXAMIN SP 04/07/2018 POST MD, MARIA ALEJANDRA M Ot E11.9 SP TYPE 2 DIABETES MELLITUS WITHOUT COMPLIC SP 04/07/2018 SINCERE ROWLAND, MARIA ALEJANDRA Ramirez Ot E78.00 SP PURE HYPERCHOLESTEROLEMIA, UNSPECIFIED SP 04/07/2018 SINCERE ROWLAND, MARIA ALEJANDRA Ramirez Ot I1 0 SP (PRIMARY) HYPERTENSION SP 04/07/2018 SINCERE ROWLAND, MARIA ALEJANDRA Ramirez Ot K21.9 SP GASTRO-ESOPHAGEAL REFLUX DISEASE WITHOUT SP 04/07/2018 SINCERE ROWLAND, MARIA ALEJANDRA Ramirez Ot K22.2 SP ESOPHAGEAL OBSTRUCTION SP 04/07/2018 SINCERE ROWLAND, MARIA ALEJANDRA Ramirez Ot K59.09 SP OTHER CONSTIPATION SP 04/07/2018 SINCERE ROWLAND, MARIA ALEJANDRA Ramirez Ot Z79.4 SP SHELTER (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 OF INSULIN SP 04/07/2018 SINCERE ROWLAND, MARIA ALEJANDRA Ramirez Ot Z79.899 SP OTHER SHELTER (CURRENT) DRUG THERAPY SP 04/16/2018 ORTEGA DO SARAH Ot R74.8 SP LEVELS OF OTHER SERUM ENZYMES SP 05/11/2018 ORTEGA DO SARAH Ot R74.8 SP LEVELS OF OTHER SERUM ENZYMES SP 08/20/2018 ORTEGA DO SARAH Ot Z12.31 SP SCREEN MAMMOGRAM FOR MALIGNANT NE SP 08/26/2018 JAX CROW MD Ot E11.9 SP TYPE 2 DIABETES MELLITUS WITHOUT COMPLIC SP 08/26/2018 JAX CROW MD Ot E78.00 SP PURE HYPERCHOLESTEROLEMIA, UNSPECIFIED SP 08/26/2018 JAX CROW MD Ot G43.909 SP MIGRAINE, UNSP, NOT INTRACTABLE, WITHOUT SP 08/26/2018 JAX CROW MD Ot I10 SP ESSENTIAL (PRIMARY) HYPERTENSION SP 08/26/2018 JAX CROW MD Ot K21.9 SP GASTRO-ESOPHAGEAL REFLUX DISEASE WITHOUT SP 08/26/2018 JAX CROW MD Ot N39.0 SP URINARY TRACT INFECTION, SITE NOT SPECIF SP 08/26/2018 JAX CROW MD Ot R11.2 SP NAUSEA WITH VOMITING, UNSPECIFIED SP 08/26/2018 JAX CROW MD Ot R19.7 SP DIARRHEA, UNSPECIFIED SP 08/26/2018 JAX CROW MD Ot Z79.4 SP OLERICULTURIST (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 OF INSULIN SP 08/26/2018 JAX CROW MD Ot Z79.82 SP SHELTER (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 SP 08/26/2018 JAX CROW MD Ot Z82.49 SP FAMILY HX OF ISCHEM HEART DIS AND OTH DI SP 08/26/2018 JAX CROW MD Ot Z86.010 SP PERSONAL HISTORY OF COLONIC POLYPS SP 08/26/2018 JAX CROW MD Ot Z87.19 SP PERSONAL HISTORY OF OTHER DISEASES OF TH SP 08/26/2018 JAX CROW MD Ot Z87.440 SP PERSONAL HISTORY OF URINARY (TRACT) INFE SP 08/26/2018 JAX CROW MD Ot Z87.442 SP PERSONAL HISTORY OF URINARY CALCULI SP 08/26/2018 JAX CROW MD Ot Z90.49 SP ACQUIRED ABSENCE OF OTHER SPECIFIED PART SP 08/26/2018 JAX CROW MD Ot Z90.6 SP ACQUIRED ABSENCE OF OTHER PARTS OF URINA SP 08/26/2018 JAX CROW MD Ot Z90.710 SP ACQUIRED ABSENCE OF BOTH CERVIX AND UTER SP 08/26/2018 JAX CROW MD Ot Z98.890 SP OTHER SPECIFIED POSTPROCEDURAL STATES SP 08/30/2018 JAX CROW MD Ot E11.9 SP TYPE 2 DIABETES MELLITUS WITHOUT COMPLIC SP 08/30/2018 JAX CROW MD Ot E78.00 SP PURE HYPERCHOLESTEROLEMIA, UNSPECIFIED SP 08/30/2018 JAX CROW MD Ot G43.909 SP MIGRAINE, UNSP, NOT INTRACTABLE, WITHOUT SP 08/30/2018 JAX CROW MD Ot I10 SP ESSENTIAL (PRIMARY) HYPERTENSION SP 08/30/2018 JAX CROW MD Ot K21.9 SP GASTRO-ESOPHAGEAL REFLUX DISEASE WITHOUT SP 08/30/2018 JAX CROW MD Ot N39.0 SP URINARY TRACT INFECTION, SITE NOT SPECIF SP 08/30/2018 JAX CROW MD Ot R11.2 SP NAUSEA WITH VOMITING, UNSPECIFIED SP 08/30/2018 JAX CROW MD Ot R19.7 SP DIARRHEA, UNSPECIFIED SP 08/30/2018 JAX CROW MD Ot Z79.4 SP OLERICULTURIST (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 OF INSULIN SP 08/30/2018 JAX CROW MD Ot Z79.82 SP OLERICULTURIST (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 SP 08/30/2018 JAX CROW MD Ot Z82.49 SP FAMILY HX OF ISCHEM HEART DIS AND OTH DI SP 08/30/2018 JAX CROW MD Ot Z86.010 SP PERSONAL HISTORY OF COLONIC POLYPS SP 08/30/2018 JAX CROW MD Ot Z87.19 SP PERSONAL HISTORY OF OTHER DISEASES OF TH SP 08/30/2018 JAX CROW MD Ot Z87.440 SP PERSONAL HISTORY OF URINARY (TRACT) INFE SP 08/30/2018 JAX CROW MD Ot Z87.442 SP PERSONAL HISTORY OF URINARY CALCULI SP 08/30/2018 JAX CROW MD Ot Z90.49 SP ACQUIRED ABSENCE OF OTHER SPECIFIED PART SP 08/30/2018 JAX CROW MD Ot Z90.6 SP ACQUIRED ABSENCE OF OTHER PARTS OF URINA SP 08/30/2018 JAX CROW MD Ot Z90.710 SP ACQUIRED ABSENCE OF BOTH CERVIX AND UTER SP 08/30/2018 JAX CROW MD Ot Z98.890 SP OTHER SPECIFIED POSTPROCEDURAL STATES SP 01/18/2019 ARVIND CERVANTES APRN Ot E11 .9 SP 2 DIABETES MELLITUS WITHOUT COMPLIC SP 01/18/2019 ARVIND CERVANTES APRN Ot E78.00 SP PURE HYPERCHOLESTEROLEMIA, UNSPECIFIED SP 01/18/2019 ARVIND CERVANTES APRN Ot E87 .6 SP SP 01/18/2019 ARVIND CERVANTES APRN Ot G43.909 SP MIGRAINE, UNSP, NOT INTRACTABLE, WITHOUT SP 01/18/2019 ARVIND CERVANTES APRN Ot I10 SP (PRIMARY) HYPERTENSION SP 01/18/2019 ARVIND CERVANTES APRN Ot K21 .9 SPESOPHAGEAL REFLUX DISEASE WITHOUT SP 01/18/2019 ARVIND CERVANTES APRN Ot R03 .0 SP BLOOD-PRESSURE READING, W/O HIRAL SP 01/18/2019 ARVIND CERVANTES APRN Ot Z79 .4 SP TERM (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 OF INSULIN SP 01/18/2019 ARVIND CERVANTES APRN Ot Z79.82 SP OLERICULTURIST (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 SP 01/18/2019 ARVIND CERVANTES APRN Ot Z82.49 SP FAMILY HX OF ISCHEM HEART DIS AND OTH DI SP 01/18/2019 ARVIND CERVANTES APRN Ot Z86.010 SP PERSONAL HISTORY OF COLONIC POLYPS SP 01/18/2019 ARVIND CERVANTES APRN Ot Z87.19 SP PERSONAL HISTORY OF OTHER DISEASES OF TH SP 01/18/2019 ARVIND CERVANTES APRN Ot Z87.442 SP PERSONAL HISTORY OF URINARY CALCULI SP 01/18/2019 ARVIND CERVANTES APRN Ot Z90 .6 SP ABSENCE OF OTHER PARTS OF URINA SP 01/18/2019 ARVIND CERVANTES APRN Ot Z90.89 SP ACQUIRED ABSENCE OF OTHER ORGANS SP 03/24/2019 KELLEN ROWLAND, TRACI Ugalde Ot N20.0 SP OF KIDNEY SP 03/31/2019 IZZY ROWLAND, GANESH Ness Ot J32 .9 SP SINUSITIS, UNSPECIFIED SP 03/31/2019 IZZY ROWLAND, GANESH Ness Ot J34 .3 SP OF NASAL TURBINATES SP 04/25/2019 PEBBLES DOUGHERTY DO Ot Z01.8 18 SP FOR OTHER PREPROCEDURAL EXAMIN SP 04/26/2019 YOLANDA PISANO AZURE ARCHITECT Ot G47.10 SP HYPERSOMNIA, UNSPECIFIED SP 04/26/2019 YOLANDA PISANO AZURE ARCHITECT Ot G47.33 SP OBSTRUCTIVE SLEEP APNEA (ADULT) (PEDIATR SP 04/26/2019 YOLANDA PISANO APRN Ot J30.89 SP OTHER ALLERGIC RHINITIS SP 04/26/2019 YOLANDA PISANO AZURE ARCHITECT Ot J34.2 SP DEVIATED NASAL SEPTUM SP 04/27/2019 PEBBLES DOUGHERTY DO Ot Z01.8 18 SP FOR OTHER PREPROCEDURAL EXAMIN SP 05/02/2019 PEBBLES DOUGHERTY DO Ot D12.0 SP NEOPLASM OF CECUM SP 05/02/2019 PEBBLES DOUGHERTY DO Ot 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 SP 05/02/2019 PEBBLES DOUGHERTY DO Danisha Ot E11.9 SP 2 DIABETES MELLITUS WITHOUT COMPLIC SP 05/02/2019 SERGIO DOUGHERTY DOIC B Ot E78.0 0 SP HYPERCHOLESTEROLEMIA, UNSPECIFIED SP 05/02/2019 SERGIO DOUGHERTY DOIC B Ot E78.1 SP HYPERGLYCERIDEMIA SP 05/02/2019 SERGIO DOUGHERTY DOIC B Ot E78.5 SP UNSPECIFIED SP 05/02/2019 SERGIO DOUGHERTY DOIC B Ot I10 SP (PRIMARY) HYPERTENSION SP 05/02/2019 SERGIO DOUGHERTY DOIC B Ot K21.9 SPESOPHAGEAL REFLUX DISEASE WITHOUT SP 05/02/2019 SERGIO DOUGHERTY DOIC B Ot K57.3 0 SP OF LG INT W/O PERFORATION OR AB SP 05/02/2019 SERGIO DOUGHERTY DOIC B Ot K62.5 SP OF ANUS AND RECTUM SP 05/02/2019 SERGIO DOUGHERTY DOIC B Ot K63.5 SP OF COLON SP 05/02/2019 SERGIO DOUGHERTY DOIC B Ot K64.8 SP HEMORRHOIDS SP 05/02/2019 SERGIO DOUGHERTY DOIC Danisha Ot N39.0 SP TRACT INFECTION, SITE NOT SPECIF SP 05/02/2019 SEGRIO DOUGHERTY DOIC B Ot Z79.4 SP TERM (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 OF INSULIN SP 05/02/2019 PEBBLES DOUGHERTY DO Ot Z79.8 2 SP TERM (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 SP 05/02/2019 SERGIO DOUGHERTY DOIC B Ot Z80.0 SP HISTORY OF MALIGNANT NEOPLASM OF SP 05/02/2019 PEBBLES DOUGHERTY DO Ot Z80.4 9 SP HISTORY OF MALIGNANT NEOPLASM OF SP 05/02/2019 PEBBLES DOUGHERTY DO B Ot Z82.4 9 SP HX OF ISCHEM HEART DIS AND OTH DI SP 05/02/2019 SEGRIO DOUGHERTY DOIC B Ot Z83.3 SP HISTORY OF DIABETES MELLITUS SP 05/02/2019 PEBBLES DOUGHERTY DO Ot Z90.4 9 SP ABSENCE OF OTHER SPECIFIED PART SP 05/02/2019 PEBBLES DOUGHERTY DO B Ot Z90.7 10 SP ABSENCE OF BOTH CERVIX AND UTER SP 05/02/2019 PEBBLES DOUGHERTY DO B Ot Z90.8 9 SP ABSENCE OF OTHER ORGANS SP 05/05/2019 PEBBLES DOUGHERTY DO Ot D12.0 SP NEOPLASM OF CECUM SP 05/05/2019 SERGIO DOUGHERTY DOIC B Ot 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 SP 05/05/2019 SERGIO DOUGHERTY DOIC B Ot E11.9 SP 2 DIABETES MELLITUS WITHOUT COMPLIC SP 05/05/2019 SERGIO DOUGHERTY DOIC B Ot E78.0 0 SP HYPERCHOLESTEROLEMIA, UNSPECIFIED SP 05/05/2019 SERGIO DOUGHERTY DOIC B Ot E78.1 SP HYPERGLYCERIDEMIA SP 05/05/2019 SERGIO DOUGHERTY DOIC B Ot E78.5 SP UNSPECIFIED SP 05/05/2019 SERGIO DOUGHERTY DOIC B Ot I10 SP (PRIMARY) HYPERTENSION SP 05/05/2019 SERGIO DOUGHERTY DOIC B Ot K21.9 SPESOPHAGEAL REFLUX DISEASE WITHOUT SP 05/05/2019 SERGIO DOUGHERTY DOIC B Ot K57.3 0 SP OF LG INT W/O PERFORATION OR AB SP 05/05/2019 SERGIO DOUGHERTY DOIC B Ot K62.5 SP OF ANUS AND RECTUM SP 05/05/2019 PEBBLES DOUGHERTY DO B Ot K63.5 SP OF COLON SP 05/05/2019 SERGIO DOUGHERTY DOIC B Ot K64.8 SP HEMORRHOIDS SP 05/05/2019 SERGIO DOUGHERTY DOIC B Ot N39.0 SP TRACT INFECTION, SITE NOT SPECIF SP 05/05/2019 PEBBLES DOUGHERTY DO B Ot Z79.4 SP TERM (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 OF INSULIN SP 05/05/2019 PEBBLES DOUGHERTY DO Ot Z79.8 2 SP TERM (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 SP 05/05/2019 PEBBLES DOUGHERTY DO B Ot Z80.0 SP HISTORY OF MALIGNANT NEOPLASM OF SP 05/05/2019 SERGIO DOUGHERTY DOIC B Ot Z80.4 9 SP HISTORY OF MALIGNANT NEOPLASM OF SP 05/05/2019 SERGIO DOUGHERTY DOIC B Ot Z82.4 9 SP HX OF ISCHEM HEART DIS AND OTH DI SP 05/05/2019 PEBBLES DOUGHERTY DO B Ot Z83.3 SP HISTORY OF DIABETES MELLITUS SP 05/05/2019 PEBBLES DOUGHERTY DO B Ot Z90.4 9 SP ABSENCE OF OTHER SPECIFIED PART SP 05/05/2019 PEBBLES DOUGHERTY DO B Ot Z90.7 10 SP ABSENCE OF BOTH CERVIX AND UTER SP 05/05/2019 DELMAN DO, PEBBLES B Ot Z90.8 9 SP ABSENCE OF OTHER ORGANS SP 05/08/2019 MARIELENALINDSEY DO PEBBLES B Ot D12.0 SP NEOPLASM OF CECUM SP 05/08/2019 MARIELENALINDSEY DO PEBBLES B Ot 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 SP 05/08/2019 MARIELENALINDSEY LIU PEBBLES B Ot E11.9 SP 2 DIABETES MELLITUS WITHOUT COMPLIC SP 05/08/2019 MARIELENALINDSEY DO PEBBLES B Ot E78.0 0 SP HYPERCHOLESTEROLEMIA, UNSPECIFIED SP 05/08/2019 MARIELENALINDSEY DO PEBBLES B Ot E78.1 SP HYPERGLYCERIDEMIA SP 05/08/2019 LADONNA , PEBBLES B Ot E78.5 SP UNSPECIFIED SP 05/08/2019 LADONNA LIU PEBBLES B Ot I10 SP (PRIMARY) HYPERTENSION SP 05/08/2019 LADONNA LIU PEBBLES B Ot K21.9 SPESOPHAGEAL REFLUX DISEASE WITHOUT SP 05/08/2019 LADONNA LIU PEBBLES B Ot K57.3 0 SP OF LG INT W/O PERFORATION OR AB SP 05/08/2019 LADONNA LIU PEBBLES B Ot K62.5 SP OF ANUS AND RECTUM SP 05/08/2019 LADONNA DO PEBBLES B Ot K63.5 SP OF COLON SP 05/08/2019 MARIELENALINDSEY DO PEBBLES B Ot K64.8 SP HEMORRHOIDS SP 05/08/2019 MARIELENALINDSEY DO PEBBLES B Ot N39.0 SP TRACT INFECTION, SITE NOT SPECIF SP 05/08/2019 LADONNA DO PEBBLES B Ot Z79.4 SP TERM (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 OF INSULIN SP 05/08/2019 SERGIO DOUGHERTY DOIC B Ot Z79.8 2 SP TERM (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 SP 05/08/2019 MARIELENALINDSEY DO PEBBLES B Ot Z80.0 SP HISTORY OF MALIGNANT NEOPLASM OF SP 05/08/2019 SERGIO DOUGHERTY DOIC B Ot Z80.4 9 SP HISTORY OF MALIGNANT NEOPLASM OF SP 05/08/2019 SERGIO DOUGHERTY DOIC B Ot Z82.4 9 SP HX OF ISCHEM HEART DIS AND OTH DI SP 05/08/2019 LADONNA LIU PEBBLES B Ot Z83.3 SP HISTORY OF DIABETES MELLITUS SP 05/08/2019 LADONNA LIU PEBBLES B Ot Z90.4 9 SP ABSENCE OF OTHER SPECIFIED PART SP 05/08/2019 PEBBLES DOUGHERTY DO Ot Z90.7 10 SP ABSENCE OF BOTH CERVIX AND UTER SP 05/08/2019 PEBBLES DOUGHERTY DO Ot Z90.8 9 SP ABSENCE OF OTHER ORGANS SP 05/16/2019 TRACI FOREMAN MD Ot N20.0 SP OF KIDNEY SP 05/17/2019 TRACI FOREMAN MD Ot N20.0 SP OF KIDNEY SP Procedures There is no data. Results Test Result Range POS CD3+CD4+ (T4 helper) cells/100 cells in blood - 10/27/16 07:28 POS Timed urine calcium measurement (mass/volume) 262 % < 250 SP Urine oxalate detection 40 < 45 SP Urine uric acid measurement (mass/volume) 433 % < 700 SP Urine citrate measurement (mass/volume) 738 % > 320 SP Urine pH measurement 6.8 5.5-7.0 SP 24 hour urine specimen volume measurement 1.12 % > 2.00 SP Sodium urate/total calculus mass ratio by infrared spe ctroscopy 193 % SP < 200 SP Sulfites [presence] in urine by test strip 10 < 30 SP Urine phosphate measurement (mass/volume) 459 % < 1100 SP Urine magnesium measurement (mass/volume) 79 % > 60 SP Urine calcium oxalate measurement 4.23 < 2.00 SP Urine calcium phosphate crystals detecti on by computer assisted method SP 4.33 < 2.00 SP 24 hour urine sodium urate (saturation fraction) 5 .31 < SP Triple phosphate crystals detection in u rine sediment by light microscopy SP 8.66 < 75.00 SP 24 hour urine uric acid (saturation fraction) 0.29 < 2.00 SP Urine ammonium measurement 33 % 14- 62 SP Urine potassium measurement 17 % 19 -135 SP 24 hour urine creatinine measurement (mass/time) 1 308 % 600- SP Clinical health unit clerk review of results See Below NRG SP Complete blood count (CBC) with automate d white blood cell (WBC) differential - POS 20:30 Blood leukocytes automated count (number/volume) 11.4 10*3/uL POS 4.3-11.0 SP Blood erythrocytes automated count (number/volume) 5.16 10*6/uL SP 4.35-5.85 SP Venous blood hemoglobin measurement (mass/volume) 15.3 g/dL SP16.0 Blood hematocrit (volume fraction) 44 % 35-52 SP Automated erythrocyte mean corpuscular volume 86 [ foz_us] SP99 Automated erythrocyte mean corpuscular h emoglobin (mass per erythrocyte) SP 30 pg 25-34 SP Automated erythrocyte mean corpuscular h emoglobin concentration measurement SP 35 g/dL 32-36 SP Automated erythrocyte distribution width ratio 13. 1 % 10.0- SP Automated blood platelet count (count/volume) 287 10*3/uL SP400 Automated blood platelet mean volume measurement 9.7 [foz_us] SP 7.4-10.4 SP Automated blood neutrophils/100 leukocytes 57 % 42-75 SP Automated blood lymphocytes/100 leukocytes 32 % 12-44 SP Blood monocytes/100 leukocytes 7 % 0-12 SP Automated blood eosinophils/100 leukocytes 3 % 0-10 SP Automated blood basophils/100 leukocytes 1 % 0-10 SP Blood neutrophils automated count (number/volume) 6.5 10*3 SP7.8 Blood lymphocytes automated count (number/volume) 3.7 10*3 SP4.0 Blood monocytes automated count (number/volume) 0. 8 10*3 SP1.0 Automated eosinophil count 0.3 10*3/uL 0 .0-0.3 SP Automated blood basophil count (count/volume) 0.2 10*3/uL SP0.1 Comprehensive metabolic panel - 02/09/17 20:30 POS Serum or plasma sodium measurement (moles/volume) 137 mmol/L SP 135-145 SP Serum or plasma potassium measurement (moles/volume) 3.4 mmol/L SP 3.6-5.0 SP Serum or plasma chloride measurement (moles/volume) 105 mmol/L SP 98-107 SP Carbon dioxide 15 mmol/L 21-32 SP Serum or plasma anion gap determination (moles/volume) 17 mmol/L SP 5-14 SP Serum or plasma urea nitrogen measurement (mass/volume ) 8 mg/dL SP 7-18 SP Serum or plasma creatinine measurement (mass/volume) 0.73 mg/dL SP 0.60-1.30 SP Serum or plasma urea nitrogen/creatinine mass ratio 11 NRG SP Serum or plasma creatinine measurement w ith calculation of estimated glomerular SP rate > NRG SP Serum or plasma glucose measurement (mass/volume) 281 mg/dL SP105 Serum or plasma calcium measurement (mass/volume) 9.5 mg/dL SP10.1 Serum or plasma total bilirubin measurement (mass/volu me) 0.5 mg/dL SP 0.1-1.0 SP Serum or plasma alkaline phosphatase celine surement (enzymatic activity/volume) SP 106 U/L 40-136 SP Serum or plasma aspartate aminotransfera se measurement (enzymatic SP 32 U/L 5-34 SP Serum or plasma alanine aminotransferase measurement (enzymatic activity/volume) SP 25 U/L 0-55 SP Serum or plasma protein measurement (mass/volume) 7.0 g/dL SP8.2 Serum or plasma albumin measurement (mass/volume) 4.0 g/dL SP4.5 Serum or plasma troponin i.cardiac measu rement (mass/volume) - 02/09/17 20:30 POS Serum or plasma troponin i.cardiac measurement (mass/v olume) < ng/mL POS <0.30 SP Lipase - 02/09/17 20:30 POS Lipase 47 U/L 8-78 SP Capillary blood glucose measurement by g lucometer (mass/volume) - 02/23/17 10:48 POS Capillary blood glucose measurement by glucometer (mas s/volume) 156 POS 70-110 SP Complete urinalysis with reflex to cultu re - 03/09/17 13:16 POS Urine color determination YELLOW NRG SP Urine clarity determination VERY CLOUDY NRG SP Urine pH measurement by test strip 5 5-9 SP Specific gravity of urine by test strip 1.025 1.016-1.022 SP Urine protein assay by test strip, semi-quantitative 3+ SP Urine glucose detection by automated test strip 1+ NEGATIVE SP Erythrocytes detection in urine sediment by light micr oscopy 1+ SP NEGATIVE SP Urine ketones detection by automated test strip 1+ NEGATIVE SP Urine nitrite detection by test strip NEGATIVE NEGATIVE SP Urine total bilirubin detection by test strip 2+ NEGATIVE SP Urine urobilinogen measurement by automated test strip (mass/volume) 1 SPmg/dL NORMAL SP Urine leukocyte esterase detection by dipstick 2+ NEGATIVE SP Automated urine sediment erythrocyte cou nt by microscopy (number/high power SP [HPF] NRG SP Automated urine sediment leukocyte count by microscopy (number/high power field) SP [HPF] NRG SP Bacteria detection in urine sediment by light microsco py MODERATE SP NRG SP Squamous epithelial cells detection in u rine sediment by light microscopy SP TNTC NRG SP Crystals detection in urine sediment by light microsco py PRESENT SP NRG SP Casts detection in urine sediment by light microscopy PRESENT SP NRG SP Mucus detection in urine sediment by light microscopy NEGATIVE SP NRG SP Complete urinalysis with reflex to culture YES NRG SP Hyaline casts detection in urine sediment by light jigar roscopy >50 SP NRG SP Renal epithelial cells detection in urin e sediment by light microscopy SP NONE NRG SP Calcium oxalate crystals detection in ur ine sediment by light microscopy SP FEW NRG SP Bacterial urine culture - 03/09/17 13:16 POS URINE CULTURE RESULTS <10,000/ML NRG SP Complete blood count (CBC) with automate d white blood cell (WBC) differential - POS 13:30 Blood leukocytes automated count (number/volume) 17.6 10*3/uL POS 4.3-11.0 SP Blood erythrocytes automated count (number/volume) 5.87 10*6/uL SP 4.35-5.85 SP Venous blood hemoglobin measurement (mass/volume) 17.5 g/dL SP16.0 Blood hematocrit (volume fraction) 50 % 35-52 SP Automated erythrocyte mean corpuscular volume 85 [ foz_us] SP99 Automated erythrocyte mean corpuscular h emoglobin (mass per erythrocyte) SP 30 pg 25-34 SP Automated erythrocyte mean corpuscular h emoglobin concentration measurement SP 35 g/dL 32-36 SP Automated erythrocyte distribution width ratio 13. 3 % 10.0- SP Automated blood platelet count (count/volume) 401 10*3/uL SP400 Automated blood platelet mean volume measurement 10.0 [foz_us] SP 7.4-10.4 SP Automated blood neutrophils/100 leukocytes 70 % 42-75 SP Automated blood lymphocytes/100 leukocytes 20 % 12-44 SP Blood monocytes/100 leukocytes 8 % 0-12 SP Automated blood eosinophils/100 leukocytes 2 % 0-10 SP Automated blood basophils/100 leukocytes 1 % 0-10 SP Blood neutrophils automated count (number/volume) 12.3 10*3 SP7.8 Blood lymphocytes automated count (number/volume) 3.4 10*3 SP4.0 Blood monocytes automated count (number/volume) 1. 4 10*3 SP1.0 Automated eosinophil count 0.3 10*3/uL 0 .0-0.3 SP Automated blood basophil count (count/volume) 0.1 10*3/uL SP0.1 Comprehensive metabolic panel - 03/09/17 13:30 POS Serum or plasma sodium measurement (moles/volume) 138 mmol/L SP 135-145 SP Serum or plasma potassium measurement (moles/volume) 3.3 mmol/L SP 3.6-5.0 SP Serum or plasma chloride measurement (moles/volume) 101 mmol/L SP 98-107 SP Carbon dioxide 21 mmol/L 21-32 SP Serum or plasma anion gap determination (moles/volume) 16 mmol/L SP 5-14 SP Serum or plasma urea nitrogen measurement (mass/volume ) 13 mg/dL SP 7-18 SP Serum or plasma creatinine measurement (mass/volume) 1.11 mg/dL SP 0.60-1.30 SP Serum or plasma urea nitrogen/creatinine mass ratio 12 NRG SP Serum or plasma creatinine measurement w ith calculation of estimated glomerular SP rate 52 NRG SP Serum or plasma glucose measurement (mass/volume) 214 mg/dL SP105 Serum or plasma calcium measurement (mass/volume) 10.7 mg/dL SP 8.5-10.1 SP Serum or plasma total bilirubin measurement (mass/volu me) 0.8 mg/dL SP 0.1-1.0 SP Serum or plasma alkaline phosphatase celine surement (enzymatic activity/volume) SP 125 U/L 40-136 SP Serum or plasma aspartate aminotransfera se measurement (enzymatic SP 37 U/L 5-34 SP Serum or plasma alanine aminotransferase measurement (enzymatic activity/volume) SP 32 U/L 0-55 SP Serum or plasma protein measurement (mass/volume) 8.3 g/dL SP8.2 Serum or plasma albumin measurement (mass/volume) 4.9 g/dL SP4.5 Blood manual differential performed dete ction - 03/09/17 13:30 POS Blood monocytes/100 leukocytes 8 % NRG SP Manual blood segmented neutrophils/100 leukocytes 61 % NRG SP Blood band neutrophils/100 leukocytes 2 % NRG SP Manual blood lymphocytes/100 leukocytes 24 % NRG SP Manual eosinophils/100 leukocytes in nose 3 % NRG SP Manual blood basophils/100 leukocytes 1 % NRG SP Blood lymphocytes variant/100 leukocytes 1 % NRG SP Blood erythrocyte morphology finding identification NORMAL SP CD3+CD4+ (T4 helper) cells/100 cells in blood - 01/15/18 06:25 POS Timed urine calcium measurement (mass/volume) 247 % < 250 SP Urine oxalate detection 46 < 45 SP Urine uric acid measurement (mass/volume) 636 % < 700 SP Urine citrate measurement (mass/volume) 445 % > 320 SP Urine pH measurement 6.4 5.5-7.0 SP 24 hour urine specimen volume measurement 1.37 % > 2.00 SP Sodium urate/total calculus mass ratio by infrared spe ctroscopy 72 % SP < 200 SP Sulfites [presence] in urine by test strip 9 < 30 SP Urine phosphate measurement (mass/volume) 584 % < 1100 SP Urine magnesium measurement (mass/volume) 90 % > 60 SP Urine calcium oxalate measurement 4.71 < 2.00 SP Urine calcium phosphate crystals detecti on by computer assisted method SP 3.53 < 2.00 SP 24 hour urine sodium urate (saturation fraction) 1 .99 < SP Triple phosphate crystals detection in u rine sediment by light microscopy SP 4.00 < 75.00 SP 24 hour urine uric acid (saturation fraction) 0.87 < 2.00 SP Urine ammonium measurement 45 % 14- 62 SP Urine potassium measurement 29 % 19 -135 SP 24 hour urine creatinine measurement (mass/time) 1 385 % 600- SP Clinical health unit clerk review of results See Below NRG SP Complete blood count (CBC) with automate d white blood cell (WBC) differential - POS 09:25 Blood leukocytes automated count (number/volume) 9.2 10*3/uL POS 4.3-11.0 SP Blood erythrocytes automated count (number/volume) 5.05 10*6/uL SP 4.35-5.85 SP Venous blood hemoglobin measurement (mass/volume) 14.9 g/dL SP16.0 Blood hematocrit (volume fraction) 42 % 35-52 SP Automated erythrocyte mean corpuscular volume 83 [ foz_us] SP99 Automated erythrocyte mean corpuscular h emoglobin (mass per erythrocyte) SP 30 pg 25-34 SP Automated erythrocyte mean corpuscular h emoglobin concentration measurement SP 35 g/dL 32-36 SP Automated erythrocyte distribution width ratio 13. 4 % 10.0- SP Automated blood platelet count (count/volume) 318 10*3/uL SP400 Automated blood platelet mean volume measurement 9.4 [foz_us] SP 7.4-10.4 SP Automated blood neutrophils/100 leukocytes 55 % 42-75 SP Automated blood lymphocytes/100 leukocytes 33 % 12-44 SP Blood monocytes/100 leukocytes 6 % 0-12 SP Automated blood eosinophils/100 leukocytes 4 % 0-10 SP Automated blood basophils/100 leukocytes 1 % 0-10 SP Blood neutrophils automated count (number/volume) 5.0 10*3 SP7.8 Blood lymphocytes automated count (number/volume) 3.1 10*3 SP4.0 Blood monocytes automated count (number/volume) 0. 6 10*3 SP1.0 Automated eosinophil count 0.4 10*3/uL 0 .0-0.3 SP Automated blood basophil count (count/volume) 0.1 10*3/uL SP0.1 Whole blood basic metabolic panel - 03/16 09:25 POS Serum or plasma sodium measurement (moles/volume) 141 mmol/L SP 135-145 SP Serum or plasma potassium measurement (moles/volume) 2.7 mmol/L SP 3.6-5.0 SP Serum or plasma chloride measurement (moles/volume) 103 mmol/L SP 98-107 SP Carbon dioxide 25 mmol/L 21-32 SP Serum or plasma anion gap determination (moles/volume) 13 mmol/L SP 5-14 SP Serum or plasma urea nitrogen measurement (mass/volume ) 6 mg/dL SP 7-18 SP Serum or plasma creatinine measurement (mass/volume) 0.68 mg/dL SP 0.60-1.30 SP Serum or plasma urea nitrogen/creatinine mass ratio 9 NRG SP Serum or plasma creatinine measurement w ith calculation of estimated glomerular SP rate > NRG SP Serum or plasma glucose measurement (mass/volume) 153 mg/dL SP105 Serum or plasma calcium measurement (mass/volume) 9.0 mg/dL SP10.1 Blood type T Indirect antibody screen pa jaclyn - 02/04/18 09:25 POS ABO+Rh group BP NRG SP Blood group antibody screen NEGATIVE NR G SP Methicillin resistant Staphylococcus aur eus (MRSA) screening culture - 02/04/18 POS Methicillin resistant Staphylococcus aureus (MRSA) scr eening culture POS NRG SP Complete urinalysis with reflex to cultu re - 02/04/18 09:27 POS Urine color determination YELLOW NRG SP Urine clarity determination SLIGHTLY CLOUDY NRG SP Urine pH measurement by test strip 6.5 5-9 SP Specific gravity of urine by test strip 1.010 1.016-1.022 SP Urine protein assay by test strip, semi-quantitative 2+ SP Urine glucose detection by automated test strip NE GATIVE SP Erythrocytes detection in urine sediment by light micr oscopy NEGATIVE SP NEGATIVE SP Urine ketones detection by automated test strip 1+ NEGATIVE SP Urine nitrite detection by test strip POSITIVE NEGATIVE SP Urine total bilirubin detection by test strip NEGA TIVE SP Urine urobilinogen measurement by automated test strip (mass/volume) SP NORMAL SP Urine leukocyte esterase detection by dipstick 2+ NEGATIVE SP Automated urine sediment erythrocyte cou nt by microscopy (number/high power SP NONE NRG SP Automated urine sediment leukocyte count by microscopy (number/high power field) SP [HPF] NRG SP Bacteria detection in urine sediment by light microsco py MODERATE SP NRG SP Squamous epithelial cells detection in u rine sediment by light microscopy SP 5-10 NRG SP Crystals detection in urine sediment by light microsco py NONE SP NRG SP Casts detection in urine sediment by light microscopy NONE SP Mucus detection in urine sediment by light microscopy NEGATIVE SP NRG SP Complete urinalysis with reflex to culture YES NRG SP Bacterial urine culture - 02/04/18 09:27 POS Bacterial urine culture RML NRG SP COLONY COUNT . NRG SP FTX;REPORTABLE RML REPORTED ID 02/05 15:05 NRG SP Complete blood count (CBC) with automate d white blood cell (WBC) differential - POS 11:11 Blood leukocytes automated count (number/volume) 11.2 10*3/uL POS 4.3-11.0 SP Blood erythrocytes automated count (number/volume) 5.28 10*6/uL SP 4.35-5.85 SP Venous blood hemoglobin measurement (mass/volume) 15.8 g/dL SP16.0 Blood hematocrit (volume fraction) 44 % 35-52 SP Automated erythrocyte mean corpuscular volume 84 [ foz_us] SP99 Automated erythrocyte mean corpuscular h emoglobin (mass per erythrocyte) SP 30 pg 25-34 SP Automated erythrocyte mean corpuscular h emoglobin concentration measurement SP 36 g/dL 32-36 SP Automated erythrocyte distribution width ratio 13. 9 % 10.0- SP Automated blood platelet count (count/volume) 379 10*3/uL SP400 Automated blood platelet mean volume measurement 9.4 [foz_us] SP 7.4-10.4 SP Automated blood neutrophils/100 leukocytes 52 % 42-75 SP Automated blood lymphocytes/100 leukocytes 34 % 12-44 SP Blood monocytes/100 leukocytes 7 % 0-12 SP Automated blood eosinophils/100 leukocytes 6 % 0-10 SP Automated blood basophils/100 leukocytes 1 % 0-10 SP Blood neutrophils automated count (number/volume) 5.8 10*3 SP7.8 Blood lymphocytes automated count (number/volume) 3.8 10*3 SP4.0 Blood monocytes automated count (number/volume) 0. 8 10*3 SP1.0 Automated eosinophil count 0.6 10*3/uL 0 .0-0.3 SP Automated blood basophil count (count/volume) 0.1 10*3/uL SP0.1 Whole blood basic metabolic panel - 02/27 01/13 11:11 POS Serum or plasma sodium measurement (moles/volume) 140 mmol/L SP 135-145 SP Serum or plasma potassium measurement (moles/volume) 2.9 mmol/L SP 3.6-5.0 SP Serum or plasma chloride measurement (moles/volume) 100 mmol/L SP 98-107 SP Carbon dioxide 27 mmol/L 21-32 SP Serum or plasma anion gap determination (moles/volume) 13 mmol/L SP 5-14 SP Serum or plasma urea nitrogen measurement (mass/volume ) 11 mg/dL SP 7-18 SP Serum or plasma creatinine measurement (mass/volume) 0.80 mg/dL SP 0.60-1.30 SP Serum or plasma urea nitrogen/creatinine mass ratio 14 NRG SP Serum or plasma creatinine measurement w ith calculation of estimated glomerular SP rate > NRG SP Serum or plasma glucose measurement (mass/volume) 148 mg/dL SP105 Serum or plasma calcium measurement (mass/volume) 11.0 mg/dL SP 8.5-10.1 SP Liver function panel (serum or plasma al k phos, alb, total and direct bili, POS protein, ALT, AST) - 03/15/18 11:11 Serum or plasma total bilirubin measurement (mass/volu me) 0.5 mg/dL POS 0.1-1.0 SP Serum or plasma alkaline phosphatase celine surement (enzymatic activity/volume) SP 100 U/L 40-136 SP Serum or plasma aspartate aminotransfera se measurement (enzymatic SP 25 U/L 5-34 SP Serum or plasma alanine aminotransferase measurement (enzymatic activity/volume) SP 29 U/L 0-55 SP Serum or plasma protein measurement (mass/volume) 7.7 g/dL SP8.2 Serum or plasma albumin measurement (mass/volume) 4.8 g/dL SP4.5 Bilirubin direct 0.2 mg/dL 0.0-0.3 SP Serum or plasma indirect bilirubin measurement (mass/v olume) 0.3 mg/dL SP NRG SP Complete urinalysis with reflex to cultu re - 03/15/18 11:15 POS Urine color determination YELLOW NRG SP Urine clarity determination CLEAR NR G SP Urine pH measurement by test strip 7 5-9 SP Specific gravity of urine by test strip 1.005 1.016-1.022 SP Urine protein assay by test strip, semi-quantitative NEGATIVE SP NEGATIVE SP Urine glucose detection by automated test strip NE GATIVE SP Erythrocytes detection in urine sediment by light micr oscopy 2+ SP NEGATIVE SP Urine ketones detection by automated test strip NE GATIVE SP Urine nitrite detection by test strip NEGATIVE NEGATIVE SP Urine total bilirubin detection by test strip NEGA TIVE SP Urine urobilinogen measurement by automated test strip (mass/volume) SP NORMAL SP Urine leukocyte esterase detection by dipstick 2+ NEGATIVE SP Automated urine sediment erythrocyte cou nt by microscopy (number/high power SP [HPF] NRG SP Automated urine sediment leukocyte count by microscopy (number/high power field) SP [HPF] NRG SP Bacteria detection in urine sediment by light microsco py NEGATIVE SP NRG SP Squamous epithelial cells detection in u rine sediment by light microscopy SP 2-5 NRG SP Crystals detection in urine sediment by light microsco py NONE SP NRG SP Casts detection in urine sediment by light microscopy NONE SP Mucus detection in urine sediment by light microscopy NEGATIVE SP NRG SP Complete urinalysis with reflex to culture YES NRG SP Bacterial urine culture - 03/15/18 11:15 POS Bacterial urine culture SEE REPORT NRG SP COLONY COUNT . NRG SP Influenza virus A and B antigen detectio n - 08/26/18 10:07 POS FLU RESULT NEGATIVE FOR INFLUENZA A AND B ANTIGENS BY IA SP Complete urinalysis with reflex to cultu re - 08/26/18 10:15 POS Urine color determination ELIGIO NRG SP Urine clarity determination CLEAR NR G SP Urine pH measurement by test strip 6 5-9 SP Specific gravity of urine by test strip 1.025 1.016-1.022 SP Urine protein assay by test strip, semi-quantitative 3+ SP Urine glucose detection by automated test strip NE GATIVE SP Erythrocytes detection in urine sediment by light micr oscopy 2+ SP NEGATIVE SP Urine ketones detection by automated test strip 2+ NEGATIVE SP Urine nitrite detection by test strip POSITIVE NEGATIVE SP Urine total bilirubin detection by test strip 2+ NEGATIVE SP Urine urobilinogen measurement by automated test strip (mass/volume) 4 SPmg/dL NORMAL SP Urine leukocyte esterase detection by dipstick 2+ NEGATIVE SP Automated urine sediment erythrocyte cou nt by microscopy (number/high power SP [HPF] NRG SP Automated urine sediment leukocyte count by microscopy (number/high power field) SP [HPF] NRG SP Bacteria detection in urine sediment by light microsco py MODERATE SP NRG SP Squamous epithelial cells detection in u rine sediment by light microscopy SP 5-10 NRG SP Crystals detection in urine sediment by light microsco py NONE SP NRG SP Casts detection in urine sediment by light microscopy NONE SP Mucus detection in urine sediment by light microscopy SMALL SP NRG SP Complete urinalysis with reflex to culture YES NRG SP Bacterial urine culture - 08/26/18 10:15 POS Bacterial urine culture NG NRG SP Complete blood count (CBC) with automate d white blood cell (WBC) differential - POS 10:39 Blood leukocytes automated count (number/volume) 14.6 10*3/uL POS 4.3-11.0 SP Blood erythrocytes automated count (number/volume) 5.69 10*6/uL SP 4.35-5.85 SP Venous blood hemoglobin measurement (mass/volume) 16.8 g/dL SP16.0 Blood hematocrit (volume fraction) 49 % 35-52 SP Automated erythrocyte mean corpuscular volume 85 [ foz_us] SP99 Automated erythrocyte mean corpuscular h emoglobin (mass per erythrocyte) SP 30 pg 25-34 SP Automated erythrocyte mean corpuscular h emoglobin concentration measurement SP 35 g/dL 32-36 SP Automated erythrocyte distribution width ratio 14. 0 % 10.0- SP Automated blood platelet count (count/volume) 387 10*3/uL SP400 Automated blood platelet mean volume measurement 9.5 [foz_us] SP 7.4-10.4 SP Automated blood neutrophils/100 leukocytes 80 % 42-75 SP Automated blood lymphocytes/100 leukocytes 8 % 12-44 SP Blood monocytes/100 leukocytes 11 % 0-12 SP Automated blood eosinophils/100 leukocytes 1 % 0-10 SP Automated blood basophils/100 leukocytes 0 % 0-10 SP Blood neutrophils automated count (number/volume) 11.7 10*3 SP7.8 Blood lymphocytes automated count (number/volume) 1.1 10*3 SP4.0 Blood monocytes automated count (number/volume) 1. 5 10*3 SP1.0 Automated eosinophil count 0.2 10*3/uL 0 .0-0.3 SP Automated blood basophil count (count/volume) 0.0 10*3/uL SP0.1 Comprehensive metabolic panel - 08/26/18 10:39 POS Serum or plasma sodium measurement (moles/volume) 141 mmol/L SP 135-145 SP Serum or plasma potassium measurement (moles/volume) 3.4 mmol/L SP 3.6-5.0 SP Serum or plasma chloride measurement (moles/volume) 103 mmol/L SP 98-107 SP Carbon dioxide 22 mmol/L 21-32 SP Serum or plasma anion gap determination (moles/volume) 16 mmol/L SP 5-14 SP Serum or plasma urea nitrogen measurement (mass/volume ) 16 mg/dL SP 7-18 SP Serum or plasma creatinine measurement (mass/volume) 0.90 mg/dL SP 0.60-1.30 SP Serum or plasma urea nitrogen/creatinine mass ratio 18 NRG SP Serum or plasma creatinine measurement w ith calculation of estimated glomerular SP rate > NRG SP Serum or plasma glucose measurement (mass/volume) 208 mg/dL SP105 Serum or plasma calcium measurement (mass/volume) 10.3 mg/dL SP 8.5-10.1 SP Serum or plasma total bilirubin measurement (mass/volu me) 0.6 mg/dL SP 0.1-1.0 SP Serum or plasma alkaline phosphatase celine surement (enzymatic activity/volume) SP 103 U/L 40-136 SP Serum or plasma aspartate aminotransfera se measurement (enzymatic SP 104 U/L 5-34 SP Serum or plasma alanine aminotransferase measurement (enzymatic activity/volume) SP 76 U/L 0-55 SP Serum or plasma protein measurement (mass/volume) 7.9 g/dL SP8.2 Serum or plasma albumin measurement (mass/volume) 4.7 g/dL SP4.5 Magnesium - 08/26/18 10:39 POS Magnesium 1.9 mg/dL 1.8-2.4 SP Blood manual differential performed dete ction - 08/26/18 10:39 POS Blood monocytes/100 leukocytes 9 % NRG SP Manual blood segmented neutrophils/100 leukocytes 68 % NRG SP Blood band neutrophils/100 leukocytes 16 % NRG SP Manual blood lymphocytes/100 leukocytes 7 % NRG SP Manual eosinophils/100 leukocytes in nose 0 % NRG SP Manual blood basophils/100 leukocytes 0 % NRG SP Blood erythrocyte morphology finding identification NORMAL SP Serum or plasma C reactive protein measu rement (mass/volume) - 08/26/18 10:39 POS Serum or plasma C reactive protein measurement (mass/v olume) 2.19 POS 0.00-0.50 SP CD3+CD4+ (T4 helper) cells/100 cells in blood - 02/19/19 09:00 POS Timed urine calcium measurement (mass/volume) 517 % < 250 SP Urine oxalate detection 31 < 45 SP Urine uric acid measurement (mass/volume) 577 % < 700 SP Urine citrate measurement (mass/volume) 1177 % > 320 SP Urine pH measurement 7.2 5.5-7.0 SP 24 hour urine specimen volume measurement 1.95 % > 2.00 SP Sodium urate/total calculus mass ratio by infrared spe ctroscopy 314 % SP < 200 SP Sulfites [presence] in urine by test strip 10 < 30 SP Urine phosphate measurement (mass/volume) 743 % < 1100 SP Urine magnesium measurement (mass/volume) 147 % > 60 SP Urine calcium oxalate measurement 2.22 < 2.00 SP Urine calcium phosphate crystals detecti on by computer assisted method SP 6.38 < 2.00 SP 24 hour urine sodium urate (saturation fraction) 3 .94 < SP Triple phosphate crystals detection in u rine sediment by light microscopy SP 16.69 < 75.00 SP 24 hour urine uric acid (saturation fraction) 0.09 < 2.00 SP Urine ammonium measurement 31 % 14- 62 SP 24 hour urine creatinine measurement (mass/time) 1 131 % 600- SP Clinical health unit clerk review of results See Below NRG SP STONE RISK POTASSIUM 32 % 19-135 SP Capillary blood glucose measurement by g lucometer (mass/volume) - 05/02/19 07:50 POS Capillary blood glucose measurement by glucometer (mas s/volume) 157 POS 70-110 SP Encounters ACCT No. Visit Date/Time Discharge Status POS Pt. Type Provider Facility Loc./Un it POS Complaint POS [id number] 04/26/2014 08:58:00 04/26/2014 23:59: 59 CLS SP Outpatient YOU CRESPO APRN SP SP [id number] 04/20/2013 14:57:00 04/20/2013 23:59: 59 CLS SP Outpatient YOU CRESPO APRN SP SP [id number] 06/09/2012 15:19:00 06/09/2012 23:59: 59 CLS SP Outpatient SP [id number] 05/17/2019 00:11:00 23:59:59 SP CLS Preadmit KELLEN ROWLAND, TRACI Shea [facility] LAB H/O STONES SP [id number] 02/15/2019 16:04:00 00:01:00 SP DIS Outpatient KELLEN ROWLAND, TRACI Ugalde [facility] LAB H/O STONES SP [id number] 05/02/2019 07:27:00 09:45:00 SP [facility] ENDO BLOODY STOOLS SP [id number] 04/25/2019 05:36:00 14:52:00 SP [facility] PREOP COLONOSCOPY SP [id number] 04/15/2019 20:34:00 06:00:00 SP DIS Outpatient YOLANDA PISANO APRN [facility] SLEEP TRACE SP [id number] 03/11/2019 09:14:00 23:59:59 SP CLS Outpatient IZZY ROWLAND, GANESH Ness [facility] RAD HYPERTROPHY NASAL TUR BS SP [id number] 08/26/2018 09:24:00 13:48:00 SP DIS Emergency TRISTIN ROWLAND, JAX Salmeron [facility] ER N/V/D FEVER SP [id number] 08/02/2018 07:22:00 23:59:59 SP CLS Outpatient SARAH ORTEGA DO [facility] RAD SCREENING SP [id number] 04/05/2018 08:37:00 13:50:00 SP DIS Outpatient SINCERE ROWLAND, MARIA ALEJANDRA Ramirez [facility] ENDO STRICTURE/DYSPHAGIA SP [id number] 03/31/2018 05:39:00 018 13:28:00 SP DIS Outpatient SINCERE ROWLAND, MARIA ALEJANDRA Ramirez [facility] PREOP EGD SP [id number] 03/29/2018 00:20:00 23:59:59 SP CLS Preadmit KELLEN ROWLAND, TRACI Shea [facility] LAB RENAL STONES SP [id number] 03/15/2018 17:04:00 018 23:59:59 SP CLS Outpatient SARAH ORTEGA DO [facility] LAB R74.8 SP [id number] 03/15/2018 10:33:00 018 12:25:00 SP DIS Outpatient ARVIND CERVANTES APRN [facility] ER BP HIGH SP [id number] 01/15/2018 06:25:00 018 00:01:00 SP DIS Outpatient KELLEN ROWLAND, TRACI Ugalde [facility] LAB RENAL STONES SP [id number] 01/19/2018 06:57:00 018 23:59:59 SP CLS Outpatient TRACI FOREMAN MD [facility] RAD RENAL STONES SP [id number] 08/03/2017 07:17:00 018 09:35:00 SP DIS Outpatient SINCERE ROWLAND, MARIA ALEJANDRA Ramirez [facility] ENDO SCREENING,HX POLYPS, FAMILY HX SP CA [id number] 07/27/2017 14:18:00 018 23:59:59 SP CLS Outpatient SARAH ORTEGA DO [facility] RAD SCREENING SP [id number] 07/27/2017 05:42:00 018 12:26:00 SP DIS Outpatient MARIA ALEJANDRA POST MD [facility] PREOP COLONOSCOPY SP [id number] 03/20/2017 10:03:00 017 23:59:59 SP CLS Outpatient ORTEGA DO, SARAH [facility] RAD R13.14 SP [id number] 03/09/2017 12:45:00 017 15:45:00 SP DIS Emergency ARVIND CERVANTES AZURE ARCHITECT [facility] ER DIZZINESS/LOW BP SP [id number] 02/23/2017 09:51:00 017 13:25:00 SP DIS Outpatient SINCERE ROWLAND, MARIA ALEJANDRA Ramirez [facility] ENDO GERD/HX STRICTURE/EP IGASTRIC SP [id number] 02/19/2017 05:53:00 017 16:17:00 SP DIS Outpatient ELIAS ROWLAND, YVROSE Strong [facility] PREOP EGD/POSS.DILATAION SP [id number] 02/09/2017 18:56:00 017 22:29:00 SP DIS Emergency ARVIND CERVANTES AZURE ARCHITECT [facility] ER THROAT ISSUES SP [id number] 10/27/2016 07:28:00 017 23:27:00 SP DIS Outpatient TRACI FOREMAN MD [facility] RAD STONES SP [id number] 06/26/2016 13:50:00 016 23:59:59 SP CLS Outpatient ORTEGA DO, SARAH [facility] RAD ABNORMAL MAMMO SP [id number] 01/16/2016 13:03:00 016 23:59:59 SP CLS Outpatient [facility], SARAH [facility] RAD INCONCLUSIVE MAMMO SP [id number] 12/29/2015 00:08:00 016 23:59:59 SP CLS Preadmit TRACI FOREMAN MD, V ia [facility] RAD STONES SP [id number] 10/01/2015 07:28:00 016 00:01:00 SP DIS Outpatient TRACI FOREMAN MD [facility] RAD STONES SP [id number] 09/04/2015 23:45:00 016 02:54:00 SP DIS Emergency BRUEGGEMANN MD, JAX Salmeron [facility] ER VOMITING SP [id number] 07/27/2015 11:50:00 016 15:00:00 SP DIS Outpatient SINCERE ROWLAND, MARIA [facility]LEJANDRA [facility] [id number] 07/25/2015 05:41:00 016 23:59:59 SP CLS Outpatient SINCERE ROWLAND, MARIA ALEJANDRA Ramirez [facility] PREOP GERD SP [id number] 06/04/2015 07:28:00 23:59:59 SP CLS Outpatient SARAH ORTEGA DO [facility] RAD ABNORMAL MAMMOGRAM RT BREAST SP [id number] 05/23/2015 10:37:00 23:59:59 SP CLS Outpatient SARAH ORTEGA DO [facility] RAD SCREENING SP [id number] 03/13/2015 16:23:00 23:59:59 SP CLS Outpatient KELLEN ROWLAND, TRACI Ugalde [facility] RAD STONES SP [id number] 12/13/2014 00:11:00 23:59:59 SP CLS Preadmit KELLEN ROWLAND, TRACI Shea [facility] RAD STONES SP [id number] 09/15/2014 08:22:00 015 00:01:00 SP DIS Outpatient TRACI FOREMAN MD [facility] RAD STONES SP [id number] 11/22/2014 14:18:00 23:59:59 SP CLS Outpatient CARMEN DIAZ DO [facility] RAD LEFT OVARIAN CYST SP [id number] 10/16/2014 09:15:00 015 12:00:00 SP DIS Outpatient SINCERE ROWLAND, MARIA ALEJANDRA Ramirez [facility] HISTORY OF POLYPS; F AMILY SP ABDOMINAL PAIN [id number] 10/09/2014 14:46:00 23:59:59 SP CLS Outpatient CARMEN DIAZ DO [facility] RAD FEMALE PELVIC PAIN OVARIAN C YST SP [id number] 05/08/2014 15:24:00 014 23:59:59 SP CLS Outpatient ORTEGA DOTHIAGOI [facility] RAD SCREENING SP [id number] 08/27/2013 15:30:00 014 00:01:00 SP DIS Outpatient TRACI FOREMAN MD [facility] RAD STONES SP [id number] 04/05/2013 15:15:00 013 23:59:59 SP CLS Outpatient ORTEGA DO SARAH [facility] RAD ROUTINE SP [id number] 02/08/2018 07:21:00 SP Registration SP [id number] 02/04/2018 09:44:00 SP Registration SP [id number] 06/26/2016 13:50:00 SP Registration SP [id number] 06/26/2016 13:50:00 SP Registration SP [id number] 06/26/2016 13:50:00 SP Registration SP [id number] 07/27/2015 14:04:00 SP Registration SP [id number] 11/25/2013 00:00:00 SP Registration SP [id number] 11/15/2012 00:00:00 SP Registration SP [id number] 08/23/2012 07:37:00 SP Registration SP [id number] 04/27/2012 10:11:00 SP Registration SP [id number] 03/05/2012 12:41:00 SP Registration SP [id number] 02/04/2012 13:47:00 SP Registration SP [id number] 02/02/2012 11:36:00 SP Registration SP [id number] 10/29/2011 00:00:00 SP Registration SP [id number] 08/04/2011 07:36:00 SP Registration SP [id number] 03/31/2011 10:38:00 SP Registration SP [id number] 01/29/2011 13:50:00 SP Registration SP [id number] 10/23/2010 00:00:00 SP Registration SP [id number] 09/10/2010 05:47:00 SP Registration SP [id number] 09/04/2010 15:26:00 SP Registration SP [id number] 08/29/2010 14:48:00 SP Registration SP [id number] 08/13/2010 14:59:00 SP Registration SP [id number] 07/29/2010 07:25:00 SP Registration SP [id number] 06/26/2014 11:57:20 06/26/2014 23:59: 59 CLS SP Outpatient Thi Herron [facility] [id number] 10/06/2018 13:00:00 10/06/2018 23:59:5 9 CLS SP Outpatient Sarah Ortega [facility]
== END 2019-05-02 09:45 | disposition home or self-care (01) ==
LOC: ENDO 07:27
PROVIDERS: ATTEND Surgery
DX: D12.4 Benign neoplasm of descending colon (principal); D12.0 Benign neoplasm of cecum; K63.5 Polyp of colon; K62.5 Hemorrhage of anus and rectum; K64.8 Other hemorrhoids; K57.30 Diverticulosis of large intestine without perforation or abscess without bleeding; K21.9 Gastro-esophageal reflux disease without esophagitis; I10 Essential (primary) hypertension; N39.0 Urinary tract infection, site not specified; E78.00 Pure hypercholesterolemia, unspecified; E78.1 Pure hyperglyceridemia; E78.5 Hyperlipidemia, unspecified; E11.9 Type 2 diabetes mellitus without complications; Z79.4 Long term (current) use of insulin; Z90.710 Acquired absence of both cervix and uterus; Z90.49 Acquired absence of other specified parts of digestive tract; Z90.89 Acquired absence of other organs; Z80.0 Family history of malignant neoplasm of digestive organs; Z79.82 Long term (current) use of aspirin; Z82.49 Family history of ischemic heart disease and other diseases of the circulatory system; Z83.3 Family history of diabetes mellitus; Z80.49 Family history of malignant neoplasm of other genital organs
CPT/HCPCS: 82962; 88305

== ENCOUNTER → 2019-11-15 | Outpatient (CLI) | payer BC ==
--- NOTE | 2019-11-15 15:18 | Diagnostic Imaging Report ---
INDICATION: Routine screening. COMPARISON: 08/02/2018 and 07/27/2017. TECHNIQUE: 2D and 3D bilateral screening mammography was performed with CAD. FINDINGS: Both breasts remain heterogeneously dense, limiting the sensitivity of mammography. The parenchymal pattern is stable. Circumscribed densities in the upper central left breast are stable and consistent with benign etiologies. No spiculated mass or malignant appearing microcalcifications are seen. The axillae are unremarkable. IMPRESSION: No mammographic features suspicious for malignancy are identified. ACR BI-RADS Category 2: Benign findings. Result letter will be mailed to the patient. Note: At least 10% of breast cancer is not imaged by mammography. Dictated by: Dictated on workstation # [id number]
== END ==
LOC: RAD 13:06
PROVIDERS: ATTEND Internal Medicine
DX: Z12.31 Encounter for screening mammogram for malignant neoplasm of breast (principal)
CPT/HCPCS: 77063; 77067

== ENCOUNTER → 2020-03-23 | Outpatient (CLI) | payer BC ==
--- NOTE | 2020-03-23 16:56 | Diagnostic Imaging Report ---
INDICATION: Nephrolithiasis KUB 4:37 PM There is a small calculus projecting over the right ureter just below the L4 transverse process. No appreciable calculi seen in the kidneys. Patient has had prior cholecystectomy. IMPRESSION: There appears to be a small calculus in the right mid ureter. Dictated by: Dictated on workstation # [id number]
== END ==
LOC: RAD 15:49
PROVIDERS: ATTEND Urology
DX: N20.0 Calculus of kidney (principal)
CPT/HCPCS: 74018

== ENCOUNTER → 2020-11-19 | Outpatient (CLI) | payer BC ==
[~2020-11-19] MED LIST changes: +AMLO-250 PO; -AMLO5TAB9 PO
--- NOTE | 2020-11-19 15:32 | Diagnostic Imaging Report ---
INDICATION: Routine screening. COMPARISON: 11/15/2019 and 08/02/2018. TECHNIQUE: 2D and 3D bilateral screening mammography was performed with CAD. FINDINGS: Both breasts are heterogeneously dense, limiting the sensitivity of mammography. The parenchymal pattern is stable. No mass is identified. There are no malignant appearing microcalcifications. There are occasional benign calcifications. The axillae are unremarkable. IMPRESSION: No mammographic features suspicious for malignancy are identified. ACR BI-RADS Category 2: Benign findings. Result letter will be mailed to the patient. Note: At least 10% of breast cancer is not imaged by mammography. Dictated by: Dictated on workstation # [id number]
== END ==
LOC: RAD 10:13
PROVIDERS: ATTEND Internal Medicine
DX: Z12.31 Encounter for screening mammogram for malignant neoplasm of breast (principal)
CPT/HCPCS: 77063; 77067

== ENCOUNTER 2021-04-07 08:00 | Outpatient (RCR) | payer BC ==
--- NOTE | 2021-04-05 17:54 | Diagnostic Imaging Report ---
INDICATION: Pain. FINDINGS: There are surgical clips in the right upper quadrant. There is a stone that appears to be in the right mid ureter at the level of the L4-L5 disc space. This is essentially unchanged in location. There are no other abnormal abdominal calcifications. IMPRESSION: Probable unchanged stone in the mid right ureter. Dictated by: Dictated on workstation # [id number]
[~2021-04-07 08:00] MED LIST changes: -OMEG1CAP PO; -SULF1TAB35 PO; +SULF1TAB38 PO
== END 2021-06-28 | disposition home or self-care (01) ==
LOC: RAD 08:00
PROVIDERS: ATTEND Urology
DX: N20.1 Calculus of ureter (principal)
CPT/HCPCS: 74018; 82140; 82340; 82507; 82570; 83735; 83945; 83986; 84105; 84133; 84300; 84392; 84560

== ENCOUNTER → 2021-09-18 | Outpatient (CLI) | payer BC ==
--- NOTE | 2021-09-18 17:04 | Diagnostic Imaging Report ---
EXAMINATION: Abdomen 1 view HISTORY: Kidney stones COMPARISON: 04/05/2021 FINDINGS: There is a moderate amount of gas and stool throughout the colon. Nonobstructive bowel gas pattern. Stable 0.4 cm radiopacity overlying the right lower abdomen compared to 04/05/2021. Right upper quadrant cholecystectomy clips are present. The osseous structures are intact. IMPRESSION: Stable 0.4 cm radiopacity overlying the right lower abdomen compared to 04/05/2021. No new radiopacity. Moderate stool burden. Dictated by: Dictated on workstation # [id number]
== END ==
LOC: RAD 15:59
PROVIDERS: ATTEND Urology
DX: N20.0 Calculus of kidney (principal); R91.8 Other nonspecific abnormal finding of lung field
CPT/HCPCS: 74018

== ENCOUNTER → 2021-11-20 | Outpatient (CLI) | payer BC ==
--- NOTE | 2021-11-20 13:26 | Diagnostic Imaging Report ---
Indication: Routine screening. Comparison is made with prior mammogram from 11/19/2020 and 11/15/2019. 2-D and 3-D bilateral screening mammography was performed with CAD. CAD is utilized. The current study was also evaluated with a Computer Aided Detection (CAD) system. Both breasts are heterogeneously dense, limiting the sensitivity of mammography. There are scattered benign calcifications. No mass or malignant-appearing microcalcifications are seen. Axillae are unremarkable. IMPRESSION: BI-RADS Category 2 No mammographic features suspicious for malignancy are identified. ACR BI-RADS Category 2: Benign findings. Result letter will be mailed to the patient. Note: At least 10% of breast cancer is not imaged by mammography. Dictated by: Dictated on workstation # [id number]
== END ==
LOC: RAD 09:29
PROVIDERS: ATTEND Internal Medicine
DX: Z12.31 Encounter for screening mammogram for malignant neoplasm of breast (principal)
CPT/HCPCS: 77063; 77067

== ENCOUNTER 2022-03-28 09:49 | Outpatient (CLI) | payer BC ==
[~2022-03-28] VITALS: Ht 170.2 cm; Wt 90.5 kg
[~2022-03-28 09:49] MED LIST changes: -TRIA1CAP4 PO; +TRIA1CAP84 PO
[2022-03-31] MEDS ORDERED: MULT-1136 PO (12:12)
[2022-03-31] MEDS ORDERED: PRED10TA22 PO (12:12)
== END 2022-03-31 12:17 | disposition home or self-care (01) ==
LOC: PREOP 09:49
PROVIDERS: ATTEND Surgery
DX: Z01.818 Encounter for other preprocedural examination (principal)

== ENCOUNTER 2022-04-07 10:07 | Day surgery (SDC) | payer BC ==
[~2022-04-07] VITALS: Ht 170 cm; Wt 90.5 kg
[~2022-04-07 10:07] MED LIST changes: +MULT-1136 PO; +PRED10TA22 PO
[2022-04-07] MEDS ORDERED: LACTATED RINGERS 1,000 ML IV STA (10:18)
[2022-04-07] MEDS ORDERED: LACTATED RINGERS 1,000 ML IV ONE (10:25)
[2022-04-07] MEDS ORDERED: HURRICAINE EXT TUBE (BENZOCAINE) XX PRN (10:30)
[2022-04-07 10:45] VITALS: BP 121/80
--- NOTE | 2022-04-07 11:44 | Progress Note-Pre Operative ---
Pre-Operative Progress Note Date of Available H&P: Mar 25, 2022 Date H&P Reviewed: Apr 07, 2022 Time H&P Reviewed: 11:42 History & Physical: H&P Reviewed, Patient Examed, No changes noted Pre-Operative Diagnosis: Chronic Gastritis, Rectal bleed PEBBLES DOUGHERTY DO Apr 07, 2022 11:44
[2022-04-07] MEDS ORDERED: PROPOFOL INJECTION 50 ML IV ONE (12:25)
--- NOTE | 2022-04-07 13:09 | Progress Note-Post Operative ---
Post-Operative Progess Note Surgeon (s)/Local Owner Operator Truck Driver (s) Surgeon PEBBLES DOUGHERTY DO Local Owner Operator Truck Driver: Ade Pittman, MSIII Pre-Operative Diagnosis Chronic Gastritis, Rectal bleed Post-Operative Diagnosis Gastritis Hiatal hernia Gastric polyps Colon polyps diverticula hemorrhoids Procedure & Operative Findings Date of Procedure 04/07/22 Procedure Performed/Findings EGD with bx EGD with hot bx removal polyp Colonoscopy with snare polypectomy PROCEDURE NOTE: After informed consent was obtained, the patient was brought to the endoscopy suite, placed in bed in left lateral decubitus position. She was administered IV sedation by the CARTON WAXING MACHINE OPERATOR who then monitored vitals the entire time, heart rate, blood pressure and pulse ox and the scope was inserted down the mouth through the esophagus into the stomach. On the way down, noted some mild esophagitis, took a picture, pushed into the stomach, pushed past the antrum into the duodenum. Duodenum looked good. Pulled back and did a biopsy of antrum, then retroflexed the scope, saw small hiatal hernia, took a picture of this and then noted multiple large gastric polyps. Elected to do a hot biopsy and remove approximately 4 gastric polyps. I then pulled the scope into the GE junction, took another picture of the GE junction and then did a biopsy. Pushed the scope back into the stomach, suctioned all the air out of the stomach. At this point pulled the scope up the esophagus and out the mouth. Switched camera, switched gloves, went down below and started the colonoscopy. Pushed all the way into about 140 cm to get all the way to cecum, took a picture of the appendiceal orifice, noted the ileocecal valve; which may have been inflamed. Found a polyp in the cecum and removed it with the snare. Then elected to remove a piece of tissue which might have been Ileocecal valve or mass. Then slowly withdrew the scope, insufflating to look circumferentially at the gomez starting in the cecum, up the ascending colon to the hepatic flexure; she had diverticula on this side of colon and on the left side. Then down the transverse colon, to the splenic flexure, into the descending colon, down into the sigmoid and finally into the rectum, retroflexed in the rectal vault, saw some minimal internal hemorrhoids and took a picture of them. The patient tolerated the procedure and she recovered in the endoscopy suite. Recommended for repeat colonoscopy in 10 years Anesthesia Type IV sedation by CARTON WAXING MACHINE OPERATOR Estimated Blood Loss Estimated blood loss (mL): scant Specimens/Packing Specimens Removed antral bx Gastric polyps GE jxn cecal polyp Ileocecal valve vs mass PEBBLES DOUGHERTY DO Apr 07, 2022 13:09
[2022-04-07 13:10] VITALS: BP 101/57
--- NOTE | 2022-04-07 13:11 | Endoscopy Discharge Instruct ---
Endo Procedure/Findings Findings 1.: Polyp, Hiatal Hernia, Gastritis 2.: Polyp 3.: Diverticulosis 4.: Internal Hemorrhoids Discharge Instructions - Activity: You might feel a little sleepy until tomorrow. This is due to the medicine you received to relax you. Until tomorrow, you should: NOT drive a car, operate machinery or power tools. NOT drink any alcoholic beverages. NOT make any important decisions or sign importortant papers. Do not return to work until tomorrow, unless otherwise instructed. Resume previous activities tomorrow. Diet: Start by taking liquids. If you tolerate liquids, advance to solid food. 1.: EGD in 3 years 2.: Colonscopy in 5 years Notify Physician - If you experience excessive bleeding, unusual abdominal pain, fever, or chest pain, contact your doctor immediately. PEBBLES DOUGHERTY DO Apr 07, 2022 13:11
--- NOTE | 2022-04-07 13:11 | Anesthesia-General Post-Op ---
MAC Patient Condition Mental Status/LOC: Same as Preop Cardiovascular: Satisfactory Nausea/Vomiting: Absent Respiratory: Satisfactory Pain: Controlled Complications: Absent Post Op Complications Complications None Follow Up Care/Instructions Patient Instructions None needed. Anesthesiology Discharge Order Discharge Order Patient is doing well, no complaints, stable vital signs, no apparent adverse anesthesia problems. No complications reported per nursing. CHELLY MONTANA CRNA Apr 07, 2022 13:11
[2022-04-07 13:15] VITALS: BP 101/57
[2022-04-07 13:43] VITALS: BP 101/57
== END 2022-04-07 13:43 | disposition home or self-care (01) ==
LOC: ENDO 10:07
PROVIDERS: ATTEND Surgery
DX: D12.0 Benign neoplasm of cecum (principal); K21.00 Gastro-esophageal reflux disease with esophagitis, without bleeding; K31.7 Polyp of stomach and duodenum; K57.30 Diverticulosis of large intestine without perforation or abscess without bleeding; K44.9 Diaphragmatic hernia without obstruction or gangrene; K64.8 Other hemorrhoids; E11.9 Type 2 diabetes mellitus without complications; Z79.4 Long term (current) use of insulin; E66.9 Obesity, unspecified; Z68.31 Body mass index [BMI] 31.0-31.9, adult

== ENCOUNTER 2022-05-07 05:27 | Outpatient (CLI) | payer BC ==
[~2022-05-07] VITALS: Ht 170.2 cm; Wt 89.0 kg
== END 2022-05-08 12:47 | disposition home or self-care (01) ==
LOC: PREOP 05:27
PROVIDERS: ATTEND Surgery
DX: Z01.818 Encounter for other preprocedural examination (principal)

== ENCOUNTER 2022-05-14 08:00 | Inpatient (IN) | payer BC ==
[2022-05-14] VITALS (11 sets, daily range): BP systolic 93–161; BP diastolic 56–98
[~2022-05-14] VITALS: Ht 170.2 cm; Wt 89.0 kg
[2022-05-14] MEDS ORDERED: ROCURONIUM 10 MG/ML 5 ML SYRINGE IV ONE ×2 (10:18→12:21)
[2022-05-14] MEDS ORDERED: SEVOFLURANE (ULTANE) 15 ML INHAL SOLN ONE ×2 (10:18→12:41)
[2022-05-14] MEDS ORDERED: MIDAZOLAM 2 MG/2 ML (VERSED) VIAL ONE (10:18)
[2022-05-14] MEDS ORDERED: ONDANSETRON 4 MG/2 ML (SDV) Z0FRAN ONE (10:18)
[2022-05-14] MEDS ORDERED: fentaNYL INJ 100 MCG/2 ML AMP ONE (10:18)
[2022-05-14] MEDS ORDERED: proPOfol 200 MG/20 ML (DIPRIVAN) VIAL IV ONE (10:18)
[2022-05-14] MEDS ORDERED: LIDOCAINE PF 2% 5 ML (XYLOCAINE) VIAL ONE (10:18)
[2022-05-14] MEDS: LACTATED RINGERS 1,000 ML IV PRN ×2 (10:25→12:20)
--- NOTE | 2022-05-14 10:34 | Progress Note-Pre Operative ---
Pre-Operative Progress Note Date of Available H&P: Apr 15, 2022 Date H&P Reviewed: May 14, 2022 Time H&P Reviewed: 10:19 History & Physical: H&P Reviewed, Patient Examed, No changes noted Pre-Operative Diagnosis: Large Colon polyp PEBBLES DOUGHERTY DO May 14, 2022 10:34
[2022-05-14] MEDS ORDERED: ceFAZolin INJECTION 2,000 MG in NS (IVPB) 50 ML IV ONE (10:45)
[2022-05-14] MEDS ORDERED: metroNIDAZOLE 500MG/100ML IVPB 100 ML IV ONE (10:45)
[2022-05-14] MEDS ORDERED: HYDROmorphone 2 MG/ML VIAL (DILAUDID) ONE ×2 (12:06→13:31)
[2022-05-14] MEDS: BUP/EPI 0.5% 1:200,000 (MARCAINE) 10ML VIAL IJ ONE (12:06)
[2022-05-14] MEDS ORDERED: KETOROLAC 30 MG/ML VIAL ONE (12:39)
[2022-05-14] MEDS ORDERED: ROPIVACAINE 5MG/ML 30ML VIAL ONE (12:39)
[2022-05-14] MEDS ORDERED: SUGAMMADEX 500 MG/5 ML VIAL (BRIDION) IV ONE (12:44)
--- NOTE | 2022-05-14 12:47 | Progress Note-Post Operative ---
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
[2022-05-14] MEDS ORDERED: morphine INJ 4 MG/ML 1 ML (VIAL/SYRINGE) IVP PRN (13:00)
[2022-05-14] MEDS ORDERED: ONDANSETRON 4 MG/2 ML (SDV) Z0FRAN IVP PRN (13:15)
[2022-05-14] MEDS ORDERED: HYDROmorphone 2 MG/ML VIAL (DILAUDID) IV ONE (13:15)
[2022-05-14] MEDS ORDERED: BUP/EPI 0.5% 1:200,000 (SENSORCAINE) 30 ML VIAL IJ ONE (13:31)
[2022-05-14] MEDS: ceFAZolin INJECTION 2,000 MG in NS (IVPB) 50 ML IV SCH ×2 (14:37→21:58)
[2022-05-14] MEDS: LACTATED RINGERS 1,000 ML IV SCH (14:37)
[2022-05-14] MEDS: metroNIDAZOLE 500MG/100ML IVPB 100 ML IV SCH ×2 (15:24→23:17)
[2022-05-14] MEDS: inSUlin ASPART (NovoLOG) 1 UNIT/0.01 ML (CHARGE PER UNIT) SC SCH (17:39)
[2022-05-15] MEDS: LACTATED RINGERS 1,000 ML IV SCH ×2 (00:55→09:32)
[2022-05-15 03:23] VITALS: BP 115/66
[2022-05-15 05:55] LABS: BASOPHILS % (AUTO) 0 % (0-10); EOSINOPHILS % (AUTO) 0 % (0-10); HEMATOCRIT 35 % (35-52); HEMOGLOBIN 12.2 g/dL (11.5-16.0); LYMPHOCYTES # (AUTO) 1.5 10^3/uL (1.0-4.0); LYMPHOCYTES % (AUTO) 13 % (12-44); MEAN CORPUSCULAR HEMOGLOBIN 29 pg (25-34); MEAN CORPUSCULAR HGB CONC 35 g/dL (32-36); MEAN CORPUSCULAR VOLUME 85 fL (80-99); MEAN PLATELET VOLUME 9.5 fL (9.0-12.2); MONOCYTES # (AUTO) 0.8 10^3/uL (0.0-1.0); MONOCYTES % (AUTO) 7 % (0-12); NEUTROPHILS # (AUTO) 9.3 10^3/uL (1.8-7.8); NEUTROPHILS % (AUTO) 80 % (42-75); PLATELET COUNT 270 10^3/uL (130-400); WHITE BLOOD COUNT 11.7 10^3/uL (4.3-11.0)
[2022-05-15 06:17] LABS: ALBUMIN 3.6 GM/DL (3.2-4.5); POTASSIUM 3.7 MMOL/L (3.6-5.0)
[2022-05-15 06:18] LABS: CALCIUM 9.3 MG/DL (8.5-10.1)
[2022-05-15 06:19] LABS: TOTAL PROTEIN 6.2 GM/DL (6.4-8.2)
[2022-05-15 06:21] LABS: BILIRUBIN,TOTAL 0.5 MG/DL (0.1-1.0)
[2022-05-15 06:23] LABS: CREATININE SERUM 0.78 MG/DL (0.60-1.30)
[2022-05-15] MEDS: inSUlin ASPART (NovoLOG) 1 UNIT/0.01 ML (CHARGE PER UNIT) SC SCH ×3 (06:47→18:05)
[2022-05-15 07:49] VITALS: BP 128/71
[2022-05-15] MEDS: PANTOPRAZOLE 40 MG (PROTONIX) TAB PO SCH (08:03)
--- NOTE | 2022-05-15 08:10 | Anesthesia-General Post-Op ---
General Patient Condition Mental Status/LOC: Same as Preop Cardiovascular: Satisfactory Nausea/Vomiting: Absent Respiratory: Satisfactory Pain: Controlled Complications: Absent Post Op Complications Complications None Follow Up Care/Instructions Patient Instructions None needed. Anesthesia/Patient Condition Patient Condition Patient is doing well, no complaints, stable vital signs, no apparent adverse anesthesia problems. No complications reported per nursing. [place] [facility] [place] Yes TOI RODRIGUEZ CRNA May 15, 2022 08:10
--- NOTE | 2022-05-15 08:12 | Progress Note - Surgery ---
DEEDEE GUTHRIE 05/15/22 0812: Subjective Date Seen by a Provider: May 15, 2022 Time Seen by a Provider: 07:11 Subjective/Events-last exam Pt is POD#1 from open right colectomy. Pt is returning to bed from using the restroom this morning. This is her first time voiding since Fritz catheter was removed. She also had a bowel movement. Pt has been tolerating broth and jello. Reports soreness across her lower abdomen but not pain. Has been using IS. Dressing is clean, dry, and intact. Review of Systems General: No Chills, No Fatigue HEENT: No Head Aches, No Visual Changes; Sinus Congestion (seasonal allergies), Post Nasal Drip (seasonal allergies) Pulmonary: No Dyspnea; Cough (seasonal allergies) Cardiovascular: No: Chest Pain, Palpitations, Lt Headedness Gastrointestinal: Abdominal Pain (primarily at incision site ); No: Vomiting Genitourinary: No Dysuria, No Hematuria Musculoskeletal: No: shoulder pain, leg pain Neurological: No: Weakness, Numbness Objective Exam Vital Signs Date Time Temp Pulse Resp B/P (MAP) Pulse Ox O2 Delivery O2 Flow Rate FiO2 05/15/22 07:49 36.7 76 20 128/71 (90) 92 Room Air 05/15/22 03:23 36.0 63 18 115/66 (82) 92 Room Air 05/14/22 23:26 36.1 68 18 104/63 (77) 92 Room Air 05/14/22 20:03 Room Air 05/14/22 19:08 36.5 69 18 93/57 (69) 93 Room Air 05/14/22 15:16 36.4 82 20 105/63 (77) 92 Room Air 05/14/22 14:15 92 Room Air 05/14/22 14:11 36.1 89 12 111/56 (74) 92 Room Air 05/14/22 13:56 Room Air 05/14/22 13:50 36.5 16 116/67 (83) 92 Room Air 05/14/22 13:40 18 115/67 (83) 93 OxyMask 2.00 05/14/22 13:35 OxyMask 2.00 05/14/22 13:30 18 130/77 (94) 94 OxyMask 2.00 11/16/22 13:20 20 138/72 (94) 95 OxyMask 4.00 05/14/22 13:20 OxyMask 4.00 05/14/22 13:10 16 151/76 (101) 96 OxyMask 4.00 05/14/22 13:03 37.0 18 161/98 (119) 99 OxyMask 6.00 05/14/22 13:03 OxyMask 6.00 05/14/22 10:42 Room Air 05/14/22 10:39 36.9 120 20 141/63 (89) 95 Room Air I & O 05/15/22 07:00 Intake Total 2600 ml Output Total 1325 ml Balance 1275 ml Capillary Refill : General Appearance: No Apparent Distress, WD/WN HEENT: PERRL/EOMI, Moist Mucous Membranes Neck: Non Tender, Supple Respiratory: Lungs Clear, Normal Breath Sounds, No Accessory Muscle Use, No Respiratory Distress Cardiovascular: Regular Rate, Rhythm, No Murmur Peripheral Pulses: 2+ Dorsalis Pedis (R), 2+ Left Dors-Pedis (L), 2+ Radial Pulses (R), 2+ Radial Pulses (L) Gastrointestinal: soft, no organomegaly, tenderness (lower abdoman and midline) Extremity: Normal Inspection, Normal Range of Motion, Non Tender, No Calf Tenderness Neurologic/Psychiatric: Alert, Oriented x3 Skin: Normal Color, Warm/Dry Lymphatic: No Adenopathy Results Lab Laboratory Tests 05/14/22 13:07: Glucometer 190H 05/14/22 20:34: Glucometer 314H 05/15/22 05:16: Glucometer 225H 05/15/22 05:40: White Blood Count 11.7H, Red Blood Count 4.15, Hemoglobin 12.2, Hematocrit 35, Mean Corpuscular Volume 85, Mean Corpuscular Hemoglobin 29, Mean Corpuscular Hemoglobin Concent 35, Red Cell Distribution Width 13.2, Platelet Count 270, Mean Platelet Volume 9.5, Immature Granulocyte % (Auto) 0, Neutrophils (%) (Auto) 80H, Lymphocytes (%) (Auto) 13, Monocytes (%) (Auto) 7, Eosinophils (%) (Auto) 0, Basophils (%) (Auto) 0, Neutrophils # (Auto) 9.3H, Lymphocytes # (Auto) 1.5, Monocytes # (Auto) 0.8, Eosinophils # (Auto) 0.0, Basophils # (Auto) 0.0, Immature Granulocyte # (Auto) 0.0, Sodium Level 138, Potassium Level 3.7, Chloride Level 106, Carbon Dioxide Level 20L, Anion Gap 12, Blood Urea Nitrogen 12, Creatinine 0.78, Estimat Glomerular Filtration Rate 90, BUN/Creatinine Ratio 15, Glucose Level 245H, Calcium Level 9.3, Corrected Calcium 9.6, Total Bili cody 0.5, Aspartate Amino Transf (AST/SGOT) 50H, Alanine Aminotransferase (ALT/SGPT) 62H, Alkaline Phosphatase 73, Total Protein 6.2L, Albumin 3.6 Microbiology 05/14/22 MRSA Screen - Final, Complete MRSA not isolated Procedures NAME: ABHIJIT [facility]DERON [facility] REC#: [id number] : 1965 ADMIT DATE: 05/14/22 PHYSICIAN: PEBBLES DOUGHERTY DO PROGRESS NOTE Post-Operative Progess Note Surgeon (s)/Soil Tester (s) Surgeon PEBBLES DOUGHERTY DO Soil Tester: Casa Pre-Operative Diagnosis 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 Transition to soft diet. Continue ambulation and using IS. PEBBLES DOUGHERTY DO 05/15/22 0958: Subjective Time Seen by a Provider: 09:50 Subjective/Events-last exam Pt seen and examined, sitting up in chair and states she feels very comfortable. Review of Systems HEENT: Sinus Congestion (seasonal allergies), Post Nasal Drip (seasonal allergies) Pulmonary: No Dyspnea; Cough (seasonal allergies) Cardiovascular: No: Chest Pain, Palpitations Gastrointestinal: Abdominal Pain (primarily at incision site ); No: Vomiting Objective Exam General Appearance: No Apparent Distress, Obese HEENT: Moist Mucous Membranes Respiratory: Lungs Clear, Normal Breath Sounds, No Accessory Muscle Use, No Respiratory Distress Cardiovascular: Regular Rate, Rhythm, No Murmur Gastrointestinal: soft, no organomegaly, tenderness (lower abdoman and midline), other (incision is c/d/i) Neurologic/Psychiatric: Oriented x3 Assessment/Plan Assessment/Plan Assessment/Plan Right colectomy - open - POD#1 Continue IVF and pain management. Transition to soft diet. Continue ambulation and using IS. Supervisory-Addendum Brief Verification & Attestation Participated in pt care: history, MDM, physical Personally performed: exam, history, MDM, supervision of care Care discussed with: Medical Student Procedures: n/a Verification and Attestation of Medical Student E/M Service A medical student performed and documented this service. I then reviewed and verified all information documented by the medical student and made modifications to such information, when appropriate. I personally performed a physical exam, medical decision making and then discussed any differences between the notes and made revisions as necessary to create one note. Pebbles Dougherty , 05/15/22 , 09:58 DEEDEE GUTHRIE May 15, 2022 08:12 PEBBLES DOUGHERTY DO May 15, 2022 09:58
[2022-05-15] MEDS ORDERED: PANTOPRAZOLE 40 MG (PROTONIX) VIAL IVP SCH (09:00)
[2022-05-15] MEDS ORDERED: CHOL200074 PO (10:05)
[2022-05-15] MEDS ORDERED: EXEN2AUT IJ (10:05)
[2022-05-15] MEDS ORDERED: INSU100I29 SQ (10:05)
[2022-05-15] MEDS ORDERED: FENO48TA11 PO (10:05)
[2022-05-15] MEDS ORDERED: BENA1TAB PO (10:05)
[2022-05-15] MEDS ORDERED: METF-865 PO (10:05)
[2022-05-15] MEDS ORDERED: OMEG-218 PO (10:05)
[2022-05-15] MEDS ORDERED: POTA-177 PO (10:05)
[2022-05-15] MEDS ORDERED: INSU100I55 SC (10:05)
[2022-05-15] MEDS ORDERED: INSU100I29 SC (10:05)
[2022-05-15] MEDS ORDERED: FLUT9.9S NSEACH (10:05)
[2022-05-15] MEDS ORDERED: PANT40TA52 PO (10:05)
[2022-05-15] MEDS ORDERED: ALLO300T2 PO (10:05)
[2022-05-15] MEDS ORDERED: CETI10TA17 PO (10:05)
[2022-05-15 11:07] VITALS: BP 149/80
--- NOTE | 2022-05-15 12:05 | Consultation ---
SOHAILBRITTANI 05/15/22 1205: HPI History of Present Illness: HPI/Chief Complaint Patient is a 57-year-old female with a history of gastric polyps, colorectal polyps, and a family history of colorectal cancer who was admitted 05/14 after under going a right colectomy. The patient had a colonoscopy done on 04/07 that revealed a large polyp with high-grade dysplasia. The patient is awake and alert in her chair this morning, no family at bedside. She reports that she has only been having some mild incisional pain and soreness in her lower abdomen which is slightly tender on palpation. The patient describes the pain as an ache that is worsened with coughing or laughing that they would rate at a 2/10. The patient has been ambulating, using her IS, passing flatus, and had a BM last night. She is currently on clears and reports that she has been tolerating this well. The patient complains of some mild sinusitis which they attribute to allergies. She states that she feels well overall and has no new complaints. Source: patient, RN/MD, RN notes reviewed Exam Limitations: no limitations Date Seen 05/15/22 Attending Physician Jessa Ortega DO PCP Admitting Physician: Tyler Cabrera DO Attending Physician: Tyler Cabrera DO Referring Physician Tyler Cabrera DO Date of Admission May 14, 2022 at 09:56 Home Medications & Allergies Home Medications Reviewed patient Home Medication Reconciliation performed by pharmacy medication reconciliations software support technician and/or nursing. Patients Allergies have been reviewed. Allergies Allergies Coded Allergies latex (Verified Allergy, Unknown, 05/14/22) Past Smplepn-Dbnodq-Yelizu Hx Patient Social History Tobacco Use?: No Smoking Status: Never a Smoker Substance use?: No Alcohol Use?: Yes Alcohol Frequency: Rarely Pt feels they are or have been: No Immunizations Up To Date Date of Influenza Vaccine: May 03, 2022 First/Initial COVID19 Vaccinat: 2020 Second COVID19 Vaccination Elvis: 2020 Seasonal Allergies Seasonal Allergies: Yes (allergy shots) Current Status status: No status: No Advance Directives: No Communicates: Verbally Primary Language: Polish Preferred Spoken Language: Polish Is interpretation needed?: No Sensory deficits: Vision impairment Past Medical History Surgeries: Appendectomy, Gallbladder, Hysterectomy, Oophorectomy Currently Using CPAP: Yes Currently Using BIPAP: No High Cholesterol, Hypertension 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 Sexually Transmitted Disease: No HIV/AIDS: No Kidney Stones Gastroesophageal Reflux, Chronic Constipation, Chronic Diarrhea, Polyps Chronic Back Pain Diabetes, Insulin dep Loss of Vision: Bilateral Hearing Impairment: Denies Blood Disorders: No Adverse Reaction/Blood Tranf: No (N/A) Family Medical History Cardiovascular disease 19 FATHER Colon cancer Diabetes mellitus 19 FATHER 19 MOTHER G8 BROTHER Hypertension 19 FATHER 19 MOTHER G8 BROTHER Kidney disease 19 FATHER Review of Systems Constitutional: No chills, No fever, No weakness EENTM: No hearing loss, No blurred vision, No vision loss Respiratory: cough (mild, productive); No short of breath Cardiovascular: No chest pain, No palpitations Gastrointestinal: No nausea, No vomiting Genitourinary: No dysuria, No hematuria : No Musculoskeletal: No muscle weakness, No neck pain Skin: No change in color, No change in hair/nails Psychiatric/Neurological: Denies Numbness, Denies Weakness Physical Exam Physical Exam Vital Signs Vital Signs - First Documented 05/14/22 10:39 Temp 36.9 Pulse 120 Resp 20 B/P (MAP) 141/63 (89) Pulse Ox 95 O2 Delivery Room Air Capillary Refill : Height, Weight, BMI Height: 5'7.00" Weight: 195lbs. 0.0oz. 88.508777vw; 30.72 BMI Method:Stated General Appearance: No Apparent Distress, WD/WN, Obese HEENT: PERRL/EOMI Neck: Non Tender, Supple Respiratory: Lungs Clear, Normal Breath Sounds, No Accessory Muscle Use Cardiovascular: Regular Rate, Rhythm, No Murmur Gastrointestinal: Non Tender, Soft (Slight tenderness on palpation in the lower abdomen) Rectal: Deferred Back: No Vertebral Tenderness Extremity: Non Tender, No Calf Tenderness, No Pedal Edema Neurologic/Psychiatric: Alert, Oriented x3 Skin: Normal Color, Warm/Dry Lymphatic: No Adenopathy Results Results/Procedures Labs Laboratory Tests 05/15/22 05:40 Patient resulted labs reviewed. Assessment/Plan Assessment and Plan Assess & Plan/Chief Complaint 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 Hx of colorectal polyps Hx of gastric polyps HLD DM requiring insulin Diverticulosis Internal hemorrhoids Chronic gastritis BRCA + Obesity - BMI 30.7 Currently on clears, advance diet as tolerated Pain control as needed, currently well-controlled Encouraged patient to continue ambulating Encouraged patient to continue using IS Continue to work with PT Counseled on the benefits of weight loss JESSA ORTEGA DO 05/16/22 0522: Past Tnkhtcu-Uuadyj-Fjzhog Hx Family Medical History Cardiovascular disease 19 FATHER Colon cancer Diabetes mellitus 19 FATHER 19 MOTHER G8 BROTHER Hypertension 19 FATHER 19 MOTHER G8 BROTHER Kidney disease 19 FATHER Assessment/Plan Assessment and Plan Assess & Plan/Chief Complaint Home meds Insulin Supportive care Monitor closely Supervisory-Addendum Brief Verification & Attestation Participated in pt care: history, MDM, physical Personally performed: exam, history, MDM, supervision of care Care discussed with: Medical Student Procedures: n/a Results interpretation: Verified all documentation Verification and Attestation of Medical Student E/M Service A medical student performed and documented this service in my presence. I reviewed and verified all information documented by the medical student and made modifications to such information, when appropriate. I personally performed the physical exam and medical decision making. Jessa Ortega, May 16, 2022,05:22 BRITTANI SAUCEDA May 15, 2022 12:05 JESSA ORTEGA DO May 16, 2022 05:22
[2022-05-15] MEDS ORDERED: ENOXAPARIN 40 MG/0.4 ML (LOVENOX) SYR SC SCH (15:00)
[2022-05-15 16:00] VITALS: BP 130/72
--- NOTE | 2022-05-15 17:10 | OPERATIVE REPORT ---
DATE OF SERVICE: 05/14/2022 PREOPERATIVE DIAGNOSIS: Polyp with high-grade dysplasia. POSTOPERATIVE DIAGNOSIS: Polyp with high-grade dysplasia, pending pathology. PROCEDURE: Right colon resection. SURGEON:Guilherme Cabrera DO HEMATOLOGY NURSE EDUCATOR: Dr. Ash Cormier. ANESTHESIA: General endotracheal tube. SPECIMENS: Portion of right colon and terminal ileum. BLOOD LOSS: Less than 20 mL FLUIDS: Per anesthesia. POSTOPERATIVE CONDITION: Stable. INDICATIONS FOR PROCEDURE: The patient is a 57-year-old female who had a colonoscopy, which found a large polyp with high-grade dysplasia, unable to get at it because of the position was right near the ileocecal valve, but in discussion with the patient, elected to do a colon resection. FINDINGS: The patient had a colon resected. The polyp was in the colon specimen. DESCRIPTION OF PROCEDURE: After informed consent was obtained, the patient was brought to the operating room and placed on the table in supine position. She was sterilely prepped and draped in normal fashion. I made a midline incision from just above the umbilicus to just below it approximately 8 cm incision, made an incision with #10 blade, carried down through the skin into the subcutaneous tissue was then deepened down to subcutaneous tissue with electrocautery down to the fascia. Fascia was incised with electrocautery and then bluntly and the abdomen protected. The bowel with my hand and then increase to this fascial incision with the Bovie electrocautery superiorly and inferiorly, able to get my hand in and then grasped the cecum. The cecum was almost delivered through the midline incision, had to come along the white line of Toldt in the right pericolic gutter to free this up, able to then get the cecum and terminal ileum completely out of the abdomen, made a defect in the mesentery with Bovie electrocautery as well as blunt dissection and then came across the terminal ileum at about 4-6 cm away from the cecum and then used a FRANCOIS-75 clamped and then fired thereby transecting this, then went above the cecum, made a defect in the mesentery with electrocautery as well as blunt dissection using another FRANCOIS-75 reload, clamped, fired, transected this. Then removed this bowel by coming across the mesentery with a LigaSure, clamping, coagulated and transected in this fashion carefully coming across in a stepwise fashion until we were able to remove this completely. Once this was removed, we had good length of the ascending colon up into delivered out of the body. I made a defect in the tinea and then the defect in the antimesenteric border of the terminal ileum and then placed a FRANCOIS-75 one portion of the stapler in each side of the intestine, clamped together, held for 30 seconds and then fired thereby creating a [id number] functional end-to-end anastomosis, 3-0 Vicryl suture at the crotch stitch and then closed the enterocolonic opening with another FRANCOIS-75 reload. This closed nicely. We then elected to close the mesentery with a 3-0 Vicryl running suture. I dropped this back into the abdomen. There was very scant bleeding. There was no spillage of anything and at this point, then elected to pull the omentum over this area. Everything else looked good and then elected to close the fascia with a #1 double stranded PDS suture running from the superior portion of the inferior portion tying to itself. Copiously irrigated the incision with saline and then closing the skin with tony. Area was clean and dry, dressing was placed. Sponge and needle count correct at the end of the case. Dr. Cormier general assistant in this case, helped me to make incisions, closed the incision, identified anatomy, whole anatomy of the way. Job ID: [id number] DocumentID: [id number] Dictated Date: 05/15/2022 12:48:23 Radio Electrician Date: 05/15/2022 17:08:00 Dictated By: PEBBLES CABRERA DO
[2022-05-15 19:26] VITALS: BP 115/71
[2022-05-15] MEDS: ONDANSETRON 4 MG/2 ML (SDV) Z0FRAN IVP PRN (21:01)
[2022-05-15 23:23] VITALS: BP 124/74
[2022-05-16 03:11] VITALS: BP 95/64
[2022-05-16 05:53] LABS: ALBUMIN 3.1 GM/DL (3.2-4.5)
[2022-05-16 05:54] LABS: POTASSIUM 3.5 MMOL/L (3.6-5.0)
[2022-05-16 05:55] LABS: CALCIUM 8.2 MG/DL (8.5-10.1)
[2022-05-16 05:56] LABS: TOTAL PROTEIN 5.4 GM/DL (6.4-8.2)
[2022-05-16 05:57] LABS: BASOPHILS # (AUTO) 0.1 10^3/uL (0.0-0.1); BASOPHILS % (AUTO) 1 % (0-10); EOSINOPHILS % (AUTO) 0 % (0-10); HEMATOCRIT 28 % (35-52); HEMOGLOBIN 9.4 g/dL (11.5-16.0); LYMPHOCYTES # (AUTO) 1.2 10^3/uL (1.0-4.0); LYMPHOCYTES % (AUTO) 11 % (12-44); MEAN CORPUSCULAR HEMOGLOBIN 29 pg (25-34); MEAN CORPUSCULAR HGB CONC 34 g/dL (32-36); MEAN CORPUSCULAR VOLUME 88 fL (80-99); MEAN PLATELET VOLUME 10.3 fL (9.0-12.2); MONOCYTES # (AUTO) 0.8 10^3/uL (0.0-1.0); MONOCYTES % (AUTO) 7 % (0-12); NEUTROPHILS # (AUTO) 9.7 10^3/uL (1.8-7.8); NEUTROPHILS % (AUTO) 82 % (42-75); PLATELET COUNT 252 10^3/uL (130-400); WHITE BLOOD COUNT 11.8 10^3/uL (4.3-11.0)
[2022-05-16 05:58] LABS: BILIRUBIN,TOTAL 0.6 MG/DL (0.1-1.0)
[2022-05-16 06:00] LABS: CREATININE SERUM 0.81 MG/DL (0.60-1.30)
[2022-05-16] MEDS: inSUlin ASPART (NovoLOG) 1 UNIT/0.01 ML (CHARGE PER UNIT) SC SCH ×4 (06:32→16:51)
[2022-05-16 07:33] VITALS: BP 119/59
--- NOTE | 2022-05-16 08:20 | Progress Note - Surgery ---
ELENA PARKS 05/16/22 0820: Subjective Date Seen by a Provider: May 16, 2022 Time Seen by a Provider: 07:40 Subjective/Events-last exam Patient had several bouts of large volume bloody stools last night. Patient states it started right after dinner. None of her food seemed appetizing and she started to get nauseous. There is still one stool left in the catch of the toilet. Bright red blood that has since congealed. Patient states that she had no pain when it happened. Just sat down to have a BM, didn't strain, and then started having hematochezia. Patient states her blood pressure also dropped and she could feel her heart beating faster. Patient also reports feeling light- headed, a little more fatigued and short of breath. Patient denies fever or chills. Review of Systems General: No Chills, No Night Sweats; Fatigue Pulmonary: Dyspnea (see hpi); No Cough Cardiovascular: No: Chest Pain, Palpitations Gastrointestinal: Nausea, Abdominal Pain (abdominal tenderness surrounding incision ) Genitourinary: No Dysuria, No Frequency Neurological: Other (light-headed); No: Weakness, Numbness Objective Exam Vital Signs Date Time Temp Pulse Resp B/P (MAP) Pulse Ox O2 Delivery O2 Flow Rate FiO2 05/16/22 07:33 37.0 108 18 119/59 (79) 90 Room Air 05/16/22 03:11 36.4 111 18 95/64 (74) 95 Room Air 05/16/22 01:00 90 Room Air 05/15/22 23:23 37.3 110 18 124/74 (91) 87 Room Air 05/15/22 19:59 90 Room Air 05/15/22 19:26 36.8 90 18 115/71 (86) 90 Room Air 05/15/22 16:00 37.1 81 19 130/72 (91) 90 Room Air 05/15/22 11:07 36.3 73 18 149/80 (103) 97 Room Air I & O 05/16/22 07:00 Intake Total 3520 ml Output Total 2250 ml Balance 1270 ml Capillary Refill : General Appearance: No Apparent Distress, WD/WN, Obese HEENT: PERRL/EOMI Neck: Non Tender, Supple Respiratory: Lungs Clear, Normal Breath Sounds, No Accessory Muscle Use Cardiovascular: No Murmur, Tachycardia (can see pulsation at Cartoid artery and abdominal aorta ) Peripheral Pulses: 2+ Dorsalis Pedis (R), 2+ Left Dors-Pedis (L), 2+ Radial Pulses (R), 2+ Radial Pulses (L) Gastrointestinal: soft, tenderness (genoveva-incision), other (incision bandage has some trace bleeding underneath, but is otherwise C/D/I) Extremity: Non Tender, No Calf Tenderness, No Pedal Edema Neurologic/Psychiatric: Alert, Oriented x3 Skin: Normal Color, Warm/Dry Results Lab Laboratory Tests 05/15/22 11:04: Glucometer 206H 05/15/22 15:50: Glucometer 150H 05/15/22 20:03: Glucometer 138H 05/16/22 05:10: White Blood Count 11.8H, Red Blood Count 3.20L, Hemoglobin 9.4#L, Hematocrit 28L , Mean Corpuscular Volume 88, Mean Corpuscular Hemoglobin 29, Mean Corpuscular Hemoglobin Concent 34, Red Cell Distribution Width 13.5, Platelet Count 252, Mean Platelet Volume 10.3, Immature Granulocyte % (Auto) 0, Neutrophils (%) (Auto) 82H, Lymphocytes (%) (Auto) 11L, Monocytes (%) (Auto) 7, Eosinophils (%) (Auto) 0, Basophils (%) (Auto) 1, Neutrophils # (Auto) 9.7H, Lymphocytes # (Auto) 1.2, Monocytes # (Auto) 0.8, Eosinophils # (Auto) 0.0, Basophils # (Auto) 0.1, Immature Granulocyte # (Auto) 0.0, Sodium Level 138, Potassium Level 3.5L, Chloride Level 106, Carbon Dioxide Level 19L, Anion Gap 13, Blood Urea Nitrogen 15, Creatinine 0.81, Estimat Glomerular Filtration Rate 86, BUN/Creatinine Ratio 19, Glucose Level 319H, Calcium Level 8.2L, Corrected Calcium 8.9, Total Bilirubin 0.6, Aspartate Amino Transf (AST/SGOT) 28, Alanine Aminotransferase (ALT/SGPT) 39, Alkaline Phosphatase 61, Total Protein 5.4L, Albumin 3.1L 05/16/22 05:49: Glucometer 302H Microbiology 05/14/22 MRSA Screen - Final, Complete MRSA not isolated Assessment/Plan Assessment/Plan Assessment/Plan Right colectomy - open - POD#2 Hematochezia Post-op Anemia - Symptomatic (Hypotension, tachycardia, dyspnea) Tachycardia Patient's Hgb down from 12.2 to 9.4, with large passage of hematochezia throughout the night. Patient with fresh colectomy with anastomosis . Concern for anastomotic bleeding. There is risk of dehiscence of anastamosis with colonoscopy. May consider CT/CT angio. Two large bore IV catheter or central line placement. Continue Supportive measures: Supplemental O2, IVF resuscitation, monitor labs Q4-6h, Cross and type, transfuse if Hgb gets below 7.0. If conservative management does not work, may have to consider surgical intervention. Hopeful that this is not the case, but will keep a close eye on patient and continue to monitor clinical status. TYLER CABRERA DO 05/16/22 1137: Subjective Time Seen by a Provider: 09:49 Subjective/Events-last exam Pt seen and examined, does not appear to be in any distress. Last night I got called that she had one bloody BM, did not ever get told she continued to have them all night. She states she feels ok (when I saw her), but maybe a little weak. Review of Systems General: No Chills, No Night Sweats; Fatigue Pulmonary: Dyspnea (see hpi); No Cough Cardiovascular: No: Chest Pain, Palpitations Gastrointestinal: Nausea, Abdominal Pain (abdominal tenderness surrounding incision ) Genitourinary: No Dysuria, No Frequency Neurological: Other (light-headed) Objective Exam General Appearance: No Apparent Distress, Anxious, Obese HEENT: PERRL/EOMI Respiratory: Lungs Clear, Normal Breath Sounds, No Accessory Muscle Use Cardiovascular: Regular Rate, Rhythm, No Murmur Gastrointestinal: soft, tenderness (genoveva-incision), other (incision bandage has some trace bleeding underneath, but is otherwise C/D/I) Neurologic/Psychiatric: Alert, Oriented x3 Skin: Normal Color, Warm/Dry Assessment/Plan Assessment/Plan Assessment/Plan Anemia - secondary to blood loss; most likely from anastomosis and secondary Symptomatic (Hypotension, tachycardia, dyspnea) Right colectomy - open - POD#2 Hematochezia Tachycardia Patient's Hgb down from 12.2 to 9.4, with large passage of hematochezia throughout the night. Patient with fresh colectomy with anastomosis . Concern for anastomotic bleeding. There is risk of dehiscence of anastamosis with colonoscopy. Will type and cross and then supportive measures: Supplemental O2, IVF resuscitation, check H/H Q12, transfuse if Hgb gets below 7.0. If conservative management does not work, may have to consider surgical intervention. Hopeful that this is not the case, but will keep a close eye on patient and continue to monitor clinical status. She looks very stable right now Supervisory-Addendum Brief Verification & Attestation Participated in pt care: history, MDM, physical Personally performed: exam, history, MDM, supervision of care Care discussed with: Medical Student Procedures: n/a Verification and Attestation of Medical Student E/M Service A medical student performed and documented this service. I then reviewed and verified all information documented by the medical student and made modifications to such information, when appropriate. I personally performed a physical exam, medical decision making and then discussed any differences between the notes and made revisions as necessary to create one note. Tyler Cabrera , 05/16/22 , 11:37 ELENA PRAKS May 16, 2022 08:20 TYLER CABRERA DO May 16, 2022 11:37
[2022-05-16] MEDS: PANTOPRAZOLE 40 MG (PROTONIX) TAB PO SCH (08:29)
[2022-05-16 11:10] VITALS: BP 106/56
--- NOTE | 2022-05-16 12:35 | Progress Note ---
BRITTANI SAUCEDA 05/16/22 1235: Subjective Date Seen by a Provider: May 16, 2022 Time Seen by a Provider: 11:30 Subjective/Events-last exam Patient is awake and alert in her bed this morning, no family at bedside. Patient had multiple episodes of hematochezia through the night. She states that after going to the bathroom she noticed a substantial amount of bright red blood in the bowl. She reports that this happened several times throughout the night and this morning and that the stool has been consistently bloody. She states that through the course of last night and this morning she has had less frequent episodes of hematochezia and has not had one for a few hours now. She reports feeling lightheaded, fatigued and weak since about 03:00 this morning and has had near syncopal episodes when standing. She had some hypotension through the night dropping to 95/64 which has improved to 119/59 this morning. She reports that her abdominal pain is about the same as yesterday and is well-controlled. Review of Systems General: No Chills, No Night Sweats; Fatigue HEENT: No Visual Changes, No Ear Pain; Sinus Congestion, Post Nasal Drip Pulmonary: No Dyspnea; Cough (Mild secondary to post nasal drip) Cardiovascular: Lt Headedness; No: Chest Pain Gastrointestinal: Abdominal Pain (Mild lower abdominal pain), Hematochezia; No: Nausea, Vomiting Genitourinary: No Dysuria, No Frequency Musculoskeletal: No: neck pain, back pain Neurological: Weakness; No: Numbness, Incoordination Objective Exam Last Set of Vital Signs Vital Signs Date Time Temp Pulse Resp B/P (MAP) Pulse Ox O2 Delivery O2 Flow Rate FiO2 05/16/22 11:10 36.3 96 18 106/56 (73) 91 Room Air 05/14/22 13:40 2.00 Capillary Refill : I&O Intake and Output 05/16/22 00:00 Intake Total 3270 ml Output Total 1050 ml Balance 2220 ml Intake Oral 2220 ml IV Total 1050 ml Output Urine Total 900 ml Estimated Blood Loss 150 ml # Voids 8 # Bowel Movements 3 General: Alert, Oriented X3 HEENT: Atraumatic, PERRLA Neck: Supple, No JVD Lungs: Clear to Auscultation Heart: Regular Rate, No Murmurs Abdomen: Soft, Other (Mild tenderness lower abdomen) Extremities: No Clubbing, No Cyanosis, No Edema, Normal Pulses Skin: No Rashes, No Breakdown Neuro: Normal Speech, Normal Tone Results Lab Laboratory Tests 05/15/22 15:50: Glucometer 150H 05/15/22 20:03: Glucometer 138H 05/16/22 05:10: White Blood Count 11.8H, Red Blood Count 3.20L, Hemoglobin 9.4#L, Hematocrit 28L , Mean Corpuscular Volume 88, Mean Corpuscular Hemoglobin 29, Mean Corpuscular Hemoglobin Concent 34, Red Cell Distribution Width 13.5, Platelet Count 252, Mean Platelet Volume 10.3, Immature Granulocyte % (Auto) 0, Neutrophils (%) (Auto) 82H, Lymphocytes (%) (Auto) 11L, Monocytes (%) (Auto) 7, Eosinophils (%) (Auto) 0, Basophils (%) (Auto) 1, Neutrophils # (Auto) 9.7H, Lymphocytes # (Auto) 1.2, Monocytes # (Auto) 0.8, Eosinophils # (Auto) 0.0, Basophils # (Auto) 0.1, Immature Granulocyte # (Auto) 0.0, Sodium Level 138, Potassium Level 3.5L, Chloride Level 106, Carbon Dioxide Level 19L, Anion Gap 13, Blood Urea Nitrogen 15, Creatinine 0.81, Estimat Glomerular Filtration Rate 86, BUN/Creatinine Ratio 19, Glucose Level 319H, Calcium Level 8.2L, Corrected Calcium 8.9, Total Bilirubin 0.6, Aspartate Amino Transf (AST/SGOT) 28, Alanine Aminotransferase (ALT/SGPT) 39, Alkaline Phosphatase 61, Total Protein 5.4L, Albumin 3.1L 05/16/22 05:49: Glucometer 302H 05/16/22 11:08: Glucometer 276H Microbiology 05/14/22 MRSA Screen - Final, Complete MRSA not isolated Assessment/Plan Assessment/Plan Assess & Plan/Chief Complaint 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 Hematochezia Acute post-op blood loss Anemia Hx of colorectal polyps Hx of gastric polyps HLD DM requiring insulin Diverticulosis Internal hemorrhoids Chronic gastritis BRCA + Obesity - BMI 30.7 Returned to clears Monitor Hg, transfuse as needed Consider IV fluid resuscitation Insulin dosage adjusted Pain control as needed, currently well-controlled Encouraged patient to continue ambulating as tolerated Encouraged patient to continue using IS Continue to work with PT Counseled on the benefits of weight loss JESSA ORTEGA DO 05/17/22 0539: Subjective Subjective/Events-last exam No more bleeding Hemoglobin decreased by 3 units Will restart insulin at lower dose than home Review of Systems Gastrointestinal: Abdominal Pain (Mild lower abdominal pain) Objective Exam General: Alert, Oriented X3, Cooperative, No Acute Distress Lungs: Clear to Auscultation, Normal Air Movement Heart: Regular Rate, Normal S1, Normal S2, No Murmurs Psych/Mental Status: Mental Status NL, Mood NL Assessment/Plan Assessment/Plan Assess & Plan/Chief Complaint Supportive care Insulin Clear liquids Supervisory-Addendum Brief Verification & Attestation Participated in pt care: history, MDM, physical Personally performed: exam, history, MDM, supervision of care Care discussed with: Medical Student Procedures: n/a Results interpretation: Verified all documentation Verification and Attestation of Medical Student E/M Service A medical student performed and documented this service in my presence. I reviewed and verified all information documented by the medical student and made modifications to such information, when appropriate. I personally performed the physical exam and medical decision making. Jessa Ortega, May 17, 2022,05:38 BRITTANI SAUCEDA May 16, 2022 12:35 JESSA ORTEGA DO May 17, 2022 05:39
[2022-05-16 15:07] VITALS: BP 100/63
[2022-05-16] MEDS: ONDANSETRON 4 MG/2 ML (SDV) Z0FRAN IVP PRN (16:51)
[2022-05-16 19:41] VITALS: BP 105/66
[2022-05-16] MEDS: FLUTICASONE NASAL SPRAY (FLONASE) 16 GM BTL NS SCH (20:37)
[2022-05-17] VITALS (10 sets, daily range): BP systolic 99–125; BP diastolic 52–75
[2022-05-17 05:59] LABS: BASOPHILS # (AUTO) 0.1 10^3/uL (0.0-0.1); BASOPHILS % (AUTO) 1 % (0-10); EOSINOPHILS # (AUTO) 0.2 10^3/uL (0.0-0.3); EOSINOPHILS % (AUTO) 2 % (0-10); HEMATOCRIT 23 % (35-52); HEMOGLOBIN 7.8 g/dL (11.5-16.0); LYMPHOCYTES # (AUTO) 3.3 10^3/uL (1.0-4.0); LYMPHOCYTES % (AUTO) 34 % (12-44); MEAN CORPUSCULAR HEMOGLOBIN 29 pg (25-34); MEAN CORPUSCULAR HGB CONC 33 g/dL (32-36); MEAN CORPUSCULAR VOLUME 88 fL (80-99); MEAN PLATELET VOLUME 9.8 fL (9.0-12.2); MONOCYTES # (AUTO) 0.8 10^3/uL (0.0-1.0); MONOCYTES % (AUTO) 8 % (0-12); NEUTROPHILS # (AUTO) 5.2 10^3/uL (1.8-7.8); NEUTROPHILS % (AUTO) 54 % (42-75); PLATELET COUNT 227 10^3/uL (130-400); WHITE BLOOD COUNT 9.6 10^3/uL (4.3-11.0)
[2022-05-17 06:15] LABS: POTASSIUM 3.2 MMOL/L (3.6-5.0)
[2022-05-17 06:16] LABS: CALCIUM 8.6 MG/DL (8.5-10.1)
[2022-05-17 06:17] LABS: TOTAL PROTEIN 5.4 GM/DL (6.4-8.2)
[2022-05-17 06:19] LABS: BILIRUBIN,TOTAL 0.5 MG/DL (0.1-1.0)
[2022-05-17 06:21] LABS: CREATININE SERUM 0.65 MG/DL (0.60-1.30)
[2022-05-17] MEDS: inSUlin ASPART (NovoLOG) 1 UNIT/0.01 ML (CHARGE PER UNIT) SC SCH ×3 (06:51→17:35)
--- NOTE | 2022-05-17 07:51 | Progress Note - Surgery ---
[facility]: Subjective Date Seen by a Provider: May 17, 2022 Time Seen by a Provider: 07:42 Subjective/Events-last exam Today patient reports minimal nausea and less frequent BM with little blood. She feels better than yesterday and is doing well on a clear liquid diet. Urinating without issue. Notes abdominal pain with moving that gets up to a 3/10 in severity and improves with rest. Denies CP, SOB, vomiting, sweats/chills. Review of Systems General: No Chills, No Night Sweats HEENT: No Head Aches, No Visual Changes Pulmonary: No Dyspnea, No Cough Cardiovascular: No: Chest Pain, Palpitations Gastrointestinal: Nausea, Abdominal Pain; No: Vomiting Genitourinary: No Dysuria, No Frequency Musculoskeletal: No: neck pain, shoulder pain Neurological: No: Weakness, Numbness Objective Exam Vital Signs Date Time Temp Pulse Resp B/P (MAP) Pulse Ox O2 Delivery O2 Flow Rate FiO2 05/17/22 07:16 36.5 86 18 117/59 (78) 92 Nasal Cannula 2.00 2.00 05/17/22 05:35 94 Nasal Cannula 2.00 05/17/22 04:00 36.4 84 16 99/64 (76) 94 Nasal Cannula 2.00 05/17/22 00:00 37.3 89 16 102/65 (77) 93 Nasal Cannula 2.00 05/16/22 20:00 Room Air 05/16/22 19:41 36.7 99 20 105/66 (79) 91 Room Air 05/16/22 15:07 37.0 97 18 100/63 (75) 90 Room Air 05/16/22 11:10 36.3 96 18 106/56 (73) 91 Room Air 05/16/22 08:00 Room Air I & O 05/17/22 07:00 Intake Total 2050 ml Output Total 1 ml Balance 2049 ml Capillary Refill : General Appearance: No Apparent Distress, WD/WN HEENT: PERRL/EOMI, Pharynx Normal Neck: Non Tender, Supple Respiratory: Lungs Clear, Normal Breath Sounds, No Accessory Muscle Use Cardiovascular: Regular Rate, Rhythm, No JVD, Normal Peripheral Pulses Peripheral Pulses: 2+ Radial Pulses (R), 2+ Radial Pulses (L) Gastrointestinal: soft, tenderness (incisional), other (incision clean, dry, intact) Extremity: Non Tender, No Calf Tenderness, No Pedal Edema Neurologic/Psychiatric: Alert, Oriented x3 Skin: Normal Color, Warm/Dry Lymphatic: No Adenopathy Results Lab Laboratory Tests 05/16/22 11:08: Glucometer 276H 05/16/22 15:06: Glucometer 183H 05/16/22 20:10: Glucometer 250H 05/17/22 05:16: Glucometer 136H 05/17/22 05:44: White Blood Count 9.6, Red Blood Count 2.65L, Hemoglobin 7.8L, Hematocrit 23L, Mean Corpuscular Volume 88, Mean Corpuscular Hemoglobin 29, Mean Corpuscular Hemoglobin Concent 33, Red Cell Distribution Width 13.3, Platelet Count 227, Mean Platelet Volume 9.8, Immature Granulocyte % (Auto) 0, Neutrophils (%) (Auto) 54, Lymphocytes (%) (Auto) 34, Monocytes (%) (Auto) 8, Eosinophils (%) (Auto) 2, Basophils (%) (Auto) 1, Neutrophils # (Auto) 5.2, Lymphocytes # (Auto) 3.3, Monocytes # (Auto) 0.8, Eosinophils # (Auto) 0.2, Basophils # (Auto) 0.1, Immature Granulocyte # (Auto) 0.0, Sodium Level 140, Potassium Level 3.2L, Chloride Level 107, Carbon Dioxide Level 25, Anion Gap 8, Blood Urea Nitrogen 12, Creatinine 0.65, Estimat Glomerular Filtration Rate 104, BUN/Creatinine Ratio 18, Glucose Level 136H, Calcium Level 8.6, Corrected Calcium 9.4, Total Bilirubin 0.5, Aspartate Amino Transf (AST/SGOT) 16, Alanine Aminotransferase (ALT/SGPT) 27, Alkaline Phosphatase 55, Total Protein 5.4L, Albumin 3.0L Microbiology 05/14/22 MRSA Screen - Final, Complete MRSA not isolated Assessment/Plan Assessment/Plan Assessment/Plan Anemia - secondary to blood loss; most likely from anastomosis s/p Right colectomy - open - POD#3 Hematochezia Tachycardia-improved hgb down to 7.8 from 9.4 yesterday and 12.2 on 05/15 continue to track and trend hgb, transfuse as necessary concern for anastamotic bleeding and risk of dehiscence of anastamosis with colonoscopy consider CT/CT angio if pt status declines continue supportive measures- IVF, O2, monitor labs q12h consider surgical intervention if conservative management fails pt appears stable at this time SHAMIKA CORMIER DO 05/17/22 1505: Subjective Subjective/Events-last exam having bm with blood, but less frequent. tolerating clears. pain controlled. using IS . hgb down to 7.8. fatigued. Denies n/v fever sweats chills shortness of breath or chest pain. Objective Exam General Appearance: No Apparent Distress, WD/WN HEENT: PERRL/EOMI, Normal ENT Inspection Neck: Non Tender, Supple Respiratory: Normal Breath Sounds, No Accessory Muscle Use Cardiovascular: Regular Rate, Rhythm Gastrointestinal: soft, tenderness (incisional), other (incision clean, dry, intact) Extremity: Non Tender, No Calf Tenderness Neurologic/Psychiatric: Alert, Oriented x3 Skin: Normal Color, Warm/Dry, Pallor Lymphatic: No Adenopathy Assessment/Plan Assessment/Plan Assessment/Plan Anemia - secondary to blood loss; most likely from anastomosis s/p Right colectomy - open - POD#3 Hematochezia Tachycardia-improved hgb down to 7.8 from 9.4 yesterday and 12.2 on 05/15 continue to track and trend hgb, transfuse as necessary concern for anastamotic bleeding likely will stop on its own. continue supportive measures- IVF, O2, follow hgb consider surgical intervention if conservative management fails will repeat cbc this afternoon if continues to drop will need prbc Supervisory-Addendum Brief Verification & Attestation Participated in pt care: history, MDM, physical Personally performed: exam, history, MDM, supervision of care Care discussed with: Medical Student Procedures: n/a Results interpretation: Verified all documentation Verification and Attestation of Medical Student E/M Service A medical student performed and documented this service in my presence. I revi ewed and verified all information documented by the medical student and made modifications to such information, when appropriate. I personally performed the physical exam and medical decision making. Shamika Cormier, May 17, 2022,15:04 RASHARD CLAYTON May 17, 2022 07:51 SHAMIKA CORMIER DO May 17, 2022 15:05
[2022-05-17] MEDS: KCL 10 MEQ TAB (MICRO K) PO SCH (09:20)
[2022-05-17] MEDS: LORATADINE (CLARITIN) 10 MG TAB PO SCH (09:20)
[2022-05-17] MEDS: PANTOPRAZOLE 40 MG (PROTONIX) TAB PO SCH (09:20)
[2022-05-17] MEDS: ONDANSETRON 4 MG/2 ML (SDV) Z0FRAN IVP PRN ×2 (11:12→22:04)
[2022-05-17 15:16] LABS: HEMATOCRIT 25 % (35-52); HEMOGLOBIN 8.1 g/dL (11.5-16.0); MEAN CORPUSCULAR HEMOGLOBIN 29 pg (25-34); MEAN CORPUSCULAR HGB CONC 33 g/dL (32-36); MEAN CORPUSCULAR VOLUME 89 fL (80-99); MEAN PLATELET VOLUME 9.8 fL (9.0-12.2); PLATELET COUNT 248 10^3/uL (130-400); WHITE BLOOD COUNT 10.5 10^3/uL (4.3-11.0)
--- NOTE | 2022-05-17 17:19 | Progress Note - Hospitalist ---
Subjective HPI/CC On Admission Date Seen by Provider: May 17, 2022 Time Seen by Provider: 10:40 Patient is a 57-year-old female with a history of gastric polyps, colorectal polyps, and a family history of colorectal cancer who was admitted 05/14 after under going a right colectomy. The patient had a colonoscopy done on 04/07 that revealed a large polyp with high-grade dysplasia. The patient is awake and alert in her chair this morning, no family at bedside. She reports that she has only been having some mild incisional pain and soreness in her lower abdomen which is slightly tender on palpation. The patient describes the pain as an ache that is worsened with coughing or laughing that they would rate at a 2/10. The patient h as been ambulating, using her IS, passing flatus, and had a BM last night. She is currently on clears and reports that she has been tolerating this well. The patient complains of some mild sinusitis which they attribute to allergies. She states that she feels well overall and has no new complaints. Subjective/Events-last exam She is still having melena. She has been up and took a shower. She has been tolerating clear liquids with some nausea. Objective Exam Vital Signs Vital Signs Date Time Temp Pulse Resp B/P (MAP) Pulse Ox O2 Delivery O2 Flow Rate FiO2 05/17/22 15:26 36.6 93 18 103/66 (78) 90 Room Air 05/17/22 07:16 2.00 2.00 Capillary Refill : General Appearance: No Apparent Distress, Obese Respiratory: Lungs Clear, Normal Breath Sounds, No Respiratory Distress Cardiovascular: Regular Rate, Rhythm, No Edema, No Murmur Gastrointestinal: Normal Bowel Sounds, Soft Extremity: Normal Inspection, No Pedal Edema Neurologic/Psychiatric: Alert, Normal Mood/Affect Skin: Normal Color, Warm/Dry Results/Procedures Lab Laboratory Tests 05/17/22 05:44 05/17/22 15:10 Patient resulted labs reviewed. Assessment/Plan Assessment and Plan Assess & Plan/Chief Complaint Dysplastic colon polyp s/p right colectomy Postoperative anemia due to acute blood loss Melena Surgery primary Hgb decreasing, repeat stable to slightly improved Continue to monitor signs/symptoms and H/H IV PPI T2DM HLD Obesity Levemir and sliding scale insulin DVT prophylaxis: held due to acute GI bleeding Diagnosis/Problems Diagnosis/Problems (1) Dysplastic colon polyp Status: Acute (2) S/P right colectomy Status: Acute (3) Postoperative anemia due to acute blood loss Status: Acute (4) Melena Status: Acute PRESLEY RASMUSSEN MD May 17, 2022 17:19
[2022-05-17] MEDS ORDERED: POTASSIUM CL 10MEQ/50ML IVPB 50 ML IV ONE ×2 (17:33→18:30)
[2022-05-17] MEDS ORDERED: NS IV 500 ML 500 ML ONE (17:33)
[2022-05-17] MEDS: POTASSIUM CL 10MEQ/50ML IVPB 50 ML IV SCH ×4 (17:35→21:29)
[2022-05-17] MEDS: NS IV 500 ML 500 ML IV SCH (17:36)
[2022-05-17] MEDS ORDERED: POTASSIUM CL 10MEQ/50ML IVPB 100 ML IV ONE (19:40)
[2022-05-17] MEDS: FLUTICASONE NASAL SPRAY (FLONASE) 16 GM BTL NS SCH (21:28)
[2022-05-18 03:41] VITALS: BP 107/58
[2022-05-18 06:08] LABS: HEMOGLOBIN 7.1 g/dL (11.5-16.0)
[2022-05-18] MEDS: inSUlin ASPART (NovoLOG) 1 UNIT/0.01 ML (CHARGE PER UNIT) SC SCH ×3 (06:27→17:03)
[2022-05-18 06:37] LABS: CALCIUM 8.3 MG/DL (8.5-10.1); CREATININE SERUM 0.59 MG/DL (0.60-1.30); MAGNESIUM 1.8 MG/DL (1.6-2.4); POTASSIUM 3.2 MMOL/L (3.6-5.0)
--- NOTE | 2022-05-18 07:08 | Progress Note - Surgery ---
[facility] 05/18/22 0708: Subjective Date Seen by a Provider: May 18, 2022 Time Seen by a Provider: 07:03 Subjective/Events-last exam Today she is feeling better than yesterday. Pt reports she is not having BM, just some dried blood that is less than it was yesterday. Endorses passing fl atus and no issues with urination. She has some soreness in the abdomen but no pain. Denies nausea, vomiting, CP, SOB, sweats/chills. Nurse also reports pt had some tachycardia overnight that resolved on its own. Hgb down to 7.1 this morning from 8.1 yesterday afternoon. Review of Systems General: No Chills, No Night Sweats HEENT: No Head Aches, No Visual Changes Pulmonary: No Dyspnea, No Cough Cardiovascular: No: Chest Pain, Palpitations Gastrointestinal: Abdominal Pain (soreness); No: Nausea, Vomiting Genitourinary: No Dysuria, No Frequency Musculoskeletal: No: neck pain, shoulder pain Neurological: No: Weakness, Numbness Objective Exam Vital Signs Date Time Temp Pulse Resp B/P (MAP) Pulse Ox O2 Delivery O2 Flow Rate FiO2 05/18/22 03:41 36.4 87 16 107/58 (74) 97 05/17/22 23:58 36.8 97 16 110/52 (71) 94 Nasal Cannula 2.00 05/17/22 22:23 36.9 97 20 104/66 (79) 97 Nasal Cannula 2.00 05/17/22 21:31 37.4 101 18 108/70 (83) Nasal Cannula 2.00 05/17/22 20:49 37.3 102 20 105/68 (80) 92 Nasal Cannula 2.00 05/17/22 20:00 Nasal Cannula 2.00 05/17/22 19:00 37.4 103 20 104/66 (79) 90 Nasal Cannula 2.00 05/17/22 15:26 36.6 93 18 103/66 (78) 90 Room Air 05/17/22 11:16 36.5 102 18 125/75 (92) 90 Room Air 05/17/22 08:00 Room Air 05/17/22 07:16 36.5 86 18 117/59 (78) 92 Nasal Cannula 2.00 2.00 I & O 05/18/22 07:00 Intake Total 1405 ml Output Total 200 ml Balance 1205 ml Capillary Refill : General Appearance: No Apparent Distress, Obese HEENT: PERRL/EOMI, Normal ENT Inspection Neck: Non Tender, Supple Respiratory: Lungs Clear, Normal Breath Sounds, No Respiratory Distress Cardiovascular: Regular Rate, Rhythm, No Edema, No Murmur Peripheral Pulses: 2+ Radial Pulses (R), 2+ Radial Pulses (L) Gastrointestinal: soft, tenderness (incisional), other (incision clean, dry, intact) Extremity: Normal Inspection, No Pedal Edema Neurologic/Psychiatric: Alert, Normal Mood/Affect Skin: Normal Color, Warm/Dry Lymphatic: No Adenopathy Results Lab Laboratory Tests 05/17/22 15:10: White Blood Count 10.5, Red Blood Count 2.78L, Hemoglobin 8.1L, Hematocrit 25L, Mean Corpuscular Volume 89, Mean Corpuscular Hemoglobin 29, Mean Corpuscular Hemoglobin Concent 33, Red Cell Distribution Width 13.3, Platelet Count 248, Mean Platelet Volume 9.8 05/18/22 05:35: Hemoglobin 7.1L, Hematocrit 22L, Sodium Level 139, Potassium Level 3.2L, Chloride Level 106, Carbon Dioxide Level 23, Anion Gap 10, Blood Urea Nitrogen 9, Creatinine 0.59L, Estimat Glomerular Filtration Rate 106, BUN/Creatinine Ratio 15, Glucose Level 100, Calcium Level 8.3L, Magnesium Level 1.8 Microbiology 05/14/22 MRSA Screen - Final, Complete MRSA not isolated Assessment/Plan Assessment/Plan Assessment/Plan Anemia - secondary to blood loss; most likely from anastomosis s/p Right colectomy - open - POD#4 Hematochezia Tachycardia hgb down to 7.1 from 8.1 yesterday afternoon and 12.2 on 05/15 continue to track and trend hgb, transfuse as necessary concern for anastamotic bleeding likely will stop on its own. continue supportive measures- IVF, O2, follow hgb consider surgical intervention if conservative management fails will repeat cbc this afternoon if continues to drop will need prbc SHAMIKA CORMIER DO 05/18/22 1206: Subjective Subjective/Events-last exam Doing well. Dried blood in bm. Pain controlled. Hgb down to 7.1 today. Denies n/v fever sweats chills shortness of breath or chest pain. Objective Exam General Appearance: No Apparent Distress, Obese HEENT: PERRL/EOMI, Normal ENT Inspection Neck: Non Tender, Supple Respiratory: Chest Non Tender, No Accessory Muscle Use, No Respiratory Distress Cardiovascular: Regular Rate, Rhythm, No JVD Gastrointestinal: soft, tenderness (incisional), other (incision clean, dry, intact) Extremity: Normal Inspection Neurologic/Psychiatric: Alert, Oriented x3, Normal Mood/Affect Skin: Normal Color, Warm/Dry Lymphatic: No Adenopathy Assessment/Plan Assessment/Plan Assessment/Plan Anemia - secondary to blood loss; most likely from anastomosis s/p Right colectomy - open - POD#4 Hematochezia Tachycardia hgb down to 7.1 from 8.1 yesterday afternoon and 12.2 on 05/15 continue to track and trend hgb, transfuse as necessary concern for anastamotic bleeding likely will stop on its own. continue supportive measures- IVF, O2, follow hgb will repeat cbc this afternoon if continues to drop will need prbc Supervisory-Addendum Brief Verification & Attestation Participated in pt care: history, MDM, physical Personally performed: exam, history, MDM, supervision of care Care discussed with: Medical Student Procedures: n/a Results interpretation: Verified all documentation Verification and Attestation of Medical Student E/M Service A medical student performed and documented this service in my presence. I reviewed and verified all information documented by the medical student and made modifications to such information, when appropriate. I personally performed the physical exam and medical decision making. Shamika Cormier, May 18, 2022,12:06 RASHARD CLAYTON May 18, 2022 07:08 SHAMIKA CORMIER DO May 18, 2022 12:06
[2022-05-18 07:32] VITALS: BP 107/68
[2022-05-18] MEDS ORDERED: MAGNESIUM 1 GM/100 ML IVPB 100 ML IV ONE (08:00)
[2022-05-18] MEDS: NS IV 500 ML 500 ML IV SCH (08:04)
[2022-05-18] MEDS: LORATADINE (CLARITIN) 10 MG TAB PO SCH (08:10)
[2022-05-18] MEDS: KCL 10 MEQ TAB (MICRO K) PO SCH (08:10)
[2022-05-18] MEDS: PANTOPRAZOLE 40 MG (PROTONIX) TAB PO SCH (08:10)
[2022-05-18] MEDS: POTASSIUM CL 10MEQ/50ML IVPB 50 ML IV SCH ×4 (08:11→12:12)
--- NOTE | 2022-05-18 10:04 | Progress Note - Hospitalist ---
Subjective HPI/CC On Admission Date Seen by Provider: May 18, 2022 Time Seen by Provider: 09:30 Patient is a 57-year-old female with a history of gastric polyps, colorectal polyps, and a family history of colorectal cancer who was admitted 05/14 after under going a right colectomy. The patient had a colonoscopy done on 04/07 that revealed a large polyp with high-grade dysplasia. The patient is awake and alert in her chair this morning, no family at bedside. She reports that she has only been having some mild incisional pain and soreness in her lower abdomen which is slightly tender on palpation. The patient describes the pain as an ache that is worsened with coughing or laughing that they would rate at a 2/10. The patient h as been ambulating, using her IS, passing flatus, and had a BM last night. She is currently on clears and reports that she has been tolerating this well. The patient complains of some mild sinusitis which they attribute to allergies. She states that she feels well overall and has no new complaints. Subjective/Events-last exam She is still having some black stools. She is having some nausea with intake. She denies abdominal pain. She is not lightheaded or dizzy. She denies chest pain and shortness of breath. Objective Exam Vital Signs Vital Signs Date Time Temp Pulse Resp B/P (MAP) Pulse Ox O2 Delivery O2 Flow Rate FiO2 05/18/22 07:32 36.0 79 18 107/68 (81) 95 Nasal Cannula 2.00 2.00 Capillary Refill : General Appearance: No Apparent Distress, Obese Respiratory: Lungs Clear, No Respiratory Distress Cardiovascular: Regular Rate, Rhythm, No Murmur Gastrointestinal: Normal Bowel Sounds, Soft Extremity: Normal Inspection, No Pedal Edema Neurologic/Psychiatric: Alert, Normal Mood/Affect Results/Procedures Lab Laboratory Tests 05/17/22 15:10 05/18/22 05:35 Patient resulted labs reviewed. Assessment/Plan Assessment and Plan Assess & Plan/Chief Complaint Dysplastic colon polyp s/p right colectomy Postoperative anemia due to acute blood loss Melena Surgery primary Hgb 7, down slightly Repeat H/H this afternoon Transfuse for Hgb <7 IV PPI Hypokalemia Monitor and replace as needed T2DM HLD Obesity Levemir and sliding scale insulin DVT prophylaxis: held due to acute GI bleeding Diagnosis/Problems Diagnosis/Problems (1) Dysplastic colon polyp Status: Acute (2) S/P right colectomy Status: Acute (3) Postoperative anemia due to acute blood loss Status: Acute (4) Melena Status: Acute (5) Hypokalemia Status: Acute PRESLEY RASMUSSEN MD May 18, 2022 10:04
[2022-05-18 11:21] VITALS: BP 130/61
[2022-05-18 15:49] VITALS: BP 116/56
[2022-05-18 18:13] LABS: HEMATOCRIT 24 % (35-52); MEAN CORPUSCULAR HEMOGLOBIN 29 pg (25-34); MEAN CORPUSCULAR HGB CONC 33 g/dL (32-36); MEAN CORPUSCULAR VOLUME 88 fL (80-99); MEAN PLATELET VOLUME 9.4 fL (9.0-12.2); PLATELET COUNT 289 10^3/uL (130-400); WHITE BLOOD COUNT 11.7 10^3/uL (4.3-11.0)
[2022-05-18] MEDS: FLUTICASONE NASAL SPRAY (FLONASE) 16 GM BTL NS SCH (19:52)
[2022-05-18 20:08] VITALS: BP 137/63
[2022-05-18 23:40] VITALS: BP 94/53
[2022-05-19] VITALS (7 sets, daily range): BP systolic 121–137; BP diastolic 59–75
[2022-05-19 05:38] LABS: HEMOGLOBIN 7.4 g/dL (11.5-16.0)
[2022-05-19 05:57] LABS: CALCIUM 8.7 MG/DL (8.5-10.1); CREATININE SERUM 0.67 MG/DL (0.60-1.30); POTASSIUM 3.6 MMOL/L (3.6-5.0)
[2022-05-19 06:30] LABS: BASOPHILS # (AUTO) 0.1 10^3/uL (0.0-0.1); BASOPHILS % (AUTO) 1 % (0-10); EOSINOPHILS # (AUTO) 0.9 10^3/uL (0.0-0.3); EOSINOPHILS % (AUTO) 9 % (0-10); HEMATOCRIT 23 % (35-52); HEMOGLOBIN 7.4 g/dL (11.5-16.0); LYMPHOCYTES # (AUTO) 2.5 10^3/uL (1.0-4.0); LYMPHOCYTES % (AUTO) 25 % (12-44); MEAN CORPUSCULAR HEMOGLOBIN 29 pg (25-34); MEAN CORPUSCULAR HGB CONC 32 g/dL (32-36); MEAN CORPUSCULAR VOLUME 90 fL (80-99); MEAN PLATELET VOLUME 9.8 fL (9.0-12.2); MONOCYTES # (AUTO) 0.7 10^3/uL (0.0-1.0); MONOCYTES % (AUTO) 7 % (0-12); NEUTROPHILS # (AUTO) 5.8 10^3/uL (1.8-7.8); NEUTROPHILS % (AUTO) 58 % (42-75); PLATELET COUNT 317 10^3/uL (130-400)
[2022-05-19 06:33] LABS: ALBUMIN 3.2 GM/DL (3.2-4.5)
[2022-05-19 06:36] LABS: TOTAL PROTEIN 5.9 GM/DL (6.4-8.2)
[2022-05-19 06:38] LABS: BILIRUBIN,TOTAL 0.5 MG/DL (0.1-1.0)
[2022-05-19 06:41] LABS: BILIRUBIN,DIRECT 0.3 MG/DL (0.0-0.3); BILIRUBIN,INDIRECT 0.2 MG/DL
[2022-05-19] MEDS: inSUlin ASPART (NovoLOG) 1 UNIT/0.01 ML (CHARGE PER UNIT) SC SCH ×3 (06:58→17:31)
--- NOTE | 2022-05-19 08:04 | Progress Note - Surgery ---
ELENA PARKS 05/19/22 0804: Subjective Date Seen by a Provider: May 19, 2022 Time Seen by a Provider: 07:20 Subjective/Events-last exam Patient is feeling better. States that she even had her laptop brought in to do some work yesterday. Patient states she is still slightly symptomatic from her anemia. States she has to get up slowly to not get light headed and dizzy. Patient is having some pruritis at abdominal incision site. Patient denies BM but has passed flatus. Denies Palpitations and shortness of breath. Is on O2 overnight, but patient wears a CPAP at home. Patient is still on clear liquid diet, and would like to attempt to increase diet. Patient's Hgb 7.4 today. Review of Systems General: No Chills, No Night Sweats HEENT: No Head Aches, No Visual Changes Pulmonary: No Dyspnea, No Cough Cardiovascular: Lt Headedness (orthostatic); No: Chest Pain, Palpitations Gastrointestinal: No: Nausea, Vomiting, Abdominal Pain Genitourinary: No Dysuria, No Frequency Objective Exam Vital Signs Date Time Temp Pulse Resp B/P (MAP) Pulse Ox O2 Delivery O2 Flow Rate FiO2 05/19/22 03:30 36.6 83 16 121/75 (90) 96 Nasal Cannula 2.00 05/18/22 23:40 36.5 79 16 94/53 (67) 94 Nasal Cannula 2.00 05/18/22 20:28 Room Air 05/18/22 20:08 35.9 92 18 137/63 (87) 92 Room Air 05/18/22 15:49 36.5 87 18 116/56 (76) 93 Room Air 05/18/22 11:21 36.6 93 18 130/61 (84) 92 Room Air 05/18/22 08:00 95 Nasal Cannula 2.00 I & O 05/19/22 07:00 Intake Total 2795 ml Balance 2795 ml Capillary Refill : General Appearance: No Apparent Distress, WD/WN HEENT: PERRL/EOMI Neck: Non Tender, Supple Respiratory: Chest Non Tender, Lungs Clear (anterior posts only), Normal Breath Sounds, No Accessory Muscle Use, No Respiratory Distress Cardiovascular: Regular Rate, Rhythm, No Murmur Peripheral Pulses: 2+ Radial Pulses (R), 2+ Radial Pulses (L) Gastrointestinal: non tender, soft, other (incision clean, dry, intact - heal ing well. Mild irritation from adhesion) Extremity: No Calf Tenderness, No Pedal Edema Neurologic/Psychiatric: Alert, Oriented x3 Skin: Normal Color, Warm/Dry Lymphatic: No Adenopathy Results Lab Laboratory Tests 05/18/22 17:51: White Blood Count 11.7H, Red Blood Count 2.77L, Hemoglobin 8.0L, Hematocrit 24L, Mean Corpuscular Volume 88, Mean Corpuscular Hemoglobin 29, Mean Corpuscular Hemoglobin Concent 33, Red Cell Distribution Width 13.4, Platelet Count 289, Mean Platelet Volume 9.4 05/19/22 05:21: Hemoglobin 7.4L, Hematocrit 23L, Sodium Level 140, Potassium Level 3.6, Chloride Level 105, Carbon Dioxide Level 22, Anion Gap 13, Blood Urea Nitrogen 7, Creatinine 0.67, Estimat Glomerular Filtration Rate 103, BUN/Creatinine Ratio 10, Glucose Level 145H, Calcium Level 8.7 05/19/22 05:29: White Blood Count 10.0, Red Blood Count 2.57L, Hemoglobin 7.4L, Hematocrit 23L, Mean Corpuscular Volume 90, Mean Corpuscular Hemoglobin 29, Mean Corpuscular Hemoglobin Concent 32, Red Cell Distribution Width 13.4, Platelet Count 317, Mean Platelet Volume 9.8, Immature Granulocyte % (Auto) 1, Neutrophils (%) (Auto) 58, Lymphocytes (%) (Auto) 25, Monocytes (%) (Auto) 7, Eosinophils (%) (Auto) 9, Basophils (%) (Auto) 1, Neutrophils # (Auto) 5.8, Lymphocytes # (Auto) 2.5, Monocytes # (Auto) 0.7, Eosinophils # (Auto) 0.9H, Basophils # (Auto) 0.1, Immature Granulocyte # (Auto) 0.1, Total Bilirubin 0.5, Direct Bilirubin 0.3, Indirect Bilirubin 0.2, Aspartate Amino Transf (AST/SGOT) 26, Alanine Aminotransferase (ALT/SGPT) 25, Alkaline Phosphatase 62, Total Protein 5.9L, Albumin 3.2 Microbiology 05/14/22 MRSA Screen - Final, Complete MRSA not isolated Assessment/Plan Assessment/Plan Assessment/Plan Anemia - secondary to blood loss; most likely from anastomosis s/p Right colectomy - open - POD#5 Hematochezia Tachycardia - improved hgb 7.4 today -> 7.1 and8.0 yesterday continue to track and trend hgb, transfuse as necessary concern for anastamotic bleeding likely will stop on its own. Patient still having occasional soft BP continue supportive measures- IVF, O2, follow hgb Consider diet increase as tolerated. If Hgb stays stable and patient has BM, may be home tomorrow or day. TYLER CABRERA DO 05/19/22 1206: Subjective Time Seen by a Provider: 11:31 Subjective/Events-last exam Pt seen and examined, states she is feeling better; but still a little weak. She is tolerating clears and minimal pain Review of Systems General: No Chills, No Night Sweats Pulmonary: No Dyspnea, No Cough Cardiovascular: No: Chest Pain, Palpitations Gastrointestinal: No: Nausea, Vomiting, Abdominal Pain Objective Exam General Appearance: No Apparent Distress, Obese HEENT: PERRL/EOMI Respiratory: Lungs Clear (anterior posts only), Normal Breath Sounds, No Accessory Muscle Use, No Respiratory Distress Cardiovascular: Regular Rate, Rhythm, No Murmur Gastrointestinal: non tender, soft, other (incision clean, dry, intact - healing well. Mild irritation from adhesion) Extremity: No Calf Tenderness Neurologic/Psychiatric: Alert, Oriented x3 Skin: Pallor Assessment/Plan Assessment/Plan Assessment/Plan Anemia - secondary to blood loss; most likely from anastomosis s/p Right colectomy - open - POD#5 Hematochezia Tachycardia - improved hgb 7.4 today -> 7.1 and 8.0 yesterday continue to track and trend hgb, transfuse as necessary It appears that anastamotic bleeding has stopped on its own. Patient still having occasional soft BP, continue supportive measures- IVF, O2, follow hgb Increase diet to soft. If Hgb stays stable and patient has BM, may be home tomorrow or Thursday. Pt encouraged to use IS and ambulate. Supervisory-Addendum Brief Verification & Attestation Participated in pt care: history, MDM, physical Personally performed: exam, history, MDM, supervision of care Care discussed with: Medical Student Procedures: n/a Verification and Attestation of Medical Student E/M Service A medical student performed and documented this service. I then reviewed and verified all information documented by the medical student and made modifications to such information, when appropriate. I personally performed a physical exam, medical decision making and then discussed any differences between the notes and made revisions as necessary to create one note. Tyler Cabrera , 05/19/22 , 12:06 ELENA PARKS May 19, 2022 08:04 TYLER CABRERA DO May 19, 2022 12:06
[2022-05-19] MEDS: LORATADINE (CLARITIN) 10 MG TAB PO SCH (09:11)
[2022-05-19] MEDS: KCL 10 MEQ TAB (MICRO K) PO SCH (09:11)
[2022-05-19] MEDS: PANTOPRAZOLE 40 MG (PROTONIX) TAB PO SCH (09:11)
[2022-05-19] MEDS ORDERED: NS IV 500 ML 500 ML IV SCH ×2 (09:15)
--- NOTE | 2022-05-19 09:45 | Progress Note ---
BRITTANI SAUCEDA 05/19/22 0945: Subjective Date Seen by a Provider: May 19, 2022 Time Seen by a Provider: 09:00 Subjective/Events-last exam Patient is awake and alert in her bed this morning, no family at bedside. Patient reports that she is still having melena and describes it as dried blood in her stool. She had a BM this morning and said the color was unchanged from yesterday. She is currently on clears which she states she has been tolerating well. The patient reports some mild dsypnea on exertion which she notices after walking to or from the bathroom. Hemoglobin yesterday morning was measured at 7.1 and was remeasured in the afternoon at 8.0. Currently, it is 7.4. She re ports that she is sore in her lower abdomen, but that the pain is well- controlled with her current medications. The patient appears pale this morning and complains of some mild sinusitis with a cough secondary to post nasal drip, but states that this is a chronic issue due to allergies. The patient has no new complaints. Review of Systems General: No Chills; Fatigue HEENT: No Eye Pain, No Ear Pain; Sinus Congestion, Sore Throat Pulmonary: Dyspnea (on exertion), Cough (Secondary to post nasal drip) Cardiovascular: No: Chest Pain, Palpitations Gastrointestinal: Abdominal Pain (Lower abdomen, well-controlled), Melena; No: Nausea, Vomiting Genitourinary: No Incontinence, No Hematuria Musculoskeletal: No: neck pain, back pain Neurological: No: Numbness, Confusion Objective Exam Last Set of Vital Signs Vital Signs Date Time Temp Pulse Resp B/P (MAP) Pulse Ox O2 Delivery O2 Flow Rate FiO2 05/19/22 08:39 36.8 97 18 125/60 (81) 94 Room Air 05/19/22 03:30 2.00 Capillary Refill : I&O Intake and Output 05/19/22 00:00 Intake Total 3095 ml Balance 3095 ml Intake Oral 2320 ml IV Total 775 ml # Voids 5 General: Alert, Oriented X3, No Acute Distress HEENT: Atraumatic Neck: Supple, No JVD Lungs: Clear to Auscultation Heart: Regular Rate, Normal S1, Normal S2 Abdomen: Soft, Other (Soreness in lower abdomen) Extremities: No Clubbing, No Cyanosis Skin: No Rashes, No Breakdown Neuro: Normal Speech, Normal Tone Results Lab Laboratory Tests 05/18/22 17:51: White Blood Count 11.7H, Red Blood Count 2.77L, Hemoglobin 8.0L, Hematocrit 24L, Mean Corpuscular Volume 88, Mean Corpuscular Hemoglobin 29, Mean Corpuscular Hemoglobin Concent 33, Red Cell Distribution Width 13.4, Platelet Count 289, Mean Platelet Volume 9.4 05/19/22 05:21: Hemoglobin 7.4L, Hematocrit 23L, Sodium Level 140, Potassium Level 3.6, Chloride Level 105, Carbon Dioxide Level 22, Anion Gap 13, Blood Urea Nitrogen 7, Creatinine 0.67, Estimat Glomerular Filtration Rate 103, BUN/Creatinine Ratio 10, Glucose Level 145H, Calcium Level 8.7 05/19/22 05:29: White Blood Count 10.0, Red Blood Count 2.57L, Hemoglobin 7.4L, Hematocrit 23L, Mean Corpuscular Volume 90, Mean Corpuscular Hemoglobin 29, Mean Corpuscular Hemoglobin Concent 32, Red Cell Distribution Width 13.4, Platelet Count 317, Mean Platelet Volume 9.8, Immature Granulocyte % (Auto) 1, Neutrophils (%) (Auto) 58, Lymphocytes (%) (Auto) 25, Monocytes (%) (Auto) 7, Eosinophils (%) (Auto) 9, Basophils (%) (Auto) 1, Neutrophils # (Auto) 5.8, Lymphocytes # (Auto) 2.5, Monocytes # (Auto) 0.7, Eosinophils # (Auto) 0.9H, Basophils # (Auto) 0.1, Immature Granulocyte # (Auto) 0.1, Total Bilirubin 0.5, Direct Bilirubin 0.3, Indirect Bilirubin 0.2, Aspartate Amino Transf (AST/SGOT) 26, Alanine Aminotransferase (ALT/SGPT) 25, Alkaline Phosphatase 62, Total Protein 5.9L, Albumin 3.2 Microbiology 05/14/22 MRSA Screen - Final, Complete MRSA not isolated Assessment/Plan Assessment/Plan Assess & Plan/Chief Complaint 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 Hematochezia Acute post-op blood loss Anemia Hx of colorectal polyps Hx of gastric polyps HLD DM requiring insulin Diverticulosis Internal hemorrhoids Chronic gastritis BRCA + Obesity - BMI 30.7 Currently on clears Transfuse 1 unit of PRBCs, continue to monitor Hg and transfuse as needed IV Iron supplementation B12 supplementation Continue to monitor glucose levels, adjust insulin dosage as needed Pain control as needed, currently well-controlled Encouraged patient to continue ambulating as tolerated Encouraged patient to continue using IS Continue to work with PT Counseled on the benefits of weight loss JESSA ORTEGA DO 05/20/22 0513: Subjective Review of Systems General: Fatigue, Malaise Objective Exam General: Alert, Oriented X3, Cooperative, No Acute Distress Lungs: Clear to Auscultation, Normal Air Movement Heart: Regular Rate, Normal S1, Normal S2, No Murmurs Psych/Mental Status: Mental Status NL, Mood NL Assessment/Plan Assessment/Plan Assess & Plan/Chief Complaint Transfuse 1 unit of blood IV iron infusion Vitamin B12 supplement Supervisory-Addendum Brief Verification & Attestation Participated in pt care: history, MDM, physical Personally performed: exam, history, MDM, supervision of care Care discussed with: Medical Student Procedures: n/a Results interpretation: Verified all documentation Verification and Attestation of Medical Student E/M Service A medical student performed and documented this service in my presence. I reviewed and verified all information documented by the medical student and made modifications to such information, when appropriate. I personally performed the physical exam and medical decision making. Jessa Ortega, May 20, 2022,05:12 BRITTANI SAUCEDA May 19, 2022 09:45 JESSA ORTEGA DO May 20, 2022 05:13
[2022-05-19] MEDS ORDERED: IRON SUCROSE 200 MG/10 ML (VENOFER) VIAL IV SCH (10:00)
[2022-05-19] MEDS ORDERED: CYANOCOBALAMIN INJ 1000 MCG/ML IM NR (10:00)
[2022-05-19] MEDS: FLUTICASONE NASAL SPRAY (FLONASE) 16 GM BTL NS SCH (20:41)
[2022-05-20 00:41] VITALS: BP 125/58
[2022-05-20 04:00] VITALS: BP 135/72
[2022-05-20] MEDS: inSUlin ASPART (NovoLOG) 1 UNIT/0.01 ML (CHARGE PER UNIT) SC SCH ×2 (05:47→12:41)
[2022-05-20 05:50] LABS: BASOPHILS # (AUTO) 0.1 10^3/uL (0.0-0.1); BASOPHILS % (AUTO) 1 % (0-10); EOSINOPHILS % (AUTO) 10 % (0-10); HEMATOCRIT 27 % (35-52); HEMOGLOBIN 8.9 g/dL (11.5-16.0); LYMPHOCYTES # (AUTO) 2.7 10^3/uL (1.0-4.0); LYMPHOCYTES % (AUTO) 26 % (12-44); MEAN CORPUSCULAR HEMOGLOBIN 29 pg (25-34); MEAN CORPUSCULAR HGB CONC 33 g/dL (32-36); MEAN CORPUSCULAR VOLUME 87 fL (80-99); MEAN PLATELET VOLUME 9.6 fL (9.0-12.2); MONOCYTES # (AUTO) 0.8 10^3/uL (0.0-1.0); MONOCYTES % (AUTO) 7 % (0-12); NEUTROPHILS # (AUTO) 5.6 10^3/uL (1.8-7.8); NEUTROPHILS % (AUTO) 54 % (42-75); PLATELET COUNT 306 10^3/uL (130-400); WHITE BLOOD COUNT 10.4 10^3/uL (4.3-11.0)
[2022-05-20 06:11] LABS: ALBUMIN 3.2 GM/DL (3.2-4.5); BILIRUBIN,TOTAL 0.6 MG/DL (0.1-1.0); CALCIUM 8.7 MG/DL (8.5-10.1); CREATININE SERUM 0.67 MG/DL (0.60-1.30); POTASSIUM 3.4 MMOL/L (3.6-5.0); TOTAL PROTEIN 5.6 GM/DL (6.4-8.2)
[2022-05-20] MEDS ORDERED: CYANOCOBALAMIN 1,000 MCG (VITAMIN B-12) TABLET PO SCH (07:00)
[2022-05-20] MEDS: LORATADINE (CLARITIN) 10 MG TAB PO SCH (08:02)
[2022-05-20] MEDS: KCL 10 MEQ TAB (MICRO K) PO SCH (08:02)
[2022-05-20] MEDS: PANTOPRAZOLE 40 MG (PROTONIX) TAB PO SCH (08:02)
[2022-05-20 08:09] VITALS: BP 112/65
--- NOTE | 2022-05-20 08:45 | Progress Note - Surgery ---
ELENA PARKS 05/20/22 0845: Subjective Date Seen by a Provider: May 20, 2022 Time Seen by a Provider: 07:05 Subjective/Events-last exam Patient resting in bed. States is still groggy. Patient was given 1 unit RBCs and an Iron infusion yesterday. Patient states she does think it helped her s leep. Patient states advancing diet yesterday went pretty well. Patient would like to continue to advance diet into the afternoon, and as long as her labs are okay, would be okay leaving today. Review of Systems General: No Chills, No Night Sweats HEENT: No Head Aches, No Visual Changes Pulmonary: No Dyspnea, No Cough Cardiovascular: No: Chest Pain, Palpitations Gastrointestinal: No: Nausea, Vomiting, Abdominal Pain Genitourinary: No Dysuria, No Frequency Neurological: No: Weakness, Numbness Objective Exam Vital Signs Date Time Temp Pulse Resp B/P (MAP) Pulse Ox O2 Delivery O2 Flow Rate FiO2 05/20/22 08:34 94 Room Air 2.00 05/20/22 08:09 36.8 94 20 112/65 (81) 94 Room Air 05/20/22 04:00 36.0 72 18 135/72 (93) 92 Room Air 05/20/22 00:41 36.4 78 18 125/58 (80) 91 Room Air 05/19/22 20:00 Room Air 05/19/22 19:47 36.4 86 20 124/64 (84) 91 Room Air 05/19/22 16:00 36.4 97 19 137/70 (92) 90 Room Air 05/19/22 12:28 37.0 95 20 128/74 95 Nasal Cannula 2.00 05/19/22 12:13 36.8 97 18 125/60 94 Room Air 05/19/22 11:28 37.2 95 18 125/59 (81) 91 Room Air I & O 05/20/22 06:59 Intake Total 1560 ml Balance 1560 ml Capillary Refill : General Appearance: No Apparent Distress, WD/WN HEENT: PERRL/EOMI Neck: Non Tender, Supple Respiratory: Lungs Clear (anterior posts only), Normal Breath Sounds, No Accessory Muscle Use, No Respiratory Distress Cardiovascular: Regular Rate, Rhythm, No Murmur Peripheral Pulses: 2+ Radial Pulses (R), 2+ Radial Pulses (L) Gastrointestinal: non tender, soft, other (incision clean, dry, intact - healing well. Mild irritation from adhesion.) Extremity: Non Tender, No Calf Tenderness, No Pedal Edema Neurologic/Psychiatric: Alert, Oriented x3, Normal Mood/Affect Skin: Normal Color, Warm/Dry, Pallor Lymphatic: No Adenopathy Results Lab Laboratory Tests 05/19/22 14:42: Glucometer 122H 05/19/22 20:01: Glucometer 103 05/20/22 05:24: White Blood Count 10.4, Red Blood Count 3.11L, Hemoglobin 8.9#L, Hematocrit 27L, Mean Corpuscular Volume 87, Mean Corpuscular Hemoglobin 29, Mean Corpuscular Hemoglobin Concent 33, Red Cell Distribution Width 13.8, Platelet Count 306, Mean Platelet Volume 9.6, Immature Granulocyte % (Auto) 2, Neutrophils (%) (Auto) 54, Lymphocytes (%) (Auto) 26, Monocytes (%) (Auto) 7, Eosinophils (%) (Auto) 10, Basophils (%) (Auto) 1, Neutrophils # (Auto) 5.6, Lymphocytes # (Auto) 2.7, Monocytes # (Auto) 0.8, Eosinophils # (Auto) 1.0H, Basophils # (Auto) 0.1, Immature Granulocyte # (Auto) 0.2H, Sodium Level 143, Potassium Level 3.4L, Chloride Level 107, Carbon Dioxide Level 23, Anion Gap 13, Blood Urea Nitrogen 6L, Creatinine 0.67, Estimat Glomerular Filtration Rate 103, BUN/Creatinine Ratio 9, Glucose Level 106H, Calcium Level 8.7, Corrected Calcium 9.3, Total Bilirubin 0.6, Aspartate Amino Transf (AST/SGOT) 26, Alanine Aminotransferase (ALT/SGPT) 20, Alkaline Phosphatase 70, Total Protein 5.6L, Albumin 3.2 05/20/22 05:45: Glucometer 100 Microbiology 05/14/22 MRSA Screen - Final, Complete MRSA not isolated Assessment/Plan Assessment/Plan Assessment/Plan Anemia - secondary to blood loss; most likely from anastomosis s/p Right colectomy - open - POD#6 Hematochezia - resolved Tachycardia - improved hgb 8.9, from 7.4. Given 1 unit RBC continue to track and trend hgb It appears that anastamotic bleeding has stopped on its own. Patient still havi ng occasional soft BP, continue supportive measures- IVF, O2, follow hgb. Continue to advance diet, IS, and ambulation If patient tolerates advancing diet through lunch and her Hgb is stable on recheck, Patient can go home this afternoon. Patient is a little timid to go home, given episode of hematochezia. Will have another discussion with patient this afternoon to determine how comfortable she is going home. TYLER CABRERA DO 05/20/22 1429: Subjective Time Seen by a Provider: 12:57 Subjective/Events-last exam Pt seen and examined, looking much better today. She is sitting up waiting to go home. Review of Systems Pulmonary: No Dyspnea, No Cough Cardiovascular: No: Chest Pain, Palpitations Gastrointestinal: No: Nausea, Vomiting, Abdominal Pain Objective Exam General Appearance: No Apparent Distress, Obese Respiratory: Lungs Clear (anterior posts only), Normal Breath Sounds, No Accessory Muscle Use, No Respiratory Distress Cardiovascular: Regular Rate, Rhythm, No Murmur Gastrointestinal: non tender, soft, other (incision clean, dry, intact - healing well. Mild irritation from adhesion.) Assessment/Plan Assessment/Plan Assessment/Plan Anemia - secondary to blood loss; most likely from anastomosis s/p Right colectomy - open - POD#6 Hematochezia - resolved Tachycardia - improved hgb 8.9, from 7.4. Given 1 unit RBC continue to track and trend hgb It appears that anastamotic bleeding has stopped on its own. Patient still having occasional soft BP, continue supportive measures- IVF, O2, follow hgb. Continue to advance diet, IS, and ambulation Pt ok to be D/C'd home. Supervisory-Addendum Brief Verification & Attestation Participated in pt care: history, MDM, physical Personally performed: exam, history, MDM, supervision of care Care discussed with: Medical Student Procedures: n/a Verification and Attestation of Medical Student E/M Service A medical student performed and documented this service. I then reviewed and verified all information documented by the medical student and made modifications to such information, when appropriate. I personally performed a physical exam, medical decision making and then discussed any differences between the notes and made revisions as necessary to create one note. Tyler Cabrera , 05/20/22 , 14:29 ELENA PARKS May 20, 2022 08:45 TYLER CABRERA DO May 20, 2022 14:29
[2022-05-20] MEDS ORDERED: ACHYD1T PO (09:21)
[2022-05-20] MEDS ORDERED: CYAN-41 PO (09:21)
[2022-05-20] MEDS ORDERED: INSU100I29 SQ (09:21)
[2022-05-20] MEDS ORDERED: INSU100I55 SC (09:21)
[2022-05-20] MEDS ORDERED: IRON100V2 IV (09:24)
[2022-05-20] MEDS ORDERED: IRON SUCROSE 200 MG/10 ML (VENOFER) VIAL IV ONE (09:30)
--- NOTE | 2022-05-20 10:06 | Progress Note ---
BRITTANI SAUCEDA 05/20/22 1006: Subjective Date Seen by a Provider: May 20, 2022 Time Seen by a Provider: 09:00 Subjective/Events-last exam Patient is a 57-year-old female with a history of gastric polyps, colorectal polyps, and a family history of colorectal cancer who was admitted 05/14 after under going a right colectomy. The patient had a colonoscopy done on 04/07 that revealed a large polyp with high-grade dysplasia. The morning following the surgery the patient was doing well and her only complaint was of some mild incisional pain and soreness in her lower abdomen and the patient was started on soft foods. That evening, the patient began passing large amounts of hematoch ezia and her BP dropped to 95/65. The patient at this time began feeling light- headed, weak, lethargic, and had near-syncopal episodes when standing to use the restroom. The patient was returned to [facility] and over the next few days she had episodes of melena but no further episodes of bright red blood and was managed conservatively. Her Hg was measured at 7.1 on 05/18 and 7.4 on 05/19 and the patient had significant pallor. She was given one unit of PRBCs and started on iron infusions and B12 supplementation. The patient also had some high glucose readings during her stay, up to 319, her insulin dosage was adjusted and her readings have been much more within normal range for the patient. This morning she is awake and alert in her bed and reports that she is feeling much improved overall, and her pallor has significantly improved. She reports that she has been passing flatus, but no BM today or last night. She has very mild soreness in her lower abdomen that is well-controlled with her current medications. She was started on soft foods last night and did not have much of an appetite but tolerated the transition well. She will receive a second iron infusion today and will follow outpatient to complete her last 3 infusions. After she is discharged, she will follow up outpatient with Dr. Ortega and will have her iron levels checked, they were found to be low during her stay at 25. The patient has no new complaints and feels much improved today. Review of Systems General: No Chills, No Night Sweats (Slight loss of appetite, patient thinks partially due to available food choices); Appetite HEENT: Head Aches (Mild, secondary to sinusitis), Sinus Congestion, Post Nasal Drip Pulmonary: Dyspnea (Reports mild dyspnea on exertion, improving), Cough (Mild secondary to post nasal drip) Cardiovascular: No: Chest Pain, Palpitations Gastrointestinal: Abdominal Pain (Mild lower abdominal soreness); No: Nausea, V omiting, Melena, Hematochezia Genitourinary: No Dysuria, No Frequency Musculoskeletal: No: neck pain, back pain Neurological: No: Weakness, Numbness, Incoordination Objective Exam Last Set of Vital Signs Vital Signs Date Time Temp Pulse Resp B/P (MAP) Pulse Ox O2 Delivery O2 Flow Rate FiO2 05/20/22 08:34 94 Room Air 2.00 05/20/22 08:09 36.8 94 20 112/65 (81) Capillary Refill : I&O Intake and Output 05/20/22 00:00 Intake Total 1760 ml Balance 1760 ml Intake Oral 1760 ml # Voids 5 # Bowel Movements 2 General: Alert, Oriented X3 HEENT: Atraumatic Neck: Supple, No JVD Lungs: Clear to Auscultation Heart: Regular Rate, No Murmurs Abdomen: Soft, Other (Mild soreness in lower abdomen) Extremities: No Edema, Normal Pulses Skin: No Rashes, No Breakdown, Other (Pallor greatly improved) Neuro: Normal Speech, Normal Tone, Sensation Intact Results Lab Laboratory Tests 05/19/22 14:42: Glucometer 122H 05/19/22 20:01: Glucometer 103 05/20/22 05:24: White Blood Count 10.4, Red Blood Count 3.11L, Hemoglobin 8.9#L, Hematocrit 27L, Mean Corpuscular Volume 87, Mean Corpuscular Hemoglobin 29, Mean Corpuscular Hemoglobin Concent 33, Red Cell Distribution Width 13.8, Platelet Count 306, Mean Platelet Volume 9.6, Immature Granulocyte % (Auto) 2, Neutrophils (%) (Auto) 54, Lymphocytes (%) (Auto) 26, Monocytes (%) (Auto) 7, Eosinophils (%) (Auto) 10, Basophils (%) (Auto) 1, Neutrophils # (Auto) 5.6, Lymphocytes # (Auto) 2.7, Monocytes # (Auto) 0.8, Eosinophils # (Auto) 1.0H, Basophils # (Auto) 0.1, Immature Granulocyte # (Auto) 0.2H, Sodium Level 143, Potassium Level 3.4L, Chloride Level 107, Carbon Dioxide Level 23, Anion Gap 13, Blood Urea Nitrogen 6L, Creatinine 0.67, Estimat Glomerular Filtration Rate 103, BUN/Creatinine Ratio 9, Glucose Level 106H, Calcium Level 8.7, Corrected Calcium 9.3, Total Bilirubin 0.6, Aspartate Amino Transf (AST/SGOT) 26, Alanine Aminotransferase (ALT/SGPT) 20, Alkaline Phosphatase 70, Total Protein 5.6L, Albumin 3.2 05/20/22 05:45: Glucometer 100 Microbiology 05/14/22 MRSA Screen - Final, Complete MRSA not isolated Assessment/Plan Assessment/Plan Assess & Plan/Chief Complaint 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 Hematochezia Acute post-op blood loss Anemia Hx of colorectal polyps Hx of gastric polyps HLD DM requiring insulin Diverticulosis Internal hemorrhoids Chronic gastritis BRCA + Obesity - BMI 30.7 Iron deficiency Advanced to soft foods last night, tolerating well Received 1 unit of PRBCs yesterday, Hg 8.9 this morning, will continue to monitor IV Iron infusions - receiving second infusion today, will receive rest outpatient B12 supplementation Continue to monitor glucose levels, adjust insulin dosage as needed Pain control as needed, currently well-controlled Encouraged patient to continue ambulating as tolerated Encouraged patient to continue using IS Continue to work with PT Counseled on the benefits of weight loss JESSA ORTEGA DO 05/21/22 0516: Supervisory-Addendum Brief Verification & Attestation Participated in pt care: history, MDM, physical Personally performed: exam, history, MDM, supervision of care Care discussed with: Medical Student Procedures: n/a Results interpretation: Verified all documentation Verification and Attestation of Medical Student E/M Service A medical student performed and documented this service in my presence. I reviewed and verified all information documented by the medical student and made modifications to such information, when appropriate. I personally performed the physical exam and medical decision making. Jessa Ortega, May 21, 2022,05:16 BRITTANI SAUCEDA May 20, 2022 10:06 JESSA ORTEGA DO May 21, 2022 05:16
[2022-05-20 11:05] VITALS: BP 127/78
[2022-05-20 13:58] VITALS: BP 127/78
--- NOTE | 2022-05-20 19:51 | Discharge Summary ---
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 Hematochezia Acute post-op blood loss Anemia Hx of colorectal polyps Hx of gastric polyps HLD DM requiring insulin Diverticulosis Internal hemorrhoids Chronic gastritis BRCA + Obesity - BMI 30.7 Currently on clears Transfuse 1 unit of PRBCs, continue to monitor Hg and transfuse as needed IV Iron supplementation B12 supplementation Continue to monitor glucose levels, adjust insulin dosage as needed Pain control as needed, currently well-controlled Encouraged patient to continue ambulating as tolerated Encouraged patient to continue using IS Continue to work with PT Counseled on the benefits of weight loss Discharge Summary Discharge Physical Examination Allergies: Coded Allergies: latex (Verified Allergy, Unknown, 05/14/22) Vitals & I&Os Vital Signs Date Time Temp Pulse Resp B/P (MAP) Pulse Ox O2 Delivery O2 Flow Rate FiO2 05/20/22 13:58 36.7 95 20 127/78 94 Room Air 05/20/22 08:34 2.00 General Appearance: Alert, Oriented X3, Cooperative Respiratory: Clear to Auscultation Cardiovascular: Regular Rate Psych/Mental Status: Mental Status NL Hospital Course Was the Problem List Reviewed?: Yes Patient is a 57-year-old female with a history of gastric polyps, colorectal polyps, and a family history of colorectal cancer who was admitted 05/14 after under going a right colectomy. The patient had a colonoscopy done on 04/07 that revealed a large polyp with high-grade dysplasia. The morning following the surgery the patient was doing well and her only complaint was of some mild incisional pain and soreness in her lower abdomen and the patient was started on soft foods. That evening, the patient began passing large amounts of hematochezia and her BP dropped to 95/65. The patient at this time began feeling light-headed, weak, lethargic, and had near-syncopal episodes when standing to use the restroom. The patient was returned to [facility] and over the next few days she had episodes of melena but no further episodes of bright red blood and was managed conservatively. Her Hg was measured at 7.1 on 05/18 and 7.4 on 05/19 and the patient had significant pallor. She was given one unit of PRBCs and started on iron infusions and B12 supplementation. The patient also had some high glucose readings during her stay, up to 319, her insulin dosage was adjusted and her readings have been much more within normal range for the patient. This morning she is awake and alert in her bed and reports that she is feeling much improved overall, and her pallor has significantly improved. She reports that she has been passing flatus, but no BM today or last night. She has very mild soreness in her lower abdomen that is well-controlled with her current medications. She was started on soft foods last night and did not have much of an appetite but tolerated the transition well. She will receive a second iron infusion today and will follow outpatient to complete her last 3 infusions. After she is discharged, she will follow up outpatient with Dr. Ortega and will have her iron levels checked, they were found to be low during her stay at 25. The patient has no new complaints and feels much improved today. Labs (last 24 hrs) Laboratory Tests 05/14/22 13:07: Glucometer 190H 05/14/22 20:34: Glucometer 314H 05/15/22 05:16: Glucometer 225H 05/15/22 05:40: White Blood Count 11.7H, Red Blood Count 4.15, Hemoglobin 12.2, Hematocrit 35, Mean Corpuscular Volume 85, Mean Corpuscular Hemoglobin 29, Mean Corpuscular Hemoglobin Concent 35, Red Cell Distribution Width 13.2, Platelet Count 270, Mean Platelet Volume 9.5, Immature Granulocyte % (Auto) 0, Neutrophils (%) (Auto) 80H, Lymphocytes (%) (Auto) 13, Monocytes (%) (Auto) 7, Eosinophils (%) (Auto) 0, Basophils (%) (Auto) 0, Neutrophils # (Auto) 9.3H, Lymphocytes # (Auto) 1.5, Monocytes # (Auto) 0.8, Eosinophils # (Auto) 0.0, Basophils # (Auto) 0.0, Immature Granulocyte # (Auto) 0.0, Sodium Level 138, Potassium Level 3.7, Chloride Level 106, Carbon Dioxide Level 20L, Anion Gap 12, Blood Urea Nitrogen 12, Creatinine 0.78, Estimat Glomerular Filtration Rate 90, BUN/Creatinine Ratio 15, Glucose Level 245H, Calcium Level 9.3, Corrected Calcium 9.6, Total Bilirubin 0.5, Aspartate Amino Transf (AST/SGOT) 50H, Alanine Aminotransferase (ALT/SGPT) 62H, Alkaline Phosphatase 73, Total Protein 6.2L, Albumin 3.6 05/15/22 11:04: Glucometer 206H 05/15/22 15:50: Glucometer 150H 05/15/22 20:03: Glucometer 138H 05/16/22 05:10: White Blood Count 11.8H, Red Blood Count 3.20L, Hemoglobin 9.4#L, Hematocrit 28L , Mean Corpuscular Volume 88, Mean Corpuscular Hemoglobin 29, Mean Corpuscular Hemoglobin Concent 34, Red Cell Distribution Width 13.5, Platelet Count 252, Mean Platelet Volume 10.3, Immature Granulocyte % (Auto) 0, Neutrophils (%) (Auto) 82H, Lymphocytes (%) (Auto) 11L, Monocytes (%) (Auto) 7, Eosinophils (%) (Auto) 0, Basophils (%) (Auto) 1, Neutrophils # (Auto) 9.7H, Lymphocytes # (Auto) 1.2, Monocytes # (Auto) 0.8, Eosinophils # (Auto) 0.0, Basophils # (Auto) 0.1, Immature Granulocyte # (Auto) 0.0, Sodium Level 138, Potassium Level 3.5L, Chloride Level 106, Carbon Dioxide Level 19L, Anion Gap 13, Blood Urea Nitrogen 15, Creatinine 0.81, Estimat Glomerular Filtration Rate 86, BUN/Creatinine Ratio 19, Glucose Level 319H, Calcium Level 8.2L, Corrected Calcium 8.9, Total Bilirubin 0.6, Aspartate Amino Transf (AST/SGOT) 28, Alanine Aminotransferase (A LT/SGPT) 39, Alkaline Phosphatase 61, Total Protein 5.4L, Albumin 3.1L 05/16/22 05:49: Glucometer 302H 05/16/22 11:08: Glucometer 276H 05/16/22 15:06: Glucometer 183H 05/16/22 20:10: Glucometer 250H 05/17/22 05:16: Glucometer 136H 05/17/22 05:44: White Blood Count 9.6, Red Blood Count 2.65L, Hemoglobin 7.8L, Hematocrit 23L, Mean Corpuscular Volume 88, Mean Corpuscular Hemoglobin 29, Mean Corpuscular Hem oglobin Concent 33, Red Cell Distribution Width 13.3, Platelet Count 227, Mean Platelet Volume 9.8, Immature Granulocyte % (Auto) 0, Neutrophils (%) (Auto) 54, Lymphocytes (%) (Auto) 34, Monocytes (%) (Auto) 8, Eosinophils (%) (Auto) 2, Basophils (%) (Auto) 1, Neutrophils # (Auto) 5.2, Lymphocytes # (Auto) 3.3, Monocytes # (Auto) 0.8, Eosinophils # (Auto) 0.2, Basophils # (Auto) 0.1, Immature Granulocyte # (Auto) 0.0, Sodium Level 140, Potassium Level 3.2L, Chloride Level 107, Carbon Dioxide Level 25, Anion Gap 8, Blood Urea Nitrogen 12, Creatinine 0.65, Estimat Glomerular Filtration Rate 104, BUN/Creatinine Rat io 18, Glucose Level 136H, Calcium Level 8.6, Corrected Calcium 9.4, Total Bilirubin 0.5, Aspartate Amino Transf (AST/SGOT) 16, Alanine Aminotransferase (ALT/SGPT) 27, Alkaline Phosphatase 55, Total Protein 5.4L, Albumin 3.0L 05/17/22 15:10: White Blood Count 10.5, Red Blood Count 2.78L, Hemoglobin 8.1L, Hematocrit 25L, Mean Corpuscular Volume 89, Mean Corpuscular Hemoglobin 29, Mean Corpuscular Hemoglobin Concent 33, Red Cell Distribution Width 13.3, Platelet Count 248, Mean Platelet Volume 9.8 05/18/22 05:35: Hemoglobin 7.1L, Hematocrit 22L, Sodium Level 139, Potassium Level 3.2L, Chloride Level 106, Carbon Dioxide Level 23, Anion Gap 10, Blood Urea Nitrogen 9, Creatinine 0.59L, Estimat Glomerular Filtration Rate 106, BUN/Creatinine Ratio 15, Glucose Level 100, Calcium Level 8.3L, Magnesium Level 1.8 05/18/22 17:51: White Blood Count 11.7H, Red Blood Count 2.77L, Hemoglobin 8.0L, Hematocrit 24L, Mean Corpuscular Volume 88, Mean Corpuscular Hemoglobin 29, Mean Corpuscular Hemoglobin Concent 33, Red Cell Distribution Width 13.4, Platelet Count 289, Mean Platelet Volume 9.4 05/19/22 05:21: Hemoglobin 7.4L, Hematocrit 23L, Sodium Level 140, Potassium Level 3.6, Chloride Level 105, Carbon Dioxide Level 22, Anion Gap 13, Blood Urea Nitrogen 7, Creatinine 0.67, Estimat Glomerular Filtration Rate 103, BUN/Creatinine Ratio 10, Glucose Level 145H, Calcium Level 8.7 05/19/22 05:29: White Blood Count 10.0, Red Blood Count 2.57L, Hemoglobin 7.4L, Hematocrit 23L, Mean Corpuscular Volume 90, Mean Corpuscular Hemoglobin 29, Mean Corpuscular Hemoglobin Concent 32, Red Cell Distribution Width 13.4, Platelet Count 317, Mean Platelet Volume 9.8, Immature Granulocyte % (Auto) 1, Neutrophils (%) (Aut o) 58, Lymphocytes (%) (Auto) 25, Monocytes (%) (Auto) 7, Eosinophils (%) (Auto) 9, Basophils (%) (Auto) 1, Neutrophils # (Auto) 5.8, Lymphocytes # (Auto) 2.5, Monocytes # (Auto) 0.7, Eosinophils # (Auto) 0.9H, Basophils # (Auto) 0.1, Immature Granulocyte # (Auto) 0.1, Iron Level 25L, Total Bilirubin 0.5, Direct Bilirubin 0.3, Indirect Bilirubin 0.2, Aspartate Amino Transf (AST/SGOT) 26, Alanine Aminotransferase (ALT/SGPT) 25, Alkaline Phosphatase 62, Total Protein 5.9L, Albumin 3.2, Vitamin B12 Level 580 05/19/22 14:42: Glucometer 122H 05/19/22 20:01: Glucometer 103 05/20/22 05:24: White Blood Count 10.4, Red Blood Count 3.11L, Hemoglobin 8.9#L, Hematocrit 27L, Mean Corpuscular Volume 87, Mean Corpuscular Hemoglobin 29, Mean Corpuscular Hemoglobin Concent 33, Red Cell Distribution Width 13.8, Platelet Count 306, Mean Platelet Volume 9.6, Immature Granulocyte % (Auto) 2, Neutrophils (%) (Auto) 54, Lymphocytes (%) (Auto) 26, Monocytes (%) (Auto) 7, Eosinophils (%) (Auto) 10, Basophils (%) (Auto) 1, Neutrophils # (Auto) 5.6, Lymphocytes # (Auto) 2.7, Monocytes # (Auto) 0.8, Eosinophils # (Auto) 1.0H, Basophils # (Auto) 0.1, Immature Granulocyte # (Auto) 0.2H, Sodium Level 143, Potassium Level 3.4L, Chloride Level 107, Carbon Dioxide Level 23, Anion Gap 13, Blood Urea Nitrogen 6L, Creatinine 0.67, Estimat Glomerular Filtration Rate 103, BUN/Creatinine Ratio 9, Glucose Level 106H, Calcium Level 8.7, Corrected Calcium 9.3, Total Bilirubin 0.6, Aspartate Amino Transf (AST/SGOT) 26, Alanine Aminotransferase (ALT/SGPT) 20, Alkaline Phosphatase 70, Total Protein 5.6L, Albumin 3.2 05/20/22 05:45: Glucometer 100 05/20/22 10:44: Glucometer 140H 05/20/22 13:27: Lab Scanned Report Transfusion Reaction Form Microbiology 05/14/22 MRSA Screen - Final, Complete MRSA not isolated Pending Labs Microbiology Date/Time Source Procedure Growth Status 05/14/22 10:25 Nasal MRSA Screen - Final MRSA not isolated Complete Laboratory Tests 05/14/22 13:07: Glucometer 190 05/14/22 20:34: Glucometer 314 05/15/22 05:16: Glucometer 225 05/15/22 05:40: White Blood Count 11.7, Red Blood Count 4.15, Hemoglobin 12.2, Hematocrit 35, Mean Corpuscular Volume 85, Mean Corpuscular Hemoglobin 29, Mean Corpuscular Hemoglobin Concent 35, Red Cell Distribution Width 13.2, Platelet Count 270, Mean Platelet Volume 9.5, Immature Granulocyte % (Auto) 0, Neutrophils (%) (Auto) 80, Lymphocytes (%) (Auto) 13, Monocytes (%) (Auto) 7, Eosinophils (%) (Auto) 0, Basophils (%) (Auto) 0, Neutrophils # (Auto) 9.3, Lymphocytes # (Auto) 1.5, Monocytes # (Auto) 0.8, Eosinophils # (Auto) 0.0, Basophils # (Auto) 0.0, Immature Granulocyte # (Auto) 0.0, Sodium Level 138, Potassium Level 3.7, Chloride Level 106, Carbon Dioxide Level 20, Anion Gap 12, Blood Urea Nitrogen 12, Creatinine 0.78, Estimat Glomerular Filtration Rate 90, BUN/Creatinine Ratio 15, Glucose Level 245, Calcium Level 9.3, Corrected Calcium 9.6, Total Bilirubin 0.5, Aspartate Amino Transf (AST/SGOT) 50, Alanine Aminotransferase (ALT/SGPT) 62, Alkaline Phosphatase 73, Total Protein 6.2, Albumin 3.6 05/15/22 11:04: Glucometer 206 05/15/22 15:50: Glucometer 150 05/15/22 20:03: Glucometer 138 05/16/22 05:10: White Blood Count 11.8, Red Blood Count 3.20, Hemoglobin 9.4, Hematocrit 28, Mean Corpuscular Volume 88, Mean Corpuscular Hemoglobin 29, Mean Corpuscular Hemoglobin Concent 34, Red Cell Distribution Width 13.5, Platelet Count 252, Mean Platelet Volume 10.3, Immature Granulocyte % (Auto) 0, Neutrophils (%) (Auto) 82, Lymphocytes (%) (Auto) 11, Monocytes (%) (Auto) 7, Eosinophils (%) (Auto) 0, Basophils (%) (Auto) 1, Neutrophils # (Auto) 9.7, Lymphocytes # (Auto) 1.2, Monocytes # (Auto) 0.8, Eosinophils # (Auto) 0.0, Basophils # (Auto) 0.1, Immature Granulocyte # (Auto) 0.0, Sodium Level 138, Potassium Level 3.5, Chloride Level 106, Carbon Dioxide Level 19, Anion Gap 13, Blood Urea Nitrogen 15, Creatinine 0.81, Estimat Glomerular Filtration Rate 86, BUN/Creatinine Ratio 19, Glucose Level 319, Calcium Level 8.2, Corrected Calcium 8.9, Total Bilirubin 0.6, Aspartate Amino Transf (AST/SGOT) 28, Alanine Aminotransferase (ALT/SGPT) 39, Alkaline Phosphatase 61, Total Protein 5.4, Albumin 3.1 05/16/22 05:49: Glucometer 302 05/16/22 11:08: Glucometer 276 05/16/22 15:06: Glucometer 183 05/16/22 20:10: Glucometer 250 05/17/22 05:16: Glucometer 136 05/17/22 05:44: White Blood Count 9.6, Red Blood Count 2.65, Hemoglobin 7.8, Hematocrit 23, Mean Corpuscular Volume 88, Mean Corpuscular Hemoglobin 29, Mean Corpuscular Hemoglobin Concent 33, Red Cell Distribution Width 13.3, Platelet Count 227, Mean Platelet Volume 9.8, Immature Granulocyte % (Auto) 0, Neutrophils (%) (Auto) 54, Lymphocytes (%) (Auto) 34, Monocytes (%) (Auto) 8, Eosinophils (%) (Auto) 2, Basophils (%) (Auto) 1, Neutrophils # (Auto) 5.2, Lymphocytes # (Auto) 3.3, Monocytes # (Auto) 0.8, Eosinophils # (Auto) 0.2, Basophils # (Auto) 0.1, Immature Granulocyte # (Auto) 0.0, Sodium Level 140, Potassium Level 3.2, Chloride Level 107, Carbon Dioxide Level 25, Anion Gap 8, Blood Urea Nitrogen 12, Creatinine 0.65, Estimat Glomerular Filtration Rate 104, BUN/Creatinine Ratio 18, Glucose Level 136, Calcium Level 8.6, Corrected Calcium 9.4, Total Bilirubin 0.5, Aspartate Amino Transf (AST/SGOT) 16, Alanine Aminotransferase (ALT/SGPT) 27, Alkaline Phosphatase 55, Total Protein 5.4, Albumin 3.0 05/17/22 15:10: White Blood Count 10.5, Red Blood Count 2.78, Hemoglobin 8.1, Hematocrit 25, Mean Corpuscular Volume 89, Mean Corpuscular Hemoglobin 29, Mean Corpuscular Hemoglobin Concent 33, Red Cell Distribution Width 13.3, Platelet Count 248, Mean Platelet Volume 9.8 05/18/22 05:35: Hemoglobin 7.1, Hematocrit 22, Sodium Level 139, Potassium Level 3.2, Chloride Level 106, Carbon Dioxide Level 23, Anion Gap 10, Blood Urea Nitrogen 9, Creatinine 0.59, Estimat Glomerular Filtration Rate 106, BUN/Creatinine Ratio 15, Glucose Level 100, Calcium Level 8.3, Magnesium Level 1.8 05/18/22 17:51: White Blood Count 11.7, Red Blood Count 2.77, Hemoglobin 8.0, Hematocrit 24, Mean Corpuscular Volume 88, Mean Corpuscular Hemoglobin 29, Mean Corpuscular Hemoglobin Concent 33, Red Cell Distribution Width 13.4, Platelet Count 289, Mean Platelet Volume 9.4 05/19/22 05:21: Hemoglobin 7.4, Hematocrit 23, Sodium Level 140, Potassium Level 3.6, Chloride Level 105, Carbon Dioxide Level 22, Anion Gap 13, Blood Urea Nitrogen 7, Creatinine 0.67, Estimat Glomerular Filtration Rate 103, BUN/Creatinine Ratio 10, Glucose Level 145, Calcium Level 8.7 05/19/22 05:29: White Blood Count 10.0, Red Blood Count 2.57, Hemoglobin 7.4, Hematocrit 23, Mean Corpuscular Volume 90, Mean Corpuscular Hemoglobin 29, Mean Corpuscular Hemoglobin Concent 32, Red Cell Distribution Width 13.4, Platelet Count 317, Mean Platelet Volume 9.8, Immature Granulocyte % (Auto) 1, Neutrophils (%) (Auto) 58, Lymphocytes (%) (Auto) 25, Monocytes (%) (Auto) 7, Eosinophils (%) (Auto) 9, Basophils (%) (Auto) 1, Neutrophils # (Auto) 5.8, Lymphocytes # (Auto) 2.5, Monocytes # (Auto) 0.7, Eosinophils # (Auto) 0.9, Basophils # (Auto) 0.1, Immature Granulocyte # (Auto) 0.1, Iron Level 25, Total Bilirubin 0.5, Direct Bi lirubin 0.3, Indirect Bilirubin 0.2, Aspartate Amino Transf (AST/SGOT) 26, Alanine Aminotransferase (ALT/SGPT) 25, Alkaline Phosphatase 62, Total Protein 5.9, Albumin 3.2, Vitamin B12 Level 580 05/19/22 14:42: Glucometer 122 05/19/22 20:01: Glucometer 103 05/20/22 05:24: White Blood Count 10.4, Red Blood Count 3.11, Hemoglobin 8.9, Hematocrit 27, Mean Corpuscular Volume 87, Mean Corpuscular Hemoglobin 29, Mean Corpuscular Hemoglobin Concent 33, Red Cell Distribution Width 13.8, Platelet Count 306, Mean Platelet Volume 9.6, Immature Granulocyte % (Auto) 2, Neutrophils (%) (Auto) 54, Lymphocytes (%) (Auto) 26, Monocytes (%) (Auto) 7, Eosinophils (%) (Auto) 10, Basophils (%) (Auto) 1, Neutrophils # (Auto) 5.6, Lymphocytes # (Auto) 2.7, Monocytes # (Auto) 0.8, Eosinophils # (Auto) 1.0, Basophils # (Auto) 0.1, Immature Granulocyte # (Auto) 0.2, Sodium Level 143, Potassium Level 3.4, Chloride Level 107, Carbon Dioxide Level 23, Anion Gap 13, Blood Urea Nitrogen 6, Creatinine 0.67, Estimat Glomerular Filtration Rate 103, BUN/Creatinine Ratio 9, Glucose Level 106, Calcium Level 8.7, Corrected Calcium 9.3, Total Bilirubin 0.6, Aspartate Amino Transf (AST/SGOT) 26, Alanine Aminotransferase (ALT/SGPT) 20, Alkaline Phosphatase 70, Total Protein 5.6, Albumin 3.2 05/20/22 05:45: Glucometer 100 05/20/22 10:44: Glucometer 140 05/20/22 13:27: Lab Scanned Report Transfusion Reaction Form Discharge Home Medications: Active Scripts Active Venofer (Iron Sucrose Complex) 200 Mg Iron/10 Ml Vial 200 Mg IV Q48H start 05/26/22 every other day for 3 doses Vitamin B-12 (Cyanocobalamin (Vitamin B-12)) 1,000 Mcg Tablet 1,000 Mcg PO DAILY@0700 HYDROcodone/APAP 10/325 TABLET (Acetaminophen/Hydrocodone Bitart) 1 Ea Tab 1 Ea PO Q6H PRN Levemir Flextouch (Insulin Detemir) 100 Unit/Ml (3 Ml) Insuln.pen 20 Unit SQ HS 7 Days Insulin Aspart Flexpen (Insulin Aspart) 100 Unit/Ml (3 Ml) Insuln.pen 13 Units SC AC 7 Days Reported Vitamin D3 (Cholecalciferol (Vitamin D3)) 50 Mcg (2000 Unit) Capsule 50 Mcg PO DAILY Flonase Allergy Relief (Fluticasone Propionate) 50 Mcg/Actuation [place].susp 1-2 Sprays NSEACH HS Cetirizine HCl 10 Mg Tablet 10 Mg PO DAILY [place]-3 Acid Ethyl Esters 1 Gram Capsule 2 Gm PO BID TAKES 2 (1GM) CAPS Pantoprazole Sodium 40 Mg Tablet.dr 40 Mg PO DAILY Potassium Chloride 10 Meq Tab.er.prt 10 Meq PO DAILY Fenofibrate (Fenofibrate Nanocrystallized) 48 Mg Tablet 48 Mg PO DAILY Allopurinol 300 Mg Tablet 300 Mg PO DAILY Atorvastatin Calcium 10 Mg Tablet 10 Mg PO DAILY Instructions to patient/family Please see electronic discharge instructions given to patient. SARAH ORTEGA DO May 20, 2022 19:51
== END 2022-05-20 14:00 | disposition home or self-care (01) | DRG 330 ==
LOC: 4TH 09:56 → SURG 09:57 → 4TH 14:00
PROVIDERS: ADMIT Surgery; ATTEND Surgery
PROC: 0DBB0ZZ Excision of Ileum, Open Approach (ICD-10-PCS; 2022-05-14)
PROC: 0DBK0ZZ Excision of Ascending Colon, Open Approach (ICD-10-PCS; 2022-05-14)
PROC: 0DTH0ZZ Resection of Cecum, Open Approach (ICD-10-PCS; principal; 2022-05-14 11:43)
DX: D12.0 Benign neoplasm of cecum (principal); D62 Acute posthemorrhagic anemia; K92.1 Melena; E11.9 Type 2 diabetes mellitus without complications; E78.00 Pure hypercholesterolemia, unspecified; I10 Essential (primary) hypertension; K29.50 Unspecified chronic gastritis without bleeding; K21.00 Gastro-esophageal reflux disease with esophagitis, without bleeding; K44.9 Diaphragmatic hernia without obstruction or gangrene; K57.90 Diverticulosis of intestine, part unspecified, without perforation or abscess without bleeding; K64.0 First degree hemorrhoids; E66.9 Obesity, unspecified; Z68.30 Body mass index [BMI] 30.0-30.9, adult; E87.6 Hypokalemia; Z15.01 Genetic susceptibility to malignant neoplasm of breast; Z15.09 Genetic susceptibility to other malignant neoplasm; Z80.0 Family history of malignant neoplasm of digestive organs; Z79.82 Long term (current) use of aspirin; Z79.4 Long term (current) use of insulin; Z79.52 Long term (current) use of systemic steroids
CPT/HCPCS: 36415; 80048; 80053; 80076; 82607; 82947; 83540; 83735; 85014; 85018; 85025; 85027; 86850; 86900; 86901; 86920; 87081; 88309; 94760

== ENCOUNTER → 2022-05-28 | Outpatient (RCR) | payer BC ==
[2022-05-26] MEDS: IRON SUCROSE 200 MG/10 ML (VENOFER) VIAL IV SCH (13:31)
[2022-05-26 13:33] VITALS: BP 130/74
[~2022-05-28] VITALS: Wt 89.0 kg
[~2022-05-28] MED LIST changes: +ACHYD1T PO; +ALLO300T2 PO; +BENA1TAB PO; +CETI10TA17 PO; +CHOL200074 PO; +CYAN-41 PO; +EXEN2AUT IJ; +FENO48TA11 PO; +FLUT9.9S NSEACH; +INSU100I29 SC; +INSU100I29 SQ; +INSU100I55 SC; +IRON100V2 IV; +METF-865 PO; +OMEG-218 PO; +PANT40TA52 PO; +POTA-177 PO
[2022-05-28 13:10] VITALS: BP 135/70
[2022-05-28] MEDS: IRON SUCROSE 200 MG/10 ML (VENOFER) VIAL IV SCH (13:47)
== END | disposition home or self-care (01) ==
LOC: SDC 05-26 13:07
PROVIDERS: ATTEND Internal Medicine
DX: Z01.89 Encounter for other specified special examinations (principal)
CPT/HCPCS: 96365

== ENCOUNTER 2022-05-30 12:58 | Outpatient (RCR) | payer BC ==
[2022-05-30] MEDS ORDERED: IRON SUCROSE 200 MG/10 ML (VENOFER) VIAL IV SCH (13:30)
[2022-05-30 13:34] VITALS: BP 120/68
== END 2022-06-28 | disposition home or self-care (01) ==
LOC: SDC 12:58
PROVIDERS: ATTEND Internal Medicine
DX: Z01.89 Encounter for other specified special examinations (principal)
CPT/HCPCS: 96365

== ENCOUNTER → 2022-11-26 | Outpatient (CLI) | payer BC ==
[~2022-11-26] MED LIST changes: -INSU100I29 SC; -INSU100I29 SQ; +INSU100I30 SC; +INSU100I30 SQ; +POTA10CA44 PO
--- NOTE | 2022-11-26 10:59 | Diagnostic Imaging Report ---
INDICATION: Routine screening. COMPARISON: 11/20/2021 and 11/19/2020. TECHNIQUE: 2D and 3D bilateral screening mammography was performed with CAD. FINDINGS: Both breasts are heterogeneously dense, limiting the sensitivity of mammography. The parenchymal pattern is stable. No mass or malignant-appearing microcalcifications are seen. There are benign calcifications bilaterally. The axillae are unremarkable. IMPRESSION: No mammographic features suspicious for malignancy are identified. ACR BI-RADS Category 2: Benign findings. Result letter will be mailed to the patient. Note: At least 10% of breast cancer is not imaged by mammography. Dictated by: Dictated on workstation # [id number]
== END ==
LOC: RAD 07:38
PROVIDERS: ATTEND Internal Medicine
DX: Z12.31 Encounter for screening mammogram for malignant neoplasm of breast (principal)
CPT/HCPCS: 77063; 77067